=== PATIENT | male | born 1950 | race Caucasian/White ===

== ENCOUNTER 2022-07-12 17:09 | Emergency (ER) | payer SELFPAY ==
--- NOTE | ~2022-07-12 | CT_ITS ---
EXAMINATION: CT HEAD WITHOUT CONTRAST CLINICAL INFORMATION: New onset seizure. COMPARISON: None. TECHNIQUE: Contiguous axial imaging was performed from the skull base to vertex without intravenous administration of contrast. This CT examination was performed using dose optimization techniques as appropriate, variously including the following: *Automated exposure control *Adjustment of mA and/or kV according to patient size (this includes techniques or standardized protocols for targeted exams where dose is matched to indication/reason for exam; i.e. extremities or head) *Use of iterative reconstruction technique DLP: 578 mGy-cm FINDINGS: There is no evidence of acute intracranial hemorrhage or edematous territorial infarction. A few foci of hypoattenuation in the periventricular and deep white matter are consistent with mild microangiopathy. Negron-white matter differentiation is preserved. Proportional prominence of the ventricles and sulcal spaces. No evidence for obstructive hydrocephalus. No abnormal mass effect or midline shift. No extra-axial fluid collections. No acute soft tissue or osseous abnormalities. The mastoid air cells and paranasal sinuses are clear. There is opacification of the left greater than right external auditory canals. CT/CT head/brain wo IV con IMPRESSION: 1. No evidence of acute intracranial hemorrhage or edematous territorial infarction. 2. Mild chronic microangiopathy and generalized cerebral volume loss. 3. Opacification of the external auditory canals, likely related with cerumen. Correlate with physical examination.
--- NOTE | 2022-07-12 17:21 | ED.OVERDOSE ---
HPI - Overdose General Chief Complaint: Overdose Stated Complaint: Unresponsive, Narcan Given Time Seen by Provider: 07/12/22 17:19 Source: family and EMS Mode of arrival: EMS History of Present Illness HPI Narrative: Patient is 71 years old with history of dementia brought by EMS for unresponsive episode pulse ox in 70s, thought to be overdose given Narcan with response. According to patient's son phone number [phone] patient has severe dementia does not talk much was doing okay all day today went to bathroom came out and body got stiff with ice up rolled and started having shaking episode denies possibility of any substance abuse. No head injury no history of similar episode in the past. Related Data Allergies Allergy/AdvReac Type Severity Reaction Status Date / Time aspirin [Aspirin] AdvReac Unknown UPSET Unverified 06/19/20 16:40 STOMACH Review of Systems Review of Systems: Limited HPI secondary dementia Yes Unobtainable due to mental status Physical Exam Vital Signs: Vital Signs: Last Vital Signs Temp 97.7 F 07/12/22 17:33 Pulse 90 07/12/22 17:33 Resp 16 07/12/22 17:33 BP 138/81 07/12/22 17:33 Pulse Ox 96 07/12/22 17:33 O2 Del Method 07/12/22 17:33 O2 Flow Rate 2 07/12/22 17:33 BMI result Body Mass Index 23.4 MDM - Overdose MDM Narrative Medical decision making narrative: Case discussed with patient's son phone number [phone]: Patient lab workup showed urine drug screen positive for fentanyl and opiates. On further discussion son told that patient went outside with his friends at a bar an hour prior to this episode when he came back he went to bathroom and came out on the bathroom was looking pale shallow breath and passed out pulse ox was 70% on EMS arrival. Patient's symptoms improved after Narcan. At this time patient is back to normal talking to his son will discharge patient home Differential Diagnosis Differential diagnosis: Likely poisoning by opiate or related narcotic and drug overdose Lab Data Attestation: I reviewed the patient's lab results. Result diagrams: 07/12/22 18:55 07/12/22 18:55 Labs: Lab Results 07/12/22 07/12/22 07/12/22 Range/Units 18:55 18:55 18:56 WBC 11.2 H (4.8-10.8) X10*3/uL RBC 4.92 (4.60-5.80) X10*6/uL Hgb 15.0 (14.0-18.0) g/dl Hct 45.5 (42.0-52.0) % MCV 92.5 (80.0-98.0) fL MCH 30.5 (27.0-33.0) pg MCHC 33.0 (31.0-36.0) g/dl RDW 13.2 (11.0-16.0) % Plt Count 160 (160-400) X10*3/uL MPV 10.5 (9.4-12.4) fL Immature Gran % (Auto) 0.4 (0.0-0.4) % Neut % (Auto) 86.3 H (45-73) % Lymph % (Auto) 6.3 L (20-40) % [place] % (Auto) 6.8 (2-11) % Eos % (Auto) 0.0 (0-4) % Baso % (Auto) 0.2 (0-2) % Lymph # (Auto) 0.7 L (1.2-4.9) X10*3/uL [place] # (Auto) 0.8 (0.1-1.2) X10*3/uL Eos # (Auto) 0.0 (0.0-0.4) X10*3/uL Baso # (Auto) 0.0 (0.0-0.2) X10*3/uL Abs Immat Gran (auto) 0.04 H (0.00-0.03) X10*3/uL Absolute Neuts (auto) 9.7 H (2.0-8.3) x10*3/uL Absolute Nucleated RBC 0.000 (0.0-0.012) X10*3/uL Nucleated RBC % (auto) 0.0 (0.0-0.2) /100WBC Sodium 140 (135-145) mmol/L Potassium 3.4 (3.3-5.1) mmol/L Chloride 101 (96-108) mmol/L Carbon Dioxide 26 (22-29) mmol/L Anion Gap 16 (12-20) BUN 6 L (9-16) mg/dL Creatinine 0.81 (0.5-1.4) mg/dL Estim Creat Clear Calc 79.7 Estimated GFR > 60 Random Glucose 128 H (60-115) mg/dL Calcium 8.2 L (8.4-10.2) mg/dL Magnesium 2.2 (1.6-2.6) mg/dL Total Bilirubin 1.1 H (0.0-1.0) mg/dL AST 24 (5-37) U/L ALT 18 (0-40) U/L Alkaline Phosphatase 67 (39-117) U/L Total Protein 5.8 L (6.5-8.0) g/dL Albumin 3.5 (3.5-5.0) g/dL Urine Color Urine Appearance Urine pH (5.0-9.0) Ur Specific [place] (1.005-1.025) Urine Protein (Neg-Trace) mg/dL Urine Glucose (UA) (Negative) mg/dL Urine Ketones (Negative) mg/dL Urine Blood (Negative) Urine Nitrite (Negative) Ur Leukocyte Esterase (Negative) Urine Opiates Screen (Not Detect) Urine Fentanyl Screen (Not Detect) Ur Barbiturates Screen (Not Detect) Ur Phencyclidine Scrn (Not Detect) Ur Amphetamines Screen (Not Detect) U Benzodiazepines Scrn (Not Detect) Urine Cocaine Screen (Not Detect) U Marijuana (THC) Screen (Not Detect) Ethyl Alcohol < 10 mg/dL COVID-19 (ANNETTE) Negative (Negative) COVID-19 Clin Com See Note 07/12/22 07/12/22 Range/Units 21:32 21:32 WBC (4.8-10.8) X10*3/uL RBC (4.60-5.80) X10*6/uL Hgb (14.0-18.0) g/dl Hct (42.0-52.0) % MCV (80.0-98.0) fL MCH (27.0-33.0) pg MCHC (31.0-36.0) g/dl RDW (11.0-16.0) % Plt Count (160-400) X10*3/uL MPV (9.4-12.4) fL Immature Gran % (Auto) (0.0-0.4) % Neut % (Auto) (45-73) % Lymph % (Auto) (20-40) % [place] % (Auto) (2-11) % Eos % (Auto) (0-4) % Baso % (Auto) (0-2) % Lymph # (Auto) (1.2-4.9) X10*3/uL [place] # (Auto) (0.1-1.2) X10*3/uL Eos # (Auto) (0.0-0.4) X10*3/uL Baso # (Auto) (0.0-0.2) X10*3/uL Abs Immat Gran (auto) (0.00-0.03) X10*3/uL Absolute Neuts (auto) (2.0-8.3) x10*3/uL Absolute Nucleated RBC (0.0-0.012) X10*3/uL Nucleated RBC % (auto) (0.0-0.2) /100WBC Sodium (135-145) mmol/L Potassium (3.3-5.1) mmol/L Chloride (96-108) mmol/L Carbon Dioxide (22-29) mmol/L Anion Gap (12-20) BUN (9-16) mg/dL Creatinine (0.5-1.4) mg/dL Estim Creat Clear Calc Estimated GFR Random Glucose (60-115) mg/dL Calcium (8.4-10.2) mg/dL Magnesium (1.6-2.6) mg/dL Total Bilirubin (0.0-1.0) mg/dL AST (5-37) U/L ALT (0-40) U/L Alkaline Phosphatase (39-117) U/L Total Protein (6.5-8.0) g/dL Albumin (3.5-5.0) g/dL Urine Color Yellow Urine Appearance Clear Urine pH 5.5 (5.0-9.0) Ur Specific [place] 1.025 (1.005-1.025) Urine Protein Negative (Neg-Trace) mg/dL Urine Glucose (UA) Negative (Negative) mg/dL Urine Ketones 40 (Negative) mg/dL Urine Blood Negative (Negative) Urine Nitrite Negative (Negative) Ur Leukocyte Esterase Negative (Negative) Urine Opiates Screen POSITIVE H (Not Detect) Urine Fentanyl Screen POSITIVE H (Not Detect) Ur Barbiturates Screen Not Detected (Not Detect) Ur Phencyclidine Scrn Not Detected (Not Detect) Ur Amphetamines Screen Not Detected (Not Detect) U Benzodiazepines Scrn Not Detected (Not Detect) Urine Cocaine Screen Not Detected (Not Detect) U Marijuana (THC) Screen Not Detected (Not Detect) Ethyl Alcohol mg/dL COVID-19 (ANNETTE) (Negative) COVID-19 Clin Com ECG Data Attestation: I personally reviewed and interpreted this ECG as follows: Interpretation: Normal sinus rhythm heart rate 88 beats per minute baseline abnormality no acute ST changes no acute ischemia Discharge Plan Discharge Clinical Impression: Drug overdose Patient Disposition: Home, Self-Care Instructions: Opioid Use Disorder (ED) Additional Instructions: Your urine drug screen was positive for opiates and fentanyl Do not use drugs Follow with PCP if any concerns
[2022-07-12 17:23] VITALS: BP 132/72; PULSE 105; O2SAT 96
[2022-07-12 17:25] VITALS: PULSE 90; RESP 16; TEMP 36.5; O2SAT 93; BMI 23.4
[2022-07-12 17:33] VITALS: BP 138/81; PULSE 90; RESP 16; TEMP 36.5; O2SAT 96
--- NOTE | 2022-07-12 17:34 | PC.NURSE ---
Patient alert, eyes open, only answering questions but says he doesn't know. Vitals stable, came in shaking, [employer] to bedside for eval.
--- NOTE | 2022-07-12 18:39 | HO.SUDE ---
SUDE Patient is a 71 year old Venezuelan speaking male who presented to [facility] ED via EMS after being found unresponsive and given narcan. Patient was awake and alert when this health underwriter approached. Patient requested a warm blanket for his feet which was provided. When asked what happened before he got here, patient responded I don't know. Patient continued to respond I don't know to all subsequent questions. This health underwriter will meet with patient again prior to discharge to offer support. Encouraged patient to inform staff if he needed anything.
[2022-07-12 19:03] LABS: MANUAL DIFF FLAG NO
[2022-07-12 19:05] LABS: Basophils Percent Auto 0.2 % (0-2); Hematocrit 45.5 % (42.0-52.0); Imm Gran Abs Auto 0.04 X10*3/uL (0.00-0.03); Imm Gran Pct Auto 0.4 % (0.0-0.4); Lymphocytes Absolute Auto 0.7 X10*3/uL (1.2-4.9); Lymphocytes Percent Auto 6.3 % (20-40); Mean Corpuscular Hemoglobin 30.5 pg (27.0-33.0); Mean Corpuscular Volume 92.5 fL (80.0-98.0); Mean Platelet Volume 10.5 fL (9.4-12.4); Monocytes Absolute Auto 0.8 X10*3/uL (0.1-1.2); Monocytes Percent Auto 6.8 % (2-11); Neutrophils Absolute Auto 9.7 x10*3/uL (2.0-8.3); Neutrophils Percent Auto 86.3 % (45-73); Platelet Count 160 X10*3/uL (160-400); Red Blood Count 4.92 X10*6/uL (4.60-5.80); Red Cell Distribution Width 13.2 % (11.0-16.0); White Blood Count 11.2 X10*3/uL (4.8-10.8)
[2022-07-12 19:20] LABS: COVID-19 Test Negative (Negative)
[2022-07-12 19:25] LABS: Alanine Aminotransferase 18 U/L (0-40); Albumin Level 3.5 g/dL (3.5-5.0); Alkaline Phosphatase 67 U/L (39-117); Anion Gap 16 (12-20); Aspartate Amino Transferase 24 U/L (5-37); Bilirubin Total 1.1 mg/dL (0.0-1.0); Blood Urea Nitrogen 6 mg/dL (9-16); Calcium 8.2 mg/dL (8.4-10.2); Carbon Dioxide 26 mmol/L (22-29); Chloride 101 mmol/L (96-108); Creatinine Clr Calc Pharmacy 79.7; Estimated Glomerular Filt Rate > 60; Ethanol < 10 mg/dL; Glucose Random 128 mg/dL (60-115); Magnesium 2.2 mg/dL (1.6-2.6); Potassium 3.4 mmol/L (3.3-5.1); Sodium 140 mmol/L (135-145); Total Protein 5.8 g/dL (6.5-8.0)
--- NOTE | 2022-07-12 19:45 | ECG_ITS ---
Test Reason : OD Blood Pressure : / mmHG Vent. Rate : 000 BPM Atrial Rate : 000 BPM P-R Int : 000 ms QRS Dur : 000 ms QT Int : 000 ms P-R-T Axes : 000 000 000 degrees QTc Int : 000 ms No QRS complexes found, no ECG analysis possible When compared with ECG of 29-MAR-2017 21:11, Current undetermined rhythm precludes rhythm comparison, needs review Referred By: Oli Forbes Electronically Signed By:
[2022-07-12 22:07] LABS: Amphetamine Screen Urine Not Detected (Not Detect); Barbiturates, Urine Not Detected (Not Detect); Benzodiazepines Screen Urine Not Detected (Not Detect); Cannabinoid Screen Urine Not Detected (Not Detect); Cocaine Screen Urine Not Detected (Not Detect); Fentanyl, urine POSITIVE (Not Detect); Opiate Screen Urine POSITIVE (Not Detect); Phencyclidine Screen Urine Not Detected (Not Detect)
[2022-07-12 23:18] LABS: Appearance Urine Clear; Color Urine Yellow; Glucose Urine UA Negative (Negative); Leukocyte Esterase Urine Negative (Negative); Nitrite Urine Negative (Negative); PH 5.5 (5.0-9.0); Specific Gravity - Urine 1.025 (1.005-1.025); Urine Blood Negative (Negative); Urine Ketones 40 mg/dL (Negative); Urine Protein Negative (Neg-Trace)
[2022-07-12 23:27] VITALS: BP 128/76; PULSE 87; RESP 16; TEMP 36.7; O2SAT 99
== END 2022-07-12 23:28 | disposition home or self-care (01) ==
LOC: HO.ED 23:26
PROVIDERS: Emergency Provider Internal Medicine
DX: T40.2X1A Poisoning by other opioids, accidental (unintentional), initial encounter (principal); T40.411A Poisoning by fentanyl or fentanyl analogs, accidental (unintentional), initial encounter; R40.4 Transient alteration of awareness; Y92.039 Unspecified place in apartment as the place of occurrence of the external cause; F03.90 Unspecified dementia, unspecified severity, without behavioral disturbance, psychotic disturbance, mood disturbance, and anxiety; Z20.822 Contact with and (suspected) exposure to COVID-19
CPT/HCPCS: 70450; 80053; 80307; 81003; 82077; 83735; 85025; 87635; 93005; 99284; 99285

== ENCOUNTER 2024-10-28 12:52 | Inpatient (IN) | payer SELFPAY ==
--- NOTE | ~2024-10-28 | CT_ITS ---
CLINICAL HISTORY: ? rll infiltrate sp seizure CT chest without contrast Comparison: CR - XR CHEST 1V - 10/28/24 13:32 EST Findings: The heart is normal size. Mild coronary artery calcification. The visualized thyroid and mediastinum are unremarkable. There is extensive bronchiolar inflammation within the right lung and there is an area of bronchiolar inflammation within the posterior aspect of the left upper lobe. No consolidation or pleural effusion. The visualized upper abdomen is unremarkable. There are thoracic spine electrodes. No acute fracture. IMPRESSION: Bronchiolar inflammation within the bilateral lungs, right much more pronounced than left. This document has been electronically signed by: Disha Falcon MD on 10/28/2024 18:49:45
--- NOTE | ~2024-10-28 | US_ITS ---
CLINICAL HISTORY: New onset seizure, elevated LFTs. US abdomen limited Comparison: CT/SR - CT CHEST WO IV CON - 10/28/24 17:[address]/NH/SR - ABD PELV W IV CON ONLY [id number] - 02/21/17 21:39 EDT Findings: Limited delineation of pancreatic parenchyma. Pancreatic volume loss is present. There are tiny echogenic foci within the distal body of the pancreas with no correlate on CT, most likely artifact. Visualized IVC is unremarkable. There was limited delineation of liver parenchyma. No obvious focal abnormality. The common bile duct was not visualized. Gallbladder was not visualized. The main portal vein is nonvisualized. Right kidney length estimated at 8 cm. No hydronephrosis. Tiny echogenic foci noted within the mid and inferior aspect of the left kidney. These may be artifactual or could represent nonobstructive calculi. No ascites. IMPRESSION: Markedly limited evaluation as above. No obvious acute abnormality. This document has been electronically signed by: Disha Falcon MD on 10/28/2024 17:48:01
--- NOTE | ~2024-10-28 | XR_ITS ---
CLINICAL HISTORY: New onset seizure 1 view chest x-ray Comparison: CR - CHEST 1 VIEW [id number] - 03/29/17 21:43 EDT Findings: Mild prominence of interstitial markings within the right lung. No consolidative process. Heart size is normal. There is a chronic healed fracture of the left clavicle. There is no acute displaced fracture. There are thoracic spine electrodes. IMPRESSION: Mild prominence of interstitial markings within the right lung. An interstitial infiltrate is not excluded. This document has been electronically signed by: Disha Falcon MD on 10/28/2024 14:36:28
--- NOTE | ~2024-10-28 | CT_ITS ---
CLINICAL HISTORY: New onset seizure CT head without contrast Comparison: CT/NC/SR - CT HEAD/BRAIN WO IV CON - 07/12/22 20:22 EDT Findings: Involutional change and nonspecific white matter hypodensity. No intracranial mass, midline shift, hydrocephalus, or acute hemorrhage. Orbits, paranasal sinuses, and mastoid air cells are unremarkable. No skull fracture. Lipoma incidentally noted within the scalp in the left parietal region, without change Impression: 1. No acute findings This document has been electronically signed by: Disha Falcon MD on 10/28/2024 15:09:58
--- NOTE | 2024-10-28 13:15 | ECG_ITS ---
Test Reason : seizures Blood Pressure : */* mmHG Vent. Rate : 63 BPM Atrial Rate : 63 BPM P-R Int : 148 ms QRS Dur : 92 ms QT Int : 420 ms P-R-T Axes : 46 -68 68 degrees QTcB Int : 430 ms Normal sinus rhythm with sinus arrhythmia Left axis deviation Abnormal ECG When compared with ECG of 12-Jul-2022 20:26, No significant changes seen Referred By: Dilia Myrick Electronically Signed By: MERRILL RAZA
[2024-10-28 13:25] VITALS: BP 105/61; BP 107/60; PULSE 77; PULSE 98; RESP 18; TEMP 36.1; O2SAT 99; BMI 20.5
--- NOTE | 2024-10-28 13:26 | ED.SEIZURE ---
HPI - Seizure General Chief Complaint: Seizure Stated Complaint: WIT SZ,NO SZ HX PER EMS Time Seen by Provider: 10/28/24 13:15 Source: patient, family (Son at phone [phone].), EMS and old records reviewed Mode of arrival: EMS Limitations: no limitations History of Present Illness ED Provider: DR. Myrick HPI Narrative: This is a 73-year-old male with history of dementia who lives home with his son mostly independently needs assistance in his daily activity was brought in by EMS for questionable seizure was witnessed by his son this morning, patient normally is none historian secondary to dementia has been cared by his son for the past 20 years, who assist the patient to do most of the daily activity himself. Noticed by his son today that the patient was not responding and have whole body shakiness, stiffness, and rolled his eyes up for few minutes while patient was on bed no reported fall off bed or head injury or trauma, son declined any possibility of using recreational drugs or drinking alcohol. No witnessed head injury. Patient had previous ED visit on 07/12/2022 with similar presentation and was diagnosed with substance abuse. History was obtained from son Shahzad who who also stated that he is his healthcare proxy confirmed that the patient is DNR/DNI. Related Data Allergies Allergy/AdvReac Type Severity Reaction Status Date / Time aspirin [Aspirin] AdvReac Unknown UPSET Verified 10/28/24 13:30 STOMACH Review of Systems Review of Systems: Yes Unobtainable due to mental condition (Chronic dementia) [facility] Past Medical History Medical History WILBUR (acute kidney injury) Social History Social History Advance Directives: No Advance Directives Information Provided: No Do you have a plan to hurt others: No Plan Physical Exam Vital Signs: Vital Signs: Last Vital Signs Temp 97.9 F 10/28/24 17:08 Pulse 84 10/28/24 17:08 Resp 16 10/28/24 17:08 BP 97/53 L 10/28/24 17:08 Pulse Ox 98 10/28/24 17:08 O2 Del Method Room Air 10/28/24 17:08 O2 Flow Rate 15 10/28/24 13:46 BMI result Body Mass Index 20.5 Vital signs have been reviewed and appear to be correct. Blood pressure elevated. Heart rate normal. Respiratory rate normal. Temperature normal. Oxygen saturation normal. Appearance: Alert. Nonverbal, No acute distress. Head: Normal external exam. Normocephalic. Atraumatic. No Davidson signs noted. No raccoon eyes noted Eyes: PERRLA. EOMI. Conjunctiva and sclera normal. Eyelids normal. ENT: TM's Normal. Pharynx normal. Uvula midline. Moist mucous membranes. No trismus noted. No drooling noted. No muffled voice noted. Neck: Normal inspection. Neck supple. FROM. No adenopathy. Thyroid Normal. No meningeal signs. No neck mass noted. CVS: Normal heart rate and rhythm. Heart sound normal. No murmurs noted. Pulses normal throughout. Respiratory: No respiratory distress. Painless inspiration. Breath sounds normal. No wheezes/rales/rhonchi noted. Chest nontender. No accessory muscle usage noted or decreased air movement noted. Abdomen: Soft and nontender. Bowel sounds normal in all 4 quadrants. No distention noted. No organomegaly noted. No visible injury noted. Back: No CVA tenderness. Full range of motion noted. Skin: Skin warm and dry. Normal skin color. Normal skin turgor. No rashes/lesions/lacerations noted. Extremities: No lower extremity edema. Extremities exhibit normal range of motion. Extremities nontender. Neuro: Limited due to patient is not cooperative. Cranial nerve exam: II-XII are grossly intact No motor deficit. No sensory deficit. Reflexes normal. Course Reevaluation(s) Reevaluation #1: Patient was witnessed by ED staff for few minutes of generalized seizure with postictal status patient was given 2 mg of Ativan and loaded with Keppra in the ED. Time: 14:09 Reevaluation #2: New onset seizure, patient was loaded with Keppra IV in the ED, neuro exam is limited secondary to dementia. Will admit the patient for workup of new onset seizure. Time: 15:39 Reevaluation #3: LFTs elevation with unremarkable but limited hepatobiliary ultrasound. Time: 17:58 Medications Administered Generic Name Dose Route Start Last Admin Trade Name Freq PRN Reason Stop Dose Admin Sodium Chloride 1,000 mls @ 999 mls/hr 10/28/24 17:00 10/28/24 17:08 Ns IV 10/28/24 18:00 999 mls/hr .Q1H1M WALKER Administration Discontinued Medications Generic Name Dose Route Start Last Admin Trade Name Freq PRN Reason Stop Dose Admin Levetiracetam 1,000 mg in 100 mls @ 400 mls/hr 10/28/24 13:44 10/28/24 15:00 Keppra IV 10/28/24 13:58 Infused ONCE ONE Infusion Lorazepam 2 mg 10/28/24 13:44 10/28/24 13:46 Lorazepam 2 Mg/Ml Vial IVPUSH 10/28/24 13:45 2 mg ONCE ONE Administration Medical Decision Making Differential Diagnosis Differential Diagnoses: The differential diagnosis associated with the presentation includes (Intracranial bleed, new onset seizure, electrolyte derangement, severe anemia, substance abuse.) Admission/Observation Consideration of admission/observation: Escalation of care including admission/observation considered Consult Healthcare Provider Management of the patient was discussed with: Hospitalist (Dr. Payne) Lab Data MDM Lab Attestation statement: I reviewed the patient's lab results. 10/28/24 15:31 10/28/24 15:31 Labs: Lab Results 10/28/24 Range/Units 15:31 WBC 11.7 H (4.8-10.8) X10*3/uL RBC 6.11 H D (4.60-5.80) X10*6/uL Hgb 16.8 (14.0-18.0) g/dl Hct 49.7 (42.0-52.0) % MCV 81.3 (80.0-98.0) fL MCH 27.5 (27.0-33.0) pg MCHC 33.8 (31.0-36.0) g/dl RDW 15.3 (11.0-16.0) % Plt Count 224 D (160-400) X10*3/uL MPV 10.9 (9.4-12.4) fL Immature Gran % (Auto) 0.7 H (0.0-0.4) % Neut % (Auto) 87.4 H (45-73) % Lymph % (Auto) 7.5 L (20-40) % [place] % (Auto) 3.9 (2-11) % Eos % (Auto) 0.2 (0-4) % Baso % (Auto) 0.3 (0-2) % Lymph # (Auto) 0.9 L (1.2-4.9) X10*3/uL [place] # (Auto) 0.5 (0.1-1.2) X10*3/uL Eos # (Auto) 0.0 (0.0-0.4) X10*3/uL Baso # (Auto) 0.0 (0.0-0.2) X10*3/uL Abs Immat Gran (auto) 0.08 H (0.00-0.03) X10*3/uL Absolute Neuts (auto) 10.2 H (2.0-8.3) x10*3/uL Absolute Nucleated RBC 0.000 (0.0-0.012) X10*3/uL Nucleated RBC % (auto) 0.0 (0.0-0.2) /100WBC PT 13.0 H (10.9-12.4) SEC INR 1.1 (0.9-1.1) Sodium 139 (135-145) mmol/L Potassium 3.4 (3.3-5.1) mmol/L Chloride 97 (96-108) mmol/L Carbon Dioxide 30 H (22-29) mmol/L Anion Gap 15 (12-20) BUN 11 (9-16) mg/dL Creatinine 1.46 H (0.5-1.4) mg/dL Estim Creat Clear Calc 35.0 Estimated GFR 47 Random Glucose 109 (60-115) mg/dL Calcium 9.0 D (8.4-10.2) mg/dL Total Bilirubin 2.3 H (0.0-1.0) mg/dL Direct Bilirubin 0.8 H (0.0-0.5) mg/dL AST 17 (5-37) U/L ALT < 6 (0-40) U/L Alkaline Phosphatase 57 (39-117) U/L Troponin I High Sens 4.7 (<3.5-35.0) ng/L B-Natriuretic Peptide 26 (<100) pg/mL Total Protein 6.6 (6.5-8.0) g/dL Albumin 3.3 L (3.5-5.0) g/dL Lipase 10 (8-78) U/L Ethyl Alcohol < 10 mg/dL Influenza Type A (PCR) NEGATIVE (Negative) Influenza Type B (PCR) NEGATIVE (Negative) RSV RNA Qual (PCR) NEGATIVE (Negative) SARS-CoV-2 RNA (RT-PCR) NEGATIVE (Negative) Independent Interpretation I performed an independent interpretation of an: Plain X-Ray (Chest:Mild prominence of interstitial markings within the right lung. An interstitial infiltrate is not excluded.) and CT Scan (Head: No acute intra cranial pathology.) Radiology Impression Discussion of test interpretation with radiology: I have reviewed the radiologist's reading. Discharge Plan Discharge Clinical Impression: New onset seizure, Elevated liver enzymes Patient Disposition: Admitted As Inpatient
[2024-10-28 13:46] VITALS: BP 160/70; PULSE 79; RESP 20; O2SAT 100
[2024-10-28] MEDS: LORazepam 2 MG/ML VIAL IVPUSH (13:46)
--- NOTE | 2024-10-28 13:46 | PC.NURSE ---
patient had witnessed aprox 1 min long seizure, placed on non rebreather 15L, satting 100%. patient given 2mg IV ativan. patient stopped seizing. resp even and unlabored
[2024-10-28] MEDS: levETIRAcetam in NaCl (iso-os) 1,000 MG/100 ML PIGGYBACK 400 MG IV (13:49)
[2024-10-28 14:50] VITALS: BP 102/69; PULSE 89; RESP 18; TEMP 36.4; O2SAT 97
[2024-10-28 15:35] LABS: MANUAL DIFF FLAG NO
[2024-10-28 15:37] LABS: Basophils Percent Auto 0.3 % (0-2); Eosinophils Percent Auto 0.2 % (0-4); Hematocrit 49.7 % (42.0-52.0); Hemoglobin 16.8 g/dl (14.0-18.0); Imm Gran Abs Auto 0.08 X10*3/uL (0.00-0.03); Imm Gran Pct Auto 0.7 % (0.0-0.4); Lymphocytes Absolute Auto 0.9 X10*3/uL (1.2-4.9); Lymphocytes Percent Auto 7.5 % (20-40); Mean Corpuscular HGB Conc 33.8 g/dl (31.0-36.0); Mean Corpuscular Hemoglobin 27.5 pg (27.0-33.0); Mean Corpuscular Volume 81.3 fL (80.0-98.0); Mean Platelet Volume 10.9 fL (9.4-12.4); Monocytes Absolute Auto 0.5 X10*3/uL (0.1-1.2); Monocytes Percent Auto 3.9 % (2-11); Neutrophils Absolute Auto 10.2 x10*3/uL (2.0-8.3); Neutrophils Percent Auto 87.4 % (45-73); Platelet Count 224 X10*3/uL (160-400); Red Blood Count 6.11 X10*6/uL (4.60-5.80); Red Cell Distribution Width 15.3 % (11.0-16.0); White Blood Count 11.7 X10*3/uL (4.8-10.8)
[2024-10-28 15:39] VITALS: BP 94/59; PULSE 71; RESP 16; TEMP 36.4; O2SAT 98
[2024-10-28 15:47] LABS: INTERNATIONAL NORM RATIO 1.1 (0.9-1.1)
[2024-10-28 15:52] LABS: Ethanol < 10 mg/dL
[2024-10-28 15:54] LABS: Alanine Aminotransferase < 6 U/L (0-40); Albumin Level 3.3 g/dL (3.5-5.0); Alkaline Phosphatase 57 U/L (39-117); Anion Gap 15 (12-20); Aspartate Amino Transferase 17 U/L (5-37); Bilirubin Direct 0.8 mg/dL (0.0-0.5); Bilirubin Total 2.3 mg/dL (0.0-1.0); Blood Urea Nitrogen 11 mg/dL (9-16); Carbon Dioxide 30 mmol/L (22-29); Chloride 97 mmol/L (96-108); Estimated Glomerular Filt Rate 47; Glucose Random 109 mg/dL (60-115); Lipase 10 U/L (8-78); Potassium 3.4 mmol/L (3.3-5.1); Sodium 139 mmol/L (135-145); Total Protein 6.6 g/dL (6.5-8.0)
[2024-10-28 15:57] LABS: B Type Natriuretic Peptide 26 pg/mL (<100)
[2024-10-28 15:58] LABS: Troponin-I High Sensitivity 4.7 ng/L (<3.5-35.0)
[2024-10-28 16:13] LABS: Influenza A PCR NEGATIVE (Negative); Influenza B PCR NEGATIVE (Negative); Resp Syncy Virus RNA Qual PCR NEGATIVE (Negative); SARS COV2 PCR INHOUSE NEGATIVE (Negative)
--- NOTE | 2024-10-28 16:59 | P.HPHOSP_ITS ---
History of Present Illness Date of Service: 10/28/24 Attending physician on admission: Matt Payne Chief Complaint: New onset seizure I was asked to evaluate this patient in the emergency department for admission into the hospital. Patient has known history of dementia according to nursing staff this is what family reported. Patient comes in today with what family describes as a 2-3 minute seizure. Patient does not have history of this in the past. ED physician states that family denies drug use or alcohol use and family insists that patient does not have a history of seizures. Patient is awake however not oriented to person, place, time or situation. According to nursing staff family states that this is patient's baseline. Unable to obtain accurate history or review of systems due to patient's mental status Review of Systems 2 Review of Systems: Yes all other systems are reviewed and are negative [facility] Medical History WILBUR (acute kidney injury) Social History Advance Directives: No Advance Directives Information Provided: No Do you have a plan to hurt others: No Plan Meds Allergies Allergy/AdvReac Type Severity Reaction Status Date / Time aspirin [Aspirin] AdvReac Unknown UPSET Verified 10/28/24 13:30 STOMACH Physical Exam 2 Vital Signs and Narrative: Vital Signs: Last Vital Signs Temp 97.5 F 10/28/24 15:39 Pulse 71 10/28/24 15:39 Resp 16 10/28/24 15:39 BP 94/59 L 10/28/24 15:39 Pulse Ox 98 10/28/24 15:39 O2 Del Method Room Air 10/28/24 15:39 O2 Flow Rate 15 10/28/24 13:46 BMI result Body Mass Index 20.5 Appearance: Alert.? Oriented X0.? No acute distress.? Head: Normocephalic, atraumatic, no step-offs or deformities Eyes: Pupils equal, round and reactive to light.? CVS: Normal heart rate and rhythm.? Pulses normal.? Respiratory: No respiratory distress.? Breath sounds normal.? Abdomen: Soft and nontender.? Skin: Skin warm and dry.? Normal skin color.? Normal skin turgor.? Extremities: No lower extremity edema.? No calf ttp. Global weaknes Back: No midline tenderness, no C-spine tenderness, full range of motion, no CVA tenderness bilaterally Neuro: Oriented X0.? No motor deficit.? No sensory deficit Results Labs 10/28/24 15:31 10/28/24 15:31 Labs: Laboratory Results - last 24 hr 10/28/24 15:31 MCV 81.3 MCH 27.5 MCHC 33.8 RDW 15.3 Plt Count 224 D MPV 10.9 Immature Gran % (Auto) 0.7 H Neut % (Auto) 87.4 H Lymph % (Auto) 7.5 L [place] % (Auto) 3.9 Eos % (Auto) 0.2 Baso % (Auto) 0.3 Lymph # (Auto) 0.9 L [place] # (Auto) 0.5 Eos # (Auto) 0.0 Baso # (Auto) 0.0 Abs Immat Gran (auto) 0.08 H Absolute Neuts (auto) 10.2 H Absolute Nucleated RBC 0.000 Nucleated RBC % (auto) 0.0 PT 13.0 H INR 1.1 Anion Gap 15 Estim Creat Clear Calc 35.0 Estimated GFR 47 Random Glucose 109 Calcium 9.0 D Total Bilirubin 2.3 H Direct Bilirubin 0.8 H AST 17 ALT < 6 Alkaline Phosphatase 57 Troponin I High Sens 4.7 B-Natriuretic Peptide 26 Total Protein 6.6 Albumin 3.3 L Lipase 10 Ethyl Alcohol < 10 Influenza Type A (PCR) NEGATIVE Influenza Type B (PCR) NEGATIVE RSV RNA Qual (PCR) NEGATIVE SARS-CoV-2 RNA (RT-PCR) NEGATIVE Assessment and Plan (1) New onset seizure: Status: Acute (2) WILBUR (acute kidney injury): Status: Acute (3) Hyperbilirubinemia: Status: Acute (4) Substance use: Status: Acute Plan 73-year-old male presents with new onset seizures had an episode of tonic-clonic movement as described by family prior to arrival to the emergency department then had 1 episode while in the emergency department he was treated with a g of Keppra and 2 mg of Ativan. Patient without seizure history in the past. He is awake but not verbal and not able to provide me with hx ( this is patients baseline per nursing) His workup in the emergency department showed a leukocytosis with left shift this is likely reactive secondary to seizure. Chemistry with mild elevation in carbon dioxide. BUN 11 and creatinine 1.43 this is deviating from his baseline, I ordered IV fluids for this. Total bilirubin 2.3 no complaints of abdominal pain. Abdominal imaging with ultrasound ordered and pending at this time. Coags unremarkable. Ethanol negative. Flu, COVID, RSV negative. CT of head without contrast was done no acute findings. Chest x-ray also done mild prominence of interstitial markings within the right lung can not exclude interstitial infiltrate. Dry CT chest ordered at this time. An abdominal ultrasound was also ordered by ED attending and pending. Urine toxicology and UA pending. Per patients son Shahzad patient is not on any meds and hasn't seen a doctor in a while. He is uninsured. He has been living with his father for the past 20 years and he is his caregiver. No sick contacts at home. No recent falls or trauma. Patient typically gets around w/ sons assistance and with a cane at baseline. Only reason he had his father come in today is because it looked like he was having a seizure while sitting in his chair arms and legs were moving and he was staring out the window . #New onset seizure - Keppra 1,000mg ordered for tomorrow AM 0900 - Neuro consult ordered for new onset seizures (would appreciate input) -Ativan 2mg IV PRN for seizure - No driving until 6 months seizure free per [place] state law -Keep NPO for tonight AMS and new seizures #WILBUR - Likely elevated creatinine 1.46 due to poor po intake/dehydration ( 1.46 on 10/28). Will hydrate and repeat CMP in am #Hyperbilirubinemia - Bili 2.3 on 10/28 no abd ttp on exam. US abd ordered and pending - ? Gillberts disease - Hepatitis panel ordered and pending #Substance use disorder -Historic no recent use per family - Not a barrier to care #COPD - No respiratory complaints - Not on maintence meds -Monitor # Hx of alcohol use disorder - Has not had a drink in over a year per son - No signs of w/drawl #Dementia -Per chart review and nursing report patient is at his baseline A&O X 0 ( son confirmed this) #Poor medical care -Not routinely followed by PCP Code status: DNR/DNI (per patients son) DVTP: Lovenox 40 mg Q 24 H Quality Stroke Does the patient have a stroke diagnosis?: No VTE Prior VTE?: No VTE Risk Level:: Medical - moderate - high VTE Device Contraindication: Treatment Not Indicated VTE Drug Contraindication: N/A - Med Ordered
[2024-10-28 17:08] VITALS: BP 97/53; PULSE 84; RESP 16; TEMP 36.6; O2SAT 98
[2024-10-28] MEDS: 0.9 % Sodium Chloride 1,000 ML 999 ML IV ×2 (17:08→17:59)
[2024-10-28] MEDS: Enoxaparin Sodium 40 MG/0.4 ML SYRINGE SUBCUT (18:32)
--- NOTE | 2024-10-28 18:34 | PHA.MEDREC ---
Pharmacy Consult ? Medication Reconciliation Pharmacy has completed the medication reconciliation. Spoke to patient's son Shahzad ([phone]) who told me he only takes melatonin and tylenol at bedtime
[2024-10-28 21:09] VITALS: BP 122/66; PULSE 69; RESP 16; TEMP 36.7; O2SAT 97
--- NOTE | 2024-10-29 | EEG_ITS ---
FINDINGS: Waking background activity consists of low voltage fast frequencies and muscle artifacts seen diffusely with some superimposed frontal-central diffuse theta of 5 hertz. Photic stimulation is without activation. No sleeps stages are identified. No focal, lateralizing, or paroxysmal discharges are seen. IMPRESSION: This EEG is considered abnormal due to diffuse background slowing consistent with diffuse encephalopathic process. No epileptiform discharges are seen. MD JULIAN Rehman/MODL / [phone]
[2024-10-29] MEDS: 0.9 % Sodium Chloride Flush 3 ML SYRINGE IVFLUSH ×4 (00:10→23:03)
--- NOTE | 2024-10-29 00:16 | PC.NURSE ---
Patient removed [place] catheter, bed linens soiled with urine, nae care provided, bed linens changed, warm blanket given to patient. Seizure precautions maintained, plan of care ongoing.
[2024-10-29 02:15] VITALS: BP 150/91; PULSE 62; RESP 18; TEMP 36.9; O2SAT 98
[2024-10-29 06:32] VITALS: BP 118/57; PULSE 65; RESP 12; TEMP 36.1; O2SAT 98
--- NOTE | 2024-10-29 06:39 | MHC.EDTECH ---
Pt found to be incontinent of urine. Pt cleaned and repositioned. Call singer within reach.
[2024-10-29] MEDS: levETIRAcetam in NaCl (iso-os) 1,000 MG/100 ML PIGGYBACK 400 MG IV (08:18)
[2024-10-29 09:05] LABS: Alanine Aminotransferase < 6 U/L (0-40); Albumin Level 2.8 g/dL (3.5-5.0); Alkaline Phosphatase 59 U/L (39-117); Anion Gap 19 (12-20); Aspartate Amino Transferase 24 U/L (5-37); Bilirubin Total 1.9 mg/dL (0.0-1.0); Blood Urea Nitrogen 10 mg/dL (9-16); Calcium 8.1 mg/dL (8.4-10.2); Carbon Dioxide 19 mmol/L (22-29); Chloride 104 mmol/L (96-108); Creatinine Clr Calc Pharmacy 46.9; Estimated Glomerular Filt Rate > 60; Glucose Random 74 mg/dL (60-115); Magnesium 2.3 mg/dL (1.6-2.6); Potassium 3.4 mmol/L (3.3-5.1); Sodium 139 mmol/L (135-145); Total Protein 6.5 g/dL (6.5-8.0)
[2024-10-29 10:16] LABS: HBS Num1 1.75 mIU/mL (0-7.99); HBc Num1 0.18 S/CO (0.00-0.79); HBsAGNum1 0.74 S/CO (0.00-0.99); Hepatitis A Antibody IgM 0.14 Index (0-0.79); Hepatitis B Core Antibody Nonreactive (Nonreactive); Hepatitis B Surface Antigen Negative (Negative); ~HepC Num1 0.07 S/CO (0.00-0.79); ~Hepatitis A Antibody IgM Nonreactive (Nonreactive); ~Hepatitis B Surface Antibody NONREACTIVE (Nonreactive); ~Hepatitis C Antibody Nonreactive (Nonreactive)
--- NOTE | 2024-10-29 11:32 | P.CNNE_ITS ---
History of Present Illness Data of Consult Service Date: 10/29/24 Primary Care Provider: Unknown Physician HPI Reason for consult: Seizure This is a 73 yr old man with known history of dementia according to nursing staff, this is what family reported. Patient comes in today with what family describes as a 2-3 minute seizure. Patient does not have history of this in the past. ED physician states that family denies drug use or alcohol use and family insists that patient does not have a history of seizures. Patient is awake however not oriented to person, place, time or situation. According to nursing staff family states that this is patient's baseline. Unable to obtain accurate history or review of systems due to patient's mental status. Tested positive for Fentanyl and Opiates PMFSH Past Medical History Medical History WILBUR (acute kidney injury) Social History Social History Household Members: Family Household Members Other:: lives with son per patient's chart Housing: House Do you presently have visiting nurse or other home services: No Patient Tobacco Use Status: Tobacco use Unknown Use of substances other than those prescribed or required for medical reasons: Unable to respond Substance Use Type Other:: unable to resepond, patient has baseline dementia Spiritual Healthcare Practices: unable to answer question due to dementia Advance Directives: No Advance Directives Information Provided: No Do you have a plan to hurt others: No Plan Recently lost weight without trying: Unsure How much weight loss: Unsure Meds Allergies Allergy/AdvReac Type Severity Reaction Status Date / Time aspirin [Aspirin] AdvReac Unknown UPSET Verified 10/28/24 13:30 STOMACH Active Medications: Current Medications Acetaminophen (Acetaminophen 325 Mg Tablet) 650 mg PO Q6H PRN PRN Reason: Pain, Mild 1-3,fever,headache Calcium Carbonate (Calcium Carbonate 750 Mg Tab.Chew) 750 mg PO Q4H PRN PRN Reason: Heartburn Enoxaparin Sodium (Enoxaparin Sodium 40 Mg/0.4 Ml Syringe) 40 mg SUBCUT Q24H [facility] Last Admin: 10/28/24 18:32 Dose: 40 mg Levetiracetam (Keppra) 1,000 mg in 100 mls @ 400 mls/hr IV Q12H [facility] Last Infusion: 10/29/24 09:03 Dose: Infused Lorazepam (Lorazepam 2 Mg/Ml Vial) 2 mg IVPUSH ONCE PRN PRN Reason: Seizures Magnesium Hydroxide (Milk Of Magnesia 30 Ml Oral.Susp) 30 ml PO DAILY PRN PRN Reason: Constipation Melatonin (Melatonin 3 Mg Tablet) 6 mg PO BEDTIME PRN PRN Reason: Insomnia Sodium Chloride (0.9 % Sodium Chloride Flush 3 Ml Syringe) 3 ml IVFLUSH QSHIFT [facility] Last Admin: 10/29/24 08:17 Dose: 3 ml Home Medications ?Medication ?Instructions ?Recorded ?Confirmed ?Last Taken ?Type acetaminophen 325 mg tablet 325 mg PO BEDTIME 10/28/24 10/28/24 Unknown History melatonin 3 mg tablet 6 mg PO BEDTIME 10/28/24 10/28/24 Unknown History Physical Exam 2 Vital Signs: Vital Signs: Last Vital Signs Temp 97 F 10/29/24 06:32 Pulse 65 10/29/24 06:32 Resp 12 10/29/24 06:32 BP 118/57 L 10/29/24 06:32 Pulse Ox 98 10/29/24 06:32 O2 Del Method Room Air 10/29/24 06:32 O2 Flow Rate 15 10/28/24 13:46 BMI result Body Mass Index 20.5 Neuro: Other: IsMroz does not follow commands. He just moans he and doesn't make eye contact. He can move all 4 extremities against gravity. Reflexes 2+ plantar response are flexor. Neck is supple Results Labs 10/28/24 15:31 10/29/24 08:27 Labs: Short CBC 10/28/24 Range/Units 15:31 WBC 11.7 H (4.8-10.8) X10*3/uL Hgb 16.8 (14.0-18.0) g/dl Hct 49.7 (42.0-52.0) % Plt Count 224 D (160-400) X10*3/uL BMP 10/28/24 10/29/24 15:31 08:27 Sodium 139 139 Potassium 3.4 3.4 Chloride 97 104 Carbon Dioxide 30 H 19 L BUN 11 10 Creatinine 1.46 H 1.09 Calcium 9.0 D 8.1 L D Liver Function 10/28/24 10/29/24 Range/Units 15:31 08:27 Total Bilirubin 2.3 H 1.9 H (0.0-1.0) mg/dL Direct Bilirubin 0.8 H (0.0-0.5) mg/dL AST 17 24 (5-37) U/L ALT < 6 < 6 (0-40) U/L Alkaline Phosphatase 57 59 (39-117) U/L Albumin 3.3 L 2.8 L (3.5-5.0) g/dL Assessment and Plan (1) New onset seizure: Status: Acute Recommendation: An EEG. Continue Keppra 500 mg twice a day (2) Substance use: Status: Acute Procedures Date of Service Date of Service: 10/29/24
[2024-10-29 11:47] VITALS: BP 122/55; PULSE 74; RESP 18; TEMP 36.4; O2SAT 95
--- NOTE | 2024-10-29 11:59 | PC.NURSE ---
Pt cleaned for urine incontinence, [place] cath failed X2. Quick change pad placed to help
[2024-10-29 14:21] LABS: Appearance Urine Cloudy; Color Urine Dark Yellow; Glucose Urine UA Negative (Negative); Leukocyte Esterase Urine Moderate (2+) (Negative); Nitrite Urine Positive (Negative); PH 5.5 (5.0-9.0); UMIC TRIGGER UACC YES; Urine Blood Large (3+) (Negative); Urine Ketones 40 mg/dL (Negative); Urine Protein 30 (1+) mg/dL (Neg-Trace)
[2024-10-29 14:25] LABS: Amphetamine Screen Urine Not Detected (Not Detect); Barbiturates, Urine Not Detected (Not Detect); Benzodiazepines Screen Urine Not Detected (Not Detect); Buprenorphine Scr Not Detected (Not Detect); Cannabinoid Screen Urine Not Detected (Not Detect); Cocaine Screen Urine Not Detected (Not Detect); Fentanyl, urine Not Detected (Not Detect); Methadone Screen, Urine Not Detected (Not Detect); Opiate Screen Urine Not Detected (Not Detect); Oxycodone Screen Urine Not Detected (Not Detect); Phencyclidine Screen Urine Not Detected (Not Detect)
[2024-10-29 14:50] LABS: Bacteria Urine 4+ (None Seen); Hyaline Casts Urine 0-2 /LPF (0-2); RBC Urine >20 /HPF (0-2); UACC Culture Trigger YES
--- NOTE | 2024-10-29 14:54 | P.PNIM_ITS ---
Subjective Subjective Date of Service: 10/29/24 Interval History: awake but not oriented nor verbal; no further seizure activity Review of Systems Review of Systems: Yes Unobtainable due to mental status Physical Exam 2 Vital Signs: Vital Signs: Last Vital Signs Temp 97.6 F 10/29/24 11:47 Pulse 74 10/29/24 11:47 Resp 18 10/29/24 11:47 BP 122/55 L 10/29/24 11:47 Pulse Ox 95 10/29/24 11:47 O2 Del Method Room Air 10/29/24 11:47 O2 Flow Rate 15 10/28/24 13:46 BMI result Body Mass Index 20.5 Gen: in no acute distress HEENT: sclera anicteric, moist mucus membranes Neck: supple Lungs: clear to auscultation bilaterally Heart: regular rate and rhythm, no murmurs Abd: soft, non-tender, non-distended Ext: no edema Skin: warm/well-perfused Neuro: alert, unable to assess orientation, moving all extremities Psych: impaired insight Objective Data Active Medications Acetaminophen (Acetaminophen 325 Mg Tablet) 650 mg PO Q6H PRN PRN Reason: Pain, Mild 1-3,fever,headache Calcium Carbonate (Calcium Carbonate 750 Mg Tab.Chew) 750 mg PO Q4H PRN PRN Reason: Heartburn Enoxaparin Sodium (Enoxaparin Sodium 40 Mg/0.4 Ml Syringe) 40 mg SUBCUT Q24H [facility] Last Admin: 10/28/24 18:32 Dose: 40 mg Documented By: KIKI Levetiracetam (Levetiracetam 500 Mg Tablet) 500 mg PO BID [facility] Lorazepam (Lorazepam 2 Mg/Ml Vial) 2 mg IVPUSH ONCE PRN PRN Reason: Seizures Magnesium Hydroxide (Milk Of Magnesia 30 Ml Oral.Susp) 30 ml PO DAILY PRN PRN Reason: Constipation Melatonin (Melatonin 3 Mg Tablet) 6 mg PO BEDTIME PRN PRN Reason: Insomnia Sodium Chloride (0.9 % Sodium Chloride Flush 3 Ml Syringe) 3 ml IVFLUSH QSHIFT [facility] Last Admin: 10/29/24 08:17 Dose: 3 ml Documented By: ILIANA Labs 10/28/24 15:31 10/29/24 08:27 Labs: Laboratory Results - last 24 hr 10/28/24 10/29/24 10/29/24 15:31 08:27 09:26 MCV 81.3 MCH 27.5 MCHC 33.8 RDW 15.3 Plt Count 224 D MPV 10.9 Immature Gran % (Auto) 0.7 H Neut % (Auto) 87.4 H Lymph % (Auto) 7.5 L [place] % (Auto) 3.9 Eos % (Auto) 0.2 Baso % (Auto) 0.3 Lymph # (Auto) 0.9 L [place] # (Auto) 0.5 Eos # (Auto) 0.0 Baso # (Auto) 0.0 Abs Immat Gran (auto) 0.08 H Absolute Neuts (auto) 10.2 H Absolute Nucleated RBC 0.000 Nucleated RBC % (auto) 0.0 PT 13.0 H INR 1.1 Anion Gap 15 19 Estim Creat Clear Calc 35.0 46.9 Estimated GFR 47 > 60 Random Glucose 109 74 Calcium 9.0 D 8.1 L D Magnesium 2.3 Total Bilirubin 2.3 H 1.9 H Direct Bilirubin 0.8 H AST 17 24 ALT < 6 < 6 Alkaline Phosphatase 57 59 Troponin I High Sens 4.7 B-Natriuretic Peptide 26 Total Protein 6.6 6.5 Albumin 3.3 L 2.8 L Lipase 10 Urine Color Urine Appearance Urine pH Ur Specific [place] Urine Protein Urine Glucose (UA) Urine Ketones Urine Blood Urine Nitrite Ur Leukocyte Esterase Urine RBC Urine WBC Ur Squamous Epith Cells Urine Bacteria Hyaline Casts Urine Opiates Screen Ur Buprenorphine Scrn Ur Oxycodone Screen Urine Methadone Screen Urine Fentanyl Screen Ur Barbiturates Screen Ur Phencyclidine Scrn Ur Amphetamines Screen U Benzodiazepines Scrn Urine Cocaine Screen U Marijuana (THC) Screen Ethyl Alcohol < 10 Hepatitis A IgM Ab Nonreactive Hep Bs Antigen Negative Hep Bs Antibody NONREACTIVE Hep B Core Total Ab Nonreactive Hepatitis C Ab (EIA) Nonreactive Influenza Type A (PCR) NEGATIVE Influenza Type B (PCR) NEGATIVE RSV RNA Qual (PCR) NEGATIVE SARS-CoV-2 RNA (RT-PCR) NEGATIVE 10/29/24 14:10 MCV MCH MCHC RDW Plt Count MPV Immature Gran % (Auto) Neut % (Auto) Lymph % (Auto) [place] % (Auto) Eos % (Auto) Baso % (Auto) Lymph # (Auto) [place] # (Auto) Eos # (Auto) Baso # (Auto) Abs Immat Gran (auto) Absolute Neuts (auto) Absolute Nucleated RBC Nucleated RBC % (auto) PT INR Anion Gap Estim Creat Clear Calc Estimated GFR Random Glucose Calcium Magnesium Total Bilirubin Direct Bilirubin AST ALT Alkaline Phosphatase Troponin I High Sens B-Natriuretic Peptide Total Protein Albumin Lipase Urine Color Dark Yellow Urine Appearance Cloudy Urine pH 5.5 Ur Specific [place] 1.020 Urine Protein 30 (1+) H Urine Glucose (UA) Negative Urine Ketones 40 Urine Blood Large (3+) H Urine Nitrite Positive H Ur Leukocyte Esterase Moderate (2+) H Urine RBC >20 H Urine WBC 11-20 Ur Squamous Epith Cells 6-10 Urine Bacteria 4+ Hyaline Casts 0-2 Urine Opiates Screen Not Detected Ur Buprenorphine Scrn Not Detected Ur Oxycodone Screen Not Detected Urine Methadone Screen Not Detected Urine Fentanyl Screen Not Detected Ur Barbiturates Screen Not Detected Ur Phencyclidine Scrn Not Detected Ur Amphetamines Screen Not Detected U Benzodiazepines Scrn Not Detected Urine Cocaine Screen Not Detected U Marijuana (THC) Screen Not Detected Ethyl Alcohol Hepatitis A IgM Ab Hep Bs Antigen Hep Bs Antibody Hep B Core Total Ab Hepatitis C Ab (EIA) Influenza Type A (PCR) Influenza Type B (PCR) RSV RNA Qual (PCR) SARS-CoV-2 RNA (RT-PCR) Assessment and Plan (1) New onset seizure: Status: Acute Plan d2 for 73yo M with dementia and without current medical care, sent in after episode of staring with generalized shaking concerning for new-onset seizure, also found to have WILBUR new-onset sz - Neuro consulted, EEG pending, continue levetiracetam WILBUR - resolved after IV fluid hydration Hyperbilirubinemia - likely Gilbert's syndrome bronchitis/COPD - no apparent symptoms; give prn neb treatments hx substance abuse disorder - current Utox negative - has not had EtOH in over a year dementia - baseline per H+P VTE ppx - enoxaparin dispo - TBD In my clinical judgment, the patient requires continued inpatient hospitalization for the following reasons: seizure workup Total time managing care of this patient today: 35 minutes. Quality Stroke Does the patient have a stroke diagnosis?: No VTE Prior VTE?: No VTE Risk Level:: Medical - moderate - high VTE Device Contraindication: Treatment Not Indicated VTE Drug Contraindication: N/A - Med Ordered
[2024-10-29 16:00] VITALS: BP 110/60; PULSE 78; RESP 18; TEMP 36.3; O2SAT 95
--- NOTE | 2024-10-29 16:25 | PC.NURSE ---
Pt cleaned for urine incontinence again, unable to follow directions to use urinal and pulled off [place]. Pt is alert but very confused and not making sense. No seizure activity today
[2024-10-29 17:33] VITALS: BP 120/69; PULSE 74; RESP 20; TEMP 36.4; O2SAT 99
[2024-10-29 17:40] VITALS: BMI 19.8
[2024-10-29] MEDS: Enoxaparin Sodium 40 MG/0.4 ML SYRINGE SUBCUT (17:41)
[2024-10-29 19:52] VITALS: BP 102/59; PULSE 75; RESP 18; TEMP 36.7; O2SAT 100
[2024-10-30] VITALS (7 sets, daily range): BP systolic 103–124; BP diastolic 56–60; PULSE 52–92; RESP 16–20; TEMP 36.1–37.2; O2SAT 97–99
--- NOTE | 2024-10-30 08:35 | MHC.CM.PN ---
Addendum entered by Franny Carmichael 10/30/24 10:27: A referral was sent to [facility] this morning, with Son's permission. Original Note: Patient has a diagnosis of Dementia/not oriented & not verbal; CM spoke with Son/HCP/Caregiver X 20 years/Shahzad @ [phone]. Patient lives in a small apartment with Shahzad and he lost his insurance ([employer]) during Covid.Shahzad takes his Father to [place] 1/year and pays privately for him to see a Doctor. Shahzad will provide [facility] with a copy of the HCP(completed by an Foot Roentgenologist) and he is agreeable to a referral to [facility] for assistance with securing insurance for Patient. Patient uses a cane at times and Son will transport to home at time of dc.
[2024-10-30] MEDS: 0.9 % Sodium Chloride Flush 3 ML SYRINGE IVFLUSH (09:18)
--- NOTE | 2024-10-30 12:18 | MHC.SLORD ---
Speech Language Pathology Order Status: [employer] attempted bedside swallow eval. Patient sleeping, stirring when attempting to wake up, not opening eyes and very drowsy. Patient not opening mouth for oral swab or administration of ice chips. Not appropriate for PO trials at this time. Notified , RN, RD via [place] secure text. [employer] to re-attempt tomorrow a.m.
--- NOTE | 2024-10-30 12:59 | HO.PM.IMPN ---
Subjective Subjective Date of Service: 10/30/24 Interval History: non-verbal, unable to obtain ROS, not safe for POs per [employer] Review of Systems Review of Systems: Yes Unobtainable due to mental status Physical Exam Vital Signs: Vital Signs: Last Vital Signs Temp 97.9 F 10/30/24 10:55 Pulse 64 10/30/24 10:55 Resp 18 10/30/24 10:55 BP 103/57 L 10/30/24 10:55 Pulse Ox 99 10/30/24 10:55 O2 Del Method Room Air 10/30/24 10:55 O2 Flow Rate 15 10/28/24 13:46 BMI result Body Mass Index 19.8 Gen: in no acute distress HEENT: sclera anicteric, moist mucus membranes Neck: supple Lungs: clear to auscultation bilaterally Heart: regular rate and rhythm, no murmurs Abd: soft, non-tender, non-distended Ext: no edema Skin: warm/well-perfused Neuro: alert, unable to assess orientation, moving all extremities Psych: impaired insight Objective Data Active Medications Acetaminophen (Acetaminophen 325 Mg Tablet) 650 mg PO Q6H PRN PRN Reason: Pain, Mild 1-3,fever,headache Albuterol/Ipratropium (Albuterol/Iprat 2.5/0.5mg 3 Ml Ampul.Neb) 3 ml INHALE RQ4H WHILE AWAKE PRN PRN Reason: shortness of breath or wheeze Calcium Carbonate (Calcium Carbonate 750 Mg Tab.Chew) 750 mg PO Q4H PRN PRN Reason: Heartburn Enoxaparin Sodium (Enoxaparin Sodium 40 Mg/0.4 Ml Syringe) 40 mg SUBCUT Q24H [facility] Last Admin: 10/29/24 17:41 Dose: 40 mg Documented By: RENAY Levetiracetam (Keppra) 500 mg in 100 mls @ 400 mls/hr IV Q12H [facility] Lorazepam (Lorazepam 2 Mg/Ml Vial) 2 mg IVPUSH ONCE PRN PRN Reason: Seizures Magnesium Hydroxide (Milk Of Magnesia 30 Ml Oral.Susp) 30 ml PO DAILY PRN PRN Reason: Constipation Melatonin (Melatonin 3 Mg Tablet) 6 mg PO BEDTIME PRN PRN Reason: Insomnia Sodium Chloride (0.9 % Sodium Chloride Flush 3 Ml Syringe) 3 ml IVFLUSH QSHIFT [facility] Last Admin: 10/30/24 09:18 Dose: 3 ml Documented By: LESLEEB Labs 10/28/24 15:31 10/29/24 08:27 Labs: Laboratory Results - last 24 hr 10/29/24 14:10 Urine Color Dark Yellow Urine Appearance Cloudy Urine pH 5.5 Ur Specific [place] 1.020 Urine Protein 30 (1+) H Urine Glucose (UA) Negative Urine Ketones 40 Urine Blood Large (3+) H Urine Nitrite Positive H Ur Leukocyte Esterase Moderate (2+) H Urine RBC >20 H Urine WBC 11-20 Ur Squamous Epith Cells 6-10 Urine Bacteria 4+ Hyaline Casts 0-2 Urine Opiates Screen Not Detected Ur Buprenorphine Scrn Not Detected Ur Oxycodone Screen Not Detected Urine Methadone Screen Not Detected Urine Fentanyl Screen Not Detected Ur Barbiturates Screen Not Detected Ur Phencyclidine Scrn Not Detected Ur Amphetamines Screen Not Detected U Benzodiazepines Scrn Not Detected Urine Cocaine Screen Not Detected U Marijuana (THC) Screen Not Detected Microbiology Microbiology Results: Microbiology 10/29/24 15:05 Urine Culture - Preliminary Urine Catheterized - [place] Catheter Gram negative eva Assessment and Plan (1) New onset seizure: Status: Acute Plan d3 for 73yo M with dementia and without current medical care, sent in after episode of staring with generalized shaking concerning for new-onset seizure, also found to have WLIBUR new-onset sz - Neuro consulted, EEG pending, continue levetiracetam but will give IV rather than PO UTI - will start ceftriaxone 10/30-11/06, follow UCx WILBUR - resolved after IV fluid hydration hyperbilirubinemia - likely Gilbert's syndrome bronchitis/COPD - no apparent symptoms; give prn neb treatments hx substance abuse disorder - current Utox negative - has not had EtOH in over a year dementia - quite advanced, has been living with son with /7 care for past 15yr. Discussed with son Shahzad by phone [[phone]]- affirms pt is DNR/DNI and wouldn't want feeding tube either. If unable to take POs may be in pt's best interest to go home on hospice VTE ppx - enoxaparin dispo - eventually home, possibly on hospice In my clinical judgment, the patient requires continued inpatient hospitalization for the following reasons: seizure meds IV Total time managing care of this patient today: 45 minutes. Quality Stroke Does the patient have a stroke diagnosis?: No VTE Prior VTE?: No VTE Risk Level:: Medical - moderate - high VTE Device Contraindication: Treatment Not Indicated VTE Drug Contraindication: N/A - Med Ordered
[2024-10-30] MEDS: Dextrose 5 % and 0.45 % NaCl 1,000 ML 80 ML IVCONT (13:24)
[2024-10-30] MEDS: levETIRAcetam in NaCl (iso-os) 500 MG/100 ML PIGGYBACK 400 MG IV (13:24)
[2024-10-30] MEDS: cefTRIAXone sodium 1 GM VIAL IVPUSH (13:44)
[2024-10-30] MEDS: Enoxaparin Sodium 40 MG/0.4 ML SYRINGE SUBCUT (19:05)
[2024-10-31] MEDS: levETIRAcetam in NaCl (iso-os) 500 MG/100 ML PIGGYBACK 400 MG IV ×2 (01:14→12:36)
[2024-10-31] MEDS: Dextrose 5 % and 0.45 % NaCl 1,000 ML 80 ML IVCONT ×2 (01:15→16:21)
[2024-10-31] MEDS: 0.9 % Sodium Chloride Flush 3 ML SYRINGE IVFLUSH ×3 (01:16→21:27)
[2024-10-31 04:58] VITALS: BP 111/52; PULSE 53; RESP 16; TEMP 36.1; O2SAT 97
[2024-10-31 07:44] VITALS: BP 104/57; PULSE 57; RESP 15; TEMP 36.4; O2SAT 98
[2024-10-31 09:28] LABS: Anion Gap 10 (12-20); Blood Urea Nitrogen 8 mg/dL (9-16); Carbon Dioxide 30 mmol/L (22-29); Chloride 102 mmol/L (96-108); Creatinine Clr Calc Pharmacy 54.4; Estimated Glomerular Filt Rate > 60; Glucose Random 123 mg/dL (60-115); Sodium 140 mmol/L (135-145)
[2024-10-31 09:32] LABS: Potassium 2.2 mmol/L (3.3-5.1)
[2024-10-31 09:54] LABS: Magnesium 1.8 mg/dL (1.6-2.6); Phosphorus 1.8 mg/dL (2.7-4.5)
[2024-10-31] MEDS: Potassium Chloride/H20 10 MEQ/100 ML PIGGYBACK 100 MEQ IV ×4 (10:25→14:41)
[2024-10-31 11:03] VITALS: BP 102/55; PULSE 68; RESP 16; TEMP 36.7; O2SAT 99
--- NOTE | 2024-10-31 11:49 | MHC.SL.SWA ---
Speech Pathologist Impression: Moderate oropharyngeal dysphagia Risk of Aspiration Due to: Medically Fragile Reduced Cognition Weak Cough Weak Voice Dysphasia Diet Status: Liquid Consistency and Strategies for Safe Swallow: Liquid Intake Recommendation: [place] Thick Liquid Intake Strategies: Small Sips Solid Food Consistency: Dietary Recommendations: Pureed (NDD1) Additional Modifications to Solid Foods: Oral Medication Intake: Crushed with Puree Please contact the pharmacy regarding appropriate crushable or liquid drug formulations that are available whenever modified delivery is recommended. Compensatory Strategies and Precautions to be Taken for Safe Swallow: Sitting Upright (90 deg) Small Bites and Sips Rate of Ingestion Change Supervision While Eating and Drinking for Safe Swallow: Total Supervision (1:1) Foods to Avoid: Swallowing Recommended Treatments: Compens. Strategy Educat. Recommendation for Speech: Comment: Recc NDD1 with NTL, meds crushed in puree, aspiration precautions, 1:1 supervision, intake anticipated to be poor. RD consulted. TIME STUDY ANALYST will continue to follow. Frequency/Duration: M-F daily Date Range for Service Req: Timeline to reassess: Manager Entry Clinican/Clinical Fellow: No Supervisory Statement: I have reviewed and agree with the student/clinical fellow's documentation: N/A Speech Language Pathologist: Debra Conti M.S., CCC-TIME STUDY ANALYST
[2024-10-31] MEDS: cefTRIAXone sodium 1 GM VIAL IVPUSH (12:37)
--- NOTE | 2024-10-31 13:22 | HO.PM.IMPN ---
Subjective Subjective Date of Service: 10/31/24 Interval History: more awake today per DIABETES EDUCATOR NDD1 solids/nectar liquids no further seizure activity K very low at 2.2 Review of Systems Review of Systems: Yes Unobtainable due to mental status Physical Exam Vital Signs: Vital Signs: Last Vital Signs Temp 98.1 F 10/31/24 11:03 Pulse 68 10/31/24 11:03 Resp 16 10/31/24 11:03 BP 102/55 L 10/31/24 11:03 Pulse Ox 99 10/31/24 11:03 O2 Del Method Room Air 10/31/24 11:03 O2 Flow Rate 15 10/28/24 13:46 BMI result Body Mass Index 19.8 Gen: in no acute distress HEENT: sclera anicteric, moist mucus membranes Neck: supple Lungs: clear to auscultation bilaterally Heart: regular rate and rhythm, no murmurs Abd: soft, non-tender, non-distended Ext: no edema Skin: warm/well-perfused Neuro: alert, unable to assess orientation, moving all extremities Psych: impaired insight Objective Data Active Medications Acetaminophen (Acetaminophen 325 Mg Tablet) 650 mg PO Q6H PRN PRN Reason: Pain, Mild 1-3,fever,headache Albuterol/Ipratropium (Albuterol/Iprat 2.5/0.5mg 3 Ml Ampul.Neb) 3 ml INHALE RQ4H WHILE AWAKE PRN PRN Reason: shortness of breath or wheeze Calcium Carbonate (Calcium Carbonate 750 Mg Tab.Chew) 750 mg PO Q4H PRN PRN Reason: Heartburn Ceftriaxone Sodium (Ceftriaxone Sodium 1 Gm Vial) 1 gm IVPUSH Q24H [facility] Last Admin: 10/31/24 12:37 Dose: 1 gm Documented By: MEHDI Enoxaparin Sodium (Enoxaparin Sodium 40 Mg/0.4 Ml Syringe) 40 mg SUBCUT Q24H [facility] Last Admin: 10/30/24 19:05 Dose: 40 mg Documented By: JAZMINE Levetiracetam (Keppra) 500 mg in 100 mls @ 400 mls/hr IV Q12H [facility] Last Admin: 10/31/24 12:36 Dose: 400 mls/hr Documented By: MEHDI Dextrose/Sodium Chloride (D51/2ns) 1,000 mls @ 80 mls/hr IVCONT .[id number] [facility] Last Admin: 10/31/24 01:15 Dose: 80 mls/hr Documented By: BALDOMERO Potassium Chloride (Potassium Chloride/H20) 10 meq in 100 mls @ 100 mls/hr IV Q1H [facility] Stop: 10/31/24 13:44 Last Admin: 10/31/24 12:37 Dose: 100 mls/hr Documented By: MEHDI Lorazepam (Lorazepam 2 Mg/Ml Vial) 2 mg IVPUSH ONCE PRN PRN Reason: Seizures Magnesium Hydroxide (Milk Of Magnesia 30 Ml Oral.Susp) 30 ml PO DAILY PRN PRN Reason: Constipation Melatonin (Melatonin 3 Mg Tablet) 6 mg PO BEDTIME PRN PRN Reason: Insomnia Sodium Chloride (0.9 % Sodium Chloride Flush 3 Ml Syringe) 3 ml IVFLUSH QSHIFT [facility] Last Admin: 10/31/24 07:34 Dose: Not Given Documented By: MEHDI Non-Admin Reason: IV Running Labs 10/28/24 15:31 10/31/24 08:33 Labs: Laboratory Results - last 24 hr 10/31/24 08:33 Anion Gap 10 L Estim Creat Clear Calc 54.4 Estimated GFR > 60 Random Glucose 123 H Calcium 8.0 L Phosphorus 1.8 L Magnesium 1.8 Microbiology Microbiology Results: Microbiology 10/29/24 15:05 Urine Culture - Final Urine Catheterized - Clark Catheter Klebsiella oxytoca Assessment and Plan (1) New onset seizure: Status: Acute Plan d4 for 73yo M with dementia and without current medical care, sent in after episode of staring with generalized shaking concerning for new-onset seizure, also found to have WILBUR severe hypoK - replete IV, recheck level new-onset sz - Neuro consulted, EEG with diffuse background slowing consistent with diffuse encephalopathic process; continue levetiracetam and will try PO UTI, Klebsiella oxytoca R to ampicillin + cefazolin - ceftriaxone 10/30-11/06, can complete course with cefuroxime upon discharge WILBUR - resolved after IV fluid hydration hyperbilirubinemia - likely Gilbert's syndrome bronchitis/COPD - no apparent symptoms; give prn neb treatments hx substance abuse disorder - current Utox negative - has not had EtOH in over a year dementia - quite advanced, has been living with son with / care for past 15yr. Discussed with son Shahzad by phone [[phone]]- affirmed pt is DNR/DNI and wouldn't want feeding tube either. - per DIABETES EDUCATOR, trial of NDD1 solids/nectar liquids VTE ppx - enoxaparin dispo - eventually home, where he has 24/ care In my clinical judgment, the patient requires continued inpatient hospitalization for the following reasons: IV KCl Total time managing care of this patient today: 45 minutes. Quality Stroke Does the patient have a stroke diagnosis?: No VTE Prior VTE?: No VTE Risk Level:: Medical - moderate - high VTE Device Contraindication: Treatment Not Indicated VTE Drug Contraindication: N/A - Med Ordered
--- NOTE | 2024-10-31 15:13 | MHC.CM.PN ---
EMR reviewed and per MD rounds, pt is not medically cleared for discharge due low K+, puree diet trial, and tolerance of oral keppra. Anticipating pt will discharge home with family support from his son/caregiver.
[2024-10-31 16:00] VITALS: BP 114/56; PULSE 92; RESP 16; TEMP 36.5; O2SAT 98
[2024-10-31 16:33] LABS: Anion Gap 12 (12-20); Blood Urea Nitrogen 6 mg/dL (9-16); Calcium 7.4 mg/dL (8.4-10.2); Carbon Dioxide 26 mmol/L (22-29); Chloride 101 mmol/L (96-108); Creatinine Clr Calc Pharmacy 62.7; Estimated Glomerular Filt Rate > 60; Glucose Random 101 mg/dL (60-115); Potassium 2.8 mmol/L (3.3-5.1); Sodium 136 mmol/L (135-145)
[2024-10-31] MEDS: Potassium Phosphate/NS 15 MMOL/250 ML PLAST..BAG 62.5 MMOL IV ×2 (17:01→21:25)
[2024-10-31] MEDS: Enoxaparin Sodium 40 MG/0.4 ML SYRINGE SUBCUT (17:01)
[2024-10-31 20:00] VITALS: BP 107/59; PULSE 58; RESP 16; TEMP 36.8; O2SAT 99
[2024-10-31] MEDS: Melatonin 3 MG TABLET 6 MG PO (22:01)
[2024-10-31] MEDS: levETIRAcetam Oral Soln 500 MG/5 ML PO (22:01)
[2024-10-31 23:04] VITALS: BP 105/53; PULSE 61; RESP 18; TEMP 36.1; O2SAT 96
[2024-11-01] MEDS: Potassium Phosphate/NS 15 MMOL/250 ML PLAST..BAG 62.5 MMOL IV ×2 (01:37→06:04)
[2024-11-01 02:58] VITALS: BP 111/65; PULSE 61; RESP 20; TEMP 36.6; O2SAT 99
[2024-11-01 07:01] VITALS: BP 104/56; PULSE 60; RESP 16; TEMP 36.4; O2SAT 98
[2024-11-01 07:46] LABS: Anion Gap 14 (12-20); Blood Urea Nitrogen 5 mg/dL (9-16); Calcium 7.5 mg/dL (8.4-10.2); Carbon Dioxide 24 mmol/L (22-29); Chloride 106 mmol/L (96-108); Creatinine Clr Calc Pharmacy 61.9; Estimated Glomerular Filt Rate > 60; Glucose Random 81 mg/dL (60-115); Magnesium 1.8 mg/dL (1.6-2.6); Phosphorus 5.2 mg/dL (2.7-4.5); Potassium 3.1 mmol/L (3.3-5.1); Sodium 141 mmol/L (135-145)
[2024-11-01] MEDS: Dextrose 5 % and 0.45 % NaCl 1,000 ML 80 ML IVCONT ×2 (09:57→17:55)
[2024-11-01] MEDS: Potassium Chloride/H20 10 MEQ/100 ML PIGGYBACK 100 MEQ IV ×4 (10:16→13:38)
[2024-11-01] MEDS: levETIRAcetam Oral Soln 500 MG/5 ML PO ×2 (10:49→19:57)
[2024-11-01 11:04] VITALS: BP 120/56; PULSE 60; RESP 14; TEMP 36.4; O2SAT 100
--- NOTE | 2024-11-01 11:41 | HO.SKINPHOTO ---
Location:coccyx stage 2 Category: Stage: Length: Width: Depth: cm Location: Category: Stage: Length: Width: Depth: cm Location: Category: Stage: Length: Width: Depth: cm Location: Category: Stage: Length: Width: Depth: cm Location: Category: Stage: Length: Width: Depth: cm Location: Category: Stage: Length: Width: Depth: cm
--- NOTE | 2024-11-01 11:52 | MHC.SL.SWA ---
Speech Pathologist Impression: Risk of Aspiration, Severe Oropharyngeal Dysphagia Risk of Aspiration Due to: Medically Fragile Reduced Cognition Weak Cough Weak Voice Dysphasia Diet Status: No Change Liquid Consistency and Strategies for Safe Swallow: Liquid Intake Recommendation: [place] Thick Liquid Intake Strategies: Small Sips No Straws Liquids by Teaspoon Only Solid Food Consistency: Dietary Recommendations: Pureed (NDD1) Additional Modifications to Solid Foods: Note risk of reduced PO intake w/ very slow rate of feeding. Recommend RD consult. Patient will need careful 1:1 feeding: present small bites, allow ample time to swallow, alternate w/ sips of liquid to promote clearance, present dry spoon to elicit jaw opening and check oral cavity periodically. No changes made to diet order. Oral Medication Intake: Crushed with Puree Please contact the pharmacy regarding appropriate crushable or liquid drug formulations that are available whenever modified delivery is recommended. Compensatory Strategies and Precautions to be Taken for Safe Swallow: Sitting Upright (90 deg) No Straw Liquids from Spoon Small Bites and Sips Alternate Liquids/Solids Rate of Ingestion Change Oral Check Supervision While Eating and Drinking for Safe Swallow: Total Assistance (1:1) Swallowing Recommended Treatments: Compens. Strategy Educat. Recommendation for Speech: Inpatient ST Comment: Frequency/Duration: M-F daily Date Range for Service Req: Timeline to reassess: Senior Systems Developer Clinican/Clinical Fellow: No Supervisory Statement: I have reviewed and agree with the student/clinical fellow's documentation: N/A Speech Language Pathologist: Erin Dick M.A., CCC-ENTERTAINMENT DIRECTOR
--- NOTE | 2024-11-01 12:31 | MHC.CLN ---
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
[2024-11-01] MEDS: cefTRIAXone sodium 1 GM VIAL IVPUSH (12:36)
--- NOTE | 2024-11-01 13:18 | P.PNIM_ITS ---
Subjective Subjective Date of Service: 11/01/24 Interval History: eating very little, only about 10% of meals taking PO Keppra liquid Review of Systems Review of Systems: Yes Unobtainable due to mental status Physical Exam 2 Vital Signs: Vital Signs: Last Vital Signs Temp 97.5 F 11/01/24 11:04 Pulse 60 11/01/24 11:04 Resp 14 11/01/24 11:04 BP 120/56 L 11/01/24 11:04 Pulse Ox 100 11/01/24 11:04 O2 Del Method Room Air 11/01/24 11:04 O2 Flow Rate 15 10/28/24 13:46 BMI result Body Mass Index 19.8 Gen: in no acute distress HEENT: sclera anicteric, moist mucus membranes Neck: supple Lungs: clear to auscultation bilaterally Heart: regular rate and rhythm, no murmurs Abd: soft, non-tender, non-distended Ext: no edema Skin: warm/well-perfused Neuro: alert, unable to assess orientation, moving all extremities Psych: impaired insight Objective Data Active Medications Acetaminophen (Acetaminophen 325 Mg Tablet) 650 mg PO Q6H PRN PRN Reason: Pain, Mild 1-3,fever,headache Albuterol/Ipratropium (Albuterol/Iprat 2.5/0.5mg 3 Ml Ampul.Neb) 3 ml INHALE RQ4H WHILE AWAKE PRN PRN Reason: shortness of breath or wheeze Calcium Carbonate (Calcium Carbonate 750 Mg Tab.Chew) 750 mg PO Q4H PRN PRN Reason: Heartburn Ceftriaxone Sodium (Ceftriaxone Sodium 1 Gm Vial) 1 gm IVPUSH Q24H [facility] Last Admin: 11/01/24 12:36 Dose: 1 gm Documented By: LILIYA Enoxaparin Sodium (Enoxaparin Sodium 40 Mg/0.4 Ml Syringe) 40 mg SUBCUT Q24H [facility] Last Admin: 10/31/24 17:01 Dose: 40 mg Documented By: AURA Dextrose/Sodium Chloride (D51/2ns) 1,000 mls @ 80 mls/hr IVCONT .[id number] [facility] Last Admin: 11/01/24 09:57 Dose: 80 mls/hr Documented By: LILIYA Levetiracetam (Levetiracetam Oral Soln 500 Mg/5 Ml) 500 mg PO BID [facility] Last Admin: 11/01/24 10:49 Dose: 500 mg Documented By: LILIYA Lorazepam (Lorazepam 2 Mg/Ml Vial) 2 mg IVPUSH ONCE PRN PRN Reason: Seizures Magnesium Hydroxide (Milk Of Magnesia 30 Ml Oral.Susp) 30 ml PO DAILY PRN PRN Reason: Constipation Melatonin (Melatonin 3 Mg Tablet) 6 mg PO BEDTIME PRN PRN Reason: Insomnia Last Admin: 10/31/24 22:01 Dose: 6 mg Documented By: BALDOMERO Sodium Chloride (0.9 % Sodium Chloride Flush 3 Ml Syringe) 3 ml IVFLUSH QSHIFT [facility] Last Admin: 11/01/24 09:32 Dose: Not Given Documented By: LILIYA Non-Admin Reason: IV Running Labs 10/28/24 15:31 11/01/24 06:54 Labs: Laboratory Results - last 24 hr 10/31/24 11/01/24 15:15 06:54 Hold Purple Top SEE NOTE Anion Gap 12 14 Estim Creat Clear Calc 62.7 61.9 Estimated GFR > 60 > 60 Random Glucose 101 81 Calcium 7.4 L D 7.5 L Phosphorus 5.2 H Magnesium 1.8 Assessment and Plan (1) New onset seizure: Status: Acute Plan d5 for 73yo M with dementia and without current medical care, sent in after episode of staring with generalized shaking concerning for new-onset seizure, also found to have WILBUR hypoK - replete IV for another 40 mEq of KCl, recheck BMP in AM hypoPO4 - repleted new-onset sz - Neuro consulted, EEG with diffuse background slowing consistent with diffuse encephalopathic process; continue levetiracetam UTI, Klebsiella oxytoca R to ampicillin + cefazolin - ceftriaxone 10/30-11/06, can complete course with cefuroxime upon discharge WILBUR - resolved after IV fluid hydration hyperbilirubinemia - likely Gilbert's syndrome bronchitis/COPD - no apparent symptoms; give prn neb treatments hx substance abuse disorder - current Utox negative - has not had EtOH in over a year dementia - quite advanced, has been living with son with /7 care for past 15yr. Discussed with kirsten Pike by phone [[phone]]- affirmed pt is DNR/DNI and wouldn't want feeding tube either. - per DYED YARN OPERATOR, trial of NDD1 solids/nectar liquids VTE ppx - enoxaparin dispo - eventually home, where he has 25/04 care In my clinical judgment, the patient requires continued inpatient hospitalization for the following reasons: IV KCl Total time managing care of this patient today: 45 minutes. Quality Stroke Does the patient have a stroke diagnosis?: No VTE Prior VTE?: No VTE Risk Level:: Medical - moderate - high VTE Device Contraindication: Treatment Not Indicated VTE Drug Contraindication: N/A - Med Ordered
[2024-11-01 15:10] VITALS: BP 115/56; PULSE 64; RESP 18; TEMP 36.4; O2SAT 100
--- NOTE | 2024-11-01 16:49 | HO.WOUND ---
Wound Consult: Initial 73yr old?male admitted to [facility] on 10/28/24 - See progress notes and H&P for detailed history.? Wound consult placed for Coccyx wound.? Patient agreeable to assessment and photo documentation.? Sacrum and Coccyx Etiology: ??Stage 2 Pressure Injury Measurements: 1.2cm x 0.3cm x 0.1cm Wound Bed: pink red clean moist wound bed - partial thickness tissue loss Drainage / Odor: None noted Edges: ? linear and attached Fatoumata wound: REd pink blanchable tissue - MASD noted to Perianal area - ? No Induration, Fluctuance or Warmth noted Pain: tenderness reports to perianal area Goals of Treatment: ? Foam dressing to allow for moist wound healing and protect from friction, moisture and redistribute pressure. Bilateral Heels were noted for redness - tissue remains intact and blanchable - no pressure injury noted at this time. preventative measures with heels elevated and preventative foam dressings applied. Recommendations: 1. Turn and Reposition every 2 hours and as needed for patient comfort.? Use pillows or wedges to support off loading positions. 2. Off Load all bony prominences with use of pillows and heel boots if needed.? Apply Preventative foams where needed. ? 3. Monitor for incontinence and moisture control, use barrier creams when needed for prevention and treatment. 4. Provide adequate and supplemental nutrition.? 5. Continue low air loss mattress. 6. When applicable maintain blood glucose levels per Providers order. 7. Bilateral Heels - Elevate heels off of bed surface with pillows. Apply skin prep allow to dry. Apply foam dressing for prevention from friction and to redistribute pressure. 8. Sacrum / Coccyx - Off Load Pressure with Q2 hr turns and use of pillows. Apply skin prep allow to dry. Apply sacral foam dressing change every 5 days and PRN. Re-consult wound care Nurse for wound deterioration or wound changes.
[2024-11-01] MEDS: 0.9 % Sodium Chloride Flush 3 ML SYRINGE IVFLUSH (17:33)
[2024-11-01] MEDS: Enoxaparin Sodium 40 MG/0.4 ML SYRINGE SUBCUT (17:52)
[2024-11-01 19:07] VITALS: BP 112/57; PULSE 60; RESP 18; TEMP 36.4; O2SAT 97
[2024-11-02] VITALS: BP 107/60; PULSE 100; RESP 16; TEMP 36.9; O2SAT 93
[2024-11-02 03:27] VITALS: BP 123/58; PULSE 81; RESP 16; TEMP 36.8; O2SAT 98
[2024-11-02] MEDS: Dextrose 5 % and 0.45 % NaCl 1,000 ML 80 ML IVCONT ×2 (05:57→17:19)
[2024-11-02 07:22] LABS: Anion Gap 10 (12-20); Blood Urea Nitrogen < 3 mg/dL (9-16); Calcium 7.3 mg/dL (8.4-10.2); Carbon Dioxide 26 mmol/L (22-29); Chloride 106 mmol/L (96-108); Creatinine Clr Calc Pharmacy 70.8; Estimated Glomerular Filt Rate > 60; Glucose Random 99 mg/dL (60-115); Magnesium 1.6 mg/dL (1.6-2.6); Phosphorus 2.2 mg/dL (2.7-4.5); Sodium 139 mmol/L (135-145)
[2024-11-02 07:24] LABS: Potassium 2.8 mmol/L (3.3-5.1)
[2024-11-02] MEDS: Potassium Phosphate/NS 15 MMOL/250 ML PLAST..BAG 62.5 MMOL IV ×4 (07:31→19:38)
[2024-11-02] MEDS: 0.9 % Sodium Chloride Flush 3 ML SYRINGE IVFLUSH ×2 (07:34→17:19)
[2024-11-02 08:00] VITALS: BP 90/52; PULSE 60; RESP 17; TEMP 36.8; O2SAT 97
[2024-11-02] MEDS: levETIRAcetam Oral Soln 500 MG/5 ML PO ×2 (09:42→21:52)
--- NOTE | 2024-11-02 10:04 | MHC.SL.SWA ---
Speech Pathologist Impression: Risk of Aspiration, Oropharyngeal Dysphagia Risk of Aspiration Due to: Medically Fragile Reduced Cognition Weak Cough Weak Voice Dysphasia Diet Status:No Change Liquid Consistency and Strategies for Safe Swallow: Liquid Intake Recommendation: [place] Thick Liquid Intake Strategies: Small Sips No Straws Liquids by Teaspoon Only Solid Food Consistency: Dietary Recommendations: Pureed (NDD1) Additional Modifications to Solid Foods: Note risk of reduced PO intake w/ very slow rate of feeding. RD consulted 11/01. Patient will need careful 1:1 feeding: present small bites, allow ample time to swallow, alternate w/ sips of liquid to promote clearance, present dry spoon to elicit jaw opening and check oral cavity periodically. No changes made to diet order. Oral Medication Intake: Crushed with Puree Please contact the pharmacy regarding appropriate crushable or liquid drug formulations that are available whenever modified delivery is recommended. Compensatory Strategies and Precautions to be Taken for Safe Swallow: Sitting Upright (90 deg) No Straw Liquids from Spoon Small Bites and Sips Alternate Liquids/Solids Rate of Ingestion Change Oral Check Supervision While Eating and Drinking for Safe Swallow: Total Assistance (1:1) Swallowing Recommended Treatments: Compens. Strategy Educat. Recommendation for Speech: CONTACT CENTER DIRECTOR will continue to follow. Comment: Frequency/Duration: M-F daily Date Range for Service Req: Timeline to reassess: Associate Spa Director Clinican/Clinical Fellow: No Supervisory Statement: I have reviewed and agree with the student/clinical fellow's documentation: N/A Speech Language Pathologist: Erin Dick M.A., [facility]-CONTACT CENTER DIRECTOR
[2024-11-02 12:00] VITALS: BP 96/45; PULSE 59; RESP 18; TEMP 36.8; O2SAT 100
[2024-11-02] MEDS: cefTRIAXone sodium 1 GM VIAL IVPUSH (12:27)
--- NOTE | 2024-11-02 13:19 | HO.PM.IMPN ---
Subjective Subjective Date of Service: 11/02/24 Interval History: unable to take PO KCl but takes PO Keppra minimal PO intake Review of Systems Review of Systems: Yes Unobtainable due to mental status Physical Exam Vital Signs: Vital Signs: Last Vital Signs Temp 98.3 F 11/02/24 12:00 Pulse 59 11/02/24 12:00 Resp 18 11/02/24 12:00 BP 96/45 L 11/02/24 12:00 Pulse Ox 100 11/02/24 12:00 O2 Del Method Room Air 11/02/24 12:00 O2 Flow Rate 15 10/28/24 13:46 BMI result Body Mass Index 19.8 Gen: in no acute distress HEENT: sclera anicteric, moist mucus membranes Neck: supple Lungs: clear to auscultation bilaterally Heart: regular rate and rhythm, no murmurs Abd: soft, non-tender, non-distended Ext: no edema Skin: warm/well-perfused Neuro: alert, unable to assess orientation, moving all extremities Psych: impaired insight Objective Data Active Medications Acetaminophen (Acetaminophen 325 Mg Tablet) 650 mg PO Q6H PRN PRN Reason: Pain, Mild 1-3,fever,headache Albuterol/Ipratropium (Albuterol/Iprat 2.5/0.5mg 3 Ml Ampul.Neb) 3 ml INHALE RQ4H WHILE AWAKE PRN PRN Reason: shortness of breath or wheeze Calcium Carbonate (Calcium Carbonate 750 Mg Tab.Chew) 750 mg PO Q4H PRN PRN Reason: Heartburn Ceftriaxone Sodium (Ceftriaxone Sodium 1 Gm Vial) 1 gm IVPUSH Q24H [facility] Last Admin: 11/02/24 12:27 Dose: 1 gm Documented By: LILIYA Enoxaparin Sodium (Enoxaparin Sodium 40 Mg/0.4 Ml Syringe) 40 mg SUBCUT Q24H [facility] Last Admin: 11/01/24 17:52 Dose: 40 mg Documented By: LILIYA Dextrose/Sodium Chloride (D51/2ns) 1,000 mls @ 80 mls/hr IVCONT .[id number] [facility] Last Admin: 11/02/24 05:57 Dose: 80 mls/hr Documented By: POTTSSU Potassium Phosphate (Kphos) 15 mmol in 250 mls @ 62.5 mls/hr IV Q4H [facility] Stop: 11/02/24 23:59 Last Admin: 11/02/24 11:34 Dose: 62.5 mls/hr Documented By: LILIYA Levetiracetam (Levetiracetam Oral Soln 500 Mg/5 Ml) 500 mg PO BID [facility] Last Admin: 11/02/24 09:42 Dose: 500 mg Documented By: LILIYA Lorazepam (Lorazepam 2 Mg/Ml Vial) 2 mg IVPUSH ONCE PRN PRN Reason: Seizures Magnesium Hydroxide (Milk Of Magnesia 30 Ml Oral.Susp) 30 ml PO DAILY PRN PRN Reason: Constipation Melatonin (Melatonin 3 Mg Tablet) 6 mg PO BEDTIME PRN PRN Reason: Insomnia Last Admin: 10/31/24 22:01 Dose: 6 mg Documented By: BALDOMERO Sodium Chloride (0.9 % Sodium Chloride Flush 3 Ml Syringe) 3 ml IVFLUSH QSHIFT [facility] Last Admin: 11/02/24 07:34 Dose: 3 ml Documented By: LILIYA Labs 10/28/24 15:31 11/02/24 06:14 Labs: Laboratory Results - last 24 hr 11/02/24 06:14 Hold Purple Top SEE NOTE Anion Gap 10 L Estim Creat Clear Calc 70.8 Estimated GFR > 60 Random Glucose 99 Calcium 7.3 L Phosphorus 2.2 L Magnesium 1.6 Assessment and Plan (1) New onset seizure: Status: Acute Plan d6 for 73yo M with dementia and without current medical care, sent in after episode of staring with generalized shaking concerning for new-onset seizure, also found to have WILBUR hypoK hypoPO4 - replete IV, recheck levels in AM new-onset sz - Neuro consulted, EEG with diffuse background slowing consistent with diffuse encephalopathic process; continue levetiracetam UTI, Klebsiella oxytoca R to ampicillin + cefazolin - ceftriaxone 10/30-11/06, can complete course with cefuroxime upon discharge WILBUR - resolved after IV fluid hydration hyperbilirubinemia - likely Gilbert's syndrome bronchitis/COPD - no apparent symptoms; give prn neb treatments hx substance abuse disorder - current Utox negative - has not had EtOH in over a year dementia - quite advanced, has been living with son with / care for past 15yr. Discussed with kirsten Pike by phone [[phone]]- affirmed pt is DNR/DNI and wouldn't want feeding tube either. - per GAS SUBSTATION OPERATOR, trial of NDD1 solids/nectar liquids VTE ppx - enoxaparin dispo - eventually home, where he has 25/04 care. No PCP and no insurance so does not qualify for VNA or hospice In my clinical judgment, the patient requires continued inpatient hospitalization for the following reasons: IV KCl Total time managing care of this patient today: 45 minutes. Quality Stroke Does the patient have a stroke diagnosis?: No VTE Prior VTE?: No VTE Risk Level:: Medical - moderate - high VTE Device Contraindication: Treatment Not Indicated VTE Drug Contraindication: N/A - Med Ordered
--- NOTE | 2024-11-02 15:23 | MHC.CM.PN ---
EM reviewed and per MD rounds, pt is not medically cleared for discharge due to management of hypokalemia, receiving IV K+ replacement.
[2024-11-02 16:00] VITALS: BP 104/57; PULSE 63; RESP 20; TEMP 36.8; O2SAT 99
[2024-11-02 16:26] LABS: CDiff Gene PCR NEGATIVE (Negative)
[2024-11-02] MEDS: Enoxaparin Sodium 40 MG/0.4 ML SYRINGE SUBCUT (17:19)
[2024-11-02 19:46] VITALS: BP 112/53; PULSE 68; RESP 19; TEMP 36.6; O2SAT 97
[2024-11-03] VITALS (7 sets, daily range): BP systolic 100–130; BP diastolic 52–75; PULSE 55–138; RESP 16–20; TEMP 36.1–36.5; O2SAT 97–99
[2024-11-03] MEDS: Dextrose 5 % and 0.45 % NaCl 1,000 ML 80 ML IVCONT ×2 (05:53→17:45)
[2024-11-03] MEDS: levETIRAcetam in NaCl (iso-os) 500 MG/100 ML PIGGYBACK 400 MG IV ×2 (09:34→20:45)
[2024-11-03 09:50] LABS: MANUAL DIFF FLAG NO
[2024-11-03 10:10] LABS: Alanine Aminotransferase < 6 U/L (0-40); Albumin Level 2.5 g/dL (3.5-5.0); Alkaline Phosphatase 50 U/L (39-117); Anion Gap 12 (12-20); Aspartate Amino Transferase 16 U/L (5-37); Blood Urea Nitrogen < 3 mg/dL (9-16); Calcium 6.9 mg/dL (8.4-10.2); Carbon Dioxide 23 mmol/L (22-29); Chloride 106 mmol/L (96-108); Estimated Glomerular Filt Rate > 60; Glucose Random 94 mg/dL (60-115); Phosphorus 2.4 mg/dL (2.7-4.5); Potassium 3.3 mmol/L (3.3-5.1); Sodium 138 mmol/L (135-145); Total Protein 5.3 g/dL (6.5-8.0)
[2024-11-03 10:16] LABS: Basophils Absolute Auto 0.1 X10*3/uL (0.0-0.2); Basophils Percent Auto 0.8 % (0-2); Lymphocytes Absolute Auto 1.1 X10*3/uL (1.2-4.9); PLT CLUMP 1; Red Blood Count 5.33 X10*6/uL (4.60-5.80); SCAN SMEAR FLAG 1
[2024-11-03 10:17] LABS: Eosinophils Absolute Auto 0.2 X10*3/uL (0.0-0.4); Eosinophils Percent Auto 2.4 % (0-4); Hematocrit 42.5 % (42.0-52.0); Hemoglobin 14.5 g/dl (14.0-18.0); Imm Gran Abs Auto 0.03 X10*3/uL (0.00-0.03); Imm Gran Pct Auto 0.5 % (0.0-0.4); Lymphocytes Percent Auto 17.3 % (20-40); Mean Corpuscular HGB Conc 34.1 g/dl (31.0-36.0); Mean Corpuscular Hemoglobin 27.2 pg (27.0-33.0); Mean Corpuscular Volume 79.7 fL (80.0-98.0); Mean Platelet Volume 11.1 fL (9.4-12.4); Monocytes Absolute Auto 0.5 X10*3/uL (0.1-1.2); Monocytes Percent Auto 7.9 % (2-11); Neutrophils Absolute Auto 4.7 x10*3/uL (2.0-8.3); Neutrophils Percent Auto 71.1 % (45-73); Red Cell Distribution Width 14.5 % (11.0-16.0)
[2024-11-03 10:22] LABS: White Blood Count 6.6 X10*3/uL (4.8-10.8)
[2024-11-03 10:23] LABS: Platelet Count 126 X10*3/uL (160-400)
[2024-11-03] MEDS: Potassium Phosphate/NS 15 MMOL/250 ML PLAST..BAG 62.5 MMOL IV ×2 (11:04→15:15)
[2024-11-03] MEDS: cefTRIAXone sodium 1 GM VIAL IVPUSH (12:05)
[2024-11-03 13:17] LABS: Adenovirus F 40/41 Not Detected (Not Detect.); Astrovirus Not Detected (Not Detect.); Campylobacter Not Detected (Not Detect.); Cryptosporidium Not Detected (Not Detect.); Cyclospora cayetanensis Not Detected (Not Detect.); E. coli EAEC Not Detected (Not Detect.); E. coli EPEC Not Detected (Not Detect.); E. coli ETEC Not Detected (Not Detect.); E. coli STEC Not Detected (Not Detect.); Entamoeba histolytica Not Detected (Not Detect.); Giardia lamblia Not Detected (Not Detect.); Norovirus GI/GII Not Detected (Not Detect.); Plesiomonas shigelloides Not Detected (Not Detect.); Rotavirus A Not Detected (Not Detect.); Salmonella Not Detected (Not Detect.); Sapovirus Not Detected (Not Detect.); Shigella sp./EIEC Not Detected (Not Detect.); Vibrio Not Detected (Not Detect.); Vibrio Cholerae Not Detected (Not Detect.); Yersinia enterocolitica Not Detected (Not Detect.)
--- NOTE | 2024-11-03 14:51 | P.PNIM_ITS ---
Subjective Subjective Date of Service: 11/03/24 Interval History: No acute issues overnight. Minimal verbalization. Minimal intake Review of Systems Denies chest pain Denies shortness of breath Denies nausea vomiting diarrhea Denies fever chills Physical Exam 2 Vital Signs: Vital Signs: Last Vital Signs Temp 97 F 11/03/24 11:13 Pulse 66 11/03/24 11:13 Resp 18 11/03/24 11:13 BP 110/60 11/03/24 11:13 Pulse Ox 99 11/03/24 11:13 O2 Del Method Room Air 11/03/24 07:13 O2 Flow Rate 15 10/28/24 13:46 BMI result Body Mass Index 19.8 Const: Other: Awake alert oriented x3 in no acute distress Resp: Other: Clear to auscultation bilaterally no rales rhonchi or wheezes Cardio: Other: No S4; positive S1-S2; no S3 murmurs rubs or gallops GI: Other: Soft nontender nondistended normoactive bowel sounds Extrem: Other: No edema bilateral Objective Data Active Medications Acetaminophen (Acetaminophen 325 Mg Tablet) 650 mg PO Q6H PRN PRN Reason: Pain, Mild 1-3,fever,headache Albuterol/Ipratropium (Albuterol/Iprat 2.5/0.5mg 3 Ml Ampul.Neb) 3 ml INHALE RQ4H WHILE AWAKE PRN PRN Reason: shortness of breath or wheeze Calcium Carbonate (Calcium Carbonate 750 Mg Tab.Chew) 750 mg PO Q4H PRN PRN Reason: Heartburn Ceftriaxone Sodium (Ceftriaxone Sodium 1 Gm Vial) 1 gm IVPUSH Q24H [facility] Last Admin: 11/03/24 12:05 Dose: 1 gm Documented By: CLAUDINE Enoxaparin Sodium (Enoxaparin Sodium 40 Mg/0.4 Ml Syringe) 40 mg SUBCUT Q24H [facility] Last Admin: 11/02/24 17:19 Dose: 40 mg Documented By: LILIYA Dextrose/Sodium Chloride (D51/2ns) 1,000 mls @ 80 mls/hr IVCONT .[id number] [facility] Last Admin: 11/03/24 05:53 Dose: 80 mls/hr Documented By: SOLA Levetiracetam (Keppra) 500 mg in 100 mls @ 400 mls/hr IV Q12H [facility] Last Infusion: 11/03/24 09:52 Dose: Infused Documented By: CLAUDINE Potassium Phosphate (Kphos) 15 mmol in 250 mls @ 62.5 mls/hr IV Q4H [facility] Stop: 11/03/24 18:44 Last Admin: 11/03/24 11:04 Dose: 62.5 mls/hr Documented By: CLAUDINE Magnesium Hydroxide (Milk Of Magnesia 30 Ml Oral.Susp) 30 ml PO DAILY PRN PRN Reason: Constipation Melatonin (Melatonin 3 Mg Tablet) 6 mg PO BEDTIME PRN PRN Reason: Insomnia Last Admin: 10/31/24 22:01 Dose: 6 mg Documented By: BALDOMERO Sodium Chloride (0.9 % Sodium Chloride Flush 3 Ml Syringe) 3 ml IVFLUSH QSHIFT [facility] Last Admin: 11/03/24 08:19 Dose: Not Given Documented By: CLAUDINE Non-Admin Reason: IV Running Labs 11/03/24 09:46 11/03/24 09:46 Labs: Laboratory Results - last 24 hr 11/02/24 11/03/24 15:25 09:46 MCV 79.7 L MCH 27.2 MCHC 34.1 RDW 14.5 Plt Count 126 L D MPV 11.1 Immature Gran % (Auto) 0.5 H Neut % (Auto) 71.1 Lymph % (Auto) 17.3 L [place] % (Auto) 7.9 Eos % (Auto) 2.4 Baso % (Auto) 0.8 Lymph # (Auto) 1.1 L [place] # (Auto) 0.5 Eos # (Auto) 0.2 Baso # (Auto) 0.1 Abs Immat Gran (auto) 0.03 Absolute Neuts (auto) 4.7 Absolute Nucleated RBC 0.000 Nucleated RBC % (auto) 0.0 Anion Gap 12 Estim Creat Clear Calc 87.0 Estimated GFR > 60 Random Glucose 94 Calcium 6.9 L Phosphorus 2.4 L Total Bilirubin 1.0 AST 16 ALT < 6 Alkaline Phosphatase 50 Total Protein 5.3 L Albumin 2.5 L Stl C. cayetanensis PCR Not Detected Stool Rotavirus A PCR Not Detected Stl Adenov F 40/41 PCR Not Detected Stool Astrovirus (PCR) Not Detected Stool Campylobacter PCR Not Detected Stool Cryptosporidium PCR Not Detected Stl Sh Tox Pr E STEC PCR Not Detected Stool E coli O157 PCR Not applicable Stl Enterotoxigenic E PCR Not Detected Stool EPEC (PCR) Not Detected Stool EAEC (PCR) Not Detected Stl E. histolytica PCR Not Detected Stool Giardia Lamblia PCR Not Detected Stl P. shigelloides PCR Not Detected Stool Salmonella PCR Not Detected Stool Sapovirus (PCR) Not Detected Stl Shigella/EIEC PCR Not Detected St Y.enterocolitica PCR Not Detected Stool Vibrio (PCR) Not Detected Stl Vibrio cholerae PCR Not Detected Stl Norovirus GI/GII PCR Not Detected C. difficile Tox B Gene NEGATIVE Assessment and Plan (1) New onset seizure: Status: Acute (2) Acute UTI: Status: Acute Plan d6 for 73yo M with dementia and without current medical care, sent in after episode of staring with generalized shaking concerning for new-onset seizure, also found to have WILBUR 1.New-onset sz -poor p.o. intake..hypo K+/Phos...replete -we will switch Keppra to IV -no seizures since admission 2.UTI, Klebsiella oxytoca R to ampicillin + cefazolin - ceftriaxone 10/30-11/06, can complete course with cefuroxime upon discharge 3.WILBUR -responded to volume repletion -follow renals/divalents 4.Hyperbilirubinemia - likely Gilbert's syndrome 5.Dementia - quite advanced, has been living with son with / care for past 15yr. Discussed with son Shahzad by phone [[phone]]- affirmed pt is DNR/DNI and wouldn't want feeding tube either. - per SWEEPER OPERATOR [employer]IGHWAYS, trial of NDD1 solids/nectar liquids Enoxaparin DNR/DNI In my clinical judgment, the patient requires continued inpatient hospitalization for the following reasons: IV KCl Quality Stroke Does the patient have a stroke diagnosis?: No VTE Prior VTE?: No VTE Risk Level:: Medical - moderate - high VTE Device Contraindication: Treatment Not Indicated VTE Drug Contraindication: N/A - Med Ordered
[2024-11-03] MEDS: Enoxaparin Sodium 40 MG/0.4 ML SYRINGE SUBCUT (17:46)
[2024-11-04] VITALS (7 sets, daily range): BP systolic 100–128; BP diastolic 55–85; PULSE 54–69; RESP 12–20; TEMP 36.2–36.8; O2SAT 95–98
[2024-11-04] MEDS: Dextrose 5 % and 0.45 % NaCl 1,000 ML 80 ML IVCONT ×2 (05:45→17:09)
[2024-11-04] MEDS: levETIRAcetam in NaCl (iso-os) 500 MG/100 ML PIGGYBACK 400 MG IV ×2 (08:30→20:11)
--- NOTE | 2024-11-04 13:00 | P.PNIM_ITS ---
Subjective Subjective Date of Service: 11/04/24 Interval History: No acute changes or improvement overnight. Remains minimally verbal Review of Systems Denies chest pain Denies shortness of breath Denies nausea vomiting diarrhea Denies fever chills Physical Exam 2 Vital Signs: Vital Signs: Last Vital Signs Temp 97.8 F 11/04/24 11:11 Pulse 57 11/04/24 11:11 Resp 12 11/04/24 11:11 BP 100/59 L 11/04/24 11:11 Pulse Ox 98 11/04/24 11:11 O2 Del Method Room Air 11/04/24 11:11 O2 Flow Rate 15 10/28/24 13:46 BMI result Body Mass Index 19.8 Const: Other: Awake alert oriented x3 in no acute distress Resp: Other: Clear to auscultation bilaterally no rales rhonchi or wheezes Cardio: Other: No S4; positive S1-S2; no S3 murmurs rubs or gallops GI: Other: Soft nontender nondistended normoactive bowel sounds Extrem: Other: No edema bilateral Objective Data Active Medications Acetaminophen (Acetaminophen 325 Mg Tablet) 650 mg PO Q6H PRN PRN Reason: Pain, Mild 1-3,fever,headache Albuterol/Ipratropium (Albuterol/Iprat 2.5/0.5mg 3 Ml Ampul.Neb) 3 ml INHALE RQ4H WHILE AWAKE PRN PRN Reason: shortness of breath or wheeze Calcium Carbonate (Calcium Carbonate 750 Mg Tab.Chew) 750 mg PO Q4H PRN PRN Reason: Heartburn Ceftriaxone Sodium (Ceftriaxone Sodium 1 Gm Vial) 1 gm IVPUSH Q24H [facility] Last Admin: 11/03/24 12:05 Dose: 1 gm Documented By: CLAUDINE Enoxaparin Sodium (Enoxaparin Sodium 40 Mg/0.4 Ml Syringe) 40 mg SUBCUT Q24H [facility] Last Admin: 11/03/24 17:46 Dose: 40 mg Documented By: CLAUDINE Dextrose/Sodium Chloride (D51/2ns) 1,000 mls @ 80 mls/hr IVCONT .[id number] [facility] Last Admin: 11/04/24 05:45 Dose: 80 mls/hr Documented By: SOLA Levetiracetam (Keppra) 500 mg in 100 mls @ 400 mls/hr IV Q12H [facility] Last Infusion: 11/04/24 08:51 Dose: Infused Documented By: CLAUDINE Magnesium Hydroxide (Milk Of Magnesia 30 Ml Oral.Susp) 30 ml PO DAILY PRN PRN Reason: Constipation Melatonin (Melatonin 3 Mg Tablet) 6 mg PO BEDTIME PRN PRN Reason: Insomnia Last Admin: 10/31/24 22:01 Dose: 6 mg Documented By: BALDOMERO Sodium Chloride (0.9 % Sodium Chloride Flush 3 Ml Syringe) 3 ml IVFLUSH QSHIFT [facility] Last Admin: 11/04/24 07:23 Dose: Not Given Documented By: CLAUDINE Non-Admin Reason: IV Running Labs 11/03/24 09:46 11/03/24 09:46 Labs: Laboratory Results - last 24 hr 11/02/24 15:25 Stl C. cayetanensis PCR Not Detected Stool Rotavirus A PCR Not Detected Stl Adenov F 40/41 PCR Not Detected Stool Astrovirus (PCR) Not Detected Stool Campylobacter PCR Not Detected Stool Cryptosporidium PCR Not Detected Stl Sh Tox Pr E STEC PCR Not Detected Stool E coli O157 PCR Not applicable Stl Enterotoxigenic E PCR Not Detected Stool EPEC (PCR) Not Detected Stool EAEC (PCR) Not Detected Stl E. histolytica PCR Not Detected Stool Giardia Lamblia PCR Not Detected Stl P. shigelloides PCR Not Detected Stool Salmonella PCR Not Detected Stool Sapovirus (PCR) Not Detected Stl Shigella/EIEC PCR Not Detected St Y.enterocolitica PCR Not Detected Stool Vibrio (PCR) Not Detected Stl Vibrio cholerae PCR Not Detected Stl Norovirus GI/GII PCR Not Detected Assessment and Plan (1) New onset seizure: Status: Acute (2) Acute UTI: Status: Acute Plan d6 for 73yo M with dementia and without current medical care, sent in after episode of staring with generalized shaking concerning for new-onset seizure, also found to have WILBUR 1.New-onset sz -poor p.o. intake..hypo K+/Phos...replete -continue IV Keppra -no seizures since admission 2.UTI, Klebsiella oxytoca R to ampicillin + cefazolin - ceftriaxone 10/30-11/06, can complete course with cefuroxime upon discharge 3.WILBUR -responded to volume repletion -follow renals/divalents 4.Hyperbilirubinemia - likely Gilbert's syndrome 5.Dementia - quite advanced, has been living with son with 24/7 care for past 15yr. Discussed with son Shahzad by phone [[phone]]- affirmed pt is DNR/DNI and wouldn't want feeding tube either. - per SENIOR NET C DEVELOPER, trial of NDD1 solids/nectar liquids. Discussed disposition with son in a.m. Enoxaparin DNR/DNI In my clinical judgment, the patient requires continued inpatient hospitalization for the following reasons: IV KCl Quality Stroke Does the patient have a stroke diagnosis?: No VTE Prior VTE?: No VTE Risk Level:: Medical - moderate - high VTE Device Contraindication: Treatment Not Indicated VTE Drug Contraindication: N/A - Med Ordered
[2024-11-04] MEDS: cefTRIAXone sodium 1 GM VIAL IVPUSH (13:04)
[2024-11-04] MEDS: Enoxaparin Sodium 40 MG/0.4 ML SYRINGE SUBCUT (17:09)
[2024-11-04] MEDS: 0.9 % Sodium Chloride Flush 3 ML SYRINGE IVFLUSH (20:17)
[2024-11-05 03:32] VITALS: BP 110/65; PULSE 56; RESP 16; TEMP 36.2; O2SAT 98
[2024-11-05 06:20] LABS: MANUAL DIFF FLAG NO
[2024-11-05 06:28] LABS: Basophils Absolute Auto 0.1 X10*3/uL (0.0-0.2); Basophils Percent Auto 1.1 % (0-2); Eosinophils Absolute Auto 0.1 X10*3/uL (0.0-0.4); Eosinophils Percent Auto 2.2 % (0-4); Hematocrit 40.1 % (42.0-52.0); Hemoglobin 13.7 g/dl (14.0-18.0); Imm Gran Abs Auto 0.02 X10*3/uL (0.00-0.03); Imm Gran Pct Auto 0.4 % (0.0-0.4); Lymphocytes Percent Auto 18.5 % (20-40); Mean Corpuscular HGB Conc 34.2 g/dl (31.0-36.0); Mean Corpuscular Hemoglobin 27.2 pg (27.0-33.0); Mean Corpuscular Volume 79.6 fL (80.0-98.0); Mean Platelet Volume 10.6 fL (9.4-12.4); Monocytes Absolute Auto 0.5 X10*3/uL (0.1-1.2); Monocytes Percent Auto 8.7 % (2-11); Neutrophils Absolute Auto 3.7 x10*3/uL (2.0-8.3); Neutrophils Percent Auto 69.1 % (45-73); Platelet Count 117 X10*3/uL (160-400); Red Blood Count 5.04 X10*6/uL (4.60-5.80); Red Cell Distribution Width 14.3 % (11.0-16.0); White Blood Count 5.4 X10*3/uL (4.8-10.8)
[2024-11-05 07:03] VITALS: BP 114/57; PULSE 55; RESP 16; TEMP 36.4; O2SAT 100
[2024-11-05 07:11] LABS: Alanine Aminotransferase < 6 U/L (0-40); Albumin Level 2.4 g/dL (3.5-5.0); Alkaline Phosphatase 49 U/L (39-117); Anion Gap 13 (12-20); Aspartate Amino Transferase 16 U/L (5-37); Bilirubin Total 1.1 mg/dL (0.0-1.0); Blood Urea Nitrogen < 3 mg/dL (9-16); Calcium 6.8 mg/dL (8.4-10.2); Carbon Dioxide 25 mmol/L (22-29); Chloride 103 mmol/L (96-108); Estimated Glomerular Filt Rate > 60; Glucose Fasting 86 mg/dL (60-99); Potassium 3.1 mmol/L (3.3-5.1); Sodium 138 mmol/L (135-145); Total Protein 4.8 g/dL (6.5-8.0)
[2024-11-05] MEDS: levETIRAcetam in NaCl (iso-os) 500 MG/100 ML PIGGYBACK 400 MG IV ×2 (11:06→21:13)
[2024-11-05] MEDS: 0.9 % Sodium Chloride Flush 3 ML SYRINGE IVFLUSH ×3 (11:08→21:14)
[2024-11-05 11:21] VITALS: BP 111/59; PULSE 55; RESP 16; TEMP 36.7; O2SAT 100
[2024-11-05] MEDS: cefTRIAXone sodium 1 GM VIAL IVPUSH (12:24)
--- NOTE | 2024-11-05 12:44 | MHC.SL.SWA ---
Speech Pathologist Impression: Mild to moderate variable oropharyngeal dysphagia in setting of cognitive limitations. Risk of Aspiration Due to: Medically Fragile Reduced Cognition Weak Cough Weak Voice Dysphasia Diet Status: Liquid Consistency and Strategies for Safe Swallow: Liquid Intake Recommendation: Thin Liquid Intake Strategies: Small Sips No Straws Liquids by Teaspoon Only Solid Food Consistency: Dietary Recommendations: Pureed (NDD1) Additional Modifications to Solid Foods: Concern patient is not meeting nutritional needs w/ reduced PO intake and oral phase impairment/significantly delayed swallow. RD consulted 11/01. DRYCLEANER texted RN & MD via secure [place] Message. Patient will need careful 1:1 feeding: present small bites, allow ample time to swallow, alternate w/ sips of liquid to promote clearance, present dry spoon to elicit jaw opening and check oral cavity periodically. No changes made to diet order. Oral Medication Intake: Crushed with Puree Please contact the pharmacy regarding appropriate crushable or liquid drug formulations that are available whenever modified delivery is recommended. Compensatory Strategies and Precautions to be Taken for Safe Swallow: Sitting Upright (90 deg) No Straw Liquids from Spoon Small Bites and Sips Alternate Liquids/Solids Rate of Ingestion Change Oral Check Supervision While Eating and Drinking for Safe Swallow: Total Assistance (1:1) Foods to Avoid: Swallowing Recommended Treatments: Compens. Strategy Educat. Recommendation for Speech: Comment: Recc purees and thins, 1:1 feeding, cueing, encouragement for PO, alternating consistencies Frequency/Duration: M-F daily Date Range for Service Req: Timeline to reassess: Psychiatric Technician Clinican/Clinical Fellow: No Supervisory Statement: I have reviewed and agree with the student/clinical fellow's documentation: N/A Speech Language Pathologist: Debra Conti M.S., CCC-DRYCLEANER
--- NOTE | 2024-11-05 14:40 | P.CDIM_ITS ---
PROVIDER RESPONSE TEXT: To clarify, the appropriate diagnosis supported by the clinical indicators: Pressure Injury sacrum and coccyx Stage 2 QUERY TEXT: PHYSICIAN'S DOCUMENTATION REQUEST Date of Query: 11/05/2024 09:01 AM EST Patient Name: Giovani Thorne Admit Date: 10/28/2024 Dear Matt Payne DO, A review of the medical record indicates additional documentation may be needed. Please review below and update the documentation accordingly. Clinical Indicators: Wound care nursing notes 10/31 & 11/01 - Pressure injury Stage 2 sacrum and coccyx Foam dressing to allow for moist healing and protect from friction. Based on the above, could you please provide further information regarding the ulcer/wound/injury: Pressure Injury sacrum and coccyx Stage 2 Other etiology skin integrity Other (explain) Clinically unable to determine (explain) Thank you, Yessenia Greene, CCS, CDIS Use of terms such as suspected, likely, concern for, or probable (associated with a specific diagnosi s that is being evaluated, monitored, or treated as if it exists) are acceptable and can be coded in the inpatient se tting, when documented at the time of discharge. Please use your independent medical judgment in providing your response. THIS QUERY IS PART OF THE PERMANENT MEDICAL RECORD
--- NOTE | 2024-11-05 14:40 | P.CDIM_ITS ---
PROVIDER RESPONSE TEXT: To clarify, the appropriate diagnosis supported by the clinical indicators: Metabolic QUERY TEXT: PHYSICIAN'S DOCUMENTATION REQUEST Date of Query: 11/05/2024 09:27 AM EST Patient Name: Giovani Thorne Admit Date: 10/28/2024 Dear Matt Payne DO, A review of the medical record indicates additional documentation may be needed. Please review below and update the documentation accordingly. Clinical Indicators: Patient is not oriented to person, time or situation. Unable to obtain accurate History due to mental status.. Unable to assess orientation. Progress note 11/02 - Neuro consulted, EEG with diffuse background slowly consistent with diffuse ence phalopathic process. Continue levetiracetam. Dementia/new onset seizure Based on the above, please further specify, in the Progress Notes, the known or suspected type of the documented encephalopathic process: Metabolic Toxic Toxic metabolic Other (explain) Clinically unable to determine (explain) Thank you, Yessenia Greene, CCS, CDIS Use of terms such as suspected, likely, concern for, or probable (associated with a specific diagnosi s that is being evaluated, monitored, or treated as if it exists) are acceptable and can be coded in the inpatient se tting, when documented at the time of discharge. Please use your independent medical judgment in providing your response. THIS QUERY IS PART OF THE PERMANENT MEDICAL RECORD
--- NOTE | 2024-11-05 14:58 | P.PNIM_ITS ---
Subjective Subjective Date of Service: 11/05/24 Interval History: No acute issues overnight; continues to refuse most oral intake. Seen by speech recommendations noted Review of Systems Denies chest pain Denies shortness of breath Denies nausea vomiting diarrhea Denies fever chills Physical Exam 2 Vital Signs: Vital Signs: Last Vital Signs Temp 98.0 F 11/05/24 11:21 Pulse 55 11/05/24 11:21 Resp 16 11/05/24 11:21 BP 111/59 L 11/05/24 11:21 Pulse Ox 100 11/05/24 11:21 O2 Del Method Room Air 11/05/24 11:21 O2 Flow Rate 15 10/28/24 13:46 BMI result Body Mass Index 19.8 Const: Other: Awake alert oriented x3 in no acute distress Resp: Other: Clear to auscultation bilaterally no rales rhonchi or wheezes Cardio: Other: No S4; positive S1-S2; no S3 murmurs rubs or gallops GI: Other: Soft nontender nondistended normoactive bowel sounds Extrem: Other: No edema bilateral Objective Data Active Medications Acetaminophen (Acetaminophen 325 Mg Tablet) 650 mg PO Q6H PRN PRN Reason: Pain, Mild 1-3,fever,headache Calcium Carbonate (Calcium Carbonate 750 Mg Tab.Chew) 750 mg PO Q4H PRN PRN Reason: Heartburn Ceftriaxone Sodium (Ceftriaxone Sodium 1 Gm Vial) 1 gm IVPUSH Q24H [facility] Last Admin: 11/05/24 12:24 Dose: 1 gm Documented By: CLAUDINE Enoxaparin Sodium (Enoxaparin Sodium 40 Mg/0.4 Ml Syringe) 40 mg SUBCUT Q24H [facility] Last Admin: 11/04/24 17:09 Dose: 40 mg Documented By: CLAUDINE Levetiracetam (Keppra) 500 mg in 100 mls @ 400 mls/hr IV Q12H [facility] Last Infusion: 11/05/24 11:26 Dose: Infused Documented By: CLAUDINE Magnesium Hydroxide (Milk Of Magnesia 30 Ml Oral.Susp) 30 ml PO DAILY PRN PRN Reason: Constipation Melatonin (Melatonin 3 Mg Tablet) 6 mg PO BEDTIME PRN PRN Reason: Insomnia Last Admin: 10/31/24 22:01 Dose: 6 mg Documented By: HO.KELLYCH Sodium Chloride (0.9 % Sodium Chloride Flush 3 Ml Syringe) 3 ml IVFLUSH QSHIFT [facility] Last Admin: 11/05/24 11:08 Dose: 3 ml Documented By: CLAUDINE Labs 11/05/24 06:16 11/05/24 06:16 Labs: Laboratory Results - last 24 hr 11/05/24 06:16 MCV 79.6 L MCH 27.2 MCHC 34.2 RDW 14.3 Plt Count 117 L MPV 10.6 Immature Gran % (Auto) 0.4 Neut % (Auto) 69.1 Lymph % (Auto) 18.5 L [place] % (Auto) 8.7 Eos % (Auto) 2.2 Baso % (Auto) 1.1 Lymph # (Auto) 1.0 L [place] # (Auto) 0.5 Eos # (Auto) 0.1 Baso # (Auto) 0.1 Abs Immat Gran (auto) 0.02 Absolute Neuts (auto) 3.7 Absolute Nucleated RBC 0.000 Nucleated RBC % (auto) 0.0 Anion Gap 13 Estim Creat Clear Calc 84.0 Estimated GFR > 60 Fasting Glucose 86 Calcium 6.8 L Phosphorus 2.0 L Total Bilirubin 1.1 H AST 16 ALT < 6 Alkaline Phosphatase 49 Total Protein 4.8 L Albumin 2.4 L Assessment and Plan (1) New onset seizure: Status: Acute Plan 73yo M with dementia and without current medical care, sent in after episode of staring with generalized shaking concerning for new-onset seizure, also found to have WILBUR 1.New-onset sz -poor p.o. intake..hypo K+/Phos...replete -continue IV Keppra -no seizures since admission 2.UTI, Klebsiella oxytoca R to ampicillin + cefazolin - ceftriaxone 10/30-11/06, can complete course with cefuroxime upon discharge 3.WILBUR -responded to volume repletion -follow renals/divalents 4.Hyperbilirubinemia - likely Gilbert's syndrome 5.Dementia - quite advanced, has been living with son with 24/7 care for past 15yr. Discussed with son Shahzad by phone [[phone]]- affirmed pt is DNR/DNI and wouldn't want feeding tube either. - per JANITORIAL CLEANER, trial of NDD1 solids/nectar liquids. Enoxaparin DNR/DNI In my clinical judgment, the patient requires continued inpatient hospitalization for the following reasons: Safe disposition. Attempted to reach son without success Quality Stroke Does the patient have a stroke diagnosis?: No VTE Prior VTE?: No VTE Risk Level:: Medical - moderate - high VTE Device Contraindication: Treatment Not Indicated VTE Drug Contraindication: N/A - Med Ordered
--- NOTE | 2024-11-05 15:19 | MHC.CM.PN ---
This CM attempted to reach pts son Shahzad, unable to reach and unable to leave a message due to mailbox not being set up. Per financial counselor Lucille, she is awaiting pts son to provide the documents needed to submit application for [employer].
[2024-11-05 16:00] VITALS: BP 110/56; PULSE 56; RESP 18; TEMP 36.2; O2SAT 94
[2024-11-05] MEDS: Potassium Phosphate/NS 15 MMOL/250 ML PLAST..BAG 62.5 MMOL IV ×2 (16:12→21:47)
[2024-11-05] MEDS: Enoxaparin Sodium 40 MG/0.4 ML SYRINGE SUBCUT (18:25)
[2024-11-05 19:20] VITALS: BP 111/53; PULSE 67; RESP 18; TEMP 36.2; O2SAT 100
[2024-11-05 23:44] VITALS: BP 100/59; PULSE 76; RESP 18; TEMP 36.6; O2SAT 100
[2024-11-06 03:18] VITALS: BP 100/41; PULSE 57; RESP 16; TEMP 36.1; O2SAT 100
[2024-11-06 06:57] LABS: MANUAL DIFF FLAG NO
[2024-11-06 07:12] LABS: Basophils Absolute Auto 0.1 X10*3/uL (0.0-0.2); Basophils Percent Auto 1.4 % (0-2); Eosinophils Absolute Auto 0.1 X10*3/uL (0.0-0.4); Eosinophils Percent Auto 2.1 % (0-4); Hematocrit 39.9 % (42.0-52.0); Hemoglobin 13.3 g/dl (14.0-18.0); Imm Gran Abs Auto 0.02 X10*3/uL (0.00-0.03); Imm Gran Pct Auto 0.3 % (0.0-0.4); Lymphocytes Absolute Auto 1.1 X10*3/uL (1.2-4.9); Lymphocytes Percent Auto 19.7 % (20-40); Mean Corpuscular HGB Conc 33.3 g/dl (31.0-36.0); Mean Corpuscular Hemoglobin 27.7 pg (27.0-33.0); Mean Platelet Volume 11.3 fL (9.4-12.4); Monocytes Absolute Auto 0.5 X10*3/uL (0.1-1.2); Monocytes Percent Auto 8.4 % (2-11); NRBC Pct Auto 0.3 /100WBC (0.0-0.2); Neutrophils Absolute Auto 3.9 x10*3/uL (2.0-8.3); Neutrophils Percent Auto 68.1 % (45-73); Platelet Count 116 X10*3/uL (160-400); Red Blood Count 4.81 X10*6/uL (4.60-5.80); Red Cell Distribution Width 14.5 % (11.0-16.0); White Blood Count 5.7 X10*3/uL (4.8-10.8)
[2024-11-06 07:18] LABS: Alanine Aminotransferase < 6 U/L (0-40); Alkaline Phosphatase 44 U/L (39-117); Anion Gap 15 (12-20); Aspartate Amino Transferase 20 U/L (5-37); Blood Urea Nitrogen 3 mg/dL (9-16); Calcium 6.9 mg/dL (8.4-10.2); Carbon Dioxide 17 mmol/L (22-29); Chloride 108 mmol/L (96-108); Estimated Glomerular Filt Rate > 60; Glucose Fasting 66 mg/dL (60-99); Phosphorus 2.7 mg/dL (2.7-4.5); Potassium 3.6 mmol/L (3.3-5.1); Sodium 136 mmol/L (135-145); Total Protein 4.8 g/dL (6.5-8.0)
[2024-11-06 07:22] VITALS: BP 124/59; PULSE 56; RESP 18; TEMP 36.7; O2SAT 99
[2024-11-06] MEDS: levETIRAcetam in NaCl (iso-os) 500 MG/100 ML PIGGYBACK 400 MG IV (09:29)
[2024-11-06] MEDS: 0.9 % Sodium Chloride Flush 3 ML SYRINGE IVFLUSH (09:30)
--- NOTE | 2024-11-06 11:18 | MHC.CLN ---
SUPPLEMENTS IN PLACE R/T POOR PO INTAKE PT RECEIVING MAGIC CUP TID AND ENSURE BID
--- NOTE | 2024-11-06 11:27 | MHC.CM.PN ---
This designer writer made x2 attempts to contact pt's son Shahzad, no answer and unable to answer VM d/t it not being set-up.
[2024-11-06 11:32] VITALS: BP 121/58; PULSE 54; RESP 18; TEMP 36.7; O2SAT 99
--- NOTE | 2024-11-06 12:59 | MHC.CM.PN ---
[facility] does not have a HCP on file for this Patient.
--- NOTE | 2024-11-06 13:05 | P.DS_ITS ---
DS: Providers Provider Date of Service: 11/06/24 Date of admission: 10/28/24 17:12 Date of discharge: 11/06/24 Primary care physician: Unknown Physician Consults: 10/28/24 17:05 Consult to Neurology Routine Consulting Provider: [facility] Reason for consultation: New onset seizure 11/01/24 11:39 Consult to Wound Care Routine Reason for consultation: stage 2 coccyx DS: Diagnosis Discharge Diagnosis (1) New onset seizure: Status: Acute (2) Acute UTI: Status: Acute DS: Summary Hospital Course Hospital Course: Patient has known history of dementia according to nursing staff this is what family reported. Patient comes in today with what family describes as a 2-3 minute seizure. Patient does not have history of this in the past. ED physician states that family denies drug use or alcohol use and family insists that patient does not have a history of seizures. Patient is awake however not oriented to person, place, time or situation. According to nursing staff family states that this is patient's baseline. Unable to obtain accurate history or review of systems due to patient's mental status Hospital course Patient admitted to telemetry. Patient was empirically started on ceftriaxone for active urinary sediment. Subsequent culture grew out Klebsiella that was sensitive to ceftriaxone. Patient completed a 7 day course of IV ceftriaxone. Patient was admitted with new onset seizure an EEG demonstrated diffuse waveforms consistent with a metabolic encephalopathy. Was started on IV Keppra and had no seizures during the remainder of his hospitalization. Discussed with patient's son Malik; Shahzad has been taking care of his dad at home and his father has no insurance. I spoke at length about his dad's care; he is well- versed in pureed food and administering meds as he cared for his mother at home. Given such I believe it is acceptable to discharge his dad back to his care. I have sent a script for Keppra 500 twice daily to [facility]; the prices affordable to Shahzad and I have given him multiple refills as he needs time to establish insurance and establish primary care. At this time patient is medically acceptable for discharge home Time Attestation Discharge Coordination Time (in mins): 35 Quality: Safe Use of Opioids Does Pt have an Active Cancer Diagnosis on the Problem List?: No Quality: Stroke Does the patient have a stroke diagnosis?: No Physical Exam Vital Signs: Vital Signs: Last Vital Signs Temp 98.1 F 11/06/24 11:32 Pulse 54 11/06/24 11:32 Resp 18 11/06/24 11:32 BP 121/58 L 11/06/24 11:32 Pulse Ox 99 11/06/24 11:32 O2 Del Method Room Air 11/06/24 11:32 O2 Flow Rate 15 10/28/24 13:46 BMI result Body Mass Index 19.8 Const: Other: Awake alert oriented x3 in no acute distress Resp: Other: Clear to auscultation bilaterally no rales rhonchi or wheezes Cardio: Other: No S4; positive S1-S2; no S3 murmurs rubs or gallops GI: Other: Soft nontender nondistended normoactive bowel sounds Extrem: Other: No edema bilateral DS: Data Data Completed and Pending Labs on day of discharge: Laboratory Results - last 24 hr 11/06/24 06:29 WBC 5.7 RBC 4.81 Hgb 13.3 L Hct 39.9 L MCV 83.0 MCH 27.7 MCHC 33.3 RDW 14.5 Plt Count 116 L MPV 11.3 Immature Gran % (Auto) 0.3 Neut % (Auto) 68.1 Lymph % (Auto) 19.7 L [place] % (Auto) 8.4 Eos % (Auto) 2.1 Baso % (Auto) 1.4 Lymph # (Auto) 1.1 L [place] # (Auto) 0.5 Eos # (Auto) 0.1 Baso # (Auto) 0.1 Abs Immat Gran (auto) 0.02 Absolute Neuts (auto) 3.9 Absolute Nucleated RBC 0.020 H Nucleated RBC % (auto) 0.3 H Sodium 136 Potassium 3.6 Chloride 108 Carbon Dioxide 17 L Anion Gap 15 BUN 3 L Creatinine 0.59 Estim Creat Clear Calc 84.0 Estimated GFR > 60 Fasting Glucose 66 Calcium 6.9 L Phosphorus 2.7 Total Bilirubin 1.0 AST 20 ALT < 6 Alkaline Phosphatase 44 Total Protein 4.8 L Albumin 2.0 L Discharge Plan Discharge Anticipated Discharge Date/Time: 11/06/24 13:00 Patient Disposition: Home, Self-Care Discharge Diagnosis: New onset seizures in the backdrop of acute UTI Referrals: Physician,Unknown J [Primary Care Provider] - 1 Week Discharge Medications: New levetiracetam [Keppra] 500 mg tablet 500 mg PO BID Qty: 60 11RF Continued acetaminophen 325 mg Tablet 325 mg PO BEDTIME melatonin 3 mg Tablet 6 mg PO BEDTIME Discharge Orders: Discharge Order (Routine); Ordered 11/06/24 Ordered By: Matt Payne Diet: puree Activity on Discharge: As tolerated Stand Alone Forms: Patient Portal Discharge page Print Language: [place] Care Plan Goals: Continue medications taken prior to hospitalization. Keppra 500 mg twice a day has been added to regimen. This was sent to [facility] on [facility] with 11 refills Health Concerns: Try to establish insurance and establish with primary care Plan of Treatment: Resume all treatments as before hospital Assessment: See discharge summary
--- NOTE | 2024-11-06 13:07 | MHC.CM.PN ---
Addendum entered by Franny Carmichael 11/06/24 13:40: A referral has been made to [facility], Case ID # is [id number]; report has been uploaded into [employer] [place] Original Note: Patient has been medically cleared for dc to home today, self care. CM spoke with Son/Shahzad at listed # and he will be here around 4PM to pick Patient up.
--- NOTE | 2024-11-06 13:38 | MHC.SL.SWA ---
Speech Pathologist Impression: Risk of Aspiration, Oropharyngeal Dysphagia Risk of Aspiration Due to: Medically Fragile Reduced Cognition Weak Cough Weak Voice Dysphasia Diet Status: Diet order adjusted- PUREE/THIN Liquid Consistency and Strategies for Safe Swallow: Liquid Intake Recommendation: Thin Liquid Intake Strategies: Small Sips Solid Food Consistency: Dietary Recommendations: Pureed (NDD1) Oral Medication Intake: Crushed with Puree Please contact the pharmacy regarding appropriate crushable or liquid drug formulations that are available whenever modified delivery is recommended. Compensatory Strategies and Precautions to be Taken for Safe Swallow: Sitting Upright (90 deg) Small Bites and Sips Alternate Liquids/Solids Rate of Ingestion Change Supervision While Eating and Drinking for Safe Swallow: Total Assistance (1:1) Swallowing Recommended Treatments: Compens. Strategy Educat. Recommendation for Speech: Inpatient ST Comment: Frequency/Duration: M-F daily Date Range for Service Req: Timeline to reassess: Wax Pourer Clinican/Clinical Fellow: No Supervisory Statement: I have reviewed and agree with the student/clinical fellow's documentation: N/A Speech Language Pathologist: Erin Dick M.A., CCC-SALES AND CATERING COORDINATOR
--- NOTE | 2024-11-06 13:50 | MHC.CM.PN ---
CM faxed a request to Medical Records at [facility] @ [phone], inquiring if they have a HCP for this Patient. KIRILL just received a call from Cherelle from [facility], regarding [facility] just filed. CM answered all questions.
[2024-11-06] MEDS: cefTRIAXone sodium 1 GM VIAL IVPUSH (13:58)
[2024-11-06 15:30] VITALS: BP 108/57; PULSE 52; RESP 16; TEMP 36.7; O2SAT 98
== END 2024-11-06 16:50 | disposition home or self-care (01) | DRG 101 ==
LOC: HO.ED 15:45 → HO.EDOVER 17:31 → HO.IMC 10-29 16:10
PROVIDERS: Family Medicine; Admitting Provider Physician Assistant; Emergency Provider Emergency Medicine; Visit Provider Hospitalist
DX: R56.9 Unspecified convulsions (principal); N39.0 Urinary tract infection, site not specified; N17.9 Acute kidney failure, unspecified; Z16.11 Resistance to penicillins; Z16.19 Resistance to other specified beta lactam antibiotics; E83.39 Other disorders of phosphorus metabolism; E87.6 Hypokalemia; L89.152 Pressure ulcer of sacral region, stage 2; Z66 Do not resuscitate; B96.1 Klebsiella pneumoniae [K. pneumoniae] as the cause of diseases classified elsewhere; E86.0 Dehydration; J44.9 Chronic obstructive pulmonary disease, unspecified; F10.91 Alcohol use, unspecified, in remission; E80.4 Gilbert syndrome; F19.91 Other psychoactive substance use, unspecified, in remission; Z20.822 Contact with and (suspected) exposure to COVID-19
CPT/HCPCS: 0241U; 36415; 70450; 71045; 71250; 76705; 80048; 80053; 80076; 80307; 81001; 83690; 83735; 83880; 84100; 84484; 85025; 85610; 86704; 86706; 86709; 86803; 87086; 87088; 87186; 87340; 87493; 87507; 92526; 92610; 93005; 95816; 97163; 97530; 99285; J0696; J1650; J1953; J2060; J3480

== ENCOUNTER → 2024-10-28 13:15 | Outpatient (BNV) | payer SELFPAY | PROVIDERS: Admitting Provider Physician Assistant; Emergency Provider Emergency Medicine; Visit Provider Internal Medicine | DX: R94.31 Abnormal electrocardiogram [ECG] [EKG] (principal) | CPT/HCPCS: 93010 ==

== ENCOUNTER → 2024-10-28 13:15 | Outpatient (BNV) | payer SELFPAY | PROVIDERS: Emergency Provider Emergency Medicine; Visit Provider Radiology Diagnostic Radiology | DX: J20.9 Acute bronchitis, unspecified (principal); I70.0 Atherosclerosis of aorta; R56.9 Unspecified convulsions; R74.01 Elevation of levels of liver transaminase levels; R91.8 Other nonspecific abnormal finding of lung field | CPT/HCPCS: 70450; 71045; 71250; 76705 ==

== ENCOUNTER → 2024-10-28 17:12 | Outpatient (BNV) | payer SELFPAY | PROVIDERS: Admitting Provider Physician Assistant; Emergency Provider Emergency Medicine; Visit Provider Psychiatry & Neurology Neurology | DX: R56.9 Unspecified convulsions (principal); F19.90 Other psychoactive substance use, unspecified, uncomplicated | CPT/HCPCS: 99222 ==

== ENCOUNTER → 2024-10-28 17:12 | Outpatient (BNV) | payer SELFPAY | PROVIDERS: Admitting Provider Physician Assistant; Emergency Provider Emergency Medicine; Visit Provider Physician Assistant | DX: R56.9 Unspecified convulsions (principal) | CPT/HCPCS: 99232 ==

== ENCOUNTER 2025-01-22 14:35 | Inpatient (IN) | payer SELFPAY ==
[2025-01-22] VITALS (7 sets, daily range): BP systolic 93–112; BP diastolic 45–65; PULSE 89–104; RESP 12–18; TEMP 36.1–36.5; O2SAT 97–100; BMI 17.1
--- NOTE | 2025-01-22 | EEG_ITS ---
FINDINGS: Waking background activity consists of low-voltage fast frequencies intermixed with some low-voltage underlying 6 to 7 Hz theta and an abundance of generalized muscle artifact throughout the record. The patient is not cooperative. Photic stimulation and hyperventilation were omitted. IMPRESSION: This EEG is considered abnormal due to mild background slowing. Abundance of muscle artifact noted. No seizure discharges are seen. MD JULIAN Rehman/NOEMY / [id number]
--- NOTE | ~2025-01-22 | US_ITS ---
EXAMINATION: US TRIPLEX LOWER EXTREMITY, BILATERAL CLINICAL INFORMATION: Bilateral edema. COMPARISON: None available. TECHNIQUE: Color-flow triplex imaging with spectral analysis and compression Doppler were performed on the bilateral lower extremities. FINDINGS: Respiratory variation, normal compression and augmented flow are noted throughout the bilateral lower extremities. The visualized common femoral vein, superficial femoral vein, profunda femoral vein, popliteal vein and midcalf peroneal and posterior tibial venous segments show no evidence of deep venous thrombosis bilaterally. There is no Garcia's cyst. US/US venous duplex LE BI IMPRESSION: No evidence of deep venous thrombosis involving the bilateral lower extremities. Electronically signed by: James Menendez MD 01/23/2025 04:34 PM EDT
--- NOTE | ~2025-01-22 | US_ITS ---
EXAMINATION: US TRIPLEX UPPER EXTREMITY, RIGHT CLINICAL INFORMATION: Right upper extremity edema. COMPARISON: None available. TECHNIQUE: Color-flow triplex imaging with spectral analysis and compression Doppler was performed on the right upper extremity. FINDINGS: The right internal jugular, subclavian, and axillary veins are patent and free of thrombus. The imaged segment of the right brachiocephalic vein is patent. Spectral doppler waveforms are normal. The brachial, basilic, cephalic, radial, and ulnar veins are patent and compressible. US/US venous duplex UE RT IMPRESSION: No evidence of deep venous thrombosis involving the right upper extremity. Electronically signed by: James Menendez MD 01/23/2025 04:34 PM EDT
--- NOTE | ~2025-01-22 | XR_ITS ---
CLINICAL HISTORY: leukocytosis 1 view chest x-ray Comparison: CT/SR - CT CHEST WO IV CON - 10/28/24 17:21 EST Findings: No consolidation or effusion. Heart size is normal. No acute fracture. IMPRESSION: 1. No acute findings. This document has been electronically signed by: Jhony Lawton MD on 01/22/2025 21:44:05
--- NOTE | ~2025-01-22 | CT_ITS ---
CLINICAL HISTORY: seizure CT head without contrast Comparison: CT/SR - CT HEAD/BRAIN WO IV CON - 10/28/24 13:29 EST Findings: Generalized cerebral and cerebellar atrophy is again identified. The size and shape of the ventricular system is within normal limits for this degree of atrophy. Areas of low-attenuation within the deep white matter are not appreciably changed compared to the patient's prior study. No midline shift mass effect. No intracranial hemorrhage. No calvarial fractures. IMPRESSION: 1. No acute intracranial findings. Specifically, no hemorrhage or acute territorial infarct. 2. Suggest MRI of the brain for further evaluation of the source of the patient's seizure if not previously performed. This document has been electronically signed by: Cristobal Blank MD on 01/23/2025 07:11:22
--- NOTE | ~2025-01-22 | CT_ITS ---
CLINICAL HISTORY: ?sepsis unknown source CT abdomen and pelvis with contrast Comparison: CT/SR - CT CHEST WO IV CON - 10/28/24 17:21 EST US - US ABDOMEN LIMITED - 10/28/24 16:[address]/NV/SR - ABD PELV W IV CON ONLY [id number] - 02/21/17 21:39 EDT Findings: CT abdomen: Small left pleural effusion with dense consolidation of the dependent portion of the left lower lobe. Trace right pleural effusion. Spinal fusion hardware is seen from L4-L5 with posterior spinal fusion rods and paired pedicle screws. Spinal cord stimulator device is in place. No acute fracture. Prominent epicardial fat. Low attenuation within the inferior right lobe of the liver measures 3.3 x 2.4 cm in size. This may have been present on the patient's prior study but is very poorly defined due to the lack of intravenous contrast on that exam. No other liver lesions identified. Main portal vein is patent. Spleen, pancreas, adrenal glands, and kidneys are unremarkable for acute findings. Gastric wall thickening with hyperenhancement of the gastric mucosa. No discrete mass lesion. Fluid-filled loops of nondilated small bowel. Mild induration throughout the mesenteric fat. Trace free fluid. No free air. CT pelvis: Appendix is normal. Diffuse wall thickening of the colon extending from the cecum to the rectum. There is hyperenhancement of the colonic mucosa with adjacent inflammatory stranding. Liquid stool seen throughout the majority of the colon. No discrete mass lesion identified. No free air. Small free fluid within the pelvis. IMPRESSION: 1. Pancolitis. This may be related to infectious/inflammatory colitis or pseudomembranous colitis. Clinical correlation advised. No findings of obstruction. 2. Likely associated gastritis and enteritis. 3. Nonspecific low-density lesion within the inferior right lobe of the liver. There is suggested that this may have been present on prior study. However, this is not a definitive determination on prior study due to the lack of intravenous contrast. This is also not definitively present on the patient's chest CT from October 28, 2024. Given this is not appreciated of the patient's abdominal ultrasound from October 28, 2024, further evaluation suggested would be a nonemergent MRI of the abdomen with intravenous contrast. This document has been electronically signed by: Cristobal Blank MD on 01/23/2025 07:32:43
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
--- NOTE | 2025-01-22 17:53 | ECG_ITS ---
Test Reason : weakness Blood Pressure : */* mmHG Vent. Rate : 99 BPM Atrial Rate : * BPM P-R Int : * ms QRS Dur : 82 ms QT Int : 322 ms P-R-T Axes : * -60 107 degrees QTcB Int : 413 ms Artifact in tracing Atrial fibrillation Left axis deviation Nonspecific ST and T wave abnormality Abnormal ECG When compared with ECG of 28-Oct-2024 15:15, Atrial fibrillation has replaced Sinus rhythm Vent. rate has increased by 36 bpm Nonspecific T wave abnormality now evident in Inferior leads Nonspecific T wave abnormality now evident in Lateral leads QT has shortened Referred By: Sharlene Martinez Electronically Signed By: MERRILL RAZA
[2025-01-22] MEDS: 0.9 % Sodium Chloride 1,000 ML 999 ML IVCONT (18:05)
[2025-01-22] MEDS: levETIRAcetam in NaCl (iso-os) 1,500 MG/100 ML PIGGYBACK 400 MG IV (18:11)
[2025-01-22 18:32] LABS: Venous Blood Gas Refer to POC result
[2025-01-22 18:33] LABS: VBG HCO3 33 mmol/L (22-26); VBG pCO2 46 mmHg; VBG pH 7.46 (7.32-7.43); VBG pO2 45 mmHg
[2025-01-22 18:45] LABS: Hematocrit 35.8 % (42.0-52.0); Hemoglobin 12.5 g/dl (14.0-18.0); Mean Corpuscular HGB Conc 34.9 g/dl (31.0-36.0); Mean Corpuscular Hemoglobin 29.3 pg (27.0-33.0); Mean Corpuscular Volume 83.8 fL (80.0-98.0); Mean Platelet Volume 12.4 fL (9.4-12.4); Platelet Count 105 X10*3/uL (160-400); Red Blood Count 4.27 X10*6/uL (4.60-5.80); Red Cell Distribution Width 16.1 % (11.0-16.0); White Blood Count 23.1 X10*3/uL (4.8-10.8)
[2025-01-22 18:48] LABS: Alanine Aminotransferase 29 U/L (0-40); Albumin Level 1.7 g/dL (3.5-5.0); Anion Gap 13 (12-20); Aspartate Amino Transferase 94 U/L (5-37); Bilirubin Direct 0.4 mg/dL (0.0-0.5); Bilirubin Total 2.4 mg/dL (0.0-1.0); Blood Urea Nitrogen 19 mg/dL (9-16); Calcium 6.8 mg/dL (8.4-10.2); Carbon Dioxide 25 mmol/L (22-29); Chloride 108 mmol/L (96-108); Creatinine Clr Calc Pharmacy 45.3; Estimated Glomerular Filt Rate > 60; Glucose Random 82 mg/dL (60-115); Magnesium 1.9 mg/dL (1.6-2.6); Potassium 3.6 mmol/L (3.3-5.1); Sodium 142 mmol/L (135-145); Total Protein 3.7 g/dL (6.5-8.0)
[2025-01-22 18:56] LABS: Troponin-I High Sensitivity 28.3 ng/L (<3.5-35.0)
--- NOTE | 2025-01-22 19:00 | PC.NURSE ---
Received a call from [facility] to get an update on the patient. A provider in the community notified the agency and then sent the patient in for evaluation. Plan for [facility] to reach out for an update tomorrow.
[2025-01-22 19:08] LABS: Lactic Acid 2.3 mmol/L (0.5-2.0); SLIDE REVIEW MANUAL DIFF
[2025-01-22 19:10] LABS: TSH reflex Free T4 4.35 uIU/mL (0.32-4.0)
[2025-01-22 19:12] LABS: Neutrophils Percent Manual 89 % (45-73)
[2025-01-22 19:15] LABS: Band Neutrophils Percent 10 % (3-5); Burr Cells 2+ (3-5) /OIF; Monocytes Absolute Manual 0.2 X10*3/uL (0.1-1.2); Monocytes Percent Manual 1 % (2-11); Neutrophils Absolute Manual 22.9 X10*3/uL (2.0-8.3); RBC Morphology NOTED
[2025-01-22 19:16] LABS: Acanthocytes 2+ (3-5) /OIF; Platelet Estimate NORMAL (NORMAL); Platelet Morphology Comment NORMAL
[2025-01-22 19:17] LABS: Influenza A PCR NEGATIVE (Negative); Influenza B PCR NEGATIVE (Negative); Resp Syncy Virus RNA Qual PCR NEGATIVE (Negative); SARS COV2 PCR INHOUSE NEGATIVE (Negative)
[2025-01-22 19:24] LABS: Alkaline Phosphatase 63 U/L (39-117)
[2025-01-22 20:02] LABS: Free T4 (Free Thyroxine) 0.69 ng/dL (0.71-1.85)
[2025-01-22 20:27] LABS: Reflex Lactate? Lactic Acid Added
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
[2025-01-22] MEDS: cefTRIAXone sodium 1 GM VIAL IVPUSH (21:07)
[2025-01-22] MEDS: Lidocaine HCl 2 % Urojet 10 ML JEL.PF.APP 20 ML TOPICAL (21:07)
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
--- NOTE | 2025-01-22 21:47 | PHA.MEDREC ---
Addendum entered by Abdiel Riley ashley 01/22/25 21:54: Med rec reviewed Original Note: Pharmacy Consult ? Medication Reconciliation Pharmacy has completed the medication reconciliation. Unable to speak with patient due to being nonverbal. Tried patient son (contact on file) , however phone has been disconnected. Utilized claims to confirm med list.
[2025-01-22 21:57] LABS: ~Lactic Acid-LAB USE ONLY 2.3 mmol/L (0.5-2.0)
[2025-01-22] MEDS: Lactated Ringers 1,000 ML 999 ML IV (22:01)
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
--- NOTE | 2025-01-22 22:27 | PC.NURSE ---
Patient presented from home via EMS with FTT, refusing to eat, drink or take his medications per EMS. Positive seizure yesterday per family. Placed on the hall monitor and afib noted. Patient non responding verbally at this time. Lungs essentially clear bilat. Respirations even and non-labored. Abdomen soft, flat with positive bowel sounds. Positive pedal pulses with no edema. Patient noted to be incontinent of a large amount of urine. Clothing soaked. Pericare and bed change provided at this time. coccyx and buttocks reddened. No open areas noted.
[2025-01-22] MEDS: Dextrose 5 % and 0.9 % NaCl 1,000 ML 42 ML IVCONT (22:53)
[2025-01-22 23:31] LABS: Reflex Lactate? 2 Y
[2025-01-23] VITALS (9 sets, daily range): BP systolic 94–113; BP diastolic 51–63; PULSE 63–118; RESP 18–20; TEMP 36.1–37.5; O2SAT 95–100; BMI 19.5; BMI 20.1
[2025-01-23 00:17] LABS: ~Lactic Acid-LAB USE ONLY 4.6 mmol/L (0.5-2.0)
--- NOTE | 2025-01-23 00:38 | PM.EVENT ---
Event Note Date of Service: 01/23/25 Event Note: alerted that lactic acid went from 2.3 x2 to 4.6. pt has recieved 2L IVF and is on maintenance dextrose/NS 42ml/hr. will give additional liter of LR. case discussed with Dr Green and plan for additional liter of LR recommended by him. Time Spent With Patient Time: Total time managing care of this patient today ____ minutes.
[2025-01-23] MEDS: Lactated Ringers 1,000 ML 999 ML IV (02:04)
--- NOTE | 2025-01-23 02:46 | PC.NURSE ---
This curriculum writer assumed care of this Pt at 2300. Pt does not answer basic questions hx dementia/unknown baseline. 18G to RAC with D5NS @ 42 mLs/hr. Male Purewick in place.
[2025-01-23 03:04] LABS: Appearance Urine Turbid; Color Urine BROWN; Glucose Urine UA Negative (Negative); Leukocyte Esterase Urine Negative (Negative); Nitrite Urine Positive (Negative); PH 5.5 (5.0-9.0); Specific Gravity - Urine >= 1.030 (1.005-1.025); UMIC TRIGGER UACC YES; Urine Blood Large (3+) (Negative); Urine Ketones Trace mg/dL (Negative); Urine Protein 100 (2+) mg/dL (Neg-Trace)
[2025-01-23 03:06] LABS: UACC Culture Trigger YES; WBC Urine 0-5 /HPF (0-5)
[2025-01-23 03:07] LABS: Bacteria Urine 4+ (None Seen); RBC Urine >20 /HPF (0-2)
[2025-01-23 03:08] LABS: Amphetamine Screen Urine Not Detected (Not Detect); Barbiturates, Urine Not Detected (Not Detect); Benzodiazepines Screen Urine Not Detected (Not Detect); Buprenorphine Scr Not Detected (Not Detect); Cannabinoid Screen Urine Not Detected (Not Detect); Cocaine Screen Urine Not Detected (Not Detect); Fentanyl, urine POSITIVE (Not Detect); Methadone Screen, Urine Not Detected (Not Detect); Opiate Screen Urine Not Detected (Not Detect); Oxycodone Screen Urine Not Detected (Not Detect); Phencyclidine Screen Urine Not Detected (Not Detect)
--- NOTE | 2025-01-23 04:46 | PC.NURSE ---
Addendum entered by Sandhya Paulino RN 01/23/25 07:55: 05:34 lab notified comic writer and Dr. Green of critical potassium of 2.7 with MD acknowledgment. Potassium ordered and initiated. 05:35: POC obtained per new q6h POC order showing 63. GURDEEP Barboza that was just recently at bedside was priority notified via tigertext for hypoglycemia orders. 25gm D50 given at 05:43 with +effect, 146 on reassessment. Provider made aware of POC reassessment. Pt continued on D5/NS per DEC. After administration of dextrose the patient was more alert though still minimally verbal and difficult to understand, mostly mumbling profanities during care at this time. Pt looked at comic writer with conjugate gaze when spoken to, though would not respond to questions being asked or follow commands. These findings were unchanged from comic writer's initial assessment. 05:53 lab notified comic writer and Dr. Green of critical lactic of 2.[address] Mike presented to bedside. Assessment findings that had been discussed with GURDEEP were also discussed with MD. Patient administered thiamine and albumin as per DEC. MD verbalized plan for CT head/brain, additional labs including ammonia. 06:00: With K and POC now addressed and patient assessed by providers, this patient continued on potassium and fluids per DEC and was transported on tele and spo2 monitoring in stable condition by comic writer to ED for STAT CT head/brain and abdomen/pelvis scans. ~06:50: Patient returned to s4 and settled in room, bed low/locked with bed alarm and safety measures including in-room camera ensured in place. Bedside safe start handoff report performed with oncoming RN; Care concluded by comic writer. Addendum entered by Sandhya Paulino RN 01/23/25 05:26: PA to bedside. Advised abdominal CT stat due to unknown source of infection. Confirmed patient to remain NPO pending st eval. Q6H POCs ordered. Original Note: Patient was admitted to s4 from the ED, arrived at ~03:30. Hx dementia, though per discussion with GURDEEP Barboza who was able to speak with the pt's son in the evening, the patient was ambulatory via cane and verbal as recently as Tuesday. Pt alerts to voice/name, otherwise is minimally verbal with mild tremors noted to bilateral upper arms. Does not follow commands. No seizure activity noted. Seizure and aspiration precautions in place. In-room camera placed to assist with maintaining safety. Pt placed on continuous spo2 monitoring due to difficulty obtaining spo2 on portable dynamap machine. Spo2 has been maintaining >95% on room air. Breathing is observed even and unlabored without distress. PA notified with orders for continuous spo2 monitoring. Remains strict NPO. D5/NS infusing at 42ml/hr as ordered on arrival to unit. Third liter bolus had finished in ED prior to arrival; BP x2 obtained within one hour after pt's arrival to the unit. Repeat lactic and BCx x2 ordered and obtained. Edema to BLE. GURDEEP Barboza made aware and comic writer inquired about albumin due to recent levels low. PA advised she will come to see this pt. Awaiting further orders at this time. Bed alarm on and safety measures in place. Call singer within reach. Hourly rounding enacted. Plan of care initiated and continues.
[2025-01-23 05:19] LABS: Red Cell Distribution Width 15.9 % (11.0-16.0); SCAN SMEAR FLAG 1
[2025-01-23 05:21] LABS: Basophils Percent Auto 0.2 % (0-2); Hematocrit 34.2 % (42.0-52.0); Hemoglobin 11.6 g/dl (14.0-18.0); Imm Gran Abs Auto 0.19 X10*3/uL (0.00-0.03); Imm Gran Pct Auto 1.7 % (0.0-0.4); Lymphocytes Absolute Auto 0.4 X10*3/uL (1.2-4.9); Lymphocytes Percent Auto 3.4 % (20-40); MANUAL DIFF FLAG SCAN; Mean Corpuscular HGB Conc 33.9 g/dl (31.0-36.0); Mean Corpuscular Hemoglobin 28.9 pg (27.0-33.0); Mean Corpuscular Volume 85.1 fL (80.0-98.0); Mean Platelet Volume 12.1 fL (9.4-12.4); Monocytes Absolute Auto 0.2 X10*3/uL (0.1-1.2); Monocytes Percent Auto 2.1 % (2-11); Neutrophils Absolute Auto 10.4 x10*3/uL (2.0-8.3); Neutrophils Percent Auto 92.6 % (45-73); Red Blood Count 4.02 X10*6/uL (4.60-5.80); White Blood Count 11.2 X10*3/uL (4.8-10.8)
[2025-01-23 05:23] LABS: PLT ABN DIST 1; Platelet Count 88 X10*3/uL (160-400)
[2025-01-23 05:36] LABS: Anion Gap 14 (12-20); Blood Urea Nitrogen 20 mg/dL (9-16); Calcium 6.9 mg/dL (8.4-10.2); Carbon Dioxide 22 mmol/L (22-29); Chloride 110 mmol/L (96-108); Creatinine Clr Calc Pharmacy 61.1; Estimated Glomerular Filt Rate > 60; Glucose Random 76 mg/dL (60-115); Potassium 2.7 mmol/L (3.3-5.1); Sodium 143 mmol/L (135-145)
[2025-01-23 05:39] LABS: Glucose, Whole Blood 63 mg/dL (60-115)
[2025-01-23 05:43] LABS: SLIDE REVIEW VERIFIED
[2025-01-23] MEDS: Dextrose 50 % 25 GM/50 ML SYRINGE IVPUSH ×2 (05:43→23:31)
[2025-01-23 05:55] LABS: Lactic Acid 2.7 mmol/L (0.5-2.0); Magnesium 1.8 mg/dL (1.6-2.6)
[2025-01-23] MEDS: Potassium Chloride/H20 10 MEQ/100 ML PIGGYBACK 100 MEQ IV ×4 (05:59→11:29)
[2025-01-23] MEDS: Thiamine HCL 200 MG in 0.9 % Sodium Chloride 100 ML 204 MG IV (06:06)
[2025-01-23] MEDS: Albumin Human 25 % 50 ML 100 ML IV (06:06)
[2025-01-23 06:15] LABS: Alanine Aminotransferase 29 U/L (0-40); Albumin Level 1.7 g/dL (3.5-5.0); Alkaline Phosphatase 58 U/L (39-117); Aspartate Amino Transferase 82 U/L (5-37); Bilirubin Direct 0.5 mg/dL (0.0-0.5); Bilirubin Total 2.1 mg/dL (0.0-1.0); Total Protein 3.7 g/dL (6.5-8.0)
[2025-01-23 06:15] LABS: Glucose, Whole Blood 146 mg/dL (60-115)
[2025-01-23] MEDS: iohexoL 350 MG/ML 100 ML INFUS..BTL 85 ML IV (06:59)
[2025-01-23 07:16] LABS: Reflex Lactate? Lactic Acid Added
[2025-01-23] MEDS: levETIRAcetam in NaCl (iso-os) 500 MG/100 ML PIGGYBACK 400 MG IV ×2 (08:20→21:15)
[2025-01-23 08:38] LABS: Ammonia 32 umol/L (13-55)
[2025-01-23 09:06] LABS: Syphilis Screen Nonreactive (Nonreactive)
[2025-01-23 09:11] LABS: HBc Num1 0.23 S/CO (0.00-0.79); HBsAGNum1 0.39 S/CO (0.00-0.99); Hepatitis B Core Antibody Nonreactive (Nonreactive); Hepatitis B Surface Antigen Negative (Negative); ~HepC Num1 0.13 S/CO (0.00-0.79); ~Hepatitis B Surface Antibody NONREACTIVE (Nonreactive); ~Hepatitis C Antibody Nonreactive (Nonreactive)
--- NOTE | 2025-01-23 09:31 | MHC.CM.PN ---
CM spoke with son Shahzad due to pt. has Dementia and not able to answer assessment questions. Shahzad is caregiver, pt. lives with him and his children. Pt. does not have PCP or ins. Shahzad said he completed [facility] eufemia in Nov when pt. was here, and has not heard from them, he said he will call today to inquire on eufemia. He said that a SW came to the house to check on pt. when he came back from hosp. in Nov. this is from an elder as risk referral that was made. The SW rec that pt. come to the [facility]. this time due to current condition. Pt. has DME, cane, shower chair, was able to walk at home. Son said that he and his friend would help pt. to shower. Pt was on a pureed diet last [facility] stay, son said he was eating reg diet at home, without problems. Son to transport home at [place], DCP: home with family care. CM to follow for DC needs.
[2025-01-23 10:25] LABS: Reflex Lactate? 2 Y
[2025-01-23 11:24] LABS: ~Lactic Acid-LAB USE ONLY 2.5 mmol/L (0.5-2.0)
[2025-01-23 11:57] LABS: Glucose, Whole Blood 102 mg/dL (60-115)
--- NOTE | 2025-01-23 15:04 | HO.PM.IMPN ---
Subjective Subjective Date of Service: 01/23/25 Interval History: Minimally responsive. Will open eyes to verbal stimuli Review of Systems Unable to obtain Physical Exam Vital Signs: Vital Signs: Last Vital Signs Temp 97.4 F 01/23/25 12:18 Pulse 82 01/23/25 12:18 Resp 18 01/23/25 12:18 BP 113/56 L 01/23/25 12:18 Pulse Ox 96 01/23/25 12:18 O2 Del Method Room Air 01/23/25 12:18 BMI result Body Mass Index 19.5 Const: Other: Somnolent but arousable with stimuli Resp: Other: Clear to auscultation bilaterally no rales rhonchi or wheezes Cardio: Other: No S4; positive S1-S2; no S3 murmurs rubs or gallops GI: Other: Soft nontender nondistended normoactive bowel sounds Extrem: Other: No edema bilaterally Objective Data Active Medications Acetaminophen (Acetaminophen 325 Mg Tablet) 975 mg PO Q6H PRN PRN Reason: Pain, Mild 1-3,fever,headache Albuterol/Ipratropium (Albuterol/Iprat 2.5/0.5mg 3 Ml Ampul.Neb) 3 ml INHALE RQ4H WHILE AWAKE PRN PRN Reason: Shortness of Breath Calcium Carbonate (Calcium Carbonate 750 Mg Tab.Chew) 750 mg PO Q4H PRN PRN Reason: Heartburn Ceftriaxone Sodium (Ceftriaxone Sodium 1 Gm Vial) 1 gm IVPUSH Q24H [facility] Dextrose (Dextrose 50 % 25 Gm/50 Ml Syringe) 25 gm IVPUSH Q15M PRN; Protocol PRN Reason: per Hypoglycemia Standing Ord. Last Admin: 01/23/25 05:43 Dose: 25 gm Documented By: CHINEDU Dextrose (Dextrose 50 % 25 Gm/50 Ml Syringe) 25 gm IVPUSH Q15M PRN; Protocol PRN Reason: per Hypoglycemia Standing Ord. Diazepam (Diazepam 10 Mg/2 Ml Cartridge) 2.5 mg IVPUSH Q4H PRN PRN Reason: Seizures Glucose (Glucose Gel 15 Gm Gel..Gram.) 15 gm PO Q15M PRN; Protocol PRN Reason: per Hypoglycemia Standing Ord. Glucose (Glucose Gel 15 Gm Gel..Gram.) 15 gm PO Q15M PRN; Protocol PRN Reason: per Hypoglycemia Standing Ord. Levetiracetam (Okppra) 500 mg in 100 mls @ 400 mls/hr IV BID [facility] Last Infusion: 01/23/25 08:51 Dose: Infused Documented By: DELIA Lactated Ringer's (Lr) 1,000 mls @ 100 mls/hr IVCONT .Q10H [facility] Magnesium Hydroxide (Milk Of Magnesia 30 Ml Oral.Susp) 30 ml PO DAILY PRN PRN Reason: Constipation Melatonin (Melatonin 3 Mg Tablet) 6 mg PO BEDTIME PRN PRN Reason: Insomnia Ondansetron HCl (Ondansetron Hcl 4 Mg/2 Ml Vial) 4 mg IVPUSH Q8H PRN PRN Reason: Nausea and Vomiting Sodium Chloride (0.9 % Sodium Chloride Flush 3 Ml Syringe) 3 ml IVFLUSH QSHIFT [facility] Last Admin: 01/23/25 08:13 Dose: Not Given Documented By: DELIA Non-Admin Reason: IV Running Labs 01/23/25 05:09 01/23/25 05:09 Labs: Laboratory Results - last 24 hr 01/22/25 01/22/25 01/22/25 18:18 18:29 21:27 MCV 83.8 MCH 29.3 MCHC 34.9 RDW 16.1 H Plt Count 105 L MPV 12.4 Immature Gran % (Auto) Cancelled Neut % (Auto) Cancelled Lymph % (Auto) Cancelled [place] % (Auto) Cancelled Eos % (Auto) Cancelled Baso % (Auto) Cancelled Lymph # (Auto) Cancelled [place] # (Auto) Cancelled Eos # (Auto) Cancelled Baso # (Auto) Cancelled Abs Immat Gran (auto) Cancelled Absolute Neuts (auto) Cancelled Absolute Nucleated RBC 0.000 Nucleated RBC % (auto) 0.0 Neutrophils % (Manual) 89 H Band Neutrophils % 10 H Monocytes % (Manual) 1 L Abs Neuts (Manual) 22.9 H Monocytes # (Manual) 0.2 Platelet Estimate NORMAL Plt Morphology Comment NORMAL RBC Morphology NOTED [place]iz Cells 2+ (3-5) Acanthocytes (Spur) 2+ (3-5) Smear Tech's Comments MANUAL DIFF VBG pH 7.46 H VBG pCO2 46 VBG pO2 45 VBG HCO3 33 H VBG O2 Saturation 79.0 VBG Base Excess 9.0 Anion Gap 13 Estim Creat Clear Calc 45.3 Estimated GFR > 60 POC Glucose Random Glucose 82 Lactic Acid 2.3 H* Lactic Acid F/U @ 2Hr 2.3 H* Lactic Acid F/U @ 4Hr Calcium 6.8 L Magnesium 1.9 Total Bilirubin 2.4 H Direct Bilirubin 0.4 AST 94 H ALT 29 Alkaline Phosphatase 63 Ammonia Total Creatine Kinase 569 H Total Protein 3.7 L Albumin 1.7 L TSH 4.35 H Free T4 0.69 L Urine Color Urine Appearance Urine pH Ur Specific [place] Urine Protein Urine Glucose (UA) Urine Ketones Urine Blood Urine Nitrite Ur Leukocyte Esterase Urine RBC Urine WBC Ur Squamous Epith Cells Urine Bacteria Hyaline Casts Urine Opiates Screen Ur Buprenorphine Scrn Ur Oxycodone Screen Urine Methadone Screen Urine Fentanyl Screen Ur Barbiturates Screen Ur Phencyclidine Scrn Ur Amphetamines Screen U Benzodiazepines Scrn Urine Cocaine Screen U Marijuana (THC) Screen T.pallidum Ab (EIA) Hep Bs Antigen Hep Bs Antibody Hep B Core Total Ab Hepatitis C Ab (EIA) Influenza Type A (PCR) NEGATIVE Influenza Type B (PCR) NEGATIVE RSV RNA Qual (PCR) NEGATIVE SARS-CoV-2 RNA (RT-PCR) NEGATIVE 01/22/25 01/23/25 01/23/25 23:51 02:45 05:09 MCV 85.1 MCH 28.9 MCHC 33.9 RDW 15.9 Plt Count 88 L MPV 12.1 Immature Gran % (Auto) 1.7 H Neut % (Auto) 92.6 H Lymph % (Auto) 3.4 L [place] % (Auto) 2.1 Eos % (Auto) 0.0 Baso % (Auto) 0.2 Lymph # (Auto) 0.4 L [place] # (Auto) 0.2 Eos # (Auto) 0.0 Baso # (Auto) 0.0 Abs Immat Gran (auto) 0.19 H Absolute Neuts (auto) 10.4 H Absolute Nucleated RBC 0.000 Nucleated RBC % (auto) 0.0 Neutrophils % (Manual) Band Neutrophils % Monocytes % (Manual) Abs Neuts (Manual) Monocytes # (Manual) Platelet Estimate Plt Morphology Comment RBC Morphology [place] Cells Acanthocytes (Spur) Smear Tech's Comments VERIFIED VBG pH VBG pCO2 VBG pO2 VBG HCO3 VBG O2 Saturation VBG Base Excess Anion Gap 14 Estim Creat Clear Calc 61.1 Estimated GFR > 60 POC Glucose Random Glucose 76 Lactic Acid 2.7 H* Lactic Acid F/U @ 2Hr Lactic Acid F/U @ 4Hr 4.6 H* Calcium 6.9 L Magnesium 1.8 Total Bilirubin 2.1 H Direct Bilirubin 0.5 AST 82 H ALT 29 Alkaline Phosphatase 58 Ammonia Total Creatine Kinase Total Protein 3.7 L Albumin 1.7 L TSH Free T4 Urine Color BROWN Urine Appearance Turbid Urine pH 5.5 Ur Specific [place] >= 1.030 H Urine Protein 100 (2+) H Urine Glucose (UA) Negative Urine Ketones Trace Urine Blood Large (3+) H Urine Nitrite Positive H Ur Leukocyte Esterase Negative Urine RBC >20 H Urine WBC 0-5 Ur Squamous Epith Cells 3-5 Urine Bacteria 4+ Hyaline Casts 3-5 Urine Opiates Screen Not Detected Ur Buprenorphine Scrn Not Detected Ur Oxycodone Screen Not Detected Urine Methadone Screen Not Detected Urine Fentanyl Screen POSITIVE H Ur Barbiturates Screen Not Detected Ur Phencyclidine Scrn Not Detected Ur Amphetamines Screen Not Detected U Benzodiazepines Scrn Not Detected Urine Cocaine Screen Not Detected U Marijuana (THC) Screen Not Detected T.pallidum Ab (EIA) Hep Bs Antigen Hep Bs Antibody Hep B Core Total Ab Hepatitis C Ab (EIA) Influenza Type A (PCR) Influenza Type B (PCR) RSV RNA Qual (PCR) SARS-CoV-2 RNA (RT-PCR) 01/23/25 01/23/25 01/23/25 05:35 06:00 08:02 MCV MCH MCHC RDW Plt Count MPV Immature Gran % (Auto) Neut % (Auto) Lymph % (Auto) [place] % (Auto) Eos % (Auto) Baso % (Auto) Lymph # (Auto) [place] # (Auto) Eos # (Auto) Baso # (Auto) Abs Immat Gran (auto) Absolute Neuts (auto) Absolute Nucleated RBC Nucleated RBC % (auto) Neutrophils % (Manual) Band Neutrophils % Monocytes % (Manual) Abs Neuts (Manual) Monocytes # (Manual) Platelet Estimate Plt Morphology Comment RBC Morphology [place] Cells Acanthocytes (Spur) Smear Tech's Comments VBG pH VBG pCO2 VBG pO2 VBG HCO3 VBG O2 Saturation VBG Base Excess Anion Gap Estim Creat Clear Calc Estimated GFR POC Glucose 63 146 H Random Glucose Lactic Acid Lactic Acid F/U @ 2Hr 3.0 H* Lactic Acid F/U @ 4Hr Calcium Magnesium Total Bilirubin Direct Bilirubin AST ALT Alkaline Phosphatase Ammonia 32 Total Creatine Kinase Total Protein Albumin TSH Free T4 Urine Color Urine Appearance Urine pH Ur Specific [place] Urine Protein Urine Glucose (UA) Urine Ketones Urine Blood Urine Nitrite Ur Leukocyte Esterase Urine RBC Urine WBC Ur Squamous Epith Cells Urine Bacteria Hyaline Casts Urine Opiates Screen Ur Buprenorphine Scrn Ur Oxycodone Screen Urine Methadone Screen Urine Fentanyl Screen Ur Barbiturates Screen Ur Phencyclidine Scrn Ur Amphetamines Screen U Benzodiazepines Scrn Urine Cocaine Screen U Marijuana (THC) Screen T.pallidum Ab (EIA) Nonreactive Hep Bs Antigen Negative Hep Bs Antibody NONREACTIVE Hep B Core Total Ab Nonreactive Hepatitis C Ab (EIA) Nonreactive Influenza Type A (PCR) Influenza Type B (PCR) RSV RNA Qual (PCR) SARS-CoV-2 RNA (RT-PCR) 01/23/25 01/23/25 10:49 11:45 MCV MCH MCHC RDW Plt Count MPV Immature Gran % (Auto) Neut % (Auto) Lymph % (Auto) [place] % (Auto) Eos % (Auto) Baso % (Auto) Lymph # (Auto) [place] # (Auto) Eos # (Auto) Baso # (Auto) Abs Immat Gran (auto) Absolute Neuts (auto) Absolute Nucleated RBC Nucleated RBC % (auto) Neutrophils % (Manual) Band Neutrophils % Monocytes % (Manual) Abs Neuts (Manual) Monocytes # (Manual) Platelet Estimate Plt Morphology Comment RBC Morphology [place] Cells Acanthocytes (Spur) Smear Tech's Comments VBG pH VBG pCO2 VBG pO2 VBG HCO3 VBG O2 Saturation VBG Base Excess Anion Gap Estim Creat Clear Calc Estimated GFR POC Glucose 102 Random Glucose Lactic Acid Lactic Acid F/U @ 2Hr Lactic Acid F/U @ 4Hr 2.5 H* Calcium Magnesium Total Bilirubin Direct Bilirubin AST ALT Alkaline Phosphatase Ammonia Total Creatine Kinase Total Protein Albumin TSH Free T4 Urine Color Urine Appearance Urine pH Ur Specific [place] Urine Protein Urine Glucose (UA) Urine Ketones Urine Blood Urine Nitrite Ur Leukocyte Esterase Urine RBC Urine WBC Ur Squamous Epith Cells Urine Bacteria Hyaline Casts Urine Opiates Screen Ur Buprenorphine Scrn Ur Oxycodone Screen Urine Methadone Screen Urine Fentanyl Screen Ur Barbiturates Screen Ur Phencyclidine Scrn Ur Amphetamines Screen U Benzodiazepines Scrn Urine Cocaine Screen U Marijuana (THC) Screen T.pallidum Ab (EIA) Hep Bs Antigen Hep Bs Antibody Hep B Core Total Ab Hepatitis C Ab (EIA) Influenza Type A (PCR) Influenza Type B (PCR) RSV RNA Qual (PCR) SARS-CoV-2 RNA (RT-PCR) Assessment and Plan (1) Seizure disorder: Status: Acute (2) Pancolitis: Status: Acute (3) Thrombocytopenia: Status: Acute Plan Pt is a 74 yo male with a pmhx significant for seizure disorder, FTT, dementia, paroxysmal a fib and stage 1 COPD, who presented to the ED via EMS due to several seizures over the past few days and a significant decline in PO intake of the past 2 days. 1.UTI (past UTI with Klebsiella) -ceftriaxone (1) -follow cultures -monitor CBC and BMP 2. Pancolitis -add IV Flagyl to ceftriaxone -GI consult in a.m. 2.Seizures/AMS -Keppra at outpatient doses. Switch to IV until taking adequate p.o. - EEG - neuro consult 3.Peripheral edema/hypoalbumiemia -replete albumin -echo pending -venous dopplar BLE and RUE pending 4.Thrombocytopenia - - avoid anticoagulants due to additional gross hematuria from traumatic catheterization 5.Paroxysmal a fib -acceptable rate control -observe on telemetry -avoid anticoagulation at this time given platelets DNR/DNI Pneumatics Quality Stroke Does the patient have a stroke diagnosis?: No VTE Prior VTE?: No VTE Risk Level:: Medical - moderate - high VTE Device Contraindication: N/A - Device Ordered VTE Drug Contraindication: Treatment Not Indicated
--- NOTE | 2025-01-23 15:08 | MHC.SLORD ---
Speech Language Pathology Order Status: FRAME REPAIRER to see pt x2 today, pt not responding/waking enough to participate in swallow evaluation. FRAME REPAIRER to assess tomorrow.
[2025-01-23] MEDS: Lactated Ringers 1,000 ML 100 ML IVCONT (15:26)
--- NOTE | 2025-01-23 16:12 | MHC.CLN ---
NUTRITION DIET CURRENTLY NPO PENDING SWALLOW EVAL. NUTRITION CONSULT FOR DX PROTEIN CALORIE MALNUTRITION. ELZBIETA=12 AND SKIN WITH REDNESS TO COCCYX AND BILATERAL HEELS. QUALIFIES MODERATELY MALNOURISHED IN THE CONTEXT OF CHRONIC ILLNESS. FOLLOW FOR COMPOSITE BOND WORKER RECS, DIET ADVANCEMENT, SKIN INTEGRITY. SEE CLINICAL NUTRITION ASSESSMENT 01/23/25.
[2025-01-23 16:20] LABS: Glucose, Whole Blood 86 mg/dL (60-115)
[2025-01-23] MEDS: 0.9 % Sodium Chloride Flush 3 ML SYRINGE IVFLUSH ×2 (16:23→22:55)
[2025-01-23] MEDS: Albumin Human 25 % 100 ML IV ×2 (16:24→22:50)
--- NOTE | 2025-01-23 17:10 | HO.WOUND ---
Wound Consult: Initial 74yr old?male admitted to [facility] on 01/22/25 21:28 - See progress notes and H&P for detailed history.? Wound consult placed for Coccyx wound and bilateral heels.? Patient agreeable to assessment and photo documentation.? Sacrum and Coccyx Etiology: ?MASD previous known?Stage 2 Pressure Injury Wound Bed: pink red intact tissue remains blanchable throughout Drainage / Odor: None noted Fatoumata wound: REd pink blanchable tissue - MASD noted to Perianal area - ? No Induration, Fluctuance or Warmth noted Pain: tenderness reports to perianal area Goals of Treatment: ? Foam dressing to allow for moist wound healing and protect from friction, moisture and redistribute pressure. Triad to intergluteal and perineum area Left Heel Right Heel Bilateral Heels were noted for redness - tissue remains intact and blanchable - no pressure injury noted at this time. preventative measures with heels elevated and preventative foam dressings applied. Recommendations: 1. Turn and Reposition every 2 hours and as needed for patient comfort.? Use pillows or wedges to support off loading positions. 2. Off Load all bony prominences with use of pillows and heel boots if needed.? Apply Preventative foams where needed. ? 3. Monitor for incontinence and moisture control, use barrier creams when needed for prevention and treatment. 4. Provide adequate and supplemental nutrition.? 5.Order low air loss mattress. 6. When applicable maintain blood glucose levels per Providers order. Bilateral Heels - Elevate heels off of bed surface with pillows. Apply skin prep allow to dry. Apply foam dressing for prevention from friction and to redistribute pressure. Sacrum / Coccyx - Off Load Pressure with Q2 hr turns and use of pillows. Apply skin prep allow to dry. Apply sacral foam dressing change every 5 days and PRN. Apply Barrier cream to intergluteal area along with perineum twice daily and PRN after episodes of incontinence. Re-consult wound care Nurse for wound deterioration or wound changes.
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
[2025-01-23 19:21] LABS: Glucose, Whole Blood 81 mg/dL (60-115)
[2025-01-23] MEDS: cefTRIAXone sodium 1 GM VIAL IVPUSH (21:05)
[2025-01-23] MEDS: metroNIDAZOLE/NS 500 MG/100 ML PIGGYBACK 100 MG IV (21:38)
[2025-01-23 23:22] LABS: Glucose, Whole Blood 65 mg/dL (60-115)
[2025-01-23 23:54] LABS: Glucose, Whole Blood 145 mg/dL (60-115)
--- NOTE | 2025-01-24 00:05 | PC.NURSE ---
Addendum entered by Sandhya Paulino RN 01/24/25 06:45: Repeat POCs per MAR after D50 noted to be increasingly lowering as follows: 145, 90, 85. MD notified and q6hr POC schedule confirmed to continue as ordered. MD orders to change IV fluids from LR to D5/LR, initially at 50ml/hr. POC obtained late 05:00 hour showing POC of 66. MD was notified and PRN D50 was administered as well as rate of D5LR increased to 75ml/hr per MD order. Repeat POCs per MAR as follows: 163, 150, and 130. Mentation unchanged, patient remains alert, confused, agitated with care. Dr. Green made aware while rounding on the unit. MD advised nutrition consult if not already placed. Handoff report given to oncoming RN. Original Note: Ornamental Metal Worker Apprentice received report and assumed care at 23:!5. POC obtained recently at 23:[address] Green notified. Pt NPO, administered prn IV d50 per MAR. POC reassessment was 145. Patient consistently alert prior to and after D50, mentation maintained. Albumin infused. LR resumed on assuming care. Pt continues with seizure and aspiration precautions, in-room camera for safety. Plan of care continues.
[2025-01-24 00:58] LABS: Glucose, Whole Blood 90 mg/dL (60-115)
[2025-01-24 01:16] LABS: Glucose, Whole Blood 85 mg/dL (60-115)
[2025-01-24] MEDS: Dextrose 5 % and Lactated Ring 1,000 ML 50 ML IVCONT (01:46)
[2025-01-24 03:28] VITALS: BP 102/51; PULSE 57; RESP 18; TEMP 36.6; O2SAT 100
[2025-01-24 04:28] LABS: Hepatitis A Antibody IgM 0.11 Index (0-0.79); ~Hepatitis A Antibody IgM Nonreactive (Nonreactive)
[2025-01-24] MEDS: metroNIDAZOLE/NS 500 MG/100 ML PIGGYBACK 100 MG IV ×2 (05:32→15:13)
[2025-01-24] MEDS: Dextrose 50 % 25 GM/50 ML SYRINGE IVPUSH (05:53)
[2025-01-24 05:59] LABS: Anion Gap 13 (12-20); Blood Urea Nitrogen 15 mg/dL (9-16); Calcium 7.3 mg/dL (8.4-10.2); Carbon Dioxide 19 mmol/L (22-29); Chloride 115 mmol/L (96-108); Creatinine Clr Calc Pharmacy 65.2; Estimated Glomerular Filt Rate > 60; Glucose Random 65 mg/dL (60-115); Potassium 3.1 mmol/L (3.3-5.1); Sodium 144 mmol/L (135-145)
[2025-01-24 06:16] LABS: Glucose, Whole Blood 163 mg/dL (60-115)
[2025-01-24 06:16] LABS: Glucose, Whole Blood 66 mg/dL (60-115)
[2025-01-24 06:33] LABS: Glucose, Whole Blood 150 mg/dL (60-115)
[2025-01-24 06:42] LABS: Glucose, Whole Blood 130 mg/dL (60-115)
[2025-01-24 06:52] VITALS: BP 101/58; PULSE 58; RESP 15; TEMP 36.1; O2SAT 99
[2025-01-24 07:52] LABS: Magnesium 2.1 mg/dL (1.6-2.6)
[2025-01-24] MEDS: Potassium Chloride/H20 10 MEQ/100 ML PIGGYBACK 100 MEQ IV ×2 (07:56→09:04)
[2025-01-24 07:59] LABS: Glucose, Whole Blood 115 mg/dL (60-115)
[2025-01-24 08:42] LABS: Basophils Percent Auto 0.4 % (0-2); Eosinophils Absolute Auto 0.1 X10*3/uL (0.0-0.4); Eosinophils Percent Auto 0.7 % (0-4); Hematocrit 27.2 % (42.0-52.0); Hemoglobin 9.2 g/dl (14.0-18.0); Imm Gran Abs Auto 0.02 X10*3/uL (0.00-0.03); Imm Gran Pct Auto 0.3 % (0.0-0.4); Lymphocytes Absolute Auto 0.9 X10*3/uL (1.2-4.9); Lymphocytes Percent Auto 11.6 % (20-40); Mean Corpuscular HGB Conc 33.8 g/dl (31.0-36.0); Mean Corpuscular Hemoglobin 28.7 pg (27.0-33.0); Mean Corpuscular Volume 84.7 fL (80.0-98.0); Mean Platelet Volume 12.5 fL (9.4-12.4); Monocytes Absolute Auto 0.3 X10*3/uL (0.1-1.2); Monocytes Percent Auto 4.5 % (2-11); Neutrophils Absolute Auto 6.3 x10*3/uL (2.0-8.3); Neutrophils Percent Auto 82.5 % (45-73); Red Blood Count 3.21 X10*6/uL (4.60-5.80); Red Cell Distribution Width 15.8 % (11.0-16.0); White Blood Count 7.6 X10*3/uL (4.8-10.8)
[2025-01-24 09:04] LABS: Platelet Count 60 X10*3/uL (160-400)
[2025-01-24] MEDS: 0.9 % Sodium Chloride Flush 3 ML SYRINGE IVFLUSH ×2 (09:08→23:39)
[2025-01-24 09:38] LABS: MANUAL DIFF FLAG NO
[2025-01-24] MEDS: levETIRAcetam in NaCl (iso-os) 500 MG/100 ML PIGGYBACK 400 MG IV (09:48)
[2025-01-24 11:09] LABS: Glucose, Whole Blood 91 mg/dL (60-115)
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
[2025-01-24 12:39] VITALS: BP 111/56; PULSE 58; RESP 15; TEMP 36.6; O2SAT 98
--- NOTE | 2025-01-24 12:58 | MHC.SL.SWA ---
Speech Pathologist Impression: Risk of Aspiration Due to: Medically Fragile Poor PO Intake Dysphasia Diet Status: Liquid Consistency and Strategies for Safe Swallow: Liquid Intake Recommendation: Thin Liquid Intake Strategies: Small Sips Solid Food Consistency: Dietary Recommendations: Pureed (NDD1) Additional Modifications to Solid Foods: 1-1 feeding. Patient is resistant to eating/drinking, will need patient, persistent encouragement. No straws. Liquids by controlled cup sip or tsp. Oral Medication Intake: Crushed with Puree Please contact the pharmacy regarding appropriate crushable or liquid drug formulations that are available whenever modified delivery is recommended. Compensatory Strategies and Precautions to be Taken for Safe Swallow: Sitting Upright (90 deg) No Straw Liquids from Cup Liquids from Spoon Small Bites and Sips Alternate Liquids/Solids Supervision While Eating and Drinking for Safe Swallow: Total Assistance (1:1) Foods to Avoid: Swallowing Recommended Treatments: Compens. Strategy Educat. Recommendation for Speech: Inpatient Speech Therapy Comment: Patient presents with resistance to feeding, allowed only minimal trials on assessment today. Patient noted to have hx of moderate oral pharyngeal dysphagia, presented with variable delay of swallow on thin liquids, no clinical signs of aspiration on water given by spoon and facilitated cup sip. Recommend START diet of PUREE, with THIN liquids (by controlled cup sip or spoon, no straw), pills crushed in puree. Patient will likely be difficult to feed, will need persistent encouragement at meals. MD/RD notified by secure text, RN in person. NIGHT AUDITOR will continue to follow Frequency/Duration: Date Range for Service Req: Timeline to reassess: Ash Conveyor Operator Clinican/Clinical Fellow: No Supervisory Statement: I have reviewed and agree with the student/clinical fellow's documentation: N/A Speech Language Pathologist: Dipti Gray M.A., [facility]-NIGHT AUDITOR
--- NOTE | 2025-01-24 15:46 | PM.UROCN ---
History of Present Illness Consult details Consult date: 01/24/25 Narrative: CC: Hematuria 74-year-old male Presents to emergency room with seizures Difficult control of urination Clark catheter placed with some degree of hematuria Baseline thrombocytopenic platelet count 60 Hematuria should resolve with recovery of platelets May require irrigation if needed Review of Systems Constitutional: Constitutional: Reports as per HPI and Reports no additional constitutional complaints Cardiovascular: Cardiovascular: Reports as per HPI and Reports no additional cardiovascular complaints Respiratory: Respiratory: Reports as per HPI and Reports no additional respiratory complaints Gastrointestinal: Gastrointestinal: Reports as per HPI and Reports no additional gastrointestinal complaints Genitourinary: Genitourinary: Reports as per HPI Musculoskeletal: Musculoskeletal: Reports no additional musculoskeletal complaints and Reports as per HPI Neurologic: Reports system reviewed and no additional complaints, except as documented and Reports as per HPI [facility] Past Medical History Medical History (Updated 01/24/25 @ 15:48 by Nabil Morales MD) Seizure disorder Substance use Hyperbilirubinemia New onset seizure WILBUR (acute kidney injury) Social History Social History Household Members: Children Household Members Other:: From home with son per chart review Housing: Unknown / Unable to assess Patient Tobacco Use Status: Tobacco use Unknown Use of substances other than those prescribed or required for medical reasons: Unable to respond Currently Displaying Signs/Symptoms of Drug Intoxication Withdrawal: No Other Past Substance Use Problem:: Of note: UTOX +fentanyl. pHx substance use per chart review [facility] Pract[facility]: patient minimally verbal, hx dementia. Unable to obtain hx from pt Advance Directives: No Advance Directives Information Provided: No Recently lost weight without trying: Unsure Nutrition Risks: On aspiration precautions and Poor intake 0-25% >4 days Poor oral hygiene: Yes service: No Meds Allergies Allergy/AdvReac Type Severity Reaction Status Date / Time aspirin [Aspirin] AdvReac Unknown UPSET Verified 01/22/25 15:02 STOMACH Active Medications: Current Medications Acetaminophen (Acetaminophen 325 Mg Tablet) 975 mg PO Q6H PRN PRN Reason: Pain, Mild 1-3,fever,headache Albuterol/Ipratropium (Albuterol/Iprat 2.5/0.5mg 3 Ml Ampul.Neb) 3 ml INHALE RQ4H WHILE AWAKE PRN PRN Reason: Shortness of Breath Calcium Carbonate (Calcium Carbonate 750 Mg Tab.Chew) 750 mg PO Q4H PRN PRN Reason: Heartburn Ceftriaxone Sodium (Ceftriaxone Sodium 1 Gm Vial) 1 gm IVPUSH Q24H [facility] Last Admin: 01/23/25 21:05 Dose: 1 gm Dextrose (Dextrose 50 % 25 Gm/50 Ml Syringe) 25 gm IVPUSH Q15M PRN; Protocol PRN Reason: per Hypoglycemia Standing Ord. Last Admin: 01/24/25 05:53 Dose: 25 gm Diazepam (Diazepam 10 Mg/2 Ml Cartridge) 2.5 mg IVPUSH Q4H PRN PRN Reason: Seizures Glucose (Glucose Gel 15 Gm Gel..Gram.) 15 gm PO Q15M PRN; Protocol PRN Reason: per Hypoglycemia Standing Ord. Metronidazole (Flagyl) 500 mg in 100 mls @ 100 mls/hr IV Q8H [facility] Last Admin: 01/24/25 15:13 Dose: 100 mls/hr Dextrose/Lactated Ringer's (D5lr) 1,000 mls @ 75 mls/hr IVCONT .[id number] [facility] Last Infusion: 01/24/25 05:58 Dose: 75 mls/hr Levetiracetam (Levetiracetam Oral Soln 500 Mg/5 Ml) 500 mg PO BID [facility] Magnesium Hydroxide (Milk Of Magnesia 30 Ml Oral.Susp) 30 ml PO DAILY PRN PRN Reason: Constipation Melatonin (Melatonin 3 Mg Tablet) 6 mg PO BEDTIME PRN PRN Reason: Insomnia Ondansetron HCl (Ondansetron Hcl 4 Mg/2 Ml Vial) 4 mg IVPUSH Q8H PRN PRN Reason: Nausea and Vomiting Sodium Chloride (0.9 % Sodium Chloride Flush 3 Ml Syringe) 3 ml IVFLUSH QSHIFT [facility] Last Admin: 01/24/25 09:08 Dose: 3 ml Home Medications ?Medication ?Instructions ?Recorded ?Confirmed ?Last Taken ?Type acetaminophen 325 mg tablet 325 mg PO BEDTIME 10/28/24 01/22/25 Unknown History melatonin 3 mg tablet 6 mg PO BEDTIME 10/28/24 01/22/25 Unknown History Physical Exam Vital Signs: Vital Signs: Last Vital Signs Temp 98 F 01/24/25 12:39 Pulse 58 01/24/25 12:39 Resp 15 01/24/25 12:39 BP 111/56 L 01/24/25 12:39 Pulse Ox 98 01/24/25 12:39 O2 Del Method Room Air 01/24/25 12:39 BMI result Body Mass Index 20.1 Const: General: cooperative, healthy appearing, comfortable and no acute distress Orientation/consciousness: patient oriented x3 HEENT: Face and sinus: Yes normal facial exam Mouth: moist mucous membranes Neck: Neck: Yes normal visual inspection, Yes full ROM and Yes trachea midline Chest: Chest palpation & inspection: normal inspection of the chest Resp: Effort & Inspection: normal respiratory effort, able to speak in complete sentences and no respiratory distress GI: Inspection: Yes normal to inspection Back/Spine/Pelvis: Cervical Spine: normal cervical lordosis Thoracic/Lumbar Spine: thoracic and lumbar spine normal to inspection Skin: General skin exam: no rashes or lesions noted Neuro: General: patient oriented x3, tone normal and moves all extremities Extrem: General: Yes normal to inspection and Yes capillary refill normal Results Labs 01/24/25 08:14 01/24/25 05:08 Labs: Abnormal lab results 01/23/25 01/24/25 01/24/25 Range/Units 23:51 05:08 06:12 RBC (4.60-5.80) X10*6/uL Hgb (14.0-18.0) g/dl Hct (42.0-52.0) % Plt Count (160-400) X10*3/uL MPV (9.4-12.4) fL Neut % (Auto) (45-73) % Lymph % (Auto) (20-40) % Lymph # (Auto) (1.2-4.9) X10*3/uL Potassium 3.1 L (3.3-5.1) mmol/L Chloride 115 H (96-108) mmol/L Carbon Dioxide 19 L (22-29) mmol/L POC Glucose 145 H 163 H (60-115) mg/dL Calcium 7.3 L (8.4-10.2) mg/dL Total Creatine Kinase 341 H (38-174) U/L 01/24/25 01/24/25 01/24/25 Range/Units 06:29 06:39 08:14 RBC 3.21 L D (4.60-5.80) X10*6/uL Hgb 9.2 L D (14.0-18.0) g/dl Hct 27.2 L D (42.0-52.0) % Plt Count 60 L D (160-400) X10*3/uL MPV 12.5 H (9.4-12.4) fL Neut % (Auto) 82.5 H (45-73) % Lymph % (Auto) 11.6 L (20-40) % Lymph # (Auto) 0.9 L (1.2-4.9) X10*3/uL Potassium (3.3-5.1) mmol/L Chloride (96-108) mmol/L Carbon Dioxide (22-29) mmol/L POC Glucose 150 H 130 H (60-115) mg/dL Calcium (8.4-10.2) mg/dL Total Creatine Kinase (38-174) U/L Short CBC 01/24/25 Range/Units 08:14 WBC 7.6 (4.8-10.8) X10*3/uL Hgb 9.2 L D (14.0-18.0) g/dl Hct 27.2 L D (42.0-52.0) % Plt Count 60 L D (160-400) X10*3/uL BMP 01/24/25 05:08 Sodium 144 Potassium 3.1 L Chloride 115 H Carbon Dioxide 19 L BUN 15 Creatinine 0.76 Calcium 7.3 L Cardiac Enzymes 01/24/25 Range/Units 05:08 Total Creatine Kinase 341 H (38-174) U/L Urine 01/23/25 Range/Units 02:45 Urine Color BROWN Urine Appearance Turbid Urine pH 5.5 (5.0-9.0) Ur Specific [place] >= 1.030 H (1.005-1.025) Urine Protein 100 (2+) H (Neg-Trace) mg/dL Urine Glucose (UA) Negative (Negative) mg/dL All other labs normal. Assessment and Plan (1) Thrombocytopenia: Status: Acute (2) Gross hematuria: Status: Acute Plan Manage thrombocytopenia Procedures Date of Service Date of Service: 01/24/25
[2025-01-24 16:06] VITALS: BP 109/66; PULSE 58; RESP 14; TEMP 36.7; O2SAT 100
[2025-01-24] MEDS: Dextrose 5 % and Lactated Ring 1,000 ML 75 ML IVCONT (16:20)
[2025-01-24 16:32] LABS: Glucose, Whole Blood 89 mg/dL (60-115)
--- NOTE | 2025-01-24 16:42 | P.PNIM_ITS ---
Subjective Subjective Date of Service: 01/24/25 Interval History: weak, minimally verbal, withdrawn affect, eating very little Review of Systems Review of Systems: Yes all other systems are reviewed and are negative Physical Exam 2 Vital Signs: Vital Signs: Last Vital Signs Temp 98.0 F 01/24/25 16:06 Pulse 58 01/24/25 16:06 Resp 14 01/24/25 16:06 BP 109/66 01/24/25 16:06 Pulse Ox 100 01/24/25 16:06 O2 Del Method Room Air 01/24/25 16:06 BMI result Body Mass Index 20.1 Gen: wea, chronically ill-appearing, muscle wasting HEENT: sclera anicteric, moist mucus membranes Neck: supple Lungs: clear to auscultation bilaterally Heart: regular rate and rhythm, no murmurs Abd: soft, non-tender, non-distended Ext: no edema Skin: warm/well-perfused Neuro: alert, minimally verbal Psych: restricted affect Objective Data Active Medications Acetaminophen (Acetaminophen 325 Mg Tablet) 975 mg PO Q6H PRN PRN Reason: Pain, Mild 1-3,fever,headache Albuterol/Ipratropium (Albuterol/Iprat 2.5/0.5mg 3 Ml Ampul.Neb) 3 ml INHALE RQ4H WHILE AWAKE PRN PRN Reason: Shortness of Breath Calcium Carbonate (Calcium Carbonate 750 Mg Tab.Chew) 750 mg PO Q4H PRN PRN Reason: Heartburn Ceftriaxone Sodium (Ceftriaxone Sodium 1 Gm Vial) 1 gm IVPUSH Q24H [facility] Last Admin: 01/23/25 21:05 Dose: 1 gm Documented By: STANLEY Dextrose (Dextrose 50 % 25 Gm/50 Ml Syringe) 25 gm IVPUSH Q15M PRN; Protocol PRN Reason: per Hypoglycemia Standing Ord. Last Admin: 01/24/25 05:53 Dose: 25 gm Documented By: CHINEDU Diazepam (Diazepam 10 Mg/2 Ml Cartridge) 2.5 mg IVPUSH Q4H PRN PRN Reason: Seizures Glucose (Glucose Gel 15 Gm Gel..Gram.) 15 gm PO Q15M PRN; Protocol PRN Reason: per Hypoglycemia Standing Ord. Metronidazole (Flagyl) 500 mg in 100 mls @ 100 mls/hr IV Q8H [facility] Last Infusion: 01/24/25 16:17 Dose: Infused Documented By: EVELIO Dextrose/Lactated Ringer's (D5lr) 1,000 mls @ 75 mls/hr IVCONT .[id number] [facility] Last Admin: 01/24/25 16:20 Dose: 75 mls/hr Documented By: EVELIO Levetiracetam (Levetiracetam Oral Soln 500 Mg/5 Ml) 500 mg PO BID [facility] Magnesium Hydroxide (Milk Of Magnesia 30 Ml Oral.Susp) 30 ml PO DAILY PRN PRN Reason: Constipation Melatonin (Melatonin 3 Mg Tablet) 6 mg PO BEDTIME PRN PRN Reason: Insomnia Ondansetron HCl (Ondansetron Hcl 4 Mg/2 Ml Vial) 4 mg IVPUSH Q8H PRN PRN Reason: Nausea and Vomiting Sodium Chloride (0.9 % Sodium Chloride Flush 3 Ml Syringe) 3 ml IVFLUSH QSHIFT [facility] Last Admin: 01/24/25 09:08 Dose: 3 ml Documented By: EVELIO Labs 01/24/25 08:14 01/24/25 05:08 Labs: Laboratory Results - last 24 hr 01/23/25 01/23/25 01/23/25 08:02 19:17 23:08 MCV MCH MCHC RDW Plt Count MPV Immature Gran % (Auto) Neut % (Auto) Lymph % (Auto) Weber % (Auto) Eos % (Auto) Baso % (Auto) Lymph # (Auto) Weber # (Auto) Eos # (Auto) Baso # (Auto) Abs Immat Gran (auto) Absolute Neuts (auto) Absolute Nucleated RBC Nucleated RBC % (auto) Anion Gap Estim Creat Clear Calc Estimated GFR POC Glucose 81 65 Random Glucose Calcium Magnesium Total Creatine Kinase Hepatitis A IgM Ab Nonreactive 01/23/25 01/24/25 01/24/25 23:51 00:54 01:12 MCV MCH MCHC RDW Plt Count MPV Immature Gran % (Auto) Neut % (Auto) Lymph % (Auto) Weber % (Auto) Eos % (Auto) Baso % (Auto) Lymph # (Auto) Weber # (Auto) Eos # (Auto) Baso # (Auto) Abs Immat Gran (auto) Absolute Neuts (auto) Absolute Nucleated RBC Nucleated RBC % (auto) Anion Gap Estim Creat Clear Calc Estimated GFR POC Glucose 145 H 90 85 Random Glucose Calcium Magnesium Total Creatine Kinase Hepatitis A IgM Ab 01/24/25 01/24/25 01/24/25 05:08 05:47 06:12 MCV MCH MCHC RDW Plt Count MPV Immature Gran % (Auto) Neut % (Auto) Lymph % (Auto) Weber % (Auto) Eos % (Auto) Baso % (Auto) Lymph # (Auto) Weber # (Auto) Eos # (Auto) Baso # (Auto) Abs Immat Gran (auto) Absolute Neuts (auto) Absolute Nucleated RBC Nucleated RBC % (auto) Anion Gap 13 Estim Creat Clear Calc 65.2 Estimated GFR > 60 POC Glucose 66 163 H Random Glucose 65 Calcium 7.3 L Magnesium 2.1 Total Creatine Kinase 341 H Hepatitis A IgM Ab 01/24/25 01/24/25 01/24/25 06:29 06:39 07:50 MCV MCH MCHC RDW Plt Count MPV Immature Gran % (Auto) Neut % (Auto) Lymph % (Auto) Weber % (Auto) Eos % (Auto) Baso % (Auto) Lymph # (Auto) Weber # (Auto) Eos # (Auto) Baso # (Auto) Abs Immat Gran (auto) Absolute Neuts (auto) Absolute Nucleated RBC Nucleated RBC % (auto) Anion Gap Estim Creat Clear Calc Estimated GFR POC Glucose 150 H 130 H 115 Random Glucose Calcium Magnesium Total Creatine Kinase Hepatitis A IgM Ab 01/24/25 01/24/25 01/24/25 08:14 11:06 16:28 MCV 84.7 MCH 28.7 MCHC 33.8 RDW 15.8 Plt Count 60 L D MPV 12.5 H Immature Gran % (Auto) 0.3 Neut % (Auto) 82.5 H Lymph % (Auto) 11.6 L Weber % (Auto) 4.5 Eos % (Auto) 0.7 Baso % (Auto) 0.4 Lymph # (Auto) 0.9 L Weber # (Auto) 0.3 Eos # (Auto) 0.1 Baso # (Auto) 0.0 Abs Immat Gran (auto) 0.02 Absolute Neuts (auto) 6.3 Absolute Nucleated RBC 0.000 Nucleated RBC % (auto) 0.0 Anion Gap Estim Creat Clear Calc Estimated GFR POC Glucose 91 89 Random Glucose Calcium Magnesium Total Creatine Kinase Hepatitis A IgM Ab Microbiology Microbiology Results: Microbiology 01/23/25 05:09 Urine Culture - Preliminary Urine clean catch - Clean Catch Midstream Enterococcus/Streptococcus sp 01/23/25 05:09 Blood Culture - Preliminary Blood - Venous No growth after 24 hours. 01/23/25 05:09 Blood Culture - Preliminary Blood - Venous No growth after 24 hours. Assessment and Plan (1) Seizure disorder: Status: Acute (2) Pancolitis: Status: Acute (3) Thrombocytopenia: Status: Acute Plan d3 for 74yo M with seizure, dementia, FTT, pAF, COPD presented with seizures and decreased PO intake UTI, Enterococcus/Streptococcus pancolitis - change ceftriaxone/metronidazole to ampicillin-sulbactam, follow UCx, send stool C diff PCR and GI PCR panel, GI consult pending seizures - continue levetiracetam, try liquid solution as pt has difficulty with pills - EEG 01/22: This EEG is considered abnormal due to mild background slowing. Abundance of muscle artifact noted. No seizure discharges are seen. generalized edema - probably due to low albumin normocytic anemia - probably dilutional but will check B12/FA, iron studies, retic/LDH, FOBT thrombocytopenia - suspect due to infection but continue to monitor hematuria - from traumatic catheterization; monitor; Urology consulted hypoK - replete IV, recheck level in AM pAF - avoid anticoagulation for now given hematuria/thrombocytopenia VTE ppx - SCDs dispo - TBD; CM will look into Protective Services referral In my clinical judgment, the patient requires continued inpatient hospitalization for the following reasons: IV ABX Total time managing care of this patient today: 35 minutes. Quality Stroke Does the patient have a stroke diagnosis?: No VTE Prior VTE?: No VTE Risk Level:: Medical - moderate - high VTE Device Contraindication: N/A - Device Ordered VTE Drug Contraindication: Treatment Not Indicated
[2025-01-24] MEDS: Ampicillin Sodium/Sulbactam Na 3 GM in 0.9 % Sodium Chloride 100 ML IV ×2 (18:18→23:34)
[2025-01-24 18:43] LABS: OBS Int Ctl Valid YES; OBS1 NEGATIVE (NEGATIVE)
[2025-01-24 19:15] LABS: CDiff Gene PCR NEGATIVE (Negative); Leukocytes Stool Qualitative NEGATIVE (NEGATIVE)
[2025-01-24 19:33] VITALS: BP 106/58; PULSE 76; RESP 18; TEMP 36.6; O2SAT 92
[2025-01-24] MEDS: levETIRAcetam Oral Soln 500 MG/5 ML PO (20:26)
[2025-01-24 23:47] LABS: Glucose, Whole Blood 98 mg/dL (60-115)
[2025-01-25] VITALS (7 sets, daily range): BP systolic 110–132; BP diastolic 54–67; PULSE 51–70; RESP 16–18; TEMP 36.2–36.7; O2SAT 97–99
--- NOTE | 2025-01-25 01:19 | CONS_ITS ---
DATE OF SERVICE: 01/24/2025 REFERRING PHYSICIAN: Dr. Payne REASON FOR CONSULTATION: Pancolitis. HISTORY OF PRESENT ILLNESS: The patient is a 74-year-old man who was admitted to the hospital on January 22 for seizures. In the emergency department, he was evaluated and found to have pancolitis. He has no complaints of abdominal pain or rectal bleeding, but does have dementia and is not a reliable historian. There is no reported history of colitis and there is no record of prior colonoscopy available in the EMR, which is reviewed. CT scanning is reported as showing diffuse wall thickening of the colon extending from the cecum to the rectum with hyperenhancement of the mucosa and adjacent inflammatory stranding. There has been no reported rectal bleeding. PAST MEDICAL HISTORY: 1. Dementia. 2. Seizure disorder. 3. Paroxysmal atrial fibrillation. 4. COPD. 5. History of substance abuse. 6. Acute kidney injury. CURRENT MEDICATIONS: His current medication list is reviewed in the chart. ALLERGIES: THERE ARE ALLERGIES REPORTED TO [facility]. FAMILY HISTORY: This is reviewed in the chart. SOCIAL HISTORY: There is no reported substance abuse currently. There is a history of substance abuse listed. REVIEW OF SYSTEMS: This is entirely unobtainable. PHYSICAL EXAMINATION: GENERAL: Shows a pleasant male, who is somewhat cachectic, lying in bed. VITAL SIGNS: Reviewed in electronic medical record and are stable. SKIN: Anicteric. HEENT: Shows no scleral icterus. There is some temporal wasting. NECK: Without lymphadenopathy or thyromegaly. LUNGS: Clear. HEART: Shows regular rate and rhythm. S1, S2. No murmur. ABDOMEN: Soft without focal masses or tenderness. Bowel sounds are present. No organomegaly is noted. EXTREMITIES: Without edema. IMPRESSION: Colitis. The differential diagnosis for this includes infection, inflammation, and ischemia, I have recommended stool studies. These will be obtained. At this time, I do not think he needs antibiotics for this diagnosis. At some point, he may require further evaluation with lower GI tract endoscopy. Thanks for asking me to see him. I will follow him in the hospital as needed. MD VIVIANA Mandel/NOEMY / [phone]
[2025-01-25] MEDS: Ampicillin Sodium/Sulbactam Na 3 GM in 0.9 % Sodium Chloride 100 ML IV ×4 (05:09→23:01)
[2025-01-25] MEDS: Dextrose 5 % and Lactated Ring 1,000 ML 75 ML IVCONT ×2 (05:14→18:51)
[2025-01-25 06:00] LABS: Glucose, Whole Blood 96 mg/dL (60-115)
[2025-01-25 09:15] LABS: Basophils Percent Auto 0.6 % (0-2); Eosinophils Absolute Auto 0.1 X10*3/uL (0.0-0.4); Eosinophils Percent Auto 0.7 % (0-4); Hematocrit 32.2 % (42.0-52.0); Hemoglobin 10.9 g/dl (14.0-18.0); Imm Gran Abs Auto 0.06 X10*3/uL (0.00-0.03); Imm Gran Pct Auto 0.8 % (0.0-0.4); Immature Retic Fraction 6.1 % (2.3-13.4); Lymphocytes Percent Auto 13.1 % (20-40); MANUAL DIFF FLAG SCAN; Mean Corpuscular HGB Conc 33.9 g/dl (31.0-36.0); Mean Corpuscular Hemoglobin 28.5 pg (27.0-33.0); Mean Corpuscular Volume 84.1 fL (80.0-98.0); Monocytes Absolute Auto 0.5 X10*3/uL (0.1-1.2); Monocytes Percent Auto 7.1 % (2-11); Neutrophils Absolute Auto 5.6 x10*3/uL (2.0-8.3); Neutrophils Percent Auto 77.7 % (45-73); PLT CLUMP 1; Red Blood Count 3.83 X10*6/uL (4.60-5.80); Red Cell Distribution Width 15.7 % (11.0-16.0); Retic HGB Equivalent 30.2 pg (30.0-35.0); Reticulocytes Absolute 0.021 X10*6/uL (0.026-0.095); SCAN SMEAR FLAG 1
[2025-01-25 09:17] LABS: RET ABN SCTR 1
[2025-01-25 09:36] LABS: Platelet Count 66 X10*3/uL (160-400); White Blood Count 7.2 X10*3/uL (4.8-10.8)
[2025-01-25 09:40] LABS: Reticulocyte Percent 0.6 % (0.5-1.8); SLIDE REVIEW VERIFIED
[2025-01-25 09:54] LABS: Adenovirus F 40/41 Not Detected (Not Detect.); Astrovirus Not Detected (Not Detect.); Campylobacter Not Detected (Not Detect.); Cryptosporidium Not Detected (Not Detect.); Cyclospora cayetanensis Not Detected (Not Detect.); E. coli EAEC Not Detected (Not Detect.); E. coli EPEC Not Detected (Not Detect.); E. coli ETEC Not Detected (Not Detect.); E. coli STEC Not Detected (Not Detect.); Entamoeba histolytica Not Detected (Not Detect.); Giardia lamblia Not Detected (Not Detect.); Norovirus GI/GII Not Detected (Not Detect.); Plesiomonas shigelloides Not Detected (Not Detect.); Rotavirus A Not Detected (Not Detect.); Salmonella Not Detected (Not Detect.); Sapovirus Not Detected (Not Detect.); Shigella sp./EIEC Not Detected (Not Detect.); Vibrio Not Detected (Not Detect.); Vibrio Cholerae Not Detected (Not Detect.); Yersinia enterocolitica Not Detected (Not Detect.)
[2025-01-25 09:58] LABS: Anion Gap 7 (12-20); Blood Urea Nitrogen 6 mg/dL (9-16); Calcium 7.8 mg/dL (8.4-10.2); Carbon Dioxide 26 mmol/L (22-29); Chloride 115 mmol/L (96-108); Creatinine Clr Calc Pharmacy 79.9; Estimated Glomerular Filt Rate > 60; Glucose Random 109 mg/dL (60-115); Iron 63 mcg/dL (45-160); Lactate Dehydrogenase 181 U/L (118-273); Percent Iron Saturation 72 % (15-50); Potassium 2.4 mmol/L (3.3-5.1); Sodium 146 mmol/L (135-145); Total Iron Binding Capacity 88 mcg/dL (228-428); Unsaturated Iron Binding < 25 ug/dL
[2025-01-25 10:00] LABS: Ferritin 473 ng/mL (20-250)
[2025-01-25 10:15] LABS: Folate < 2.2 ng/mL (> or = 4.0); Vitamin B12 1071 pg/mL (200-900)
--- NOTE | 2025-01-25 10:23 | HO.PM.IMPN ---
Subjective Subjective Date of Service: 01/25/25 Interval History: More awake but essentially nonverbal Review of Systems Unable to obtain Physical Exam Vital Signs: Vital Signs: Last Vital Signs Temp 97.3 F 01/25/25 07:54 Pulse 51 01/25/25 07:54 Resp 16 01/25/25 07:54 BP 132/60 01/25/25 07:54 Pulse Ox 98 01/25/25 07:54 O2 Del Method Room Air 01/25/25 07:54 BMI result Body Mass Index 20.1 Const: Other: Somnolent but arousable with stimuli Resp: Other: Clear to auscultation bilaterally no rales rhonchi or wheezes Cardio: Other: No S4; positive S1-S2; no S3 murmurs rubs or gallops GI: Other: Soft nontender nondistended normoactive bowel sounds Extrem: Other: No edema bilaterally Objective Data Active Medications Acetaminophen (Acetaminophen 325 Mg Tablet) 975 mg PO Q6H PRN PRN Reason: Pain, Mild 1-3,fever,headache Albuterol/Ipratropium (Albuterol/Iprat 2.5/0.5mg 3 Ml Ampul.Neb) 3 ml INHALE RQ4H WHILE AWAKE PRN PRN Reason: Shortness of Breath Calcium Carbonate (Calcium Carbonate 750 Mg Tab.Chew) 750 mg PO Q4H PRN PRN Reason: Heartburn Dextrose (Dextrose 50 % 25 Gm/50 Ml Syringe) 25 gm IVPUSH Q15M PRN; Protocol PRN Reason: per Hypoglycemia Standing Ord. Last Admin: 01/24/25 05:53 Dose: 25 gm Documented By: CHINEDU Diazepam (Diazepam 10 Mg/2 Ml Cartridge) 2.5 mg IVPUSH Q4H PRN PRN Reason: Seizures Glucose (Glucose Gel 15 Gm Gel..Gram.) 15 gm PO Q15M PRN; Protocol PRN Reason: per Hypoglycemia Standing Ord. Dextrose/Lactated Ringer's (D5lr) 1,000 mls @ 75 mls/hr IVCONT .[id number] [facility] Last Admin: 01/25/25 05:14 Dose: 75 mls/hr Documented By: STANLEY Ampicillin Sodium/Sulbactam (Sodium 3 gm/ Sodium Chloride) 100 mls @ 200 mls/hr IV Q6H [facility] Last Infusion: 01/25/25 05:48 Dose: Infused Documented By: STANLEY Levetiracetam (Levetiracetam Oral Soln 500 Mg/5 Ml) 500 mg PO BID [facility] Last Admin: 01/24/25 20:26 Dose: 500 mg Documented By: STANLEY Magnesium Hydroxide (Milk Of Magnesia 30 Ml Oral.Susp) 30 ml PO DAILY PRN PRN Reason: Constipation Melatonin (Melatonin 3 Mg Tablet) 6 mg PO BEDTIME PRN PRN Reason: Insomnia Ondansetron HCl (Ondansetron Hcl 4 Mg/2 Ml Vial) 4 mg IVPUSH Q8H PRN PRN Reason: Nausea and Vomiting Sodium Chloride (0.9 % Sodium Chloride Flush 3 Ml Syringe) 3 ml IVFLUSH QSHIFT [facility] Last Admin: 01/24/25 23:39 Dose: 3 ml Documented By: STANLEY Labs 01/25/25 08:30 01/25/25 08:30 Labs: Laboratory Results - last 24 hr 01/24/25 01/24/25 01/24/25 11:06 16:28 17:52 MCV MCH MCHC RDW Plt Count MPV Immature Gran % (Auto) Neut % (Auto) Lymph % (Auto) [place] % (Auto) Eos % (Auto) Baso % (Auto) Lymph # (Auto) [place] # (Auto) Eos # (Auto) Baso # (Auto) Abs Immat Gran (auto) Absolute Neuts (auto) Absolute Nucleated RBC Nucleated RBC % (auto) Smear Tech's Comments Absolute Retic Percent Retic Immature Retic Fraction Retic Hgb Equivalent Anion Gap Estim Creat Clear Calc Estimated GFR POC Glucose 91 89 Random Glucose Calcium Iron TIBC % Saturation Unsat Iron Binding Ferritin Lactate Dehydrogenase Vitamin B12 Folate Stool Occult Blood NEGATIVE Stool Leukocytes, Qual NEGATIVE Stl C. cayetanensis PCR Not Detected Stool Rotavirus A PCR Not Detected Stl Adenov F 40/41 PCR Not Detected Stool Astrovirus (PCR) Not Detected Stool Campylobacter PCR Not Detected Stool Cryptosporidium PCR Not Detected Stl Sh Tox Pr E STEC PCR Not Detected Stool E coli O157 PCR Not applicable Stl Enterotoxigenic E PCR Not Detected Stool EPEC (PCR) Not Detected Stool EAEC (PCR) Not Detected Stl E. histolytica PCR Not Detected Stool Giardia Lamblia PCR Not Detected Stl P. shigelloides PCR Not Detected Stool Salmonella PCR Not Detected Stool Sapovirus (PCR) Not Detected Stl Shigella/EIEC PCR Not Detected St Y.enterocolitica PCR Not Detected Stool Vibrio (PCR) Not Detected Stl Vibrio cholerae PCR Not Detected Stl Norovirus GI/GII PCR Not Detected C. difficile Tox B Gene NEGATIVE O & P Trichrome Stain 01/24/25 01/24/25 01/25/25 23:43 Unknown 05:57 MCV MCH MCHC RDW Plt Count MPV Immature Gran % (Auto) Neut % (Auto) Lymph % (Auto) [place] % (Auto) Eos % (Auto) Baso % (Auto) Lymph # (Auto) [place] # (Auto) Eos # (Auto) Baso # (Auto) Abs Immat Gran (auto) Absolute Neuts (auto) Absolute Nucleated RBC Nucleated RBC % (auto) Smear Tech's Comments Absolute Retic Percent Retic Immature Retic Fraction Retic Hgb Equivalent Anion Gap Estim Creat Clear Calc Estimated GFR POC Glucose 98 96 Random Glucose Calcium Iron TIBC % Saturation Unsat Iron Binding Ferritin Lactate Dehydrogenase Vitamin B12 Folate Stool Occult Blood Stool Leukocytes, Qual Stl C. cayetanensis PCR Stool Rotavirus A PCR Stl Adenov F 40/41 PCR Stool Astrovirus (PCR) Stool Campylobacter PCR Stool Cryptosporidium PCR Stl Sh Tox Pr E STEC PCR Stool E coli O157 PCR Stl Enterotoxigenic E PCR Stool EPEC (PCR) Stool EAEC (PCR) Stl E. histolytica PCR Stool Giardia Lamblia PCR Stl P. shigelloides PCR Stool Salmonella PCR Stool Sapovirus (PCR) Stl Shigella/EIEC PCR St Y.enterocolitica PCR Stool Vibrio (PCR) Stl Vibrio cholerae PCR Stl Norovirus GI/GII PCR C. difficile Tox B Gene O & P Trichrome Stain Cancelled 01/25/25 08:30 MCV 84.1 MCH 28.5 MCHC 33.9 RDW 15.7 Plt Count 66 L MPV Not Reportable Immature Gran % (Auto) 0.8 H Neut % (Auto) 77.7 H Lymph % (Auto) 13.1 L [place] % (Auto) 7.1 Eos % (Auto) 0.7 Baso % (Auto) 0.6 Lymph # (Auto) 1.0 L [place] # (Auto) 0.5 Eos # (Auto) 0.1 Baso # (Auto) 0.0 Abs Immat Gran (auto) 0.06 H Absolute Neuts (auto) 5.6 Absolute Nucleated RBC 0.000 Nucleated RBC % (auto) 0.0 Smear Tech's Comments VERIFIED Absolute Retic 0.021 L Percent Retic 0.6 Immature Retic Fraction 6.1 Retic Hgb Equivalent 30.2 Anion Gap 7 L Estim Creat Clear Calc 79.9 Estimated GFR > 60 POC Glucose Random Glucose 109 Calcium 7.8 L D Iron 63 TIBC 88 L % Saturation 72 H Unsat Iron Binding < 25 Ferritin 473 H Lactate Dehydrogenase 181 Vitamin B12 1071 H Folate < 2.2 L Stool Occult Blood Stool Leukocytes, Qual Stl C. cayetanensis PCR Stool Rotavirus A PCR Stl Adenov F 40/41 PCR Stool Astrovirus (PCR) Stool Campylobacter PCR Stool Cryptosporidium PCR Stl Sh Tox Pr E STEC PCR Stool E coli O157 PCR Stl Enterotoxigenic E PCR Stool EPEC (PCR) Stool EAEC (PCR) Stl E. histolytica PCR Stool Giardia Lamblia PCR Stl P. shigelloides PCR Stool Salmonella PCR Stool Sapovirus (PCR) Stl Shigella/EIEC PCR St Y.enterocolitica PCR Stool Vibrio (PCR) Stl Vibrio cholerae PCR Stl Norovirus GI/GII PCR C. difficile Tox B Gene O & P Trichrome Stain Microbiology Microbiology Results: Microbiology 01/23/25 05:09 Urine Culture - Final Urine clean catch - Clean Catch Midstream Enterococcus faecalis 01/23/25 05:09 Blood Culture - Preliminary Blood - Venous No growth after 48 hours. 01/23/25 05:09 Blood Culture - Preliminary Blood - Venous No growth after 48 hours. Assessment and Plan (1) UTI (urinary tract infection): Status: Acute (2) Dementia: Status: Acute Plan Pt is a 74 yo male with a pmhx significant for seizure disorder, FTT, dementia, paroxysmal a fib and stage 1 COPD, who presented to the ED via EMS due to several seizures over the past few days and a significant decline in PO intake of the past 2 days. 1.UTI (past UTI with Klebsiella) -Unasyn (2) -follow cultures... Enterococcus sensitive to ampicillin -monitor CBC and BMP 2. Pancolitis -C diff negative -GI consult .... Conservative therapies no antibiotics indicated 2.Seizures/AMS -Keppra at outpatient doses. - EEG - neuro consult 3.Peripheral edema/hypoalbumiemia -replete albumin -echo pending -venous dopplar BLE and RUE pending 4.Thrombocytopenia - avoid anticoagulants due to additional gross hematuria from traumatic catheterization 5.Paroxysmal a fib -acceptable rate control -observe on telemetry -avoid anticoagulation at this time given platelets DNR/DNI Pneumatics Quality Stroke Does the patient have a stroke diagnosis?: No VTE Prior VTE?: No VTE Risk Level:: Medical - moderate - high VTE Device Contraindication: N/A - Device Ordered VTE Drug Contraindication: Treatment Not Indicated
[2025-01-25 11:41] LABS: Glucose, Whole Blood 109 mg/dL (60-115)
[2025-01-25] MEDS: levETIRAcetam Oral Soln 500 MG/5 ML PO ×2 (11:42→21:49)
[2025-01-25] MEDS: 0.9 % Sodium Chloride Flush 3 ML SYRINGE IVFLUSH ×2 (11:47→21:49)
--- NOTE | 2025-01-25 12:08 | MHC.CLN ---
F/U DIET ADVANCED 01/24 TO REGULAR, PUREE CONSISTENCY. SUPPLEMENTS ADDED: FORTIFIED ICE CREAM TID (870 KCALS, 27 G PROTEIN) AND ENSURE TID (1050 KCALS, 60 G PROTEIN). POOR PO NOTED. SKIN WITH REDNESS TO SACRUM/COCCYX AND BILATERAL HEELS. CONTINUE TO FOLLOW FOR PO INTAKE, DIET TOLERANCE, AND SKIN INTEGRITY.
--- NOTE | 2025-01-25 12:11 | P.PNGI_ITS ---
Subjective Subjective Date of Service: 01/25/25 Interval History: denies pain Critical Care Time (minutes): 0 Physical Exam 2 Vital Signs: Vital Signs: Last Vital Signs Temp 97.8 F 01/25/25 11:49 Pulse 55 01/25/25 11:49 Resp 18 01/25/25 11:49 BP 114/62 01/25/25 11:49 Pulse Ox 98 01/25/25 11:49 O2 Del Method Room Air 01/25/25 11:49 BMI result Body Mass Index 20.1 GI: Other: abdomen is soft and nontender Objective Data Labs 01/25/25 08:30 01/25/25 08:30 Labs: Laboratory Results - last 24 hr 01/24/25 01/24/25 01/24/25 16:28 17:52 23:43 WBC RBC Hgb Hct MCV MCH MCHC RDW Plt Count MPV Immature Gran % (Auto) Neut % (Auto) Lymph % (Auto) [place] % (Auto) Eos % (Auto) Baso % (Auto) Lymph # (Auto) [place] # (Auto) Eos # (Auto) Baso # (Auto) Abs Immat Gran (auto) Absolute Neuts (auto) Absolute Nucleated RBC Nucleated RBC % (auto) Smear Tech's Comments Absolute Retic Percent Retic Immature Retic Fraction Retic Hgb Equivalent Sodium Potassium Chloride Carbon Dioxide Anion Gap BUN Creatinine Estim Creat Clear Calc Estimated GFR POC Glucose 89 98 Random Glucose Calcium Iron TIBC % Saturation Unsat Iron Binding Ferritin Lactate Dehydrogenase Vitamin B12 Folate Stool Occult Blood NEGATIVE Stool Leukocytes, Qual NEGATIVE Stl C. cayetanensis PCR Not Detected Stool Rotavirus A PCR Not Detected Stl Adenov F 40/41 PCR Not Detected Stool Astrovirus (PCR) Not Detected Stool Campylobacter PCR Not Detected Stool Cryptosporidium PCR Not Detected Stl Sh Tox Pr E STEC PCR Not Detected Stool E coli O157 PCR Not applicable Stl Enterotoxigenic E PCR Not Detected Stool EPEC (PCR) Not Detected Stool EAEC (PCR) Not Detected Stl E. histolytica PCR Not Detected Stool Giardia Lamblia PCR Not Detected Stl P. shigelloides PCR Not Detected Stool Salmonella PCR Not Detected Stool Sapovirus (PCR) Not Detected Stl Shigella/EIEC PCR Not Detected St Y.enterocolitica PCR Not Detected Stool Vibrio (PCR) Not Detected Stl Vibrio cholerae PCR Not Detected Stl Norovirus GI/GII PCR Not Detected C. difficile Tox B Gene NEGATIVE O & P Trichrome Stain 01/24/25 01/25/25 01/25/25 Unknown 05:57 08:30 WBC 7.2 RBC 3.83 L Hgb 10.9 L Hct 32.2 L MCV 84.1 MCH 28.5 MCHC 33.9 RDW 15.7 Plt Count 66 L MPV Not Reportable Immature Gran % (Auto) 0.8 H Neut % (Auto) 77.7 H Lymph % (Auto) 13.1 L [place] % (Auto) 7.1 Eos % (Auto) 0.7 Baso % (Auto) 0.6 Lymph # (Auto) 1.0 L [place] # (Auto) 0.5 Eos # (Auto) 0.1 Baso # (Auto) 0.0 Abs Immat Gran (auto) 0.06 H Absolute Neuts (auto) 5.6 Absolute Nucleated RBC 0.000 Nucleated RBC % (auto) 0.0 Smear Tech's Comments VERIFIED Absolute Retic 0.021 L Percent Retic 0.6 Immature Retic Fraction 6.1 Retic Hgb Equivalent 30.2 Sodium 146 H Potassium 2.4 L* D Chloride 115 H Carbon Dioxide 26 Anion Gap 7 L BUN 6 L Creatinine 0.62 Estim Creat Clear Calc 79.9 Estimated GFR > 60 POC Glucose 96 Random Glucose 109 Calcium 7.8 L D Iron 63 TIBC 88 L % Saturation 72 H Unsat Iron Binding < 25 Ferritin 473 H Lactate Dehydrogenase 181 Vitamin B12 1071 H Folate < 2.2 L Stool Occult Blood Stool Leukocytes, Qual Stl C. cayetanensis PCR Stool Rotavirus A PCR Stl Adenov F 40/41 PCR Stool Astrovirus (PCR) Stool Campylobacter PCR Stool Cryptosporidium PCR Stl Sh Tox Pr E STEC PCR Stool E coli O157 PCR Stl Enterotoxigenic E PCR Stool EPEC (PCR) Stool EAEC (PCR) Stl E. histolytica PCR Stool Giardia Lamblia PCR Stl P. shigelloides PCR Stool Salmonella PCR Stool Sapovirus (PCR) Stl Shigella/EIEC PCR St Y.enterocolitica PCR Stool Vibrio (PCR) Stl Vibrio cholerae PCR Stl Norovirus GI/GII PCR C. difficile Tox B Gene O & P Trichrome Stain Cancelled 01/25/25 11:34 WBC RBC Hgb Hct MCV MCH MCHC RDW Plt Count MPV Immature Gran % (Auto) Neut % (Auto) Lymph % (Auto) [place] % (Auto) Eos % (Auto) Baso % (Auto) Lymph # (Auto) [place] # (Auto) Eos # (Auto) Baso # (Auto) Abs Immat Gran (auto) Absolute Neuts (auto) Absolute Nucleated RBC Nucleated RBC % (auto) Smear Tech's Comments Absolute Retic Percent Retic Immature Retic Fraction Retic Hgb Equivalent Sodium Potassium Chloride Carbon Dioxide Anion Gap BUN Creatinine Estim Creat Clear Calc Estimated GFR POC Glucose 109 Random Glucose Calcium Iron TIBC % Saturation Unsat Iron Binding Ferritin Lactate Dehydrogenase Vitamin B12 Folate Stool Occult Blood Stool Leukocytes, Qual Stl C. cayetanensis PCR Stool Rotavirus A PCR Stl Adenov F 40/41 PCR Stool Astrovirus (PCR) Stool Campylobacter PCR Stool Cryptosporidium PCR Stl Sh Tox Pr E STEC PCR Stool E coli O157 PCR Stl Enterotoxigenic E PCR Stool EPEC (PCR) Stool EAEC (PCR) Stl E. histolytica PCR Stool Giardia Lamblia PCR Stl P. shigelloides PCR Stool Salmonella PCR Stool Sapovirus (PCR) Stl Shigella/EIEC PCR St Y.enterocolitica PCR Stool Vibrio (PCR) Stl Vibrio cholerae PCR Stl Norovirus GI/GII PCR C. difficile Tox B Gene O & P Trichrome Stain Microbiology Microbiology Results: Microbiology 01/23/25 05:09 Urine clean catch - Clean Catch Midstream Urine Culture - Final Enterococcus faecalis 01/23/25 05:09 Blood - Venous Blood Culture - Preliminary No growth after 48 hours. 01/23/25 05:09 Blood - Venous Blood Culture - Preliminary No growth after 48 hours. Procedures Date of Service Date of Service: 01/25/25 Progress Note: A&P Assessment and plan (1) Pancolitis: Status: Acute Assessment and Plan: stool tests reviewed ok to start imodium prn Time Spent With Patient Time: Total time managing care of this patient today ____ minutes. Quality Stroke Does the patient have a stroke diagnosis?: No VTE Prior VTE?: No VTE Risk Level:: Medical - moderate - high VTE Device Contraindication: N/A - Device Ordered VTE Drug Contraindication: Treatment Not Indicated
[2025-01-25] MEDS: Potassium Chloride/H20 10 MEQ/100 ML PIGGYBACK 100 MEQ IV ×4 (12:24→16:43)
--- NOTE | 2025-01-25 12:37 | MHC.SL.SWA ---
Speech Pathologist Impression: Risk of Aspiration, Moderate Oropharyngeal Dysphagia Risk of Aspiration Due to: Medically Fragile Poor PO Intake Dysphasia Diet Status: No Change Liquid Consistency and Strategies for Safe Swallow: Liquid Intake Recommendation: Thin Liquid Intake Strategies: Small Sips No Straws Solid Food Consistency: Dietary Recommendations: Pureed (NDD1) Additional Modifications to Solid Foods: Patient presents with resistance to feeding, allowed only minimal trials on assessment 01/24 & 01/25. Patient noted to have hx of moderate oral pharyngeal dysphagia, presented with variable delay of swallow on thin liquids, no clinical signs of aspiration on water given by spoon and facilitated cup sip. Recommend CONTINUE diet of PUREE, with THIN liquids (by controlled cup sip or spoon, no straw), pills crushed in puree. Patient will likely be difficult to feed, will need persistent encouragement at meals. STENCIL PRINTER will continue to follow Oral Medication Intake: Crushed with Puree Please contact the pharmacy regarding appropriate crushable or liquid drug formulations that are available whenever modified delivery is recommended. Compensatory Strategies and Precautions to be Taken for Safe Swallow: Sitting Upright (90 deg) No Straw Small Bites and Sips Alternate Liquids/Solids Rate of Ingestion Change Oral Check Supervision While Eating and Drinking for Safe Swallow: Total Assistance (1:1) Swallowing Recommended Treatments: Compens. Strategy Educat. Recommendation for Speech: Inpatient Speech Therapy Wire Welder Clinican/Clinical Fellow: No Supervisory Statement: I have reviewed and agree with the student/clinical fellow's documentation: N/A Speech Language Pathologist: Erin Dick M.A., [facility]-STENCIL PRINTER
--- NOTE | 2025-01-25 13:53 | MHC.CM.PN ---
spoke with eligio with [facility] x [phone] who explains that pt is an open case with protective and asks to be notified when pt is dcd pt has no hcp ,no pcp and no ins referral to finacial counselor
[2025-01-25 17:33] LABS: Levetiracetam Keppra 28.4 mcg/mL (6.0-46.0)
[2025-01-25] MEDS: Acetaminophen 325 MG TABLET 975 MG PO (18:26)
[2025-01-25] MEDS: Loperamide HCl 2 MG CAPSULE PO (18:26)
[2025-01-25 21:35] LABS: Glucose, Whole Blood 101 mg/dL (60-115)
[2025-01-26 03:26] VITALS: BP 122/62; PULSE 77; RESP 18; TEMP 36.2; O2SAT 100
[2025-01-26] MEDS: Ampicillin Sodium/Sulbactam Na 3 GM in 0.9 % Sodium Chloride 100 ML IV ×4 (05:38→22:52)
--- NOTE | 2025-01-26 07:33 | HO.PM.IMPN ---
Subjective Subjective Date of Service: 01/26/25 Interval History: Seen in follow-up for UTI, pancolitis Interval history: Minimally verbal except to tell me he doesnt want to talk to me. Minimal PO intake. Overall FTT. Review of Systems Review of Systems: Yes Unobtainable due to mental status Physical Exam Vital Signs: Vital Signs: Last Vital Signs Temp 97.2 F 01/26/25 03:26 Pulse 77 01/26/25 03:26 Resp 18 01/26/25 03:26 BP 122/62 01/26/25 03:26 Pulse Ox 100 01/26/25 03:26 O2 Del Method Room Air 01/26/25 03:26 BMI result Body Mass Index 20.1 Constitutional - Awake and Alert, No apparent distress Eyes - PERRLA, EOMI Cardiovascular - S1S2, RRR, No edema Respiratory - Normal lung expansion, Normal respiratory effort, No respiratory distress, CTA bilaterally Gastrointestinal - NT / ND; +BS; No rebound or guarding Extremities - no calf tenderness bilaterally, no swelling Skin - Warm/Dry Neurological - Minimally responsive Objective Data Active Medications Acetaminophen (Acetaminophen 325 Mg Tablet) 975 mg PO Q6H PRN PRN Reason: Pain, Mild 1-3,fever,headache Last Admin: 01/25/25 18:26 Dose: 975 mg Documented By: EVELIO Albuterol/Ipratropium (Albuterol/Iprat 2.5/0.5mg 3 Ml Ampul.Neb) 3 ml INHALE RQ4H WHILE AWAKE PRN PRN Reason: Shortness of Breath Calcium Carbonate (Calcium Carbonate 750 Mg Tab.Chew) 750 mg PO Q4H PRN PRN Reason: Heartburn Dextrose (Dextrose 50 % 25 Gm/50 Ml Syringe) 25 gm IVPUSH Q15M PRN; Protocol PRN Reason: per Hypoglycemia Standing Ord. Last Admin: 01/24/25 05:53 Dose: 25 gm Documented By: CHINEDU Diazepam (Diazepam 10 Mg/2 Ml Cartridge) 2.5 mg IVPUSH Q4H PRN PRN Reason: Seizures Glucose (Glucose Gel 15 Gm Gel..Gram.) 15 gm PO Q15M PRN; Protocol PRN Reason: per Hypoglycemia Standing Ord. Ampicillin Sodium/Sulbactam (Sodium 3 gm/ Sodium Chloride) 100 mls @ 200 mls/hr IV Q6H [facility] Last Infusion: 01/26/25 06:08 Dose: Infused Documented By: CHINEDU Levetiracetam (Levetiracetam Oral Soln 500 Mg/5 Ml) 500 mg PO BID [facility] Last Admin: 01/25/25 21:49 Dose: 500 mg Documented By: CHINEDU Loperamide HCl (Loperamide Hcl 2 Mg Capsule) 2 mg PO Q4H PRN PRN Reason: Diarrhea Last Admin: 01/25/25 18:26 Dose: 2 mg Documented By: EVELIO Magnesium Hydroxide (Milk Of Magnesia 30 Ml Oral.Susp) 30 ml PO DAILY PRN PRN Reason: Constipation Melatonin (Melatonin 3 Mg Tablet) 6 mg PO BEDTIME PRN PRN Reason: Insomnia Ondansetron HCl (Ondansetron Hcl 4 Mg/2 Ml Vial) 4 mg IVPUSH Q8H PRN PRN Reason: Nausea and Vomiting Sodium Chloride (0.9 % Sodium Chloride Flush 3 Ml Syringe) 3 ml IVFLUSH QSHIFT [facility] Last Admin: 01/25/25 21:49 Dose: 3 ml Documented By: CHINEDU Labs 01/26/25 08:10 01/26/25 08:10 Labs: Laboratory Results - last 24 hr 01/23/25 01/24/25 01/25/25 08:02 17:52 08:30 MCV 84.1 MCH 28.5 MCHC 33.9 RDW 15.7 Plt Count 66 L MPV Not Reportable Immature Gran % (Auto) 0.8 H Neut % (Auto) 77.7 H Lymph % (Auto) 13.1 L [place] % (Auto) 7.1 Eos % (Auto) 0.7 Baso % (Auto) 0.6 Lymph # (Auto) 1.0 L [place] # (Auto) 0.5 Eos # (Auto) 0.1 Baso # (Auto) 0.0 Abs Immat Gran (auto) 0.06 H Absolute Neuts (auto) 5.6 Absolute Nucleated RBC 0.000 Nucleated RBC % (auto) 0.0 Smear Tech's Comments VERIFIED Absolute Retic 0.021 L Percent Retic 0.6 Immature Retic Fraction 6.1 Retic Hgb Equivalent 30.2 Anion Gap 7 L Estim Creat Clear Calc 79.9 Estimated GFR > 60 POC Glucose Random Glucose 109 Calcium 7.8 L D Iron 63 TIBC 88 L % Saturation 72 H Unsat Iron Binding < 25 Ferritin 473 H Lactate Dehydrogenase 181 Vitamin B12 1071 H Folate < 2.2 L Stl C. cayetanensis PCR Not Detected Stool Rotavirus A PCR Not Detected Stl Adenov F 40/41 PCR Not Detected Stool Astrovirus (PCR) Not Detected Stool Campylobacter PCR Not Detected Stool Cryptosporidium PCR Not Detected Stl Sh Tox Pr E STEC PCR Not Detected Stool E coli O157 PCR Not applicable Stl Enterotoxigenic E PCR Not Detected Stool EPEC (PCR) Not Detected Stool EAEC (PCR) Not Detected Stl E. histolytica PCR Not Detected Stool Giardia Lamblia PCR Not Detected Stl P. shigelloides PCR Not Detected Stool Salmonella PCR Not Detected Stool Sapovirus (PCR) Not Detected Stl Shigella/EIEC PCR Not Detected St Y.enterocolitica PCR Not Detected Stool Vibrio (PCR) Not Detected Stl Vibrio cholerae PCR Not Detected Stl Norovirus GI/GII PCR Not Detected Levetiracetam 28.4 01/25/25 01/25/25 11:34 21:32 MCV MCH MCHC RDW Plt Count MPV Immature Gran % (Auto) Neut % (Auto) Lymph % (Auto) [place] % (Auto) Eos % (Auto) Baso % (Auto) Lymph # (Auto) [place] # (Auto) Eos # (Auto) Baso # (Auto) Abs Immat Gran (auto) Absolute Neuts (auto) Absolute Nucleated RBC Nucleated RBC % (auto) Smear Tech's Comments Absolute Retic Percent Retic Immature Retic Fraction Retic Hgb Equivalent Anion Gap Estim Creat Clear Calc Estimated GFR POC Glucose 109 101 Random Glucose Calcium Iron TIBC % Saturation Unsat Iron Binding Ferritin Lactate Dehydrogenase Vitamin B12 Folate Stl C. cayetanensis PCR Stool Rotavirus A PCR Stl Adenov F 40/41 PCR Stool Astrovirus (PCR) Stool Campylobacter PCR Stool Cryptosporidium PCR Stl Sh Tox Pr E STEC PCR Stool E coli O157 PCR Stl Enterotoxigenic E PCR Stool EPEC (PCR) Stool EAEC (PCR) Stl E. histolytica PCR Stool Giardia Lamblia PCR Stl P. shigelloides PCR Stool Salmonella PCR Stool Sapovirus (PCR) Stl Shigella/EIEC PCR St Y.enterocolitica PCR Stool Vibrio (PCR) Stl Vibrio cholerae PCR Stl Norovirus GI/GII PCR Levetiracetam Microbiology Microbiology Results: Microbiology 01/23/25 05:09 Urine Culture - Final Urine clean catch - Clean Catch Midstream Enterococcus faecalis 01/23/25 05:09 Blood Culture - Preliminary Blood - Venous No growth after 48 hours. 01/23/25 05:09 Blood Culture - Preliminary Blood - Venous No growth after 48 hours. Assessment and Plan (1) UTI (urinary tract infection): Status: Acute (2) Dementia: Status: Acute Plan Pt is a 74 yo male with a pmhx significant for seizure disorder, FTT, dementia, paroxysmal a fib and stage 1 COPD, who presented to the ED via EMS due to several seizures over the past few days and a significant decline in PO intake of the past 2 days. UTI (past UTI with Klebsiella) Unasyn (3) UC - Enterococcus sensitive to ampicillin Blood cultures negative monitor CBC and BMP Pancolitis C diff negative GI consult .... Conservative therapies no antibiotics indicated Symptomatic management with loperamide Seizures/AMS Keppra at outpatient doses- changed to solution. If unable to tolerate switch to dilantin- load with 1g IV then 300mg daily EEG showing mild slowing and muscle artifacts- no sz activity neuro consult- likelt r/t advacncing dementa Peripheral edema/hypoalbumiemia Likely related to moderate protein calorie malnutrition replete albumin echo pending venous dopplar BLE and RUE negative for DVT Patient with minimal p.o. intake resulting in significant electrolyte abnormalities. Attempted to reach out to patient's son regarding NG tube feeds vs ppn but phone numbers not working Acute hyperkalemia likely r/t malnutrition IV and PO KCl Follow lytes Thrombocytopenia Improving avoid anticoagulants due to additional gross hematuria from traumatic catheterization Acute hematuria Likely traumatic from smith placement Continue smith Urology input appreciated. Follow PLT Paroxysmal a fib acceptable rate control observe on telemetry avoid anticoagulation at this time given platelets DNR/DNI Pneumatics Patient requires ongoing inpatient stay due to significant electrolyte abnormalities requiring IV repletion close monitoring Quality Stroke Does the patient have a stroke diagnosis?: No VTE Prior VTE?: No VTE Risk Level:: Medical - moderate - high VTE Device Contraindication: N/A - Device Ordered VTE Drug Contraindication: Treatment Not Indicated
[2025-01-26 07:36] VITALS: BP 116/60; PULSE 71; RESP 16; TEMP 36.9; O2SAT 99
[2025-01-26 07:36] LABS: Glucose, Whole Blood 103 mg/dL (60-115)
[2025-01-26 08:20] LABS: MANUAL DIFF FLAG NO
[2025-01-26 08:21] LABS: Basophils Percent Auto 0.5 % (0-2); Eosinophils Absolute Auto 0.1 X10*3/uL (0.0-0.4); Eosinophils Percent Auto 1.7 % (0-4); Hematocrit 30.1 % (42.0-52.0); Hemoglobin 10.4 g/dl (14.0-18.0); Imm Gran Abs Auto 0.04 X10*3/uL (0.00-0.03); Imm Gran Pct Auto 0.7 % (0.0-0.4); Lymphocytes Absolute Auto 1.1 X10*3/uL (1.2-4.9); Lymphocytes Percent Auto 17.8 % (20-40); Mean Corpuscular HGB Conc 34.6 g/dl (31.0-36.0); Mean Corpuscular Hemoglobin 28.7 pg (27.0-33.0); Mean Corpuscular Volume 82.9 fL (80.0-98.0); Mean Platelet Volume 11.7 fL (9.4-12.4); Monocytes Absolute Auto 0.5 X10*3/uL (0.1-1.2); Monocytes Percent Auto 8.4 % (2-11); Neutrophils Absolute Auto 4.2 x10*3/uL (2.0-8.3); Neutrophils Percent Auto 70.9 % (45-73); Red Blood Count 3.63 X10*6/uL (4.60-5.80); Red Cell Distribution Width 15.6 % (11.0-16.0)
[2025-01-26 08:24] LABS: Platelet Count 67 X10*3/uL (160-400)
[2025-01-26] MEDS: levETIRAcetam Oral Soln 500 MG/5 ML PO ×2 (08:46→20:04)
[2025-01-26] MEDS: 0.9 % Sodium Chloride Flush 3 ML SYRINGE IVFLUSH (08:50)
[2025-01-26 09:28] LABS: Alanine Aminotransferase 16 U/L (0-40); Albumin Level 2.2 g/dL (3.5-5.0); Alkaline Phosphatase 45 U/L (39-117); Anion Gap 6 (12-20); Aspartate Amino Transferase 26 U/L (5-37); Bilirubin Total 1.5 mg/dL (0.0-1.0); Blood Urea Nitrogen 4 mg/dL (9-16); Calcium 7.5 mg/dL (8.4-10.2); Carbon Dioxide 30 mmol/L (22-29); Chloride 114 mmol/L (96-108); Creatinine Clr Calc Pharmacy 72.8; Estimated Glomerular Filt Rate > 60; Glucose Fasting 112 mg/dL (60-99); Potassium 2.5 mmol/L (3.3-5.1); Sodium 147 mmol/L (135-145); Total Protein 3.8 g/dL (6.5-8.0)
[2025-01-26] MEDS: Lactated Ringers 1,000 ML 100 ML IVCONT ×2 (11:13→20:12)
[2025-01-26] MEDS: Potassium Chloride/H20 10 MEQ/100 ML PIGGYBACK 100 MEQ IV ×8 (11:13→21:09)
[2025-01-26] MEDS: Potassium Chloride Packet 20 MEQ PACKET 60 MEQ PO (11:24)
[2025-01-26 11:31] LABS: Glucose, Whole Blood 115 mg/dL (60-115)
[2025-01-26 12:00] VITALS: BP 120/95; PULSE 66; RESP 16; TEMP 36.4; O2SAT 97
[2025-01-26 15:47] VITALS: BP 126/63; PULSE 76; RESP 18; TEMP 36.7; O2SAT 97
[2025-01-26 16:25] LABS: Glucose, Whole Blood 93 mg/dL (60-115)
--- NOTE | 2025-01-26 16:28 | W.MHC.ACPN ---
Advanced Care Planning Note Advanced Care Planning Note Discussed with: family member(s) Time spent (in minutes): 15 Narrative: Spoke with son, Shahzad, regarding goals of care. Pt is DNR/DNI but no formal MOLST available regarding nutrition Pt has had minimal PO intake at home frantz Francis. Since arrival to the hospital minimal intake Has had severe electrolyte abnormalities requiring IV and PO repletion. Has also had significant protein deficiency and has had IV albumin Patient has advanced dementia/Alzheimer's and has been seen by Neurology, likely responsible for patient's overall failure to thrive. EEG showed mild slowing but no seizure activity Discussed with patient that if his father does not start eating and drinking more, it is highly unlikely that his electrolyte levels will be able to remain stable without IV repletion and protein levels remain significantly deficient Discussed that hospice could be an option should patient be able to maintain electrolyte levels with oral repletion and increased p.o. intake. However, it is likely that a RENTAL COORDINATOR picture would be more likely to keep the patient comfortable. He states he will discuss with his extended family and call back tomorrow to further discuss plan Problems Discussed (1) UTI (urinary tract infection): (2) Dementia:
[2025-01-26 17:14] LABS: Anion Gap 6 (12-20); Carbon Dioxide 28 mmol/L (22-29); Chloride 113 mmol/L (96-108); Potassium 2.7 mmol/L (3.3-5.1); Sodium 144 mmol/L (135-145)
[2025-01-26 17:31] LABS: Magnesium 1.7 mg/dL (1.6-2.6)
[2025-01-26] MEDS: Potassium Chloride Packet 20 MEQ PACKET 40 MEQ PO (17:36)
[2025-01-26] MEDS: Loperamide HCl 2 MG CAPSULE PO (17:36)
[2025-01-26 19:41] LABS: Glucose, Whole Blood 100 mg/dL (60-115)
[2025-01-26 19:44] VITALS: BP 106/59; PULSE 81; RESP 18; TEMP 36.7; O2SAT 96
[2025-01-26 23:30] VITALS: BP 104/55; PULSE 73; RESP 18; TEMP 36.5; O2SAT 99
[2025-01-27 03:22] VITALS: BP 110/62; PULSE 78; RESP 18; TEMP 36.2; O2SAT 94
[2025-01-27] MEDS: Ampicillin Sodium/Sulbactam Na 3 GM in 0.9 % Sodium Chloride 100 ML IV ×2 (05:29→10:10)
[2025-01-27] MEDS: Lactated Ringers 1,000 ML 100 ML IVCONT ×2 (06:36→16:17)
[2025-01-27 06:58] VITALS: BP 103/55; PULSE 67; RESP 16; TEMP 36.4; O2SAT 97
[2025-01-27 07:06] LABS: Glucose, Whole Blood 77 mg/dL (60-115)
[2025-01-27] MEDS: levETIRAcetam Oral Soln 500 MG/5 ML PO (08:02)
[2025-01-27] MEDS: 0.9 % Sodium Chloride Flush 3 ML SYRINGE IVFLUSH ×2 (08:04→20:10)
--- NOTE | 2025-01-27 08:21 | P.PNIM_ITS ---
Subjective Subjective Date of Service: 01/27/25 Review of Systems Review of Systems: Yes Unobtainable due to mental condition and Unobtainable due to mental status Physical Exam 2 Vital Signs: Vital Signs: Last Vital Signs Temp 97.6 F 01/27/25 06:58 Pulse 67 01/27/25 06:58 Resp 16 01/27/25 06:58 BP 103/55 L 01/27/25 06:58 Pulse Ox 97 01/27/25 06:58 O2 Del Method Room Air 01/27/25 06:58 BMI result Body Mass Index 20.1 Constitutional - Awake and Alert, No apparent distress Eyes - PERRLA, EOMI Cardiovascular - S1S2, RRR, No edema Respiratory - Normal lung expansion, Normal respiratory effort, No respiratory distress, CTA bilaterally Gastrointestinal - NT / ND; +BS; No rebound or guarding Extremities - no calf tenderness bilaterally, no swelling Skin - Warm/Dry Neurological - Minimally responsive Objective Data Active Medications Acetaminophen (Acetaminophen 325 Mg Tablet) 975 mg PO Q6H PRN PRN Reason: Pain, Mild 1-3,fever,headache Last Admin: 01/25/25 18:26 Dose: 975 mg Documented By: EVELIO Albuterol/Ipratropium (Albuterol/Iprat 2.5/0.5mg 3 Ml Ampul.Neb) 3 ml INHALE RQ4H WHILE AWAKE PRN PRN Reason: Shortness of Breath Calcium Carbonate (Calcium Carbonate 750 Mg Tab.Chew) 750 mg PO Q4H PRN PRN Reason: Heartburn Dextrose (Dextrose 50 % 25 Gm/50 Ml Syringe) 25 gm IVPUSH Q15M PRN; Protocol PRN Reason: per Hypoglycemia Standing Ord. Last Admin: 01/24/25 05:53 Dose: 25 gm Documented By: CHINEDU Diazepam (Diazepam 10 Mg/2 Ml Cartridge) 2.5 mg IVPUSH Q4H PRN PRN Reason: Seizures Glucose (Glucose Gel 15 Gm Gel..Gram.) 15 gm PO Q15M PRN; Protocol PRN Reason: per Hypoglycemia Standing Ord. Ampicillin Sodium/Sulbactam (Sodium 3 gm/ Sodium Chloride) 100 mls @ 200 mls/hr IV Q6H [facility] Last Infusion: 01/27/25 06:19 Dose: Infused Documented By: MANNY Lactated Ringer's (Lr) 1,000 mls @ 100 mls/hr IVCONT .Q10H [facility] Last Admin: 01/27/25 06:36 Dose: 100 mls/hr Documented By: MANNY Levetiracetam (Levetiracetam Oral Soln 500 Mg/5 Ml) 500 mg PO BID [facility] Last Admin: 01/27/25 08:02 Dose: 500 mg Documented By: JEAN-CLAUDE Loperamide HCl (Loperamide Hcl 2 Mg Capsule) 2 mg PO Q4H PRN PRN Reason: Diarrhea Last Admin: 01/26/25 17:36 Dose: 2 mg Documented By: JEAN-CLAUDE Magnesium Hydroxide (Milk Of Magnesia 30 Ml Oral.Susp) 30 ml PO DAILY PRN PRN Reason: Constipation Melatonin (Melatonin 3 Mg Tablet) 6 mg PO BEDTIME PRN PRN Reason: Insomnia Ondansetron HCl (Ondansetron Hcl 4 Mg/2 Ml Vial) 4 mg IVPUSH Q8H PRN PRN Reason: Nausea and Vomiting Sodium Chloride (0.9 % Sodium Chloride Flush 3 Ml Syringe) 3 ml IVFLUSH QSHIFT [facility] Last Admin: 01/27/25 08:04 Dose: 3 ml Documented By: JEAN-CLAUDE Labs 01/26/25 08:10 01/26/25 16:31 Labs: Laboratory Results - last 24 hr 01/26/25 01/26/25 01/26/25 08:10 11:17 16:09 MCV 82.9 MCH 28.7 MCHC 34.6 RDW 15.6 Plt Count 67 L MPV 11.7 Immature Gran % (Auto) 0.7 H Neut % (Auto) 70.9 Lymph % (Auto) 17.8 L Milam % (Auto) 8.4 Eos % (Auto) 1.7 Baso % (Auto) 0.5 Lymph # (Auto) 1.1 L Milam # (Auto) 0.5 Eos # (Auto) 0.1 Baso # (Auto) 0.0 Abs Immat Gran (auto) 0.04 H Absolute Neuts (auto) 4.2 Absolute Nucleated RBC 0.000 Nucleated RBC % (auto) 0.0 Anion Gap 6 L Estim Creat Clear Calc 72.8 Estimated GFR > 60 POC Glucose 115 93 Fasting Glucose 112 H Calcium 7.5 L Magnesium Total Bilirubin 1.5 H AST 26 ALT 16 Alkaline Phosphatase 45 Total Protein 3.8 L Albumin 2.2 L 01/26/25 01/26/25 01/27/25 16:31 19:18 07:00 MCV MCH MCHC RDW Plt Count MPV Immature Gran % (Auto) Neut % (Auto) Lymph % (Auto) Milam % (Auto) Eos % (Auto) Baso % (Auto) Lymph # (Auto) Milam # (Auto) Eos # (Auto) Baso # (Auto) Abs Immat Gran (auto) Absolute Neuts (auto) Absolute Nucleated RBC Nucleated RBC % (auto) Anion Gap 6 L Estim Creat Clear Calc Estimated GFR POC Glucose 100 77 Fasting Glucose Calcium Magnesium 1.7 Total Bilirubin AST ALT Alkaline Phosphatase Total Protein Albumin Assessment and Plan (1) UTI (urinary tract infection): Status: Acute (2) Dementia: Status: Acute Plan 74M PMH seizure disorder, FTT, dementia (alzheimer vs frontotemporal), paroxysmal a fib and stage 1 COPD, who presented to the ED via EMS due to several seizures and a significant decline in PO intake a few days ptp. UTI (past UTI with Klebsiella) Unasyn (4) UC - Enterococcus sensitive to ampicillin Blood cultures negative monitor CBC and BMP Pancolitis C diff negative GI consult .... Conservative therapies no antibiotics indicated Symptomatic management with loperamide Seizures/AMS Keppra at outpatient doses- changed to solution. If unable to tolerate switch to dilantin- load with 1g IV then 300mg daily EEG showing mild slowing and muscle artifacts- no sz activity neuro consult- likely r/t advancing dementia Peripheral edema/hypoalbumiemia Likely related to moderate protein calorie malnutrition, pancolitis replete albumin echo pending venous Doppler BLE and RUE negative for DVT Patient with minimal p.o. intake resulting in significant electrolyte abnormalities. Attempted to reach out to patient's son regarding NG tube feeds vs ppn but phone numbers not working Acute hypokalemia, hpyernatremia likely r/t malnutrition IV and PO KCl Follow lytes severe folic acid deficiency replace Thrombocytopenia avoid anticoagulants due to additional gross hematuria from traumatic catheterization possibly due to low folate Acute hematuria Likely traumatic from smith placement Continue smith Urology input appreciated. Follow PLT Paroxysmal a fib acceptable rate control observe on telemetry avoid anticoagulation at this time given platelets DNR/DNI Pneumatics - due to thrombocytopenia reason for continued hospitalization:hypokalemia Quality Stroke Does the patient have a stroke diagnosis?: No VTE Prior VTE?: No VTE Risk Level:: Medical - moderate - high VTE Device Contraindication: N/A - Device Ordered VTE Drug Contraindication: Treatment Not Indicated
[2025-01-27 09:10] LABS: Anion Gap 8 (12-20); Blood Urea Nitrogen < 3 mg/dL (9-16); Calcium 7.2 mg/dL (8.4-10.2); Carbon Dioxide 26 mmol/L (22-29); Chloride 113 mmol/L (96-108); Creatinine Clr Calc Pharmacy 78.6; Estimated Glomerular Filt Rate > 60; Glucose Random 106 mg/dL (60-115); Potassium 3.2 mmol/L (3.3-5.1); Sodium 144 mmol/L (135-145)
[2025-01-27] MEDS: Folic Acid 1 MG in 0.9 % Sodium Chloride 50 ML 100.4 MG IV (09:33)
[2025-01-27] MEDS: Potassium Chloride Packet 20 MEQ PACKET 40 MEQ PO (10:10)
[2025-01-27 11:04] LABS: Glucose, Whole Blood 96 mg/dL (60-115)
[2025-01-27 11:42] VITALS: BP 110/58; PULSE 69; RESP 16; TEMP 36.6; O2SAT 97
--- NOTE | 2025-01-27 13:32 | PM.EVENT ---
Event Note Date of Service: 01/27/25 Event Note: d/w son, plan to transition to hospice/end of life care Time Spent With Patient Time: Total time managing care of this patient today ____ minutes.
--- NOTE | 2025-01-27 13:45 | MHC.CM.PN ---
dr alberts says the son is looking for a hospice informational ,cm explained to dr araiza that pt has no pcp ,no ins and gss/protective will not let pt go home and that when financial obtains ins for pt we can thn work on placemenr
[2025-01-27 15:59] LABS: Vitamin B6 <2.0 ng/mL (2.1-21.7)
[2025-01-27 16:00] VITALS: BP 132/67; PULSE 81; RESP 18; TEMP 37.1; O2SAT 98
[2025-01-27 16:31] LABS: Glucose, Whole Blood 85 mg/dL (60-115)
[2025-01-27 19:12] VITALS: BP 102/55; PULSE 75; RESP 18; TEMP 37.2; O2SAT 97
[2025-01-27 20:11] LABS: Glucose, Whole Blood 62 mg/dL (60-115)
[2025-01-27] MEDS: Dextrose 50 % 25 GM/50 ML SYRINGE IVPUSH (20:20)
[2025-01-27] MEDS: Dextrose 5 % and 0.45 % NaCl 1,000 ML 50 ML IVCONT (21:00)
[2025-01-27 21:07] LABS: Glucose, Whole Blood 121 mg/dL (60-115)
[2025-01-27] MEDS: levETIRAcetam in NaCl (iso-os) 500 MG/100 ML PIGGYBACK 400 MG IV (21:38)
[2025-01-27 23:32] VITALS: BP 107/59; PULSE 76; RESP 18; TEMP 36.4; O2SAT 97
[2025-01-28 03:09] VITALS: BP 104/59; PULSE 77; RESP 16; TEMP 36.3; O2SAT 95
[2025-01-28 07:23] VITALS: BP 110/55; PULSE 70; TEMP 36.4; O2SAT 99
--- NOTE | 2025-01-28 07:37 | HO.PM.IMPN ---
Subjective Subjective Date of Service: 01/28/25 Interval History: no complaints Physical Exam Vital Signs: Vital Signs: Last Vital Signs Temp 97.6 F 01/28/25 07:23 Pulse 70 01/28/25 07:23 Resp 16 01/28/25 03:09 BP 110/55 L 01/28/25 07:23 Pulse Ox 99 01/28/25 07:23 O2 Del Method Room Air 01/28/25 07:23 BMI result Body Mass Index 20.1 Constitutional - Awake and Alert, No apparent distress Eyes - PERRLA, EOMI Cardiovascular - S1S2, RRR, No edema Respiratory - Normal lung expansion, Normal respiratory effort, No respiratory distress, CTA bilaterally Gastrointestinal - NT / ND; +BS; No rebound or guarding Extremities - no calf tenderness bilaterally, no swelling Skin - Warm/Dry Neurological - Minimally responsive Objective Data Active Medications Acetaminophen (Acetaminophen 325 Mg Tablet) 975 mg PO Q6H PRN PRN Reason: Pain, Mild 1-3,fever,headache Last Admin: 01/25/25 18:26 Dose: 975 mg Documented By: EVELIO Albuterol/Ipratropium (Albuterol/Iprat 2.5/0.5mg 3 Ml Ampul.Neb) 3 ml INHALE RQ4H WHILE AWAKE PRN PRN Reason: Shortness of Breath Calcium Carbonate (Calcium Carbonate 750 Mg Tab.Chew) 750 mg PO Q4H PRN PRN Reason: Heartburn Dextrose (Dextrose 50 % 25 Gm/50 Ml Syringe) 25 gm IVPUSH Q15M PRN; Protocol PRN Reason: per Hypoglycemia Standing Ord. Last Admin: 01/27/25 20:20 Dose: 25 gm Documented By: STANLYE Diazepam (Diazepam 10 Mg/2 Ml Cartridge) 2.5 mg IVPUSH Q4H PRN PRN Reason: Seizures Glucose (Glucose Gel 15 Gm Gel..Gram.) 15 gm PO Q15M PRN; Protocol PRN Reason: per Hypoglycemia Standing Ord. Folic Acid 1 mg/ Sodium (Chloride) 50.2 mls @ 100.4 mls/hr IV DAILY [facility] Last Infusion: 01/27/25 10:14 Dose: Infused Documented By: JEAN-CLAUDE Levetiracetam (Keppra) 500 mg in 100 mls @ 400 mls/hr IV Q12H [facility] Last Infusion: 01/27/25 21:53 Dose: Infused Documented By: STANLEY Dextrose/Sodium Chloride (D51/2ns) 1,000 mls @ 50 mls/hr IVCONT .Q20H [facility] Last Admin: 01/27/25 21:00 Dose: 50 mls/hr Documented By: STANLEY Loperamide HCl (Loperamide Hcl 2 Mg Capsule) 2 mg PO Q4H PRN PRN Reason: Diarrhea Last Admin: 01/26/25 17:36 Dose: 2 mg Documented By: JEAN-CLAUDE Magnesium Hydroxide (Milk Of Magnesia 30 Ml Oral.Susp) 30 ml PO DAILY PRN PRN Reason: Constipation Melatonin (Melatonin 3 Mg Tablet) 6 mg PO BEDTIME PRN PRN Reason: Insomnia Ondansetron HCl (Ondansetron Hcl 4 Mg/2 Ml Vial) 4 mg IVPUSH Q8H PRN PRN Reason: Nausea and Vomiting Sodium Chloride (0.9 % Sodium Chloride Flush 3 Ml Syringe) 3 ml IVFLUSH QSHIFT [facility] Last Admin: 01/27/25 20:10 Dose: 3 ml Documented By: STANLEY Labs 01/26/25 08:10 01/27/25 08:44 Labs: Laboratory Results - last 24 hr 01/23/25 01/27/25 01/27/25 08:02 08:44 10:58 Hold Purple Top SEE NOTE Anion Gap 8 L Estim Creat Clear Calc 78.6 Estimated GFR > 60 POC Glucose 96 Random Glucose 106 Calcium 7.2 L Vitamin B6 <2.0 L 01/27/25 01/27/25 01/27/25 16:03 20:05 21:04 Hold Purple Top Anion Gap Estim Creat Clear Calc Estimated GFR POC Glucose 85 62 121 H Random Glucose Calcium Vitamin B6 Microbiology Microbiology Results: Microbiology 01/23/25 05:09 Blood Culture - Final Blood - Venous No growth after 5 days. 01/23/25 05:09 Blood Culture - Final Blood - Venous No growth after 5 days. Assessment and Plan (1) UTI (urinary tract infection): Status: Acute (2) Dementia: Status: Acute Plan 74M PMH seizure disorder, FTT, dementia (alzheimer vs frontotemporal), paroxysmal a fib and stage 1 COPD, who presented to the ED via EMS due to several seizures and a significant decline in PO intake a few days ptp. UTI (past UTI with Klebsiella) completed Unasyn UC - Enterococcus sensitive to ampicillin Blood cultures negative Pancolitis C diff negative GI consult .... Conservative therapies no antibiotics indicated Symptomatic management with loperamide Seizures/AMS Keppra Peripheral edema/hypoalbumiemia Likely related to moderate protein calorie malnutrition, pancolitis Acute hypokalemia, hpyernatremia likely r/t malnutrition severe folic acid deficiency replace Thrombocytopenia avoid anticoagulants due to additional gross hematuria from traumatic catheterization possibly due to low folate Acute hematuria Likely traumatic from smith placement Continue smith Paroxysmal a fib acceptable rate control DNR/DNI - d/w son, plan to transition to hospice/end of life care, goal to be at home vs facility reason for continued hospitalization: dispo planning Quality Stroke Does the patient have a stroke diagnosis?: No VTE Prior VTE?: No VTE Risk Level:: Medical - moderate - high VTE Device Contraindication: N/A - Device Ordered VTE Drug Contraindication: Treatment Not Indicated
[2025-01-28 07:41] LABS: Glucose, Whole Blood 89 mg/dL (60-115)
[2025-01-28] MEDS: Folic Acid 1 MG in 0.9 % Sodium Chloride 50 ML 100.4 MG IV (08:53)
[2025-01-28] MEDS: levETIRAcetam in NaCl (iso-os) 500 MG/100 ML PIGGYBACK 400 MG IV ×2 (08:55→21:41)
[2025-01-28 11:39] VITALS: BP 109/59; PULSE 70; RESP 18; TEMP 36.6; O2SAT 99
--- NOTE | 2025-01-28 13:33 | MHC.CLN ---
F/U DIET=REGULAR, PUREE CONSISTENCY. SUPPLEMENTS ADDED: FORTIFIED ICE CREAM TID (870 KCALS, 27 G PROTEIN) AND ENSURE TID (1050 KCALS, 60 G PROTEIN). CONTINUES WITH POOR PO INTAKE. SKIN WITH REDNESS TO SACRUM/COCCYX AND BILATERAL HEELS. CONTINUE TO FOLLOW FOR PO INTAKE, SKIN INTEGRITY, AND PLAN OF CARE.
[2025-01-28 15:17] VITALS: BP 120/58; PULSE 79; RESP 18; TEMP 36.7
--- NOTE | 2025-01-28 15:47 | MHC.SLORD ---
Speech Language Pathology Order Status: Pt not seen today, records indicate pt is transitioning to hospice. MAINTENANCE WORKER to follow up as indicated.
--- NOTE | 2025-01-28 15:58 | MHC.CM.PN ---
CM SPOKE TO PARTHA [phone] FROM [facility] SHE REPORTS AN ELDER AT RISK WAS FILED THE FIRST TIME THE PT CAME TO [facility] SHE HAS BEEN TRYING TO REACH THE SON TO WORK ON A MH ENRIQUE, BUT HE HAS BEEN UNRESPONSIVE SHE SAYS SHE WENT TO THE HOME AND HAD CONCERNS DUE TO PT NOT HAVING MEDS SO HAD HIM SENT TO THE ED SHE SAYS SHE HAS CONCERNS ABOUT THE SONS ABILITY TO CARE FOR THE PT SHE ASKS THAT SHE BE UPDATED WHEN A DCP IS KNOWN CM ATTEMPTED TO CALL PTS SON AT BOTH NUMBERS ON FILE, HOWEVER BOTH ARE OUT OF SERVICE CM WILL CONTINUE TO ATTEMPT TO CONTACT PTS SON, HOWEVER CM DIRECTOR AWARE PT MAY NEED GUARDIANSHIP
[2025-01-28] MEDS: Dextrose 5 % and 0.45 % NaCl 1,000 ML 50 ML IVCONT (17:48)
[2025-01-28 19:15] VITALS: BP 109/58; PULSE 85; RESP 18; TEMP 37.7; O2SAT 96
[2025-01-29 03:28] VITALS: BP 134/60; PULSE 78; RESP 18; TEMP 36.7; O2SAT 98
[2025-01-29] MEDS: Folic Acid 1 MG in 0.9 % Sodium Chloride 50 ML 100.4 MG IV (06:59)
[2025-01-29 07:23] VITALS: BP 106/51; PULSE 72; RESP 16; TEMP 36.5; O2SAT 98
--- NOTE | 2025-01-29 08:26 | HO.PM.IMPN ---
Subjective Subjective Date of Service: 01/29/25 Review of Systems Review of Systems: Yes Unobtainable due to mental status Physical Exam Vital Signs: Vital Signs: Last Vital Signs Temp 97.7 F 01/29/25 07:23 Pulse 72 01/29/25 07:23 Resp 16 01/29/25 07:23 BP 106/51 L 01/29/25 07:23 Pulse Ox 98 01/29/25 07:23 O2 Del Method Room Air 01/29/25 07:23 BMI result Body Mass Index 20.1 more obtunded today Objective Data Active Medications Acetaminophen (Acetaminophen 325 Mg Tablet) 975 mg PO Q6H PRN PRN Reason: Pain, Mild 1-3,fever,headache Last Admin: 01/25/25 18:26 Dose: 975 mg Documented By: EVELIO Albuterol/Ipratropium (Albuterol/Iprat 2.5/0.5mg 3 Ml Ampul.Neb) 3 ml INHALE RQ4H WHILE AWAKE PRN PRN Reason: Shortness of Breath Calcium Carbonate (Calcium Carbonate 750 Mg Tab.Chew) 750 mg PO Q4H PRN PRN Reason: Heartburn Dextrose (Dextrose 50 % 25 Gm/50 Ml Syringe) 25 gm IVPUSH Q15M PRN; Protocol PRN Reason: per Hypoglycemia Standing Ord. Last Admin: 01/27/25 20:20 Dose: 25 gm Documented By: STANLEY Diazepam (Diazepam 10 Mg/2 Ml Cartridge) 2.5 mg IVPUSH Q4H PRN PRN Reason: Seizures Glucose (Glucose Gel 15 Gm Gel..Gram.) 15 gm PO Q15M PRN; Protocol PRN Reason: per Hypoglycemia Standing Ord. Folic Acid 1 mg/ Sodium (Chloride) 50.2 mls @ 100.4 mls/hr IV DAILY [facility] Last Infusion: 01/29/25 08:24 Dose: Infused Documented By: CYNTHIA Levetiracetam (Keppra) 500 mg in 100 mls @ 400 mls/hr IV Q12H [facility] Last Infusion: 01/28/25 22:28 Dose: Infused Documented By: MANNY Dextrose/Sodium Chloride (D51/2ns) 1,000 mls @ 50 mls/hr IVCONT .Q20H [facility] Last Admin: 01/28/25 17:48 Dose: 50 mls/hr Documented By: JEAN-CLAUDE Loperamide HCl (Loperamide Hcl 2 Mg Capsule) 2 mg PO Q4H PRN PRN Reason: Diarrhea Last Admin: 01/26/25 17:36 Dose: 2 mg Documented By: JEAN-CLAUDE Magnesium Hydroxide (Milk Of Magnesia 30 Ml Oral.Susp) 30 ml PO DAILY PRN PRN Reason: Constipation Melatonin (Melatonin 3 Mg Tablet) 6 mg PO BEDTIME PRN PRN Reason: Insomnia Ondansetron HCl (Ondansetron Hcl 4 Mg/2 Ml Vial) 4 mg IVPUSH Q8H PRN PRN Reason: Nausea and Vomiting Sodium Chloride (0.9 % Sodium Chloride Flush 3 Ml Syringe) 3 ml IVFLUSH QSHIFT [facility] Last Admin: 01/29/25 06:53 Dose: Not Given Documented By: CYNTHIA Non-Admin Reason: IV Running Labs 01/26/25 08:10 01/27/25 08:44 Microbiology Microbiology Results: Microbiology 01/23/25 05:09 Blood Culture - Final Blood - Venous No growth after 5 days. 01/23/25 05:09 Blood Culture - Final Blood - Venous No growth after 5 days. Assessment and Plan (1) UTI (urinary tract infection): Status: Acute (2) Dementia: Status: Acute Plan 74M PMH seizure disorder, FTT, dementia (alzheimer vs frontotemporal), paroxysmal a fib and stage 1 COPD, who presented to the ED via EMS due to several seizures and a significant decline in PO intake a few days ptp. acute toxic metabolic encephalopathy multifactorial UTI (past UTI with Klebsiella) completed Unasyn UC - Enterococcus sensitive to ampicillin Blood cultures negative Pancolitis C diff negative GI consult .... Conservative therapies no antibiotics indicated Symptomatic management with loperamide Seizures/AMS Keppra Peripheral edema/hypoalbumiemia Likely related to moderate protein calorie malnutrition, pancolitis Acute hypokalemia, hpyernatremia likely r/t malnutrition severe folic acid deficiency replace Thrombocytopenia avoid anticoagulants due to additional gross hematuria from traumatic catheterization possibly due to low folate Acute hematuria Likely traumatic from smith placement Continue smith Paroxysmal a fib acceptable rate control DNR/DNI - d/w son, plan to transition to hospice/end of life care, goal to be at home vs facility, though if continues to be minimally responsive/not eating may be more appropriate for inpatient end of life care reason for continued hospitalization: dispo planning Quality Stroke Does the patient have a stroke diagnosis?: No VTE Prior VTE?: No VTE Risk Level:: Medical - moderate - high VTE Device Contraindication: N/A - Device Ordered VTE Drug Contraindication: Treatment Not Indicated
[2025-01-29] MEDS: levETIRAcetam in NaCl (iso-os) 500 MG/100 ML PIGGYBACK 400 MG IV ×2 (10:11→21:47)
--- NOTE | 2025-01-29 13:33 | MHC.CM.PN ---
marcello phone number is [phone] jil
--- NOTE | 2025-01-29 13:39 | MHC.CM.PN ---
spoke with indiana martinez in financial who will be recaching out to son jil to start to get pt medicare additionally referral made to ronni green pts son correct phone number is [phone]
--- NOTE | 2025-01-29 14:30 | MHC.SL.SWA ---
Risk of Aspiration Due to: Medically Fragile Poor PO Intake Dysphasia Diet Status: Per MD, pt transitioning to end of life care and HARDWARE SUPPLIES SALES REPRESENTATIVE tx no longer needed. Pt tolerated thin liquids and puree solids on this date with no overt clinical s/s aspiration. Recommendations listed in most recent HARDWARE SUPPLIES SALES REPRESENTATIVE tx note were deemed to be the safest and least restrictive diet in PO trials w/ HARDWARE SUPPLIES SALES REPRESENTATIVE. However, due to the transition to hospice/end of life care the possibility of more advanced solids and use of straw is up to the digression of the medical team and pt/family moving forward. Assistant Professor Of Biochemistry Clinican/Clinical Fellow: No Supervisory Statement: I have reviewed and agree with the student/clinical fellow's documentation: N/A Speech Language Pathologist: Fartun Gutierrez M.A., [facility]HARDWARE SUPPLIES SALES REPRESENTATIVE
[2025-01-29] MEDS: Dextrose 5 % and 0.45 % NaCl 1,000 ML 50 ML IVCONT (14:47)
[2025-01-29 15:10] VITALS: BP 113/61; PULSE 75; RESP 16; TEMP 36.7; O2SAT 98
--- NOTE | 2025-01-29 16:07 | MHC.CM.PN ---
faxed [employer] vinegar bend application
--- NOTE | 2025-01-29 16:08 | MHC.CM.PN ---
spoke with director considering going for guardianship and conservator pending decision by bernadette falcon
[2025-01-29 23:22] VITALS: BP 110/62; PULSE 83; RESP 20; TEMP 36.4; O2SAT 97
[2025-01-30] MEDS: Morphine Sulfate 4 MG/ML CARTRIDGE IVPUSH ×3 (05:39→22:05)
[2025-01-30] MEDS: 0.9 % Sodium Chloride Flush 3 ML SYRINGE IVFLUSH ×3 (06:45→21:44)
[2025-01-30] MEDS: Folic Acid 1 MG in 0.9 % Sodium Chloride 50 ML 100.4 MG IV (06:45)
[2025-01-30 07:40] VITALS: BP 126/60; PULSE 73; RESP 16; TEMP 36.6; O2SAT 98
[2025-01-30] MEDS: levETIRAcetam in NaCl (iso-os) 500 MG/100 ML PIGGYBACK 400 MG IV ×2 (09:27→21:43)
--- NOTE | 2025-01-30 09:44 | MHC.CLN ---
F/U DIET=REGULAR, PUREE CONSISTENCY. PATIENT TRANSITIONING TO END OF LIFE CARE. VERY POOR PO, 0-BITES. DISCONTINUE SUPPLEMENT.. SKIN WITH REDNESS TO SACRUM/COCCYX AND BILATERAL HEELS. CONTINUE TO FOLLOW FOR PO INTAKE, SKIN INTEGRITY, AND PLAN OF CARE.
--- NOTE | 2025-01-30 15:13 | MHC.CM.PN ---
per rounds pt is declining cm continuing to follow [facility]
[2025-01-30 15:29] VITALS: BP 116/58; PULSE 89; RESP 16; TEMP 36.6; O2SAT 97
--- NOTE | 2025-01-30 16:07 | P.PNIM_ITS ---
Subjective Subjective Date of Service: 01/30/25 Interval History: Appears uncomfortable with some moaning. Continues to decline Review of Systems Unable to obtain Physical Exam 2 Vital Signs: Vital Signs: Last Vital Signs Temp 97.8 F 01/30/25 15:29 Pulse 89 01/30/25 15:29 Resp 16 01/30/25 15:29 BP 116/58 L 01/30/25 15:29 Pulse Ox 97 01/30/25 15:29 O2 Del Method Room Air 01/30/25 15:29 BMI result Body Mass Index 20.1 Const: Other: Somnolent but arousable with stimuli Resp: Other: Clear to auscultation bilaterally no rales rhonchi or wheezes Cardio: Other: No S4; positive S1-S2; no S3 murmurs rubs or gallops GI: Other: Soft nontender nondistended normoactive bowel sounds Extrem: Other: No edema bilaterally Objective Data Active Medications Acetaminophen (Acetaminophen 325 Mg Tablet) 975 mg PO Q6H PRN PRN Reason: Pain, Mild 1-3,fever,headache Last Admin: 01/25/25 18:26 Dose: 975 mg Documented By: EVELIO Calcium Carbonate (Calcium Carbonate 750 Mg Tab.Chew) 750 mg PO Q4H PRN PRN Reason: Heartburn Dextrose (Dextrose 50 % 25 Gm/50 Ml Syringe) 25 gm IVPUSH Q15M PRN; Protocol PRN Reason: per Hypoglycemia Standing Ord. Last Admin: 01/27/25 20:20 Dose: 25 gm Documented By: STANLEY Diazepam (Diazepam 10 Mg/2 Ml Cartridge) 2.5 mg IVPUSH Q4H PRN PRN Reason: Seizures Glucose (Glucose Gel 15 Gm Gel..Gram.) 15 gm PO Q15M PRN; Protocol PRN Reason: per Hypoglycemia Standing Ord. Folic Acid 1 mg/ Sodium (Chloride) 50.2 mls @ 100.4 mls/hr IV DAILY [facility] Last Infusion: 01/30/25 07:18 Dose: Infused Documented By: CYNTHIA Levetiracetam (Keppra) 500 mg in 100 mls @ 400 mls/hr IV Q12H [facility] Last Infusion: 01/30/25 09:43 Dose: Infused Documented By: CYNTHIA Loperamide HCl (Loperamide Hcl 2 Mg Capsule) 2 mg PO Q4H PRN PRN Reason: Diarrhea Last Admin: 01/26/25 17:36 Dose: 2 mg Documented By: JEAN-CLAUDE Magnesium Hydroxide (Milk Of Magnesia 30 Ml Oral.Susp) 30 ml PO DAILY PRN PRN Reason: Constipation Melatonin (Melatonin 3 Mg Tablet) 6 mg PO BEDTIME PRN PRN Reason: Insomnia Morphine Sulfate (Morphine Sulfate 4 Mg/Ml Cartridge) 4 mg IVPUSH Q4H PRN; Protocol PRN Reason: Pain, Severe (Pain Scale 7-10) Last Admin: 01/30/25 13:40 Dose: 4 mg Documented By: CYNTHIA Ondansetron HCl (Ondansetron Hcl 4 Mg/2 Ml Vial) 4 mg IVPUSH Q8H PRN PRN Reason: Nausea and Vomiting Sodium Chloride (0.9 % Sodium Chloride Flush 3 Ml Syringe) 3 ml IVFLUSH QSHIFT [facility] Last Admin: 01/30/25 13:40 Dose: 3 ml Documented By: CYNTHIA Labs 01/26/25 08:10 01/27/25 08:44 Assessment and Plan (1) UTI (urinary tract infection): Status: Acute (2) Dementia: Status: Acute Plan Pt is a 74 yo male with a pmhx significant for seizure disorder, FTT, dementia, paroxysmal a fib and stage 1 COPD, who presented to the ED via EMS due to several seizures over the past few days and a significant decline since admission. 1.UTI (past UTI with Klebsiella) -completed course of Unasyn 2. Pancolitis -C diff negative -GI consult .... Conservative therapies no antibiotics indicated 2.Seizures/AMS -Keppra at outpatient doses. - EEG - neuro consult 3.Peripheral edema/hypoalbumiemia -replete albumin -echo pending -venous dopplar BLE and RUE pending 4.Thrombocytopenia - avoid anticoagulants due to additional gross hematuria from traumatic catheterization 5.Paroxysmal a fib -acceptable rate control -observe on telemetry -avoid anticoagulation at this time given platelets DNR/DNI Pneumatics Will attempt to contact son to qualify code status as patient continues to decline Quality Stroke Does the patient have a stroke diagnosis?: No VTE Prior VTE?: No VTE Risk Level:: Medical - moderate - high VTE Device Contraindication: N/A - Device Ordered VTE Drug Contraindication: Treatment Not Indicated
[2025-01-30 23:17] VITALS: BP 125/61; PULSE 77; RESP 20; TEMP 36.5; O2SAT 94
[2025-01-31] MEDS: Morphine Sulfate 4 MG/ML CARTRIDGE IVPUSH ×4 (05:12→19:36)
[2025-01-31 08:00] VITALS: BP 151/89; PULSE 98; RESP 16; TEMP 36.7; O2SAT 98
[2025-01-31] MEDS: Folic Acid 1 MG in 0.9 % Sodium Chloride 50 ML 100.4 MG IV (08:25)
[2025-01-31] MEDS: 0.9 % Sodium Chloride Flush 3 ML SYRINGE IVFLUSH ×3 (08:28→22:05)
[2025-01-31] MEDS: levETIRAcetam in NaCl (iso-os) 500 MG/100 ML PIGGYBACK 400 MG IV ×2 (09:10→21:32)
--- NOTE | 2025-01-31 13:14 | HO.PM.IMPN ---
Subjective Subjective Date of Service: 01/31/25 Interval History: Continues to decline. Unable to reach son. We will re-attempt today. Remains nonverbal with no intake Review of Systems Unable to obtain Physical Exam Vital Signs: Vital Signs: Last Vital Signs Temp 98.0 F 01/31/25 08:00 Pulse 98 01/31/25 08:00 Resp 16 01/31/25 08:00 BP 151/89 H 01/31/25 08:00 Pulse Ox 98 01/31/25 08:00 O2 Del Method Room Air 01/31/25 08:00 BMI result Body Mass Index 20.1 Const: Other: Somnolent but arousable with stimuli Resp: Other: Clear to auscultation bilaterally no rales rhonchi or wheezes Cardio: Other: No S4; positive S1-S2; no S3 murmurs rubs or gallops GI: Other: Soft nontender nondistended normoactive bowel sounds Extrem: Other: No edema bilaterally Objective Data Active Medications Acetaminophen (Acetaminophen 325 Mg Tablet) 975 mg PO Q6H PRN PRN Reason: Pain, Mild 1-3,fever,headache Last Admin: 01/25/25 18:26 Dose: 975 mg Documented By: EVELIO Calcium Carbonate (Calcium Carbonate 750 Mg Tab.Chew) 750 mg PO Q4H PRN PRN Reason: Heartburn Dextrose (Dextrose 50 % 25 Gm/50 Ml Syringe) 25 gm IVPUSH Q15M PRN; Protocol PRN Reason: per Hypoglycemia Standing Ord. Last Admin: 01/27/25 20:20 Dose: 25 gm Documented By: STANLEY Diazepam (Diazepam 10 Mg/2 Ml Cartridge) 2.5 mg IVPUSH Q4H PRN PRN Reason: Seizures Glucose (Glucose Gel 15 Gm Gel..Gram.) 15 gm PO Q15M PRN; Protocol PRN Reason: per Hypoglycemia Standing Ord. Folic Acid 1 mg/ Sodium (Chloride) 50.2 mls @ 100.4 mls/hr IV DAILY [facility] Last Infusion: 01/31/25 09:01 Dose: Infused Documented By: CYNTHIA Levetiracetam (Keppra) 500 mg in 100 mls @ 400 mls/hr IV Q12H [facility] Last Infusion: 01/31/25 09:56 Dose: Infused Documented By: CYNTHIA Loperamide HCl (Loperamide Hcl 2 Mg Capsule) 2 mg PO Q4H PRN PRN Reason: Diarrhea Last Admin: 01/26/25 17:36 Dose: 2 mg Documented By: JEAN-CLAUDE Magnesium Hydroxide (Milk Of Magnesia 30 Ml Oral.Susp) 30 ml PO DAILY PRN PRN Reason: Constipation Melatonin (Melatonin 3 Mg Tablet) 6 mg PO BEDTIME PRN PRN Reason: Insomnia Morphine Sulfate (Morphine Sulfate 4 Mg/Ml Cartridge) 4 mg IVPUSH Q4H PRN; Protocol PRN Reason: Pain, Severe (Pain Scale 7-10) Last Admin: 01/31/25 09:42 Dose: 4 mg Documented By: CYNTHIA Ondansetron HCl (Ondansetron Hcl 4 Mg/2 Ml Vial) 4 mg IVPUSH Q8H PRN PRN Reason: Nausea and Vomiting Sodium Chloride (0.9 % Sodium Chloride Flush 3 Ml Syringe) [facility] Admin: 01/31/25 08:28 Dose: 3 ml Documented By: CYNTHIA Labs 01/26/25 08:10 01/27/25 08:44 Assessment and Plan (1) UTI (urinary tract infection): Status: Acute (2) Dementia: Status: Acute Plan Pt is a 74 yo male with a pmhx significant for seizure disorder, FTT, dementia, paroxysmal a fib and stage 1 COPD, who presented to the ED via EMS due to several seizures over the past few days and a significant decline since admission. 1.UTI (past UTI with Klebsiella) -completed course of Unasyn 2. Pancolitis -C diff negative -GI consult .... Conservative therapies no antibiotics indicated 2.Seizures/AMS -Keppra at outpatient doses. - EEG - neuro consult 3.Peripheral edema/hypoalbumiemia -replete albumin -echo pending -venous dopplar BLE and RUE pending 4.Thrombocytopenia - avoid anticoagulants due to additional gross hematuria from traumatic catheterization 5.Paroxysmal a fib -acceptable rate control -observe on telemetry -avoid anticoagulation at this time given platelets DNR/DNI Pneumatics Will attempt to contact son to qualify code status as patient continues to decline Quality Stroke Does the patient have a stroke diagnosis?: No VTE Prior VTE?: No VTE Risk Level:: Medical - moderate - high VTE Device Contraindication: N/A - Device Ordered VTE Drug Contraindication: Treatment Not Indicated
[2025-01-31 16:00] VITALS: BP 134/56; PULSE 95; RESP 16; TEMP 37.2; O2SAT 98
[2025-01-31 23:21] VITALS: BP 144/71; PULSE 99; RESP 17; TEMP 36.9; O2SAT 95
[2025-01-31] MEDS: diphenhydrAMINE HCL 50 MG/ML VIAL IVPUSH (23:52)
[2025-02-01] MEDS: Morphine Sulfate 4 MG/ML CARTRIDGE IVPUSH ×2 (02:16→05:56)
[2025-02-01 08:00] VITALS: BP 169/73; PULSE 94; RESP 16; TEMP 36.8; O2SAT 100
[2025-02-01] MEDS: 0.9 % Sodium Chloride Flush 3 ML SYRINGE IVFLUSH ×2 (09:30→21:59)
[2025-02-01] MEDS: levETIRAcetam in NaCl (iso-os) 500 MG/100 ML PIGGYBACK 400 MG IV ×2 (09:35→21:58)
[2025-02-01] MEDS: Folic Acid 1 MG in 0.9 % Sodium Chloride 50 ML 100.4 MG IV (09:50)
--- NOTE | 2025-02-01 11:42 | MHC.CLN ---
F/U DIET=REGULAR, PUREE CONSISTENCY. PATIENT TRANSITIONING TO END OF LIFE CARE. VERY POOR PO. NOW WITH STAGE II PRESSURE INJURY TO COCCYX. CONTINUE TO FOLLOW FOR PO INTAKE, SKIN INTEGRITY, AND PLAN OF CARE.
[2025-02-01 11:44] VITALS: BMI 20.1
--- NOTE | 2025-02-01 13:45 | P.PNIM_ITS ---
Subjective Subjective Date of Service: 02/01/25 Interval History: No acute changes overnight. Continues without p.o. intake Review of Systems Unable to obtain Physical Exam 2 Vital Signs: Vital Signs: Last Vital Signs Temp 98.2 F 02/01/25 08:00 Pulse 94 02/01/25 08:00 Resp 16 02/01/25 08:00 BP 169/73 H 02/01/25 08:00 Pulse Ox 100 02/01/25 08:00 O2 Del Method Room Air 02/01/25 08:00 BMI result Body Mass Index 20.1 Const: Other: Somnolent but arousable with stimuli Resp: Other: Clear to auscultation bilaterally no rales rhonchi or wheezes Cardio: Other: No S4; positive S1-S2; no S3 murmurs rubs or gallops GI: Other: Soft nontender nondistended normoactive bowel sounds Extrem: Other: No edema bilaterally Objective Data Active Medications Acetaminophen (Acetaminophen 325 Mg Tablet) 975 mg PO Q6H PRN PRN Reason: Pain, Mild 1-3,fever,headache Last Admin: 01/25/25 18:26 Dose: 975 mg Documented By: EVELIO Calcium Carbonate (Calcium Carbonate 750 Mg Tab.Chew) 750 mg PO Q4H PRN PRN Reason: Heartburn Dextrose (Dextrose 50 % 25 Gm/50 Ml Syringe) 25 gm IVPUSH Q15M PRN; Protocol PRN Reason: per Hypoglycemia Standing Ord. Last Admin: 01/27/25 20:20 Dose: 25 gm Documented By: STANLEY Diazepam (Diazepam 10 Mg/2 Ml Cartridge) 2.5 mg IVPUSH Q4H PRN PRN Reason: Seizures Glucose (Glucose Gel 15 Gm Gel..Gram.) 15 gm PO Q15M PRN; Protocol PRN Reason: per Hypoglycemia Standing Ord. Folic Acid 1 mg/ Sodium (Chloride) 50.2 mls @ 100.4 mls/hr IV DAILY [facility] Last Infusion: 02/01/25 10:20 Dose: Infused Documented By: RODDY Levetiracetam (Keppra) 500 mg in 100 mls @ 400 mls/hr IV Q12H [facility] Last Infusion: 02/01/25 09:53 Dose: Infused Documented By: RODDY Loperamide HCl (Loperamide Hcl 2 Mg Capsule) 2 mg PO Q4H PRN PRN Reason: Diarrhea Last Admin: 01/26/25 17:36 Dose: 2 mg Documented By: JEAN-CLAUDE Magnesium Hydroxide (Milk Of Magnesia 30 Ml Oral.Susp) 30 ml PO DAILY PRN PRN Reason: Constipation Melatonin (Melatonin 3 Mg Tablet) 6 mg PO BEDTIME PRN PRN Reason: Insomnia Morphine Sulfate (Morphine Sulfate 4 Mg/Ml Cartridge) 4 mg IVPUSH Q4H PRN; Protocol PRN Reason: Pain, Severe (Pain Scale 7-10) Last Admin: 02/01/25 05:56 Dose: 4 mg Documented By: ASHLIE Ondansetron HCl (Ondansetron Hcl 4 Mg/2 Ml Vial) 4 mg IVPUSH Q8H PRN PRN Reason: Nausea and Vomiting Sodium Chloride (0.9 % Sodium Chloride Flush 3 Ml Syringe) 3 ml IVFLUSH QSHIFT [facility] Last Admin: 02/01/25 09:30 Dose: 3 ml Documented By: RODDY Labs 01/26/25 08:10 01/27/25 08:44 Assessment and Plan (1) Dementia: Status: Acute Plan Pt is a 74 yo male with a pmhx significant for seizure disorder, FTT, dementia, paroxysmal a fib and stage 1 COPD, who presented to the ED via EMS due to several seizures over the past few days and a significant decline since admission. 1. 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 Son states patient would not want feeding tube or any other invasive procedures. At this point in time he agrees that father should be made comfortable. CAR[employer] SERVICE SUPERVISOR entered Quality Stroke Does the patient have a stroke diagnosis?: No VTE Prior VTE?: No VTE Risk Level:: Medical - moderate - high VTE Device Contraindication: N/A - Device Ordered VTE Drug Contraindication: Treatment Not Indicated
--- NOTE | 2025-02-01 15:10 | MHC.CM.PN ---
per rounds pt doing poorly cm following
[2025-02-01 16:00] VITALS: RESP 14
[2025-02-01 23:09] VITALS: RESP 16
[2025-02-02 07:08] VITALS: RESP 16
[2025-02-02] MEDS: 0.9 % Sodium Chloride Flush 3 ML SYRINGE IVFLUSH ×3 (07:17→21:36)
[2025-02-02] MEDS: Folic Acid 1 MG in 0.9 % Sodium Chloride 50 ML 100.4 MG IV (07:18)
[2025-02-02] MEDS: levETIRAcetam in NaCl (iso-os) 500 MG/100 ML PIGGYBACK 400 MG IV ×2 (09:25→21:36)
--- NOTE | 2025-02-02 12:36 | P.PNIM_ITS ---
Subjective Subjective Date of Service: 02/02/25 Interval History: No acute issues overnight. Appears comfortable Review of Systems Unable to obtain Physical Exam 2 Vital Signs: Vital Signs: Last Vital Signs Temp 98.2 F 02/01/25 08:00 Pulse 94 02/01/25 08:00 Resp 16 02/02/25 07:08 BP 169/73 H 02/01/25 08:00 Pulse Ox 100 02/01/25 08:00 O2 Del Method Room Air 02/01/25 08:00 BMI result Body Mass Index 20.1 Const: Other: Somnolent but arousable with stimuli Resp: Other: Clear to auscultation bilaterally no rales rhonchi or wheezes Cardio: Other: No S4; positive S1-S2; no S3 murmurs rubs or gallops GI: Other: Soft nontender nondistended normoactive bowel sounds Extrem: Other: No edema bilaterally Objective Data Active Medications Acetaminophen (Acetaminophen 325 Mg Tablet) 975 mg PO Q6H PRN PRN Reason: Pain, Mild 1-3,fever,headache Last Admin: 01/25/25 18:26 Dose: 975 mg Documented By: EVELIO Calcium Carbonate (Calcium Carbonate 750 Mg Tab.Chew) 750 mg PO Q4H PRN PRN Reason: Heartburn Dextrose (Dextrose 50 % 25 Gm/50 Ml Syringe) 25 gm IVPUSH Q15M PRN; Protocol PRN Reason: per Hypoglycemia Standing Ord. Last Admin: 01/27/25 20:20 Dose: 25 gm Documented By: STANLEY Diazepam (Diazepam 10 Mg/2 Ml Cartridge) 2.5 mg IVPUSH Q4H PRN PRN Reason: Seizures Glucose (Glucose Gel 15 Gm Gel..Gram.) 15 gm PO Q15M PRN; Protocol PRN Reason: per Hypoglycemia Standing Ord. Folic Acid 1 mg/ Sodium (Chloride) 50.2 mls @ 100.4 mls/hr IV DAILY [facility] Last Infusion: 02/02/25 07:58 Dose: Infused Documented By: CARIN Levetiracetam (Keppra) 500 mg in 100 mls @ 400 mls/hr IV Q12H [facility] Last Infusion: 02/02/25 09:44 Dose: Infused Documented By: CARIN Loperamide HCl (Loperamide Hcl 2 Mg Capsule) 2 mg PO Q4H PRN PRN Reason: Diarrhea Last Admin: 01/26/25 17:36 Dose: 2 mg Documented By: JEAN-CLAUDE Magnesium Hydroxide (Milk Of Magnesia 30 Ml Oral.Susp) 30 ml PO DAILY PRN PRN Reason: Constipation Melatonin (Melatonin 3 Mg Tablet) 6 mg PO BEDTIME PRN PRN Reason: Insomnia Morphine Sulfate (Morphine Sulfate 4 Mg/Ml Cartridge) 4 mg IVPUSH Q4H PRN; Protocol PRN Reason: Pain, Severe (Pain Scale 7-10) Last Admin: 02/01/25 05:56 Dose: 4 mg Documented By: ASHLIE Ondansetron HCl (Ondansetron Hcl 4 Mg/2 Ml Vial) 4 mg IVPUSH Q8H PRN PRN Reason: Nausea and Vomiting Sodium Chloride (0.9 % Sodium Chloride Flush 3 Ml Syringe) 3 ml IVFLUSH QSHIFT [facility] Last Admin: 02/02/25 07:17 Dose: 3 ml Documented By: CARIN Labs 01/26/25 08:10 01/27/25 08:44 Assessment and Plan (1) Dementia: Status: Acute Plan Pt is a 74 yo male with a pmhx significant for seizure disorder, FTT, dementia, paroxysmal a fib and stage 1 COPD, who presented to the ED via EMS due to several seizures over the past few days and a significant decline since admission. 1. 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 Son states patient would not want feeding tube or any other invasive procedures. At this point in time he agrees that father should be made comfortable. PRISON WARDEN entered Quality Stroke Does the patient have a stroke diagnosis?: No VTE Prior VTE?: No VTE Risk Level:: Medical - moderate - high VTE Device Contraindication: N/A - Device Ordered VTE Drug Contraindication: Treatment Not Indicated
[2025-02-02 15:14] VITALS: RESP 16
[2025-02-02 23:18] VITALS: RESP 16
--- NOTE | 2025-02-03 08:25 | HO.PM.IMPN ---
Subjective Subjective Date of Service: 02/03/25 Interval History: Not in distress, unable to communicate with him Physical Exam Vital Signs: Vital Signs: Last Vital Signs Temp 98.2 F 02/01/25 08:00 Pulse 94 02/01/25 08:00 Resp 16 02/02/25 23:18 BP 169/73 H 02/01/25 08:00 Pulse Ox 100 02/01/25 08:00 O2 Del Method Room Air 02/01/25 08:00 BMI result Body Mass Index 20.1 awake, no distress, confused Objective Data Active Medications Acetaminophen (Acetaminophen 325 Mg Tablet) 975 mg PO Q6H PRN PRN Reason: Pain, Mild 1-3,fever,headache Last Admin: 01/25/25 18:26 Dose: 975 mg Documented By: EVELIO Calcium Carbonate (Calcium Carbonate 750 Mg Tab.Chew) 750 mg PO Q4H PRN PRN Reason: Heartburn Dextrose (Dextrose 50 % 25 Gm/50 Ml Syringe) 25 gm IVPUSH Q15M PRN; Protocol PRN Reason: per Hypoglycemia Standing Ord. Last Admin: 01/27/25 20:20 Dose: 25 gm Documented By: STANLEY Diazepam (Diazepam 10 Mg/2 Ml Cartridge) 2.5 mg IVPUSH Q4H PRN PRN Reason: Seizures Glucose (Glucose Gel 15 Gm Gel..Gram.) 15 gm PO Q15M PRN; Protocol PRN Reason: per Hypoglycemia Standing Ord. Folic Acid 1 mg/ Sodium (Chloride) 50.2 mls @ 100.4 mls/hr IV DAILY [facility] Last Infusion: 02/02/25 07:58 Dose: Infused Documented By: LUCIAME Levetiracetam (Keppra) 500 mg in 100 mls @ 400 mls/hr IV Q12H [facility] Last Infusion: 02/02/25 21:51 Dose: Infused Documented By: ANTOINETTE Loperamide HCl (Loperamide Hcl 2 Mg Capsule) 2 mg PO Q4H PRN PRN Reason: Diarrhea Last Admin: 01/26/25 17:36 Dose: 2 mg Documented By: JEAN-CLAUDE Magnesium Hydroxide (Milk Of Magnesia 30 Ml Oral.Susp) 30 ml PO DAILY PRN PRN Reason: Constipation Melatonin (Melatonin 3 Mg Tablet) 6 mg PO BEDTIME PRN PRN Reason: Insomnia Morphine Sulfate (Morphine Sulfate 4 Mg/Ml Cartridge) 4 mg IVPUSH Q4H PRN; Protocol PRN Reason: Pain, Severe (Pain Scale 7-10) Last Admin: 02/01/25 05:56 Dose: 4 mg Documented By: ASHLIE Ondansetron HCl (Ondansetron Hcl 4 Mg/2 Ml Vial) 4 mg IVPUSH Q8H PRN PRN Reason: Nausea and Vomiting Sodium Chloride (0.9 % Sodium Chloride Flush 3 Ml Syringe) 3 ml IVFLUSH QSHIFT [facility] Last Admin: 02/02/25 21:36 Dose: 3 ml Documented By: KOMALK Labs 01/26/25 08:10 01/27/25 08:44 Assessment and Plan (1) Dementia: Status: Acute Plan Pt is a 74 yo male with a pmhx significant for seizure disorder, FTT, dementia, paroxysmal a fib and stage 1 COPD, who presented to the ED via EMS due to several seizures over the past few days and a significant decline since admission. 1. 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
[2025-02-03] MEDS: 0.9 % Sodium Chloride Flush 3 ML SYRINGE IVFLUSH ×3 (09:40→21:42)
[2025-02-03] MEDS: Folic Acid 1 MG in 0.9 % Sodium Chloride 50 ML 100.4 MG IV (09:40)
[2025-02-03] MEDS: levETIRAcetam in NaCl (iso-os) 500 MG/100 ML PIGGYBACK 400 MG IV ×2 (11:06→21:24)
[2025-02-03 15:29] VITALS: RESP 12
[2025-02-03] MEDS: Morphine Sulfate 4 MG/ML CARTRIDGE IVPUSH (21:48)
[2025-02-03 23:26] VITALS: RESP 16
[2025-02-04] MEDS: diazePAM 10 MG/2 ML CARTRIDGE 5 MG IVPUSH (01:13)
[2025-02-04 02:04] LABS: Vitamin B1 >1200 nmol/L (8-30)
[2025-02-04 07:45] VITALS: PULSE 74; RESP 13
[2025-02-04] MEDS: Folic Acid 1 MG in 0.9 % Sodium Chloride 50 ML 100 MG IV (08:35)
[2025-02-04] MEDS: 0.9 % Sodium Chloride Flush 3 ML SYRINGE IVFLUSH (08:36)
--- NOTE | 2025-02-04 08:50 | HO.PM.IMPN ---
Subjective Subjective Date of Service: 02/04/25 Interval History: Not in distress, not communicating much, says his thirsty Physical Exam Vital Signs: Vital Signs: Last Vital Signs Temp 98.2 F 02/01/25 08:00 Pulse 74 02/04/25 07:45 Resp 13 02/04/25 07:45 BP 169/73 H 02/01/25 08:00 Pulse Ox 100 02/01/25 08:00 O2 Del Method Room Air 02/01/25 08:00 BMI result Body Mass Index 20.1 Objective Data Active Medications Acetaminophen (Acetaminophen 325 Mg Tablet) 975 mg PO Q6H PRN PRN Reason: Pain, Mild 1-3,fever,headache Last Admin: 01/25/25 18:26 Dose: 975 mg Documented By: EVELIO Calcium Carbonate (Calcium Carbonate 750 Mg Tab.Chew) 750 mg PO Q4H PRN PRN Reason: Heartburn Dextrose (Dextrose 50 % 25 Gm/50 Ml Syringe) 25 gm IVPUSH Q15M PRN; Protocol PRN Reason: per Hypoglycemia Standing Ord. Last Admin: 01/27/25 20:20 Dose: 25 gm Documented By: STANLEY Diazepam (Diazepam 10 Mg/2 Ml Cartridge) 2.5 mg IVPUSH Q4H PRN PRN Reason: Seizures Glucose (Glucose Gel 15 Gm Gel..Gram.) 15 gm PO Q15M PRN; Protocol PRN Reason: per Hypoglycemia Standing Ord. Folic Acid 1 mg/ Sodium (Chloride) 50.2 mls @ 100.4 mls/hr IV DAILY [facility] Last Admin: 02/04/25 08:35 Dose: 100 mls/hr Documented By: LONNIE Levetiracetam (Keppra) 500 mg in 100 mls @ 400 mls/hr IV Q12H [facility] Last Infusion: 02/03/25 21:52 Dose: Infused Documented By: MANNY Loperamide HCl (Loperamide Hcl 2 Mg Capsule) 2 mg PO Q4H PRN PRN Reason: Diarrhea Last Admin: 01/26/25 17:36 Dose: 2 mg Documented By: JEAN-CLAUDE Magnesium Hydroxide (Milk Of Magnesia 30 Ml Oral.Susp) 30 ml PO DAILY PRN PRN Reason: Constipation Melatonin (Melatonin 3 Mg Tablet) 6 mg PO BEDTIME PRN PRN Reason: Insomnia Morphine Sulfate (Morphine Sulfate 4 Mg/Ml Cartridge) 4 mg IVPUSH Q4H PRN; Protocol PRN Reason: Pain, Severe (Pain Scale 7-10) Last Admin: 02/03/25 21:48 Dose: 4 mg Documented By: MANNY Ondansetron HCl (Ondansetron Hcl 4 Mg/2 Ml Vial) 4 mg IVPUSH Q8H PRN PRN Reason: Nausea and Vomiting Sodium Chloride (0.9 % Sodium Chloride Flush 3 Ml Syringe) 3 ml IVFLUSH QSHIFT [facility] Last Admin: 02/04/25 08:36 Dose: 3 ml Documented By: LONNIE Labs 01/26/25 08:10 01/27/25 08:44 Labs: Laboratory Results - last 24 hr 01/23/25 08:02 Vitamin B1 >1200 H Assessment and Plan (1) Dementia: Status: Acute Plan Pt is a 74 yo male with a pmhx significant for seizure disorder, FTT, dementia, paroxysmal a fib and stage 1 COPD, who presented to the ED via EMS due to several seizures over the past few days and a significant decline since admission. 1. 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 Continue comfort care. Quality Stroke Does the patient have a stroke diagnosis?: No VTE Prior VTE?: No VTE Risk Level:: Medical - moderate - high VTE Device Contraindication: N/A - Device Ordered VTE Drug Contraindication: Treatment Not Indicated
[2025-02-04] MEDS: levETIRAcetam in NaCl (iso-os) 500 MG/100 ML PIGGYBACK 400 MG IV ×2 (09:27→21:56)
--- NOTE | 2025-02-04 14:27 | MHC.CLN ---
F/U PATIENT IS NOW COMFORT MEASURES ONLY. VERY POOR PO. RD AVAILABLE NEEDED.
[2025-02-04 15:00] VITALS: PULSE 80; RESP 15
--- NOTE | 2025-02-04 15:02 | MHC.CM.PN ---
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
--- NOTE | 2025-02-04 20:04 | PC.NURSE ---
Pt with episode of slow afib with HR 38, episode resolved quickly without intervention, pt denies symptoms at that time and was awake and mentating well. He also had a soft BP this AM. Discussed with Dr. El and Isa pabon. Midodrine started and pt tolerated well. Pt denied any symptoms related to these issues. Pt turned and repositioned for comfort/skin. airloss device in use. Heels floated and pink foam applied to blanchable pink buttocks and heels. He declined to get OOB today despite multiple offers/encouragement.
[2025-02-04 23:22] VITALS: RESP 16
[2025-02-05 07:25] VITALS: PULSE 70; RESP 10
--- NOTE | 2025-02-05 08:40 | P.PNIM_ITS ---
Subjective Subjective Date of Service: 02/05/25 Interval History: No distress, sleeping Physical Exam 2 Vital Signs: Vital Signs: Last Vital Signs Temp 98.2 F 02/01/25 08:00 Pulse 70 02/05/25 07:25 Resp 10 L 02/05/25 07:25 BP 169/73 H 02/01/25 08:00 Pulse Ox 100 02/01/25 08:00 O2 Del Method Room Air 02/01/25 08:00 BMI result Body Mass Index 20.1 Sleeping, no distress Objective Data Active Medications Acetaminophen (Acetaminophen 325 Mg Tablet) 975 mg PO Q6H PRN PRN Reason: Pain, Mild 1-3,fever,headache Last Admin: 01/25/25 18:26 Dose: 975 mg Documented By: EVELIO Calcium Carbonate (Calcium Carbonate 750 Mg Tab.Chew) 750 mg PO Q4H PRN PRN Reason: Heartburn Dextrose (Dextrose 50 % 25 Gm/50 Ml Syringe) 25 gm IVPUSH Q15M PRN; Protocol PRN Reason: per Hypoglycemia Standing Ord. Last Admin: 01/27/25 20:20 Dose: 25 gm Documented By: STANLEY Diazepam (Diazepam 10 Mg/2 Ml Cartridge) 2.5 mg IVPUSH Q4H PRN PRN Reason: Seizures Glucose (Glucose Gel 15 Gm Gel..Gram.) 15 gm PO Q15M PRN; Protocol PRN Reason: per Hypoglycemia Standing Ord. Folic Acid 1 mg/ Sodium (Chloride) 50.2 mls @ 100.4 mls/hr IV DAILY [facility] Last Infusion: 02/04/25 09:10 Dose: Infused Documented By: LONNIE Levetiracetam (Keppra) 500 mg in 100 mls @ 400 mls/hr IV Q12H [facility] Last Infusion: 02/04/25 22:18 Dose: Infused Documented By: ALEJANDRO Loperamide HCl (Loperamide Hcl 2 Mg Capsule) 2 mg PO Q4H PRN PRN Reason: Diarrhea Last Admin: 01/26/25 17:36 Dose: 2 mg Documented By: JEAN-CLAUDE Magnesium Hydroxide (Milk Of Magnesia 30 Ml Oral.Susp) 30 ml PO DAILY PRN PRN Reason: Constipation Melatonin (Melatonin 3 Mg Tablet) 6 mg PO BEDTIME PRN PRN Reason: Insomnia Ondansetron HCl (Ondansetron Hcl 4 Mg/2 Ml Vial) 4 mg IVPUSH Q8H PRN PRN Reason: Nausea and Vomiting Sodium Chloride (0.9 % Sodium Chloride Flush 3 Ml Syringe) 3 ml IVFLUSH QSHIFT [facility] Last Admin: 02/05/25 00:06 Dose: Not Given Documented By: ALEJANDRO Non-Admin Reason: Previously Administered Labs 01/26/25 08:10 01/27/25 08:44 Assessment and Plan (1) Dementia: Status: Acute Plan Pt is a 74 yo male with a pmhx significant for seizure disorder, FTT, dementia, paroxysmal a fib and stage 1 COPD, who presented to the ED via EMS due to several seizures over the past few days and a significant decline since admission. 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 Continue comfort care. Quality Stroke Does the patient have a stroke diagnosis?: No VTE Prior VTE?: No VTE Risk Level:: Medical - moderate - high VTE Device Contraindication: N/A - Device Ordered VTE Drug Contraindication: Treatment Not Indicated
[2025-02-05] MEDS: Folic Acid 1 MG in 0.9 % Sodium Chloride 50 ML 100 MG IV (09:10)
[2025-02-05] MEDS: 0.9 % Sodium Chloride Flush 3 ML SYRINGE IVFLUSH ×3 (09:11→21:31)
--- NOTE | 2025-02-05 09:20 | MHC.CM.PN ---
email sent to clinical order takers supervisor rae asking for her to contact t/enid montanez
[2025-02-05] MEDS: levETIRAcetam in NaCl (iso-os) 500 MG/100 ML PIGGYBACK 400 MG IV ×2 (09:36→21:36)
[2025-02-05 15:18] VITALS: PULSE 60; RESP 14
[2025-02-05 23:01] VITALS: BP 111/65; PULSE 86; RESP 16; TEMP 36.7; O2SAT 97
[2025-02-06 07:34] VITALS: RESP 16
[2025-02-06] MEDS: 0.9 % Sodium Chloride Flush 3 ML SYRINGE IVFLUSH ×2 (08:44→21:19)
[2025-02-06] MEDS: Folic Acid 1 MG in 0.9 % Sodium Chloride 50 ML 100 MG IV (08:44)
[2025-02-06] MEDS: levETIRAcetam in NaCl (iso-os) 500 MG/100 ML PIGGYBACK 400 MG IV ×2 (10:52→21:24)
--- NOTE | 2025-02-06 11:38 | MHC.CM.PN ---
received call back from rae /bernadette falcon they have nothing avaliable at this time [phone]
--- NOTE | 2025-02-06 13:07 | P.PNIM_ITS ---
Subjective Subjective Date of Service: 02/06/25 Interval History: Resting comfortably in bed, watching TV No complaints Physical Exam 2 Vital Signs: Vital Signs: Last Vital Signs Temp 98.1 F 02/05/25 23:01 Pulse 86 02/05/25 23:01 Resp 16 02/06/25 07:34 BP 111/65 02/05/25 23:01 Pulse Ox 97 02/05/25 23:01 O2 Del Method Room Air 02/05/25 23:01 BMI result Body Mass Index 20.1 Resting comfortably in bed. No acute distress. Objective Data Active Medications Acetaminophen (Acetaminophen 325 Mg Tablet) 975 mg PO Q6H PRN PRN Reason: Pain, Mild 1-3,fever,headache Last Admin: 01/25/25 18:26 Dose: 975 mg Documented By: EVELIO Calcium Carbonate (Calcium Carbonate 750 Mg Tab.Chew) 750 mg PO Q4H PRN PRN Reason: Heartburn Dextrose (Dextrose 50 % 25 Gm/50 Ml Syringe) 25 gm IVPUSH Q15M PRN; Protocol PRN Reason: per Hypoglycemia Standing Ord. Last Admin: 01/27/25 20:20 Dose: 25 gm Documented By: STANLEY Diazepam (Diazepam 10 Mg/2 Ml Cartridge) 2.5 mg IVPUSH Q4H PRN PRN Reason: Seizures Glucose (Glucose Gel 15 Gm Gel..Gram.) 15 gm PO Q15M PRN; Protocol PRN Reason: per Hypoglycemia Standing Ord. Folic Acid 1 mg/ Sodium (Chloride) 50.2 mls @ 100.4 mls/hr IV DAILY [facility] Last Infusion: 02/06/25 09:59 Dose: Infused Documented By: SAHIL Levetiracetam (Keppra) 500 mg in 100 mls @ 400 mls/hr IV Q12H [facility] Last Infusion: 02/06/25 11:07 Dose: Infused Documented By: SAHIL Loperamide HCl (Loperamide Hcl 2 Mg Capsule) 2 mg PO Q4H PRN PRN Reason: Diarrhea Last Admin: 01/26/25 17:36 Dose: 2 mg Documented By: JEAN-CLAUDE Magnesium Hydroxide (Milk Of Magnesia 30 Ml Oral.Susp) 30 ml PO DAILY PRN PRN Reason: Constipation Melatonin (Melatonin 3 Mg Tablet) 6 mg PO BEDTIME PRN PRN Reason: Insomnia Ondansetron HCl (Ondansetron Hcl 4 Mg/2 Ml Vial) 4 mg IVPUSH Q8H PRN PRN Reason: Nausea and Vomiting Sodium Chloride (0.9 % Sodium Chloride Flush 3 Ml Syringe) 3 ml IVFLUSH QSHIFT [facility] Last Admin: 02/06/25 08:44 Dose: 3 ml Documented By: SAHIL Labs 01/26/25 08:10 01/27/25 08:44 Assessment and Plan (1) Dementia: Status: Acute Plan Pt is a 74 yo male with a pmhx significant for seizure disorder, FTT, dementia, paroxysmal a fib and stage 1 COPD, who presented to the ED via EMS due to several seizures over the past few days and a significant decline since admission. 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 Continue comfort care. Quality Stroke Does the patient have a stroke diagnosis?: No VTE Prior VTE?: No VTE Risk Level:: Medical - moderate - high VTE Device Contraindication: N/A - Device Ordered VTE Drug Contraindication: Treatment Not Indicated
[2025-02-06 22:49] VITALS: RESP 16
--- NOTE | 2025-02-07 08:51 | HO.PM.IMPN ---
Subjective Subjective Date of Service: 02/07/25 Interval History: Resting comfortably in bed, sleeping, no issues overnight Physical Exam Vital Signs: Vital Signs: Last Vital Signs Temp 98.1 F 02/05/25 23:01 Pulse 86 02/05/25 23:01 Resp 16 02/06/25 22:49 BP 111/65 02/05/25 23:01 Pulse Ox 97 02/05/25 23:01 O2 Del Method Room Air 02/05/25 23:01 BMI result Body Mass Index 20.1 Resting comfortably in bed. No acute distress. Const: Other: sleeping but easily aroused Objective Data Active Medications Acetaminophen (Acetaminophen 325 Mg Tablet) 975 mg PO Q6H PRN PRN Reason: Pain, Mild 1-3,fever,headache Last Admin: 01/25/25 18:26 Dose: 975 mg Documented By: EVELIO Calcium Carbonate (Calcium Carbonate 750 Mg Tab.Chew) 750 mg PO Q4H PRN PRN Reason: Heartburn Dextrose (Dextrose 50 % 25 Gm/50 Ml Syringe) 25 gm IVPUSH Q15M PRN; Protocol PRN Reason: per Hypoglycemia Standing Ord. Last Admin: 01/27/25 20:20 Dose: 25 gm Documented By: STANLEY Diazepam (Diazepam 10 Mg/2 Ml Cartridge) 2.5 mg IVPUSH Q4H PRN PRN Reason: Seizures Glucose (Glucose Gel 15 Gm Gel..Gram.) 15 gm PO Q15M PRN; Protocol PRN Reason: per Hypoglycemia Standing Ord. Folic Acid 1 mg/ Sodium (Chloride) 50.2 mls @ 100.4 mls/hr IV DAILY [facility] Last Admin: 02/07/25 08:37 Dose: Not Given Documented By: ODALIS Non-Admin Reason: Physician Approved Levetiracetam (Keppra) 500 mg in 100 mls @ 400 mls/hr IV Q12H [facility] Last Infusion: 02/06/25 22:23 Dose: Infused Documented By: ENRIQUE Loperamide HCl (Loperamide Hcl 2 Mg Capsule) 2 mg PO Q4H PRN PRN Reason: Diarrhea Last Admin: 01/26/25 17:36 Dose: 2 mg Documented By: JEAN-CLAUDE Magnesium Hydroxide (Milk Of Magnesia 30 Ml Oral.Susp) 30 ml PO DAILY PRN PRN Reason: Constipation Melatonin (Melatonin 3 Mg Tablet) 6 mg PO BEDTIME PRN PRN Reason: Insomnia Ondansetron HCl (Ondansetron Hcl 4 Mg/2 Ml Vial) 4 mg IVPUSH Q8H PRN PRN Reason: Nausea and Vomiting Sodium Chloride (0.9 % Sodium Chloride Flush 3 Ml Syringe) 3 ml IVFLUSH QSHIFT [facility] Last Admin: 02/06/25 21:19 Dose: 3 ml Documented By: ENRIQUE Labs 01/26/25 08:10 01/27/25 08:44 Assessment and Plan (1) Dementia: Status: Acute Plan Pt is a 74 yo male with a pmhx significant for seizure disorder, FTT, dementia, paroxysmal a fib and stage 1 COPD, who presented to the ED via EMS due to several seizures over the past few days and a significant decline since admission. 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 Continue comfort care. continue seizure meds Quality Stroke Does the patient have a stroke diagnosis?: No VTE Prior VTE?: No VTE Risk Level:: Medical - moderate - high VTE Device Contraindication: N/A - Device Ordered VTE Drug Contraindication: Treatment Not Indicated
[2025-02-07] MEDS: 0.9 % Sodium Chloride Flush 3 ML SYRINGE IVFLUSH ×3 (09:45→21:44)
[2025-02-07] MEDS: levETIRAcetam in NaCl (iso-os) 500 MG/100 ML PIGGYBACK 400 MG IV ×2 (09:45→21:45)
[2025-02-07 20:30] VITALS: RESP 16
[2025-02-08 01:24] VITALS: RESP 16
--- NOTE | 2025-02-08 04:27 | PC.NURSE ---
Assumed care of this patient at 19:00. 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 Pt opened eyes spontaneously during incontinence care and repositioning. Pt does not track or follow commands or look at machine sign writer. Non-verbal. No pain or distress noted. Patient observed sleeping in bed on rounding. RR mid teens on rounding during care. Continues with bed alarm and in-room camera as well as seizure precautions on bed. IV keppra given. Handoff report given to RN taking over care at 03:45. Please see tasks in worklist, and MAR for full details.
--- NOTE | 2025-02-08 08:59 | HO.PM.IMPN ---
Subjective Subjective Date of Service: 02/08/25 Interval History: Resting comfortably in bed, sleeping, no issues overnight Physical Exam Vital Signs: Vital Signs: Last Vital Signs Temp 98.1 F 02/05/25 23:01 Pulse 86 02/05/25 23:01 Resp 16 02/08/25 01:24 BP 111/65 02/05/25 23:01 Pulse Ox 97 02/05/25 23:01 O2 Del Method Room Air 02/05/25 23:01 BMI result Body Mass Index 20.1 Resting comfortably in bed. No acute distress. Const: Other: sleeping but easily aroused Objective Data Active Medications Acetaminophen (Acetaminophen 325 Mg Tablet) 975 mg PO Q6H PRN PRN Reason: Pain, Mild 1-3,fever,headache Last Admin: 01/25/25 18:26 Dose: 975 mg Documented By: EVELIO Calcium Carbonate (Calcium Carbonate 750 Mg Tab.Chew) 750 mg PO Q4H PRN PRN Reason: Heartburn Dextrose (Dextrose 50 % 25 Gm/50 Ml Syringe) 25 gm IVPUSH Q15M PRN; Protocol PRN Reason: per Hypoglycemia Standing Ord. Last Admin: 01/27/25 20:20 Dose: 25 gm Documented By: STANLEY Diazepam (Diazepam 10 Mg/2 Ml Cartridge) 2.5 mg IVPUSH Q4H PRN PRN Reason: Seizures Glucose (Glucose Gel 15 Gm Gel..Gram.) 15 gm PO Q15M PRN; Protocol PRN Reason: per Hypoglycemia Standing Ord. Folic Acid 1 mg/ Sodium (Chloride) 50.2 mls @ 100.4 mls/hr IV DAILY [facility] Last Admin: 02/08/25 08:06 Dose: Not Given Documented By: ODALIS Non-Admin Reason: Physician Approved Levetiracetam (Keppra) 500 mg in 100 mls @ 400 mls/hr IV Q12H [facility] Last Infusion: 02/07/25 22:00 Dose: Infused Documented By: CHINEDU Loperamide HCl (Loperamide Hcl 2 Mg Capsule) 2 mg PO Q4H PRN PRN Reason: Diarrhea Last Admin: 01/26/25 17:36 Dose: 2 mg Documented By: JEAN-CLAUDE Magnesium Hydroxide (Milk Of Magnesia 30 Ml Oral.Susp) 30 ml PO DAILY PRN PRN Reason: Constipation Melatonin (Melatonin 3 Mg Tablet) 6 mg PO BEDTIME PRN PRN Reason: Insomnia Ondansetron HCl (Ondansetron Hcl 4 Mg/2 Ml Vial) 4 mg IVPUSH Q8H PRN PRN Reason: Nausea and Vomiting Sodium Chloride (0.9 % Sodium Chloride Flush 3 Ml Syringe) 3 ml IVFLUSH QSHIFT [facility] Last Admin: 02/07/25 21:44 Dose: 3 ml Documented By: CHINEDU Labs 01/26/25 08:10 01/27/25 08:44 Assessment and Plan (1) Dementia: Status: Acute Plan Pt is a 74 yo male with a pmhx significant for seizure disorder, FTT, dementia, paroxysmal a fib and stage 1 COPD, who presented to the ED via EMS due to several seizures over the past few days and a significant decline since admission. 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 Continue comfort care. continue seizure meds Quality Stroke Does the patient have a stroke diagnosis?: No VTE Prior VTE?: No VTE Risk Level:: Medical - moderate - high VTE Device Contraindication: N/A - Device Ordered VTE Drug Contraindication: Treatment Not Indicated
[2025-02-08] MEDS: levETIRAcetam in NaCl (iso-os) 500 MG/100 ML PIGGYBACK 400 MG IV ×2 (10:28→22:01)
[2025-02-08] MEDS: 0.9 % Sodium Chloride Flush 3 ML SYRINGE IVFLUSH ×3 (10:29→22:04)
[2025-02-08 16:00] VITALS: RESP 16
[2025-02-08] MEDS: Loperamide HCl 2 MG CAPSULE PO (18:51)
--- NOTE | 2025-02-08 23:30 | PC.NURSE ---
attempted to give imodium to patient but he would not take it
[2025-02-08 23:52] VITALS: RESP 16
[2025-02-09 06:55] VITALS: RESP 15
--- NOTE | 2025-02-09 08:05 | HO.PM.IMPN ---
Subjective Subjective Date of Service: 02/09/25 Interval History: Resting comfortably in bed, sleeping, no issues overnight Physical Exam Vital Signs: Vital Signs: Last Vital Signs Temp 98.1 F 02/05/25 23:01 Pulse 86 02/05/25 23:01 Resp 15 02/09/25 06:55 BP 111/65 02/05/25 23:01 Pulse Ox 97 02/05/25 23:01 O2 Del Method Room Air 02/05/25 23:01 BMI result Body Mass Index 20.1 Resting comfortably in bed. No acute distress. sleeping but arousable Const: Other: sleeping but easily aroused Objective Data Active Medications Acetaminophen (Acetaminophen 325 Mg Tablet) 975 mg PO Q6H PRN PRN Reason: Pain, Mild 1-3,fever,headache Last Admin: 01/25/25 18:26 Dose: 975 mg Documented By: EVELIO Calcium Carbonate (Calcium Carbonate 750 Mg Tab.Chew) 750 mg PO Q4H PRN PRN Reason: Heartburn Dextrose (Dextrose 50 % 25 Gm/50 Ml Syringe) 25 gm IVPUSH Q15M PRN; Protocol PRN Reason: per Hypoglycemia Standing Ord. Last Admin: 01/27/25 20:20 Dose: 25 gm Documented By: STANLEY Diazepam (Diazepam 10 Mg/2 Ml Cartridge) 2.5 mg IVPUSH Q4H PRN PRN Reason: Seizures Glucose (Glucose Gel 15 Gm Gel..Gram.) 15 gm PO Q15M PRN; Protocol PRN Reason: per Hypoglycemia Standing Ord. Folic Acid 1 mg/ Sodium (Chloride) 50.2 mls @ 100.4 mls/hr IV DAILY [facility] Last Admin: 02/08/25 08:06 Dose: Not Given Documented By: ODALIS Non-Admin Reason: Physician Approved Levetiracetam (Keppra) 500 mg in 100 mls @ 400 mls/hr IV Q12H [facility] Last Infusion: 02/08/25 22:29 Dose: Infused Documented By: STANLEY Loperamide HCl (Loperamide Hcl 2 Mg Capsule) 2 mg PO Q4H PRN PRN Reason: Diarrhea Last Admin: 02/08/25 18:51 Dose: 2 mg Documented By: EVELIO Magnesium Hydroxide (Milk Of Magnesia 30 Ml Oral.Susp) 30 ml PO DAILY PRN PRN Reason: Constipation Melatonin (Melatonin 3 Mg Tablet) 6 mg PO BEDTIME PRN PRN Reason: Insomnia Ondansetron HCl (Ondansetron Hcl 4 Mg/2 Ml Vial) 4 mg IVPUSH Q8H PRN PRN Reason: Nausea and Vomiting Sodium Chloride (0.9 % Sodium Chloride Flush 3 Ml Syringe) 3 ml IVFLUSH QSHIFT [facility] Last Admin: 02/08/25 22:04 Dose: 3 ml Documented By: STANLEY Labs 01/26/25 08:10 01/27/25 08:44 Assessment and Plan (1) Dementia: Status: Acute Plan Pt is a 74 yo male with a pmhx significant for seizure disorder, FTT, dementia, paroxysmal a fib and stage 1 COPD, who presented to the ED via EMS due to several seizures over the past few days and a significant decline since admission. 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 Continue comfort care. continue seizure meds Quality Stroke Does the patient have a stroke diagnosis?: No VTE Prior VTE?: No VTE Risk Level:: Medical - moderate - high VTE Device Contraindication: N/A - Device Ordered VTE Drug Contraindication: Treatment Not Indicated
[2025-02-09] MEDS: levETIRAcetam in NaCl (iso-os) 500 MG/100 ML PIGGYBACK 400 MG IV ×2 (09:05→21:52)
[2025-02-09] MEDS: 0.9 % Sodium Chloride Flush 3 ML SYRINGE IVFLUSH ×2 (09:08→21:57)
[2025-02-09 23:29] VITALS: RESP 16
[2025-02-10 07:16] VITALS: RESP 15
--- NOTE | 2025-02-10 07:51 | HO.PM.IMPN ---
Subjective Subjective Date of Service: 02/10/25 Interval History: Appears comfortable, no new issues Physical Exam Vital Signs: Vital Signs: Last Vital Signs Temp 98.1 F 02/05/25 23:01 Pulse 86 02/05/25 23:01 Resp 15 02/10/25 07:16 BP 111/65 02/05/25 23:01 Pulse Ox 97 02/05/25 23:01 O2 Del Method Room Air 02/05/25 23:01 BMI result Body Mass Index 20.1 Resting comfortably in bed. No acute distress. sleeping but arousable Const: Other: sleeping but easily aroused Objective Data Active Medications Acetaminophen (Acetaminophen 325 Mg Tablet) 975 mg PO Q6H PRN PRN Reason: Pain, Mild 1-3,fever,headache Last Admin: 01/25/25 18:26 Dose: 975 mg Documented By: EVELIO Calcium Carbonate (Calcium Carbonate 750 Mg Tab.Chew) 750 mg PO Q4H PRN PRN Reason: Heartburn Dextrose (Dextrose 50 % 25 Gm/50 Ml Syringe) 25 gm IVPUSH Q15M PRN; Protocol PRN Reason: per Hypoglycemia Standing Ord. Last Admin: 01/27/25 20:20 Dose: 25 gm Documented By: STANLEY Diazepam (Diazepam 10 Mg/2 Ml Cartridge) 2.5 mg IVPUSH Q4H PRN PRN Reason: Seizures Glucose (Glucose Gel 15 Gm Gel..Gram.) 15 gm PO Q15M PRN; Protocol PRN Reason: per Hypoglycemia Standing Ord. Levetiracetam (Keppra) 500 mg in 100 mls @ 400 mls/hr IV Q12H [facility] Last Infusion: 02/09/25 22:13 Dose: Infused Documented By: STANLEY Loperamide HCl (Loperamide Hcl 2 Mg Capsule) 2 mg PO Q4H PRN PRN Reason: Diarrhea Last Admin: 02/08/25 18:51 Dose: 2 mg Documented By: EVELIO Magnesium Hydroxide (Milk Of Magnesia 30 Ml Oral.Susp) 30 ml PO DAILY PRN PRN Reason: Constipation Melatonin (Melatonin 3 Mg Tablet) 6 mg PO BEDTIME PRN PRN Reason: Insomnia Ondansetron HCl (Ondansetron Hcl 4 Mg/2 Ml Vial) 4 mg IVPUSH Q8H PRN PRN Reason: Nausea and Vomiting Sodium Chloride (0.9 % Sodium Chloride Flush 3 Ml Syringe) 3 ml IVFLUSH QSHIFT [facility] Last Admin: 02/09/25 21:57 Dose: 3 ml Documented By: STANLEY Labs 01/26/25 08:10 01/27/25 08:44 Assessment and Plan (1) Dementia: Status: Acute Plan Pt is a 74 yo male with a pmhx significant for seizure disorder, FTT, dementia, paroxysmal a fib and stage 1 COPD, who presented to the ED via EMS due to several seizures over the past few days and a significant decline since admission. 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 Continue comfort care. continue seizure meds. Morphine PRN for comfort Quality Stroke Does the patient have a stroke diagnosis?: No VTE Prior VTE?: No VTE Risk Level:: Medical - moderate - high VTE Device Contraindication: N/A - Device Ordered VTE Drug Contraindication: Treatment Not Indicated
[2025-02-10] MEDS: levETIRAcetam in NaCl (iso-os) 500 MG/100 ML PIGGYBACK 400 MG IV ×2 (09:40→21:33)
[2025-02-10] MEDS: 0.9 % Sodium Chloride Flush 3 ML SYRINGE IVFLUSH ×3 (09:43→21:33)
[2025-02-10 15:47] VITALS: RESP 16
[2025-02-10] MEDS: Morphine Sulfate 2 MG/ML CARTRIDGE IVPUSH (16:01)
--- NOTE | 2025-02-10 18:49 | P.CDIM_ITS ---
PROVIDER RESPONSE TEXT: To clarify, the appropriate diagnosis supported by the clinical indicators: moderate QUERY TEXT: PHYSICIAN'S DOCUMENTATION REQUEST Date of Query: 02/05/2025 01:53 PM EDT Patient Name: Giovani Thorne Admit Date: 01/23/2025 Dear Bob Bills MD, A review of the medical record indicates additional documentation may be needed. Please review below and update the documentation accordingly. Alzheimer's (disease/dementia) was documented 02/05/25. 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 Please use your independent medical judgment in providing your response. THIS QUERY IS PART OF THE PERMANENT MEDICAL RECORD
[2025-02-10 20:11] VITALS: RESP 18
[2025-02-10 23:03] VITALS: RESP 18
[2025-02-11 07:05] VITALS: RESP 12
[2025-02-11] MEDS: 0.9 % Sodium Chloride Flush 3 ML SYRINGE IVFLUSH ×3 (07:14→21:51)
--- NOTE | 2025-02-11 08:11 | P.PNIM_ITS ---
Subjective Subjective Date of Service: 02/11/25 Interval History: comfortable, no new issues Physical Exam 2 Vital Signs: Vital Signs: Last Vital Signs Temp 98.1 F 02/05/25 23:01 Pulse 86 02/05/25 23:01 Resp 12 02/11/25 07:05 BP 111/65 02/05/25 23:01 Pulse Ox 97 02/05/25 23:01 O2 Del Method Room Air 02/05/25 23:01 BMI result Body Mass Index 20.1 Resting comfortably in bed. No acute distress. sleeping but arousable Const: Other: sleeping but easily aroused Objective Data Active Medications Acetaminophen (Acetaminophen 325 Mg Tablet) 975 mg PO Q6H PRN PRN Reason: Pain, Mild 1-3,fever,headache Last Admin: 01/25/25 18:26 Dose: 975 mg Documented By: EVELIO Calcium Carbonate (Calcium Carbonate 750 Mg Tab.Chew) 750 mg PO Q4H PRN PRN Reason: Heartburn Dextrose (Dextrose 50 % 25 Gm/50 Ml Syringe) 25 gm IVPUSH Q15M PRN; Protocol PRN Reason: per Hypoglycemia Standing Ord. Last Admin: 01/27/25 20:20 Dose: 25 gm Documented By: STANLEY Diazepam (Diazepam 10 Mg/2 Ml Cartridge) 2.5 mg IVPUSH Q4H PRN PRN Reason: Seizures Glucose (Glucose Gel 15 Gm Gel..Gram.) 15 gm PO Q15M PRN; Protocol PRN Reason: per Hypoglycemia Standing Ord. Levetiracetam (Keppra) 500 mg in 100 mls @ 400 mls/hr IV Q12H [facility] Last Infusion: 02/10/25 21:50 Dose: Infused Documented By: ANTOINETTE Loperamide HCl (Loperamide Hcl 2 Mg Capsule) 2 mg PO Q4H PRN PRN Reason: Diarrhea Last Admin: 02/08/25 18:51 Dose: 2 mg Documented By: EVELIO Magnesium Hydroxide (Milk Of Magnesia 30 Ml Oral.Susp) 30 ml PO DAILY PRN PRN Reason: Constipation Melatonin (Melatonin 3 Mg Tablet) 6 mg PO BEDTIME PRN PRN Reason: Insomnia Morphine Sulfate (Morphine Sulfate 2 Mg/Ml Cartridge) 2 mg IVPUSH Q4H PRN; Protocol PRN Reason: Pain, Severe (Pain Scale 7-10) Last Admin: 02/10/25 16:01 Dose: 2 mg Documented By: JEAN-CLAUDE Ondansetron HCl (Ondansetron Hcl 4 Mg/2 Ml Vial) 4 mg IVPUSH Q8H PRN PRN Reason: Nausea and Vomiting Sodium Chloride (0.9 % Sodium Chloride Flush 3 Ml Syringe) 3 ml IVFLUSH QSHIFT [facility] Last Admin: 02/11/25 07:14 Dose: 3 ml Documented By: YORDYIT Labs 01/26/25 08:10 01/27/25 08:44 Assessment and Plan (1) Dementia: Status: Acute Plan Pt is a 74 yo male with a pmhx significant for seizure disorder, FTT, dementia, paroxysmal a fib and stage 1 COPD, who presented to the ED via EMS due to several seizures over the past few days and a significant decline since admission. 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 Continue comfort care. continue seizure meds. Morphine PRN for comfort Quality Stroke Does the patient have a stroke diagnosis?: No VTE Prior VTE?: No VTE Risk Level:: Medical - moderate - high VTE Device Contraindication: N/A - Device Ordered VTE Drug Contraindication: Treatment Not Indicated
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
--- NOTE | 2025-02-11 09:39 | MHC.CLN ---
F/U PATIENT CONTINUES COMFORT MEASURES ONLY. SKIN WITH REDNESS TO COCCYX AND BILATERAL HEELS. CONTINUE TO PROVIDE FOOD/BEVERAGES ACCEPTED.
--- NOTE | 2025-02-11 14:25 | MHC.CM.PN ---
per aury pt is no longer imminent guadianship will be initiated
[2025-02-11] MEDS: levETIRAcetam in NaCl (iso-os) 500 MG/100 ML PIGGYBACK 400 MG IV ×2 (14:44→21:48)
[2025-02-11 16:00] VITALS: RESP 16
[2025-02-11 19:51] VITALS: RESP 18
[2025-02-11 23:10] VITALS: RESP 16
[2025-02-12 07:12] VITALS: RESP 14
[2025-02-12] MEDS: levETIRAcetam Oral Soln 500 MG/5 ML PO ×2 (10:17→21:28)
--- NOTE | 2025-02-12 10:20 | PC.NURSE ---
patient pulled out 2 IV since yesterday,despite camera on,Dr. Forrets notified this am,Keppra changed to po liquid,ok to keep IV out per Dr. Forrest
--- NOTE | 2025-02-12 10:54 | HO.PM.IMPN ---
Subjective Subjective Date of Service: 02/12/25 Interval History: comfortable, no new issues Review of Systems Review of Systems: Yes all other systems are reviewed and are negative Physical Exam Vital Signs: Vital Signs: Last Vital Signs Temp 98.1 F 02/05/25 23:01 Pulse 86 02/05/25 23:01 Resp 14 02/12/25 07:12 BP 111/65 02/05/25 23:01 Pulse Ox 97 02/05/25 23:01 O2 Del Method Room Air 02/05/25 23:01 BMI result Body Mass Index 20.1 Resting comfortably in bed. No acute distress. sleeping but arousable Objective Data Active Medications Acetaminophen (Acetaminophen 325 Mg Tablet) 975 mg PO Q6H PRN PRN Reason: Pain, Mild 1-3,fever,headache Last Admin: 01/25/25 18:26 Dose: 975 mg Documented By: EVELIO Calcium Carbonate (Calcium Carbonate 750 Mg Tab.Chew) 750 mg PO Q4H PRN PRN Reason: Heartburn Dextrose (Dextrose 50 % 25 Gm/50 Ml Syringe) 25 gm IVPUSH Q15M PRN; Protocol PRN Reason: per Hypoglycemia Standing Ord. Last Admin: 01/27/25 20:20 Dose: 25 gm Documented By: STANLEY Diazepam (Diazepam 10 Mg/2 Ml Cartridge) 2.5 mg IVPUSH Q4H PRN PRN Reason: Seizures Glucose (Glucose Gel 15 Gm Gel..Gram.) 15 gm PO Q15M PRN; Protocol PRN Reason: per Hypoglycemia Standing Ord. Levetiracetam (Levetiracetam Oral Soln 500 Mg/5 Ml) 500 mg PO BID [facility] Last Admin: 02/12/25 10:17 Dose: 500 mg Documented By: TIFFANY Loperamide HCl (Loperamide Hcl 2 Mg Capsule) 2 mg PO Q4H PRN PRN Reason: Diarrhea Last Admin: 02/08/25 18:51 Dose: 2 mg Documented By: EVELIO Magnesium Hydroxide (Milk Of Magnesia 30 Ml Oral.Susp) 30 ml PO DAILY PRN PRN Reason: Constipation Melatonin (Melatonin 3 Mg Tablet) 6 mg PO BEDTIME PRN PRN Reason: Insomnia Morphine Sulfate (Morphine Sulfate 2 Mg/Ml Cartridge) 2 mg IVPUSH Q4H PRN; Protocol PRN Reason: Pain, Severe (Pain Scale 7-10) Last Admin: 02/10/25 16:01 Dose: 2 mg Documented By: JEAN-CLAUDE Ondansetron HCl (Ondansetron Hcl 4 Mg/2 Ml Vial) 4 mg IVPUSH Q8H PRN PRN Reason: Nausea and Vomiting Sodium Chloride (0.9 % Sodium Chloride Flush 3 Ml Syringe) 3 ml IVFLUSH QSHIFT [facility] Last Admin: 02/12/25 07:33 Dose: Not Given Documented By: TIFFANY Non-Admin Reason: 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 Continue comfort care. continue seizure meds. Morphine PRN for comfort Quality Stroke Does the patient have a stroke diagnosis?: No VTE Prior VTE?: No VTE Risk Level:: Medical - moderate - high VTE Device Contraindication: N/A - Device Ordered VTE Drug Contraindication: Treatment Not Indicated
[2025-02-12 15:13] VITALS: RESP 16
[2025-02-12 23:26] VITALS: BP 124/62; PULSE 93; RESP 18; TEMP 36.2; O2SAT 94
[2025-02-13 08:00] VITALS: RESP 12
[2025-02-13] MEDS: levETIRAcetam Oral Soln 500 MG/5 ML PO ×2 (08:49→20:42)
--- NOTE | 2025-02-13 10:40 | P.PNIM_ITS ---
Subjective Subjective Date of Service: 02/13/25 Interval History: comfortable, no new issues Review of Systems Review of Systems: Yes all other systems are reviewed and are negative Physical Exam 2 Vital Signs: Vital Signs: Last Vital Signs Temp 97.2 F 02/12/25 23:26 Pulse 93 02/12/25 23:26 Resp 12 02/13/25 08:00 BP 124/62 02/12/25 23:26 Pulse Ox 94 02/12/25 23:26 O2 Del Method Room Air 02/12/25 23:26 BMI result Body Mass Index 20.1 Resting comfortably in bed. No acute distress. sleeping but arousable Objective Data Active Medications Acetaminophen (Acetaminophen 325 Mg Tablet) 975 mg PO Q6H PRN PRN Reason: Pain, Mild 1-3,fever,headache Last Admin: 01/25/25 18:26 Dose: 975 mg Documented By: EVELIO Calcium Carbonate (Calcium Carbonate 750 Mg Tab.Chew) 750 mg PO Q4H PRN PRN Reason: Heartburn Dextrose (Dextrose 50 % 25 Gm/50 Ml Syringe) 25 gm IVPUSH Q15M PRN; Protocol PRN Reason: per Hypoglycemia Standing Ord. Last Admin: 01/27/25 20:20 Dose: 25 gm Documented By: STANLEY Diazepam (Diazepam 10 Mg/2 Ml Cartridge) 2.5 mg IVPUSH Q4H PRN PRN Reason: Seizures Glucose (Glucose Gel 15 Gm Gel..Gram.) 15 gm PO Q15M PRN; Protocol PRN Reason: per Hypoglycemia Standing Ord. Levetiracetam (Levetiracetam Oral Soln 500 Mg/5 Ml) 500 mg PO BID [facility] Last Admin: 02/13/25 08:49 Dose: 500 mg Documented By: FREDDIE Loperamide HCl (Loperamide Hcl 2 Mg Capsule) 2 mg PO Q4H PRN PRN Reason: Diarrhea Last Admin: 02/08/25 18:51 Dose: 2 mg Documented By: EVELIO Magnesium Hydroxide (Milk Of Magnesia 30 Ml Oral.Susp) 30 ml PO DAILY PRN PRN Reason: Constipation Melatonin (Melatonin 3 Mg Tablet) 6 mg PO BEDTIME PRN PRN Reason: Insomnia Morphine Sulfate (Morphine Sulfate 2 Mg/Ml Cartridge) 2 mg IVPUSH Q4H PRN; Protocol PRN Reason: Pain, Severe (Pain Scale 7-10) Last Admin: 02/10/25 16:01 Dose: 2 mg Documented By: JEAN-CLAUDE Ondansetron HCl (Ondansetron Hcl 4 Mg/2 Ml Vial) 4 mg IVPUSH Q8H PRN PRN Reason: Nausea and Vomiting Sodium Chloride (0.9 % Sodium Chloride Flush 3 Ml Syringe) 3 ml IVFLUSH QSHIFT [facility] Last Admin: 02/13/25 08:32 Dose: Not Given Documented By: FREDDIE Non-Admin Reason: No Access Labs 01/26/25 08:10 01/27/25 08:44 Assessment and Plan (1) Dementia: Status: Acute Plan Pt is a 74 yo male with a pmhx significant for seizure disorder, FTT, dementia, paroxysmal a fib and stage 1 COPD, who presented to the ED via EMS due to several seizures over the past few days and a significant decline since admission. 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 Continue comfort care. continue seizure meds. Morphine PRN for comfort Quality Stroke Does the patient have a stroke diagnosis?: No VTE Prior VTE?: No VTE Risk Level:: Medical - moderate - high VTE Device Contraindication: N/A - Device Ordered VTE Drug Contraindication: Treatment Not Indicated
--- NOTE | 2025-02-13 14:50 | MHC.CM.PN ---
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
[2025-02-13 16:00] VITALS: RESP 12
[2025-02-13 23:24] VITALS: RESP 16
[2025-02-14 07:41] VITALS: RESP 16
--- NOTE | 2025-02-14 08:05 | P.PNIM_ITS ---
Subjective Subjective Date of Service: 02/14/25 Interval History: comfortable, no new issues Review of Systems Review of Systems: Yes all other systems are reviewed and are negative Physical Exam 2 Vital Signs: Vital Signs: Last Vital Signs Temp 97.2 F 02/12/25 23:26 Pulse 93 02/12/25 23:26 Resp 16 02/14/25 07:41 BP 124/62 02/12/25 23:26 Pulse Ox 94 02/12/25 23:26 O2 Del Method Room Air 02/12/25 23:26 BMI result Body Mass Index 20.1 Resting comfortably in bed. No acute distress. sleeping but arousable Objective Data Active Medications Acetaminophen (Acetaminophen 325 Mg Tablet) 975 mg PO Q6H PRN PRN Reason: Pain, Mild 1-3,fever,headache Last Admin: 01/25/25 18:26 Dose: 975 mg Documented By: EVELIO Calcium Carbonate (Calcium Carbonate 750 Mg Tab.Chew) 750 mg PO Q4H PRN PRN Reason: Heartburn Dextrose (Dextrose 50 % 25 Gm/50 Ml Syringe) 25 gm IVPUSH Q15M PRN; Protocol PRN Reason: per Hypoglycemia Standing Ord. Last Admin: 01/27/25 20:20 Dose: 25 gm Documented By: STANLEY Diazepam (Diazepam 10 Mg/2 Ml Cartridge) 2.5 mg IVPUSH Q4H PRN PRN Reason: Seizures Glucose (Glucose Gel 15 Gm Gel..Gram.) 15 gm PO Q15M PRN; Protocol PRN Reason: per Hypoglycemia Standing Ord. Levetiracetam (Levetiracetam Oral Soln 500 Mg/5 Ml) 500 mg PO BID WALKER Last Admin: 02/13/25 20:42 Dose: 500 mg Documented By: STANLEY Loperamide HCl (Loperamide Hcl 2 Mg Capsule) 2 mg PO Q4H PRN PRN Reason: Diarrhea Last Admin: 02/08/25 18:51 Dose: 2 mg Documented By: EVELIO Magnesium Hydroxide (Milk Of Magnesia 30 Ml Oral.Susp) 30 ml PO DAILY PRN PRN Reason: Constipation Melatonin (Melatonin 3 Mg Tablet) 6 mg PO BEDTIME PRN PRN Reason: Insomnia Morphine Sulfate (Morphine Sulfate 2 Mg/Ml Cartridge) 2 mg IVPUSH Q4H PRN; Protocol PRN Reason: Pain, Severe (Pain Scale 7-10) Last Admin: 02/10/25 16:01 Dose: 2 mg Documented By: JEAN-CLAUDE Ondansetron HCl (Ondansetron Hcl 4 Mg/2 Ml Vial) 4 mg IVPUSH Q8H PRN PRN Reason: Nausea and Vomiting Sodium Chloride (0.9 % Sodium Chloride Flush 3 Ml Syringe) 3 ml IVFLUSH QSHIFT WALKER Last Admin: 02/14/25 00:14 Dose: Not Given Documented By: STANLEY Non-Admin Reason: No Access Labs 01/26/25 08:10 01/27/25 08:44 Assessment and Plan (1) Dementia: Status: Acute Plan Pt is a 74 yo male with a pmhx significant for seizure disorder, FTT, dementia, paroxysmal a fib and stage 1 COPD, who presented to the ED via EMS due to several seizures over the past few days and a significant decline since admission. 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 Continue comfort care. continue seizure meds. Morphine PRN for comfort Quality Stroke Does the patient have a stroke diagnosis?: No VTE Prior VTE?: No VTE Risk Level:: Medical - moderate - high VTE Device Contraindication: N/A - Device Ordered VTE Drug Contraindication: Treatment Not Indicated
[2025-02-14] MEDS: levETIRAcetam Oral Soln 500 MG/5 ML PO ×2 (08:29→19:27)
--- NOTE | 2025-02-14 11:24 | PC.NURSE ---
report given to CURTIS Rojas
[2025-02-14 16:00] VITALS: RESP 16
[2025-02-14] MEDS: Morphine Sulfate 2 MG/ML CARTRIDGE IVPUSH (19:27)
[2025-02-14] MEDS: 0.9 % Sodium Chloride Flush 3 ML SYRINGE IVFLUSH (19:34)
[2025-02-14 23:29] VITALS: RESP 16
[2025-02-15] MEDS: Morphine Sulfate 2 MG/ML CARTRIDGE IVPUSH ×2 (00:16→20:06)
--- NOTE | 2025-02-15 07:25 | P.PNIM_ITS ---
Subjective Subjective Date of Service: 02/15/25 Interval History: comfortable, no new issues Review of Systems as above. Review of Systems: Yes all other systems are reviewed and are negative Physical Exam 2 Vital Signs: Vital Signs: Last Vital Signs Temp 97.2 F 02/12/25 23:26 Pulse 93 02/12/25 23:26 Resp 16 02/14/25 23:29 BP 124/62 02/12/25 23:26 Pulse Ox 94 02/12/25 23:26 O2 Del Method Room Air 02/12/25 23:26 BMI result Body Mass Index 20.1 Resting comfortably in bed. No acute distress. sleeping but arousable Objective Data Active Medications Acetaminophen (Acetaminophen 325 Mg Tablet) 975 mg PO Q6H PRN PRN Reason: Pain, Mild 1-3,fever,headache Last Admin: 01/25/25 18:26 Dose: 975 mg Documented By: EVELIO Calcium Carbonate (Calcium Carbonate 750 Mg Tab.Chew) 750 mg PO Q4H PRN PRN Reason: Heartburn Dextrose (Dextrose 50 % 25 Gm/50 Ml Syringe) 25 gm IVPUSH Q15M PRN; Protocol PRN Reason: per Hypoglycemia Standing Ord. Last Admin: 01/27/25 20:20 Dose: 25 gm Documented By: STANLEY Diazepam (Diazepam 10 Mg/2 Ml Cartridge) 2.5 mg IVPUSH Q4H PRN PRN Reason: Seizures Glucose (Glucose Gel 15 Gm Gel..Gram.) 15 gm PO Q15M PRN; Protocol PRN Reason: per Hypoglycemia Standing Ord. Levetiracetam (Levetiracetam Oral Soln 500 Mg/5 Ml) 500 mg PO BID WALKER Last Admin: 02/14/25 19:27 Dose: 500 mg Documented By: CELIO Loperamide HCl (Loperamide Hcl 2 Mg Capsule) 2 mg PO Q4H PRN PRN Reason: Diarrhea Last Admin: 02/08/25 18:51 Dose: 2 mg Documented By: EVELIO Magnesium Hydroxide (Milk Of Magnesia 30 Ml Oral.Susp) 30 ml PO DAILY PRN PRN Reason: Constipation Melatonin (Melatonin 3 Mg Tablet) 6 mg PO BEDTIME PRN PRN Reason: Insomnia Morphine Sulfate (Morphine Sulfate 2 Mg/Ml Cartridge) 2 mg IVPUSH Q4H PRN; Protocol PRN Reason: Pain, Severe (Pain Scale 7-10) Last Admin: 02/15/25 00:16 Dose: 2 mg Documented By: ASHLIE Ondansetron HCl (Ondansetron Hcl 4 Mg/2 Ml Vial) 4 mg IVPUSH Q8H PRN PRN Reason: Nausea and Vomiting Sodium Chloride (0.9 % Sodium Chloride Flush 3 Ml Syringe) 3 ml IVFLUSH QSHIFT WALKER Last Admin: 02/14/25 19:34 Dose: 3 ml Documented By: CELIO Labs 01/26/25 08:10 01/27/25 08:44 Assessment and Plan (1) Dementia: Status: Acute Plan Pt is a 74 yo male with a pmhx significant for seizure disorder, FTT, dementia, paroxysmal a fib and stage 1 COPD, who presented to the ED via EMS due to several seizures over the past few days and a significant decline since admission. 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 Continue comfort care. continue seizure meds. Morphine PRN for comfort Quality Stroke Does the patient have a stroke diagnosis?: No VTE Prior VTE?: No VTE Risk Level:: Medical - moderate - high VTE Device Contraindication: N/A - Device Ordered VTE Drug Contraindication: Treatment Not Indicated
[2025-02-15] MEDS: levETIRAcetam Oral Soln 500 MG/5 ML PO ×2 (09:18→20:07)
[2025-02-15] MEDS: 0.9 % Sodium Chloride Flush 3 ML SYRINGE IVFLUSH ×2 (09:18→20:07)
[2025-02-15 15:46] VITALS: RESP 16
--- NOTE | 2025-02-15 15:47 | MHC.CM.PN ---
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
[2025-02-15 23:38] VITALS: RESP 16
[2025-02-16] MEDS: Morphine Sulfate 2 MG/ML CARTRIDGE IVPUSH ×6 (00:33→20:30)
[2025-02-16 07:07] VITALS: RESP 12
[2025-02-16] MEDS: levETIRAcetam Oral Soln 500 MG/5 ML PO ×2 (09:15→20:30)
[2025-02-16] MEDS: 0.9 % Sodium Chloride Flush 3 ML SYRINGE IVFLUSH ×2 (09:15→20:30)
[2025-02-16 15:03] VITALS: RESP 16
--- NOTE | 2025-02-16 15:16 | P.PNIM_ITS ---
Subjective Subjective Date of Service: 02/16/25 Interval History: comfortable, no new issues Review of Systems Review of Systems: Yes all other systems are reviewed and are negative Physical Exam 2 Vital Signs: Vital Signs: Last Vital Signs Temp 97.2 F 02/12/25 23:26 Pulse 93 02/12/25 23:26 Resp 16 02/16/25 15:03 BP 124/62 02/12/25 23:26 Pulse Ox 94 02/12/25 23:26 O2 Del Method Room Air 02/12/25 23:26 BMI result Body Mass Index 20.1 Resting comfortably in bed. No acute distress. sleeping but arousable Objective Data Active Medications Acetaminophen (Acetaminophen 325 Mg Tablet) 975 mg PO Q6H PRN PRN Reason: Pain, Mild 1-3,fever,headache Last Admin: 01/25/25 18:26 Dose: 975 mg Documented By: EVELIO Calcium Carbonate (Calcium Carbonate 750 Mg Tab.Chew) 750 mg PO Q4H PRN PRN Reason: Heartburn Dextrose (Dextrose 50 % 25 Gm/50 Ml Syringe) 25 gm IVPUSH Q15M PRN; Protocol PRN Reason: per Hypoglycemia Standing Ord. Last Admin: 01/27/25 20:20 Dose: 25 gm Documented By: STANLEY Diazepam (Diazepam 10 Mg/2 Ml Cartridge) 2.5 mg IVPUSH Q4H PRN PRN Reason: Seizures Glucose (Glucose Gel 15 Gm Gel..Gram.) 15 gm PO Q15M PRN; Protocol PRN Reason: per Hypoglycemia Standing Ord. Levetiracetam (Levetiracetam Oral Soln 500 Mg/5 Ml) 500 mg PO BID WALKER Last Admin: 02/16/25 09:15 Dose: 500 mg Documented By: JAZMINE Loperamide HCl (Loperamide Hcl 2 Mg Capsule) 2 mg PO Q4H PRN PRN Reason: Diarrhea Last Admin: 02/08/25 18:51 Dose: 2 mg Documented By: EVELIO Magnesium Hydroxide (Milk Of Magnesia 30 Ml Oral.Susp) 30 ml PO DAILY PRN PRN Reason: Constipation Melatonin (Melatonin 3 Mg Tablet) 6 mg PO BEDTIME PRN PRN Reason: Insomnia Morphine Sulfate (Morphine Sulfate 2 Mg/Ml Cartridge) 2 mg IVPUSH Q2H PRN; Protocol PRN Reason: Pain, Severe (Pain Scale 7-10) Last Admin: 02/16/25 14:31 Dose: 2 mg Documented By: JAZMINE Ondansetron HCl (Ondansetron Hcl 4 Mg/2 Ml Vial) 4 mg IVPUSH Q8H PRN PRN Reason: Nausea and Vomiting Sodium Chloride (0.9 % Sodium Chloride Flush 3 Ml Syringe) 3 ml IVFLUSH QSHIFT WALKER Last Admin: 02/16/25 15:07 Dose: Not Given Documented By: JAZMINE Non-Admin Reason: Previously Administered Labs 01/26/25 08:10 01/27/25 08:44 Assessment and Plan (1) Dementia: Status: Acute Plan Pt is a 74 yo male with a pmhx significant for seizure disorder, FTT, dementia, paroxysmal a fib and stage 1 COPD, who presented to the ED via EMS due to several seizures over the past few days and a significant decline since admission. 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 Continue comfort care. continue seizure meds. Morphine PRN for comfort Quality Stroke Does the patient have a stroke diagnosis?: No VTE Prior VTE?: No VTE Risk Level:: Medical - moderate - high VTE Device Contraindication: N/A - Device Ordered VTE Drug Contraindication: Treatment Not Indicated
[2025-02-17] VITALS: RESP 12
--- NOTE | 2025-02-17 02:25 | PC.NURSE ---
Patient arousable, offers no indication of pain or discomfort. Opens eyes to touch of arm, resting with eyes closed, frequent checks.
[2025-02-17] MEDS: Morphine Sulfate 2 MG/ML CARTRIDGE IVPUSH ×4 (04:49→23:52)
[2025-02-17 05:40] VITALS: RESP 15
[2025-02-17 07:35] VITALS: RESP 18
--- NOTE | 2025-02-17 07:41 | P.PNIM_ITS ---
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 Review of Systems as above Review of Systems: Yes all other systems are reviewed and are negative Physical Exam 2 Vital Signs: Vital Signs: Last Vital Signs Temp 97.2 F 02/12/25 23:26 Pulse 93 02/12/25 23:26 Resp 18 02/17/25 07:35 BP 124/62 02/12/25 23:26 Pulse Ox 94 02/12/25 23:26 O2 Del Method Room Air 02/12/25 23:26 BMI result Body Mass Index 20.1 seems comfortable Objective Data Active Medications Acetaminophen (Acetaminophen 325 Mg Tablet) 975 mg PO Q6H PRN PRN Reason: Pain, Mild 1-3,fever,headache Last Admin: 01/25/25 18:26 Dose: 975 mg Documented By: EVELIO Calcium Carbonate (Calcium Carbonate 750 Mg Tab.Chew) 750 mg PO Q4H PRN PRN Reason: Heartburn Dextrose (Dextrose 50 % 25 Gm/50 Ml Syringe) 25 gm IVPUSH Q15M PRN; Protocol PRN Reason: per Hypoglycemia Standing Ord. Last Admin: 01/27/25 20:20 Dose: 25 gm Documented By: STANLEY Diazepam (Diazepam 10 Mg/2 Ml Cartridge) 2.5 mg IVPUSH Q4H PRN PRN Reason: Seizures Glucose (Glucose Gel 15 Gm Gel..Gram.) 15 gm PO Q15M PRN; Protocol PRN Reason: per Hypoglycemia Standing Ord. Levetiracetam (Levetiracetam Oral Soln 500 Mg/5 Ml) 500 mg PO BID WALKER Last Admin: 02/16/25 20:30 Dose: 500 mg Documented By: ASHLIE Loperamide HCl (Loperamide Hcl 2 Mg Capsule) 2 mg PO Q4H PRN PRN Reason: Diarrhea Last Admin: 02/08/25 18:51 Dose: 2 mg Documented By: EVELIO Magnesium Hydroxide (Milk Of Magnesia 30 Ml Oral.Susp) 30 ml PO DAILY PRN PRN Reason: Constipation Melatonin (Melatonin 3 Mg Tablet) 6 mg PO BEDTIME PRN PRN Reason: Insomnia Morphine Sulfate (Morphine Sulfate 2 Mg/Ml Cartridge) 2 mg IVPUSH Q2H PRN; Protocol PRN Reason: Pain, Severe (Pain Scale 7-10) Last Admin: 02/17/25 04:49 Dose: 2 mg Documented By: KIM Ondansetron HCl (Ondansetron Hcl 4 Mg/2 Ml Vial) 4 mg IVPUSH Q8H PRN PRN Reason: Nausea and Vomiting Sodium Chloride (0.9 % Sodium Chloride Flush 3 Ml Syringe) 3 ml IVFLUSH QSHIFT WALKER Last Admin: 02/16/25 20:30 Dose: 3 ml Documented By: LLOYDQC Labs 01/26/25 08:10 01/27/25 08:44 Assessment and Plan (1) Dementia: Status: Acute Plan Pt is a 74 yo male with a pmhx significant for seizure disorder, FTT, dementia, paroxysmal a fib and stage 1 COPD, who presented to the ED via EMS due to several seizures over the past few days and a significant decline since admission. 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 Continue comfort care. continue seizure meds. Morphine PRN for comfort Quality Stroke Does the patient have a stroke diagnosis?: No VTE Prior VTE?: No VTE Risk Level:: Medical - moderate - high VTE Device Contraindication: N/A - Device Ordered VTE Drug Contraindication: Treatment Not Indicated
[2025-02-17] MEDS: 0.9 % Sodium Chloride Flush 3 ML SYRINGE IVFLUSH ×3 (08:27→20:53)
[2025-02-17 15:45] VITALS: RESP 16
[2025-02-17] MEDS: levETIRAcetam Oral Soln 500 MG/5 ML PO (20:53)
[2025-02-17 23:35] VITALS: RESP 14
[2025-02-18] MEDS: Morphine Sulfate 2 MG/ML CARTRIDGE IVPUSH ×4 (01:51→20:54)
[2025-02-18 07:55] VITALS: RESP 18
[2025-02-18] MEDS: 0.9 % Sodium Chloride Flush 3 ML SYRINGE IVFLUSH ×3 (09:21→20:43)
--- NOTE | 2025-02-18 13:33 | MHC.CLN ---
F/U DIET CHANGED TO FEED FROM FLOOR STOCK. PATIENT CONTINUES COMFORT MEASURES ONLY. SKIN WITH REDNESS TO COCCYX AND BILATERAL HEELS. CONTINUE TO PROVIDE FOOD/BEVERAGES ACCEPTED.
--- NOTE | 2025-02-18 14:54 | HO.PM.IMPN ---
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 Review of Systems as above Physical Exam Vital Signs: Vital Signs: Last Vital Signs Temp 97.2 F 02/12/25 23:26 Pulse 93 02/12/25 23:26 Resp 18 02/18/25 07:55 BP 124/62 02/12/25 23:26 Pulse Ox 94 02/12/25 23:26 O2 Del Method Room Air 02/18/25 07:55 BMI result Body Mass Index 20.1 seems comfortable/resting/sleeping Objective Data Active Medications Acetaminophen (Acetaminophen 325 Mg Tablet) 975 mg PO Q6H PRN PRN Reason: Pain, Mild 1-3,fever,headache Last Admin: 01/25/25 18:26 Dose: 975 mg Documented By: EVELIO Calcium Carbonate (Calcium Carbonate 750 Mg Tab.Chew) 750 mg PO Q4H PRN PRN Reason: Heartburn Dextrose (Dextrose 50 % 25 Gm/50 Ml Syringe) 25 gm IVPUSH Q15M PRN; Protocol PRN Reason: per Hypoglycemia Standing Ord. Last Admin: 01/27/25 20:20 Dose: 25 gm Documented By: STANLEY Diazepam (Diazepam 10 Mg/2 Ml Cartridge) 2.5 mg IVPUSH Q4H PRN PRN Reason: Seizures Glucose (Glucose Gel 15 Gm Gel..Gram.) 15 gm PO Q15M PRN; Protocol PRN Reason: per Hypoglycemia Standing Ord. Levetiracetam (Levetiracetam Oral Soln 500 Mg/5 Ml) 500 mg PO BID WALKER Last Admin: 02/18/25 10:37 Dose: Not Given Documented By: RODDY Non-Admin Reason: pt not able to swallow Loperamide HCl (Loperamide Hcl 2 Mg Capsule) 2 mg PO Q4H PRN PRN Reason: Diarrhea Last Admin: 02/08/25 18:51 Dose: 2 mg Documented By: EVELIO Lorazepam (Lorazepam 0.5 Mg Tablet) 0.5 mg PO Q4H PRN PRN Reason: Restlessness/anxiety Magnesium Hydroxide (Milk Of Magnesia 30 Ml Oral.Susp) 30 ml PO DAILY PRN PRN Reason: Constipation Melatonin (Melatonin 3 Mg Tablet) 6 mg PO BEDTIME PRN PRN Reason: Insomnia Morphine Sulfate (Morphine Sulfate 2 Mg/Ml Cartridge) 2 mg IVPUSH Q2H PRN; Protocol PRN Reason: Pain, Severe (Pain Scale 7-10) Last Admin: 02/18/25 12:19 Dose: 2 mg Documented By: RODDY Ondansetron HCl (Ondansetron Hcl 4 Mg/2 Ml Vial) 4 mg IVPUSH Q8H PRN PRN Reason: Nausea and Vomiting Sodium Chloride (0.9 % Sodium Chloride Flush 3 Ml Syringe) 3 ml IVFLUSH QSHIFT [facility] Last Admin: 02/18/25 09:21 Dose: 3 ml Documented By: RODDY Labs 01/26/25 08:10 01/27/25 08:44 Assessment and Plan (1) Dementia: Status: Acute Plan Pt is a 74 yo male with a pmhx significant for seizure disorder, FTT, dementia, paroxysmal a fib and stage 1 COPD, who presented to the ED via EMS due to several seizures over the past few days and a significant decline since admission. 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 Continue comfort care. continue seizure meds. Morphine PRN for comfort Quality Stroke Does the patient have a stroke diagnosis?: No VTE Prior VTE?: No VTE Risk Level:: Medical - moderate - high VTE Device Contraindication: N/A - Device Ordered VTE Drug Contraindication: Treatment Not Indicated
--- NOTE | 2025-02-18 16:16 | MHC.CM.PN ---
pt remains focuser working on guardianship
[2025-02-19] MEDS: Morphine Sulfate 2 MG/ML CARTRIDGE IVPUSH ×3 (02:32→20:11)
[2025-02-19] MEDS: 0.9 % Sodium Chloride Flush 3 ML SYRINGE IVFLUSH ×2 (08:00→20:12)
--- NOTE | 2025-02-19 10:28 | P.PNIM_ITS ---
Subjective Subjective Date of Service: 02/19/25 Interval History: no new issues, resting comfortably Review of Systems as above Physical Exam 2 Vital Signs: Vital Signs: Last Vital Signs Temp 97.2 F 02/12/25 23:26 Pulse 93 02/12/25 23:26 Resp 18 02/18/25 07:55 BP 124/62 02/12/25 23:26 Pulse Ox 94 02/12/25 23:26 O2 Del Method Room Air 02/18/25 07:55 BMI result Body Mass Index 20.1 seems comfortable/resting/sleeping Objective Data Active Medications Acetaminophen (Acetaminophen 325 Mg Tablet) 975 mg PO Q6H PRN PRN Reason: Pain, Mild 1-3,fever,headache Last Admin: 01/25/25 18:26 Dose: 975 mg Documented By: EVELIO Calcium Carbonate (Calcium Carbonate 750 Mg Tab.Chew) 750 mg PO Q4H PRN PRN Reason: Heartburn Dextrose (Dextrose 50 % 25 Gm/50 Ml Syringe) 25 gm IVPUSH Q15M PRN; Protocol PRN Reason: per Hypoglycemia Standing Ord. Last Admin: 01/27/25 20:20 Dose: 25 gm Documented By: STANLEY Diazepam (Diazepam 10 Mg/2 Ml Cartridge) 2.5 mg IVPUSH Q4H PRN PRN Reason: Seizures Glucose (Glucose Gel 15 Gm Gel..Gram.) 15 gm PO Q15M PRN; Protocol PRN Reason: per Hypoglycemia Standing Ord. Levetiracetam (Levetiracetam Oral Soln 500 Mg/5 Ml) 500 mg PO BID WALKER Last Admin: 02/19/25 10:14 Dose: Not Given Documented By: EZE Non-Admin Reason: pt unable to swallow Loperamide HCl (Loperamide Hcl 2 Mg Capsule) 2 mg PO Q4H PRN PRN Reason: Diarrhea Last Admin: 02/08/25 18:51 Dose: 2 mg Documented By: EVELIO Magnesium Hydroxide (Milk Of Magnesia 30 Ml Oral.Susp) 30 ml PO DAILY PRN PRN Reason: Constipation Melatonin (Melatonin 3 Mg Tablet) 6 mg PO BEDTIME PRN PRN Reason: Insomnia Morphine Sulfate (Morphine Sulfate 2 Mg/Ml Cartridge) 2 mg IVPUSH Q2H PRN; Protocol PRN Reason: Pain, Severe (Pain Scale 7-10) Last Admin: 02/19/25 05:21 Dose: 2 mg Documented By: PAULINA Ondansetron HCl (Ondansetron Hcl 4 Mg/2 Ml Vial) 4 mg IVPUSH Q8H PRN PRN Reason: Nausea and Vomiting Sodium Chloride (0.9 % Sodium Chloride Flush 3 Ml Syringe) 3 ml IVFLUSH QSHIFT WALKER Last Admin: 02/19/25 08:00 Dose: 3 ml Documented By: EZE Labs 01/26/25 08:10 01/27/25 08:44 Assessment and Plan (1) Dementia: Status: Acute Plan Pt is a 74 yo male with a pmhx significant for seizure disorder, FTT, dementia, paroxysmal a fib and stage 1 COPD, who presented to the ED via EMS due to several seizures over the past few days and a significant decline since admission. 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 Continue comfort care. continue seizure meds. Morphine PRN for comfort Quality Stroke Does the patient have a stroke diagnosis?: No VTE Prior VTE?: No VTE Risk Level:: Medical - moderate - high VTE Device Contraindication: N/A - Device Ordered VTE Drug Contraindication: Treatment Not Indicated
[2025-02-19] MEDS: Acetaminophen 325 MG TABLET 975 MG PO (23:18)
[2025-02-20] MEDS: Morphine Sulfate 2 MG/ML CARTRIDGE IVPUSH ×4 (00:33→22:17)
[2025-02-20] MEDS: levETIRAcetam Oral Soln 500 MG/5 ML PO (08:02)
[2025-02-20] MEDS: 0.9 % Sodium Chloride Flush 3 ML SYRINGE IVFLUSH ×3 (08:02→23:12)
--- NOTE | 2025-02-20 11:56 | P.PNIM_ITS ---
Subjective Subjective Date of Service: 02/20/25 Interval History: Was more awake, no distress Review of Systems as above Physical Exam 2 Vital Signs: Vital Signs: Last Vital Signs Temp 97.2 F 02/12/25 23:26 Pulse 93 02/12/25 23:26 Resp 18 02/18/25 07:55 BP 124/62 02/12/25 23:26 Pulse Ox 94 02/12/25 23:26 O2 Del Method Room Air 02/18/25 07:55 BMI result Body Mass Index 20.1 resting, awake, comfortable Objective Data Active Medications Acetaminophen (Acetaminophen 325 Mg Tablet) 975 mg PO Q6H PRN PRN Reason: Pain, Mild 1-3,fever,headache Last Admin: 02/19/25 23:18 Dose: 975 mg Documented By: JEANINE Calcium Carbonate (Calcium Carbonate 750 Mg Tab.Chew) 750 mg PO Q4H PRN PRN Reason: Heartburn Dextrose (Dextrose 50 % 25 Gm/50 Ml Syringe) 25 gm IVPUSH Q15M PRN; Protocol PRN Reason: per Hypoglycemia Standing Ord. Last Admin: 01/27/25 20:20 Dose: 25 gm Documented By: STANLEY Diazepam (Diazepam 10 Mg/2 Ml Cartridge) 2.5 mg IVPUSH Q4H PRN PRN Reason: Seizures Glucose (Glucose Gel 15 Gm Gel..Gram.) 15 gm PO Q15M PRN; Protocol PRN Reason: per Hypoglycemia Standing Ord. Levetiracetam (Levetiracetam Oral Soln 500 Mg/5 Ml) 500 mg PO BID WALKER Last Admin: 02/20/25 08:02 Dose: 500 mg Documented By: PARUL Loperamide HCl (Loperamide Hcl 2 Mg Capsule) 2 mg PO Q4H PRN PRN Reason: Diarrhea Last Admin: 02/08/25 18:51 Dose: 2 mg Documented By: EVELIO Magnesium Hydroxide (Milk Of Magnesia 30 Ml Oral.Susp) 30 ml PO DAILY PRN PRN Reason: Constipation Melatonin (Melatonin 3 Mg Tablet) 6 mg PO BEDTIME PRN PRN Reason: Insomnia Morphine Sulfate (Morphine Sulfate 2 Mg/Ml Cartridge) 2 mg IVPUSH Q2H PRN; Protocol PRN Reason: Pain, Severe (Pain Scale 7-10) Last Admin: 02/20/25 05:53 Dose: 2 mg Documented By: JEANINE Ondansetron HCl (Ondansetron Hcl 4 Mg/2 Ml Vial) 4 mg IVPUSH Q8H PRN PRN Reason: Nausea and Vomiting Sodium Chloride (0.9 % Sodium Chloride Flush 3 Ml Syringe) 3 ml IVFLUSH QSHIFT WALKER Last Admin: 02/20/25 08:02 Dose: 3 ml Documented By: GRAZIC Labs 01/26/25 08:10 01/27/25 08:44 Assessment and Plan (1) Dementia: Status: Acute Plan Pt is a 74 yo male with a pmhx significant for seizure disorder, FTT, dementia, paroxysmal a fib and stage 1 COPD, who presented to the ED via EMS due to several seizures over the past few days and a significant decline since admission. 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 Continue comfort care. continue seizure meds. Morphine PRN for comfort Quality Stroke Does the patient have a stroke diagnosis?: No VTE Prior VTE?: No VTE Risk Level:: Medical - moderate - high VTE Device Contraindication: N/A - Device Ordered VTE Drug Contraindication: Treatment Not Indicated
[2025-02-21] MEDS: levETIRAcetam Oral Soln 500 MG/5 ML PO (07:57)
[2025-02-21] MEDS: Morphine Sulfate 2 MG/ML CARTRIDGE IVPUSH ×2 (07:58→13:05)
[2025-02-21] MEDS: 0.9 % Sodium Chloride Flush 3 ML SYRINGE IVFLUSH ×2 (08:06→16:14)
--- NOTE | 2025-02-21 09:14 | P.PNIM_ITS ---
Subjective Subjective Date of Service: 02/21/25 Interval History: Awake but not saying much, no distresss Review of Systems as above Physical Exam 2 Vital Signs: Vital Signs: Last Vital Signs Temp 97.2 F 02/12/25 23:26 Pulse 93 02/12/25 23:26 Resp 18 02/18/25 07:55 BP 124/62 02/12/25 23:26 Pulse Ox 94 02/12/25 23:26 O2 Del Method Room Air 02/18/25 07:55 BMI result Body Mass Index 20.1 resting, awake, comfortable Objective Data Active Medications Acetaminophen (Acetaminophen 325 Mg Tablet) 975 mg PO Q6H PRN PRN Reason: Pain, Mild 1-3,fever,headache Last Admin: 02/19/25 23:18 Dose: 975 mg Documented By: JEANINE Calcium Carbonate (Calcium Carbonate 750 Mg Tab.Chew) 750 mg PO Q4H PRN PRN Reason: Heartburn Dextrose (Dextrose 50 % 25 Gm/50 Ml Syringe) 25 gm IVPUSH Q15M PRN; Protocol PRN Reason: per Hypoglycemia Standing Ord. Last Admin: 01/27/25 20:20 Dose: 25 gm Documented By: STANLEY Diazepam (Diazepam 10 Mg/2 Ml Cartridge) 2.5 mg IVPUSH Q4H PRN PRN Reason: Seizures Glucose (Glucose Gel 15 Gm Gel..Gram.) 15 gm PO Q15M PRN; Protocol PRN Reason: per Hypoglycemia Standing Ord. Levetiracetam (Levetiracetam Oral Soln 500 Mg/5 Ml) 500 mg PO BID WALKER Last Admin: 02/21/25 07:57 Dose: 500 mg Documented By: AL Loperamide HCl (Loperamide Hcl 2 Mg Capsule) 2 mg PO Q4H PRN PRN Reason: Diarrhea Last Admin: 02/08/25 18:51 Dose: 2 mg Documented By: EVELIO Magnesium Hydroxide (Milk Of Magnesia 30 Ml Oral.Susp) 30 ml PO DAILY PRN PRN Reason: Constipation Melatonin (Melatonin 3 Mg Tablet) 6 mg PO BEDTIME PRN PRN Reason: Insomnia Morphine Sulfate (Morphine Sulfate 2 Mg/Ml Cartridge) 2 mg IVPUSH Q4H PRN; Protocol PRN Reason: Pain, Severe (Pain Scale 7-10) Last Admin: 02/21/25 07:58 Dose: 2 mg Documented By: AL Ondansetron HCl (Ondansetron Hcl 4 Mg/2 Ml Vial) 4 mg IVPUSH Q8H PRN PRN Reason: Nausea and Vomiting Sodium Chloride (0.9 % Sodium Chloride Flush 3 Ml Syringe) 3 ml IVFLUSH QSHIFT WALKER Last Admin: 02/21/25 08:06 Dose: 3 ml Documented By: AL Labs 01/26/25 08:10 01/27/25 08:44 Assessment and Plan (1) Dementia: Status: Acute Plan Pt is a 74 yo male with a pmhx significant for seizure disorder, FTT, dementia, paroxysmal a fib and stage 1 COPD, who presented to the ED via EMS due to several seizures over the past few days and a significant decline since admission. 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 Continue comfort care. continue seizure meds. Morphine PRN for comfort Quality Stroke Does the patient have a stroke diagnosis?: No VTE Prior VTE?: No VTE Risk Level:: Medical - moderate - high VTE Device Contraindication: N/A - Device Ordered VTE Drug Contraindication: Treatment Not Indicated
[2025-02-21 12:06] VITALS: RESP 12
[2025-02-22] MEDS: 0.9 % Sodium Chloride Flush 3 ML SYRINGE IVFLUSH ×3 (00:12→21:40)
--- NOTE | 2025-02-22 09:00 | HO.PM.IMPN ---
Subjective Subjective Date of Service: 02/22/25 Interval History: No new issues, appear comfortable Review of Systems as above Physical Exam Vital Signs: Vital Signs: Last Vital Signs Temp 97.2 F 02/12/25 23:26 Pulse 93 02/12/25 23:26 Resp 12 02/21/25 12:06 BP 124/62 02/12/25 23:26 Pulse Ox 94 02/12/25 23:26 O2 Del Method Room Air 02/21/25 12:06 BMI result Body Mass Index 20.1 Objective Data Active Medications Acetaminophen (Acetaminophen 325 Mg Tablet) 975 mg PO Q6H PRN PRN Reason: Pain, Mild 1-3,fever,headache Last Admin: 02/19/25 23:18 Dose: 975 mg Documented By: JEANINE Calcium Carbonate (Calcium Carbonate 750 Mg Tab.Chew) 750 mg PO Q4H PRN PRN Reason: Heartburn Dextrose (Dextrose 50 % 25 Gm/50 Ml Syringe) 25 gm IVPUSH Q15M PRN; Protocol PRN Reason: per Hypoglycemia Standing Ord. Last Admin: 01/27/25 20:20 Dose: 25 gm Documented By: STANLEY Diazepam (Diazepam 10 Mg/2 Ml Cartridge) 2.5 mg IVPUSH Q4H PRN PRN Reason: Seizures Glucose (Glucose Gel 15 Gm Gel..Gram.) 15 gm PO Q15M PRN; Protocol PRN Reason: per Hypoglycemia Standing Ord. Levetiracetam (Levetiracetam Oral Soln 500 Mg/5 Ml) 500 mg PO BID WALKER Last Admin: 02/21/25 21:09 Dose: Not Given Documented By: SOUTH Non-Admin Reason: Patient Refused Loperamide HCl (Loperamide Hcl 2 Mg Capsule) 2 mg PO Q4H PRN PRN Reason: Diarrhea Last Admin: 02/08/25 18:51 Dose: 2 mg Documented By: EVELIO Magnesium Hydroxide (Milk Of Magnesia 30 Ml Oral.Susp) 30 ml PO DAILY PRN PRN Reason: Constipation Melatonin (Melatonin 3 Mg Tablet) 6 mg PO BEDTIME PRN PRN Reason: Insomnia Morphine Sulfate (Morphine Sulfate 2 Mg/Ml Cartridge) 2 mg IVPUSH Q4H PRN; Protocol PRN Reason: Pain, Severe (Pain Scale 7-10) Last Admin: 02/21/25 13:05 Dose: 2 mg Documented By: AL Ondansetron HCl (Ondansetron Hcl 4 Mg/2 Ml Vial) 4 mg IVPUSH Q8H PRN PRN Reason: Nausea and Vomiting Sodium Chloride (0.9 % Sodium Chloride Flush 3 Ml Syringe) 3 ml IVFLUSH QSHIFT [facility] Last Admin: 02/22/25 00:12 Dose: 3 ml Documented By: SOUTH Labs 01/26/25 08:10 01/27/25 08:44 Assessment and Plan (1) Dementia: Status: Acute Plan Pt is a 74 yo male with a pmhx significant for seizure disorder, FTT, dementia, paroxysmal a fib and stage 1 COPD, who presented to the ED via EMS due to several seizures over the past few days and a significant decline since admission. 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 Continue comfort care. continue seizure meds. Morphine PRN for comfort Quality Stroke Does the patient have a stroke diagnosis?: No VTE Prior VTE?: No VTE Risk Level:: Medical - moderate - high VTE Device Contraindication: N/A - Device Ordered VTE Drug Contraindication: Treatment Not Indicated
--- NOTE | 2025-02-22 13:01 | MHC.CM.PN ---
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 SHE SAYS PTS SON HAS ALL OF HIS FINANCIAL INFORMATION AND DOCUMENTS, BUT DOES NOT THINK HE WOULD GIVE THEM TO HER. SHE IS AWARE CM WILL FOLLOW UP WITH HER ONCE PLAN IS KNOWN
[2025-02-22] MEDS: levETIRAcetam in NaCl (iso-os) 500 MG/100 ML PIGGYBACK 400 MG IV ×2 (16:04→21:35)
[2025-02-23] MEDS: Morphine Sulfate 2 MG/ML CARTRIDGE IVPUSH ×3 (01:30→13:56)
[2025-02-23] MEDS: levETIRAcetam in NaCl (iso-os) 500 MG/100 ML PIGGYBACK 400 MG IV ×2 (07:24→21:04)
[2025-02-23] MEDS: 0.9 % Sodium Chloride Flush 3 ML SYRINGE IVFLUSH ×3 (07:24→21:05)
--- NOTE | 2025-02-23 09:53 | HO.PM.IMPN ---
Subjective Subjective Date of Service: 02/23/25 Interval History: No new issues, appear comfortable Review of Systems as above Physical Exam Vital Signs: Vital Signs: Last Vital Signs Temp 97.2 F 02/12/25 23:26 Pulse 93 02/12/25 23:26 Resp 12 02/21/25 12:06 BP 124/62 02/12/25 23:26 Pulse Ox 94 02/12/25 23:26 O2 Del Method Room Air 02/21/25 12:06 BMI result Body Mass Index 20.1 Const: Other: awake, confusion, comfortable Objective Data Active Medications Acetaminophen (Acetaminophen 325 Mg Tablet) 975 mg PO Q6H PRN PRN Reason: Pain, Mild 1-3,fever,headache Last Admin: 02/19/25 23:18 Dose: 975 mg Documented By: JEANINE Calcium Carbonate (Calcium Carbonate 750 Mg Tab.Chew) 750 mg PO Q4H PRN PRN Reason: Heartburn Dextrose (Dextrose 50 % 25 Gm/50 Ml Syringe) 25 gm IVPUSH Q15M PRN; Protocol PRN Reason: per Hypoglycemia Standing Ord. Last Admin: 01/27/25 20:20 Dose: 25 gm Documented By: STANLEY Diazepam (Diazepam 10 Mg/2 Ml Cartridge) 2.5 mg IVPUSH Q4H PRN PRN Reason: Seizures Glucose (Glucose Gel 15 Gm Gel..Gram.) 15 gm PO Q15M PRN; Protocol PRN Reason: per Hypoglycemia Standing Ord. Levetiracetam (Keppra) 500 mg in 100 mls @ 400 mls/hr IV BID WALKER Last Infusion: 02/23/25 07:41 Dose: Infused Documented By: VALENTÍN Loperamide HCl (Loperamide Hcl 2 Mg Capsule) 2 mg PO Q4H PRN PRN Reason: Diarrhea Last Admin: 02/08/25 18:51 Dose: 2 mg Documented By: EVELIO Magnesium Hydroxide (Milk Of Magnesia 30 Ml Oral.Susp) 30 ml PO DAILY PRN PRN Reason: Constipation Melatonin (Melatonin 3 Mg Tablet) 6 mg PO BEDTIME PRN PRN Reason: Insomnia Morphine Sulfate (Morphine Sulfate 2 Mg/Ml Cartridge) 2 mg IVPUSH Q4H PRN; Protocol PRN Reason: Pain, Severe (Pain Scale 7-10) Last Admin: 02/23/25 08:35 Dose: 2 mg Documented By: VALENTÍN Ondansetron HCl (Ondansetron Hcl 4 Mg/2 Ml Vial) 4 mg IVPUSH Q8H PRN PRN Reason: Nausea and Vomiting Sodium Chloride (0.9 % Sodium Chloride Flush 3 Ml Syringe) 3 ml IVFLUSH QSHIFT [facility] Last Admin: 02/23/25 07:24 Dose: 3 ml Documented By: VALENTÍN Labs 01/26/25 08:10 01/27/25 08:44 Assessment and Plan (1) Dementia: Status: Acute Plan Pt is a 74 yo male with a pmhx significant for seizure disorder, FTT, dementia, paroxysmal a fib and stage 1 COPD, who presented to the ED via EMS due to several seizures over the past few days and a significant decline since admission. 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 Continue comfort care. continue seizure meds. Morphine PRN for comfort Quality Stroke Does the patient have a stroke diagnosis?: No VTE Prior VTE?: No VTE Risk Level:: Medical - moderate - high VTE Device Contraindication: N/A - Device Ordered VTE Drug Contraindication: Treatment Not Indicated
[2025-02-24] MEDS: Morphine Sulfate 2 MG/ML CARTRIDGE IVPUSH ×2 (03:25→08:18)
[2025-02-24] MEDS: 0.9 % Sodium Chloride Flush 3 ML SYRINGE IVFLUSH ×3 (07:54→20:12)
[2025-02-24] MEDS: levETIRAcetam in NaCl (iso-os) 500 MG/100 ML PIGGYBACK 400 MG IV ×2 (07:54→20:12)
--- NOTE | 2025-02-24 08:44 | P.PNIM_ITS ---
Subjective Subjective Date of Service: 02/24/25 Interval History: Stable, withouth distress Review of Systems as above Physical Exam 2 Vital Signs: Vital Signs: Last Vital Signs Temp 97.2 F 02/12/25 23:26 Pulse 93 02/12/25 23:26 Resp 12 02/21/25 12:06 BP 124/62 02/12/25 23:26 Pulse Ox 94 02/12/25 23:26 O2 Del Method Room Air 02/21/25 12:06 BMI result Body Mass Index 20.1 Const: Other: awake, confusion, comfortable Objective Data Active Medications Acetaminophen (Acetaminophen 325 Mg Tablet) 975 mg PO Q6H PRN PRN Reason: Pain, Mild 1-3,fever,headache Last Admin: 02/19/25 23:18 Dose: 975 mg Documented By: JEANINE Calcium Carbonate (Calcium Carbonate 750 Mg Tab.Chew) 750 mg PO Q4H PRN PRN Reason: Heartburn Dextrose (Dextrose 50 % 25 Gm/50 Ml Syringe) 25 gm IVPUSH Q15M PRN; Protocol PRN Reason: per Hypoglycemia Standing Ord. Last Admin: 01/27/25 20:20 Dose: 25 gm Documented By: STANLEY Diazepam (Diazepam 10 Mg/2 Ml Cartridge) 2.5 mg IVPUSH Q4H PRN PRN Reason: Seizures Glucose (Glucose Gel 15 Gm Gel..Gram.) 15 gm PO Q15M PRN; Protocol PRN Reason: per Hypoglycemia Standing Ord. Levetiracetam (Keppra) 500 mg in 100 mls @ 400 mls/hr IV BID WALKER Last Infusion: 02/24/25 08:30 Dose: Infused Documented By: VALENTÍN Loperamide HCl (Loperamide Hcl 2 Mg Capsule) 2 mg PO Q4H PRN PRN Reason: Diarrhea Last Admin: 02/08/25 18:51 Dose: 2 mg Documented By: EVELIO Magnesium Hydroxide (Milk Of Magnesia 30 Ml Oral.Susp) 30 ml PO DAILY PRN PRN Reason: Constipation Melatonin (Melatonin 3 Mg Tablet) 6 mg PO BEDTIME PRN PRN Reason: Insomnia Morphine Sulfate (Morphine Sulfate 2 Mg/Ml Cartridge) 2 mg IVPUSH Q4H PRN; Protocol PRN Reason: Pain, Severe (Pain Scale 7-10) Last Admin: 02/24/25 08:18 Dose: 2 mg Documented By: VALENTÍN Ondansetron HCl (Ondansetron Hcl 4 Mg/2 Ml Vial) 4 mg IVPUSH Q8H PRN PRN Reason: Nausea and Vomiting Sodium Chloride (0.9 % Sodium Chloride Flush 3 Ml Syringe) 3 ml IVFLUSH QSHIFT [facility] Last Admin: 02/24/25 07:54 Dose: 3 ml Documented By: VALENTÍN Labs 01/26/25 08:10 01/27/25 08:44 Assessment and Plan (1) Dementia: Status: Acute Plan Pt is a 74 yo male with a pmhx significant for seizure disorder, FTT, dementia, paroxysmal a fib and stage 1 COPD, who presented to the ED via EMS due to several seizures over the past few days and a significant decline since admission. 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 Continue comfort care. continue seizure meds. Morphine PRN for comfort Quality Stroke Does the patient have a stroke diagnosis?: No VTE Prior VTE?: No VTE Risk Level:: Medical - moderate - high VTE Device Contraindication: N/A - Device Ordered VTE Drug Contraindication: Treatment Not Indicated
[2025-02-25] MEDS: 0.9 % Sodium Chloride Flush 3 ML SYRINGE IVFLUSH ×3 (08:00→20:57)
[2025-02-25] MEDS: levETIRAcetam in NaCl (iso-os) 500 MG/100 ML PIGGYBACK 400 MG IV ×2 (08:00→20:56)
--- NOTE | 2025-02-25 08:24 | P.PNIM_ITS ---
Subjective Subjective Date of Service: 02/25/25 Interval History: No distress Review of Systems as above Physical Exam 2 Vital Signs: Vital Signs: Last Vital Signs Temp 97.2 F 02/12/25 23:26 Pulse 93 02/12/25 23:26 Resp 12 02/21/25 12:06 BP 124/62 02/12/25 23:26 Pulse Ox 94 02/12/25 23:26 O2 Del Method Room Air 02/21/25 12:06 BMI result Body Mass Index 20.1 Objective Data Active Medications Acetaminophen (Acetaminophen 325 Mg Tablet) 975 mg PO Q6H PRN PRN Reason: Pain, Mild 1-3,fever,headache Last Admin: 02/19/25 23:18 Dose: 975 mg Documented By: JEANINE Calcium Carbonate (Calcium Carbonate 750 Mg Tab.Chew) 750 mg PO Q4H PRN PRN Reason: Heartburn Dextrose (Dextrose 50 % 25 Gm/50 Ml Syringe) 25 gm IVPUSH Q15M PRN; Protocol PRN Reason: per Hypoglycemia Standing Ord. Last Admin: 01/27/25 20:20 Dose: 25 gm Documented By: STANLEY Diazepam (Diazepam 10 Mg/2 Ml Cartridge) 2.5 mg IVPUSH Q4H PRN PRN Reason: Seizures Glucose (Glucose Gel 15 Gm Gel..Gram.) 15 gm PO Q15M PRN; Protocol PRN Reason: per Hypoglycemia Standing Ord. Levetiracetam (Keppra) 500 mg in 100 mls @ 400 mls/hr IV BID WALKER Last Infusion: 02/25/25 08:17 Dose: Infused Documented By: LUZ Loperamide HCl (Loperamide Hcl 2 Mg Capsule) 2 mg PO Q4H PRN PRN Reason: Diarrhea Last Admin: 02/08/25 18:51 Dose: 2 mg Documented By: EVELIO Magnesium Hydroxide (Milk Of Magnesia 30 Ml Oral.Susp) 30 ml PO DAILY PRN PRN Reason: Constipation Melatonin (Melatonin 3 Mg Tablet) 6 mg PO BEDTIME PRN PRN Reason: Insomnia Morphine Sulfate (Morphine Sulfate 2 Mg/Ml Cartridge) 2 mg IVPUSH Q4H PRN; Protocol PRN Reason: Pain, Severe (Pain Scale 7-10) Last Admin: 02/24/25 08:18 Dose: 2 mg Documented By: HO.COUGHLM Ondansetron HCl (Ondansetron Hcl 4 Mg/2 Ml Vial) 4 mg IVPUSH Q8H PRN PRN Reason: Nausea and Vomiting Sodium Chloride (0.9 % Sodium Chloride Flush 3 Ml Syringe) 3 ml IVFLUSH QSHIFT WALKER Last Admin: 02/25/25 08:00 Dose: 3 ml Documented By: LUZ Labs 01/26/25 08:10 01/27/25 08:44 Assessment and Plan (1) Dementia: Status: Acute Plan Pt is a 74 yo male with a pmhx significant for seizure disorder, FTT, dementia, paroxysmal a fib and stage 1 COPD, who presented to the ED via EMS due to several seizures over the past few days and a significant decline since admission. 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 Continue comfort care. continue seizure meds. Morphine PRN for comfort Quality Stroke Does the patient have a stroke diagnosis?: No VTE Prior VTE?: No VTE Risk Level:: Medical - moderate - high VTE Device Contraindication: N/A - Device Ordered VTE Drug Contraindication: Treatment Not Indicated
--- NOTE | 2025-02-25 10:36 | MHC.CLN ---
F/U DIET CHANGED TO FEED FROM FLOOR STOCK. PATIENT CONTINUES COMFORT MEASURES ONLY. SKIN WITH REDNESS TO COCCYX AND BILATERAL HEELS. CONTINUE TO PROVIDE FOOD/BEVERAGES ACCEPTED. RD AVAILABLE NEEDED.
--- NOTE | 2025-02-26 07:18 | P.PNIM_ITS ---
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 Review of Systems no new c/o Review of Systems: Yes all other systems are reviewed and are negative Physical Exam 2 Vital Signs: Vital Signs: Last Vital Signs Temp 97.2 F 02/12/25 23:26 Pulse 93 02/12/25 23:26 Resp 12 02/21/25 12:06 BP 124/62 02/12/25 23:26 Pulse Ox 94 02/12/25 23:26 O2 Del Method Room Air 02/21/25 12:06 BMI result Body Mass Index 20.1 comfortable Objective Data Active Medications Acetaminophen (Acetaminophen 325 Mg Tablet) 975 mg PO Q6H PRN PRN Reason: Pain, Mild 1-3,fever,headache Last Admin: 02/19/25 23:18 Dose: 975 mg Documented By: JEANINE Calcium Carbonate (Calcium Carbonate 750 Mg Tab.Chew) 750 mg PO Q4H PRN PRN Reason: Heartburn Dextrose (Dextrose 50 % 25 Gm/50 Ml Syringe) 25 gm IVPUSH Q15M PRN; Protocol PRN Reason: per Hypoglycemia Standing Ord. Last Admin: 01/27/25 20:20 Dose: 25 gm Documented By: STANLEY Diazepam (Diazepam 10 Mg/2 Ml Cartridge) 2.5 mg IVPUSH Q4H PRN PRN Reason: Seizures Glucose (Glucose Gel 15 Gm Gel..Gram.) 15 gm PO Q15M PRN; Protocol PRN Reason: per Hypoglycemia Standing Ord. Levetiracetam (Keppra) 500 mg in 100 mls @ 400 mls/hr IV BID WALKER Last Infusion: 02/25/25 21:11 Dose: Infused Documented By: ANTOINETTE Loperamide HCl (Loperamide Hcl 2 Mg Capsule) 2 mg PO Q4H PRN PRN Reason: Diarrhea Last Admin: 02/08/25 18:51 Dose: 2 mg Documented By: EVELIO Magnesium Hydroxide (Milk Of Magnesia 30 Ml Oral.Susp) 30 ml PO DAILY PRN PRN Reason: Constipation Melatonin (Melatonin 3 Mg Tablet) 6 mg PO BEDTIME PRN PRN Reason: Insomnia Ondansetron HCl (Ondansetron Hcl 4 Mg/2 Ml Vial) 4 mg IVPUSH Q8H PRN PRN Reason: Nausea and Vomiting Sodium Chloride (0.9 % Sodium Chloride Flush 3 Ml Syringe) 3 ml IVFLUSH QSHIFT WALKER Last Admin: 02/25/25 20:57 Dose: 3 ml Documented By: ANTOINETTE Labs 01/26/25 08:10 01/27/25 08:44 Assessment and Plan (1) Dementia: Status: Acute Plan Pt is a 74 yo male with a pmhx significant for seizure disorder, FTT, dementia, paroxysmal a fib and stage 1 COPD, who presented to the ED via EMS due to several seizures over the past few days and a significant decline since admission. 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 Continue comfort care. continue seizure meds. Morphine PRN for comfort Quality Stroke Does the patient have a stroke diagnosis?: No VTE Prior VTE?: No VTE Risk Level:: Medical - moderate - high VTE Device Contraindication: N/A - Device Ordered VTE Drug Contraindication: Treatment Not Indicated
[2025-02-26] MEDS: 0.9 % Sodium Chloride Flush 3 ML SYRINGE IVFLUSH ×3 (07:55→21:21)
[2025-02-26] MEDS: levETIRAcetam in NaCl (iso-os) 500 MG/100 ML PIGGYBACK 400 MG IV ×2 (07:56→21:20)
--- NOTE | 2025-02-26 14:32 | MHC.CM.PN ---
working on conservatorship[ and guardianship pt will require placemendt
[2025-02-27] MEDS: Scopolamine 1.5 MG PATCH.TD.3 EAR-BEHIND (08:36)
[2025-02-27] MEDS: levETIRAcetam in NaCl (iso-os) 500 MG/100 ML PIGGYBACK 400 MG IV (08:37)
[2025-02-27] MEDS: 0.9 % Sodium Chloride Flush 3 ML SYRINGE IVFLUSH (08:37)
--- NOTE | 2025-02-27 09:14 | PC.NURSE ---
Pt is transitioning into active stages of end of life as evidenced unresponsiveness, rapid and shallow respirations, and audible tracheal secretions. Provider notified and ordered scopalamine patch for secretions.
--- NOTE | 2025-02-27 13:11 | P.DN_ITS ---
Discharge Sum: Prov Provider Primary care physician: Unknown Physician Consults: 01/22/25 21:46 Consult to Neurology Routine Consulting Provider: [facility] Reason for consultation: multiple seizures past few days 01/23/25 07:55 Consult to Wound Care Routine Reason for consultation: PI coccyx 01/23/25 15:20 Consult to Gastroenterology Routine Consulting Provider: Og Ledbetter Reason for consultation: pancolitis Has provider been notified: No 01/24/25 05:51 Consult to Urology Routine Consulting Provider: [facility] Reason for consultation: hematuria Pronouncing clinician: Mere Forrest Discharge Sum: Diag Contributing Factors (1) Dementia: Discharge Sum: Summary Date and Time Date of admission: 01/22/25 21:28 Date of : 02/27/25 Time of : 12:30 Summary Details: Hospital course: 74-year-old male with multiple comorbidities including seizure disorder, frail type, dementia, PAF, COPD-was initially admitted for decreased p.o. intake, UTI secondary to sepsis, seizures/ams, FTT, WILBUR, protein calorie malnutrition: Hospital course patient was given iv antibiotics for uti, also pancolitis treated conservatively ,seizures medications,hydration but patient was continued to decline-subsequently hospitalist service discussed with patient son and decided for REGIONAL PSYCHIATRIC DIRECTOR( Son states patient would not want feeding tube or any other invasive procedures. he agrees that father should be made comfortable.).Patient comfortably 02/27/2025 @12:30 pm. Patient s sister is at bedside informed, she also informed patient's son. Additional Data Confirmation of as documented by pronouncing clinician: no pulse, no respirations, no heart sounds and pupils fixed and dilated Family: at bedside Attending physician: Mere Forrest MD Was code activated?: No
== END 2025-02-27 14:48 | disposition expired | DRG 872 ==
LOC: HO.ED 21:32 → HO.EDOVER 21:53 → HO.IMC 23:50 → HO.S3 01-23 14:22
PROVIDERS: Family Medicine; Hospitalist; Internal Medicine; Internal Medicine Gastroenterology; Physician Assistant; Admitting Provider Physician Assistant; Emergency Provider Emergency Medicine; Visit Provider Internal Medicine
DX: A41.9 Sepsis, unspecified organism (principal); T76.01XA Adult neglect or abandonment, suspected, initial encounter; E44.0 Moderate protein-calorie malnutrition; N39.0 Urinary tract infection, site not specified; E87.0 Hyperosmolality and hypernatremia; F02.B18 Dementia in other diseases classified elsewhere, moderate, with other behavioral disturbance; T83.83XA Hemorrhage due to genitourinary prosthetic devices, implants and grafts, initial encounter; N17.9 Acute kidney failure, unspecified; G40.909 Epilepsy, unspecified, not intractable, without status epilepticus; Z20.822 Contact with and (suspected) exposure to COVID-19; Z66 Do not resuscitate; R62.7 Adult failure to thrive; Z68.20 Body mass index [BMI] 20.0-20.9, adult; I48.0 Paroxysmal atrial fibrillation; K52.9 Noninfective gastroenteritis and colitis, unspecified; B95.2 Enterococcus as the cause of diseases classified elsewhere; G30.9 Alzheimer's disease, unspecified; T42.6X6A Underdosing of other antiepileptic and sedative-hypnotic drugs, initial encounter; Z51.5 Encounter for palliative care; J44.9 Chronic obstructive pulmonary disease, unspecified; E53.8 Deficiency of other specified B group vitamins; E16.2 Hypoglycemia, unspecified; E88.09 Other disorders of plasma-protein metabolism, not elsewhere classified; E86.0 Dehydration; E87.5 Hyperkalemia; D69.59 Other secondary thrombocytopenia; R31.0 Gross hematuria; Z74.01 Bed confinement status; Z87.440 Personal history of urinary (tract) infections; Z79.899 Other long term (current) drug therapy
CPT/HCPCS: 0241U; 36415; 70450; 71045; 74177; 80048; 80051; 80053; 80076; 80177; 80307; 81001; 81003; 82140; 82272; 82550; 82607; 82728; 82746; 82803; 82947; 83540; 83605; 83615; 83735; 84207; 84425; 84439; 84443; 84484; 85007; 85025; 85027; 85045; 86704; 86706; 86709; 86780; 86803; 87040; 87086; 87088; 87186; 87340; 87493; 87507; 89055; 92526; 92610; 93005; 93970; 93971; 95816; 99285; J0295; J0696; J1200; J1808; J1836; J1953; J2270; J3360; J3411; J3480; J7120; P9047; Q9957; Q9967

== ENCOUNTER → 2025-01-22 17:53 | Outpatient (BNV) | payer SELFPAY | PROVIDERS: Admitting Provider Physician Assistant; Emergency Provider Emergency Medicine; Visit Provider Internal Medicine | DX: I48.91 Unspecified atrial fibrillation (principal) | CPT/HCPCS: 93010 ==

== ENCOUNTER → 2025-01-22 20:44 | Outpatient (BNV) | payer SELFPAY | PROVIDERS: Admitting Provider Physician Assistant; Emergency Provider Emergency Medicine; Visit Provider Radiology Diagnostic Radiology | DX: D72.829 Elevated white blood cell count, unspecified (principal) | CPT/HCPCS: 71045 ==

== ENCOUNTER 2025-01-22 21:28 | Outpatient (BNV) | payer SELFPAY | END 2025-01-23 05:06 | PROVIDERS: Admitting Provider Physician Assistant; Emergency Provider Emergency Medicine; Visit Provider Radiology Diagnostic Radiology | DX: K52.9 Noninfective gastroenteritis and colitis, unspecified (principal); K76.89 Other specified diseases of liver; R56.9 Unspecified convulsions; R60.0 Localized edema | CPT/HCPCS: 70450; 74177; 93970; 93971 ==

== ENCOUNTER → 2025-01-22 21:28 | Outpatient (BNV) | payer SELFPAY | PROVIDERS: Admitting Provider Physician Assistant; Emergency Provider Emergency Medicine; Visit Provider Psychiatry & Neurology Neurology | DX: R56.9 Unspecified convulsions (principal); F03.90 Unspecified dementia, unspecified severity, without behavioral disturbance, psychotic disturbance, mood disturbance, and anxiety | CPT/HCPCS: 99222 ==

== ENCOUNTER → 2025-01-22 21:28 | Outpatient (BNV) | payer SELFPAY | PROVIDERS: Admitting Provider Physician Assistant; Emergency Provider Emergency Medicine; Visit Provider Hospitalist | DX: N39.0 Urinary tract infection, site not specified (principal); F03.90 Unspecified dementia, unspecified severity, without behavioral disturbance, psychotic disturbance, mood disturbance, and anxiety | CPT/HCPCS: 99223; 99232; 99233; 99497; 99499 ==

== ENCOUNTER → 2025-01-22 21:28 | Outpatient (BNV) | payer SELFPAY | PROVIDERS: Admitting Provider Physician Assistant; Emergency Provider Emergency Medicine; Visit Provider Urology | DX: D69.6 Thrombocytopenia, unspecified (principal); R31.0 Gross hematuria | CPT/HCPCS: 99222 ==